=== PATIENT | female | born 1940 | race Caucasian/White ===

== ENCOUNTER 2018-12-06 12:30 | Emergency (ER) | payer MEDICARE, SELFPAY ==
[2018-12-06 12:31] VITALS: BP 158/88; PULSE 61; PULSE 63; RESP 17; TEMP 36.2; O2SAT 91; O2SAT 92; BMI 26.6
--- NOTE | 2018-12-06 12:48 | EKG12_ITS ---
Test Reason : DIZZY Blood Pressure : / mmHG Vent. 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
--- NOTE | 2018-12-06 12:48 | CT_ITS ---
STUDY: CT BRAIN WITHOUT CONTRAST REASON FOR EXAM: Female, 78 years old. Dizziness. RADIATION DOSAGE (If Supplied By Facility): CTDIvol = ( 60.81 ) mGy, DLP = ( 998.67 ) mGycm TECHNIQUE: Transaxial CT imaging of the brain was performed without administration of intravenous contrast material. Individualized dose optimization techniques were used for this CT. COMPARISON: No relevant priors. FINDINGS: Normal soft tissue structures. Normal calvarium. There is mild cerebral atrophy with widening of the extra-axial spaces and ventricular dilatation. Normal white matter tracts of the cerebral hemispheres. Normal basal ganglia and thalami. Normal brainstem. Normal cerebellum. There is no intracranial hemorrhage. There are no findings of an acute ischemic infarction. Atherosclerotic plaque formation of the cavernous portions of the internal carotid arteries bilaterally. Normal visualized paranasal sinuses. CT/Brain/Head without Contrast IMPRESSION: Chronic involutional changes of the brain. Electronically Signed: Petey Jimenez, at 14:20 EDT , Service support ,
[2018-12-06 12:59] VITALS: O2SAT 88
[2018-12-06 13:08] VITALS: O2SAT 96
[2018-12-06] MEDS: Ondansetron 4 MG/2 ML Vial IV (13:17)
[2018-12-06] MEDS: 0.9% Normal Saline 1,000 ML 1000 ML IV (13:17)
[2018-12-06 13:28] LABS: Anion Gap 3 (5-15); BUN 19 mg/dL (7-18); BUN/Creat Ratio 29.2 RATIO (10-20); Calcium,Total 9.2 mg/dL (8.5-10.1); Chloride 107 mmol/L (98-107); Creatinine, Serum 0.65 mg/dL (0.55-1.02); EST Glomerular Filtration Rate 94 mL/min (>60); Est Glom Filt Rate - Afr Amer 114 mL/min (>60); Estimated Creatinine Clearance 41.33 ml/min; Glucose 107 mg/dL (74-106); Potassium 3.7 mmol/L (3.5-5.1); Sodium Level 142 mmol/L (136-145)
[2018-12-06 13:40] LABS: Absolute Lymphocyte Count 1.16 X10^3/ul (0.83-4.51); Absolute Neutrophil Count 4.3 X10^3/uL (2.0-7.7); Basophil# 0.04 X10^3/uL; Basophil% 0.7 % (0-1); Eosinophil# 0.08 X10^3/uL; Eosinophils% 1.3 % (0-5); Hematocrit 41.7 % (37-47); Hemoglobin 13.5 g/dl (12.0-15.0); Lymphocyte # 1.16 X10^3/ul (4.0); Lymphocyte % 19.1 % (19-41); Mean Corp Hgb Conc 32.4 g/gl (32-36); Mean Corpuscular Hgb 28.8 pg (27.0-32.0); Mean Corpuscular Volume 88.9 fL (81-99); Mean Platelet Vol. 9.9 fl (6.2-12.0); Monocyte# 0.49 X10^3/uL; Monocyte% 8.1 % (0-10); Neutrophil # 4.28 X10^3/uL (2.7-7.7); Neutrophil % 70.5 % (47-70); Platelet Count 177 K/mm3 (150-450); RBC Distribution Width CV 12.6 % (11.6-14.6); RBC Distribution Width SD 40.2 fl (35.1-43.9); Red Blood Count 4.69 M/mm3 (4.2-5.4); White Blood Count 6.1 K/mm3 (4.4-11.0)
[2018-12-06 13:42] LABS: POSITIVE COUNT NO; POSITIVE DIFFERENTIAL NO; POSITIVE MORPHOLOGY NO
[2018-12-06 14:04] VITALS: BP 149/67; BP 162/83; BP 168/93; PULSE 51; PULSE 54; PULSE 58
--- NOTE | 2018-12-06 14:22 | ED.VISSUMM ---
- ER Visit Summary Date of Service: 12/06/18 Chief Complaint: [Dizziness] History of Present Illness: The patient is a 78 F [presents to the ER with complaint of dizziness that started around 11:30 AM today. Patient states that she was working on a crossword puzzle when she became acutely dizzy with room spinning. Patient subsequently developed nausea and vomited x2. Patient denied any headache. She denies any chest pain or shortness of breath. She denies any palpitations. She did not feel syncopal. Patient states that she is had prior episodes of dizziness but never this severe and usually were very short-lived. She has never been diagnosed with vertigo. She denies any weakness in extremities or difficulty with speech or vision.] Physical Examination: [HEENT-PERRLA, EOMI. Cranial nerves II through XII grossly intact. TMs clear. Mucous membranes moist. No adenopathy. Cardiovascular-regular rate and rhythm without murmur or ectopy Lungs-clear to auscultation, chest wall stable without crepitus or subcu emphysema Abdomen-normoactive bowel sounds, soft, nontender, no rebound or rigidity, no peritoneal signs. Neuro [id number] and heel eddy testing within normal limits, negative Romberg, negative pronator, fundi benign. Hallpike maneuver performed did not elicit any nystagmus. Extremities-intact ?4, normal range of motion, normal pulses, atraumatic] Test Results: [CBC with differential obtained showed a white count 6.1, hemoglobin 13, hematocrit 42, platelets 177. Chemistries unremarkable. Troponin is less than 0.015. EKG obtained showed a sinus rhythm with a ventricular rate of 51 bpm with a right bundle branch block and nonspecific ST changes. Orthostatic vital signs were negative. CT scan of the brain was unremarkable. Urinalysis was normal.] Emergency Department Course and Treatment: [Patient was medicated with normal saline and given Zofran. Patient's symptoms completely resolved. On repeat exam patient is asking to go home she feels back to her normal self.] Treatment Plan: [To follow-up with her primary care physician in 3 to 5 days.] Disposition: [Discharged home in stable condition. Patient advised to return if persistent dizziness, fever, focal weakness, or condition should worsen anyway.] Impression: [BPV] This note was generated with [employer] dictation software. It may contain incorrect words, spelling, and punctuation that were not noted in review of the chart prior to signing ED Disposition - Plan for ED Patient: Referrals: Paco Roque III, MD [Primary Care Provider] -
[2018-12-06 14:23] VITALS: BP 163/83; PULSE 76; RESP 18; O2SAT 97
[2018-12-06 14:23] LABS: Bacteria 0 SEEN /hpf (None Seen); Mucous, Urine 0 SEEN /hpf (<or=2+); Red Blood Cells-Urine 0 SEEN /hpf (0-5)
[2018-12-06 14:46] LABS: Color, Urine Yellow (Yellow); Glucose, Dipstick Normal (Normal); Ketone-Dipstick Negative (Negative); Leukocyte Esterase-Dipstick 25 /ul (Negative); Nitrite-Dipstick Negative (Negative); Occult Blood-Urine Negative /ul (Negative); Protein-Dipstick Negative (Negative); Specific Gravity, Urine 1.015 (1.002-1.030); Urine Bilirubin Dipstick Negative (Negative); Urine Clarity Sl. Cloudy (Clear); Urine Urobilinogen Normal (Normal)
[2018-12-06 14:54] LABS: Amorphous Sediment 2+; Squamous Epithelial Cells - UA 0-5 SEEN /hpf (5-10); White Blood Cells 0-5 SEEN /hpf (0-5)
--- NOTE | 2018-12-06 15:06 | ED.DEP ---
ED Disposition - Plan for ED Patient: Instructions: ED BPV Vertigo Referrals: Paco Roque III, MD [Primary Care Provider] - 3-5 Days
[2018-12-06 15:29] VITALS: BP 163/83; PULSE 76; RESP 18; O2SAT 99
--- NOTE | 2018-12-06 15:29 | NURSING ---
1400-pt up to br with sba and reports that dizziness much improved now.
== END 2018-12-06 15:31 | disposition home or self-care (01) ==
LOC: ED 13:24
PROVIDERS: Emergency Provider Emergency Medicine; Family Provider Family Medicine; PCP Family Medicine
DX: H81.10 Benign paroxysmal vertigo, unspecified ear (principal); I45.10 Unspecified right bundle-branch block; E78.00 Pure hypercholesterolemia, unspecified
CPT/HCPCS: 70450; 80048; 81001; 84484; 85025; 93005; 96361; 96374; 99285; J7030; J2405

== ENCOUNTER → 2019-07-03 06:15 | Outpatient (CLI) | payer MEDICARE, SELFPAY ==
--- NOTE | 2019-07-03 13:51 | STRESSREP_ITS ---
Stress Test Report Exercise myocardial perfusion stress test. 79-year-old lady with a history of chest pain. Medications: Lisinopril, vitamin C. Stress protocol: Resting EKG demonstrates sinus bradycardia with a rate of 56 bpm right bundle branch block is noted. The resting blood pressure is 122/84 mmHg. The patient exercised according to regular Sumit protocol for total duration of 8 minutes the maximum heart rate attained was 134 bpm which was 93% of maximum predicted heart rate the maximum workload was 10.1 metabolic equivalents. Patient mainta ined sinus rhythm throughout the recording. At rest there were no ST or T wave changes noted suggest ischemia peak exercise upsloping ST changes were noted with no evidence of ischemia noted. The resting blood pressure was 122/84 with a peak blood pressure 180/62 mmHg. Myocardial perfusion protocol. 11.0 mCi of technetium 99m sestamibi was injected at rest. Patient exercised for 8 minutes completing 2 minutes into stage III of the Sumit protocol to maximum heart rate was 134 bpm at peak exercise 33.0 mCi of technetium 99m sestamibi was injected stress images were obtained stress and rest images were reconstructed and compared in the short axis vertical long horizontal long axis. Gated images were also obtained Perfusion SPECT analysis: Review of the stress images demonstrate normal uptake of tracer noted in all areas of myocardium. The rest images similar demonstrate normal uptake of tracer noted in all areas of myocardium no areas of reversibility no suggest ischemia. Gated SPECT analysis: The gated ejection fraction is noted to be 64%. Conclusion: Normal exercise myocardial perfusion stress test at a high workload. No clinical angina noted. Preserved ejection fraction.
== END ==
PROVIDERS: Family Provider Family Medicine; PCP Family Medicine; Referring Provider Nurse Practitioner Family; Visit Provider Nurse Practitioner Family
DX: R07.89 Other chest pain (principal); R06.02 Shortness of breath
CPT/HCPCS: 78452; 93017; A9500; A4216

== ENCOUNTER 2019-08-04 17:09 | Emergency (ER) | payer MEDICARE, SELFPAY ==
[2019-08-04 17:11] VITALS: BP 138/80; PULSE 83; RESP 18; TEMP 36.3; O2SAT 97; BMI 26.9
--- NOTE | 2019-08-04 18:28 | ED.DCSUM_ITS ---
- ER Visit Summary Date of Service: 08/04/19 Chief Complaint: Back pain History of Present Illness: The patient is a 79 F who presents with back pain that is been getting worse over the past 2 weeks. Patient states the pain is sharp and stabbing. Patient states the pain is over the lower lumbar area. Pat ient states her pain is worse with prolonged sitting. Patient admits to some radiation down her left leg to her proximal calf. Patient admits to some paresthesias in her left calf. Patient denies any weakness. Patient denies any bowel or bladder changes. Patient denies any saddle anesthesia. Patient states she has been doing a lot of bending and lifting when she cares for her . Patient states she fell several weeks ago and had x-rays of her hips and low back done at that time. Patient states these did not show any fracture. Physical Examination: Vital signs are stable. Patient is afebrile. Patient is in no acute distress. Musculoskeletal exam reveals tenderness and spasm of the lumbar paraspinal muscles. There is no midline tenderness. There is no bony crepitance or step-off. Range of motion was slightly limited in all motions of the lumbar spine secondary to pain. Straight leg raises were negative bilaterally. Strength is 5/5 bilaterally in the upper and lower extremities. There are no sensory deficits noted. Deep tendon reflexes were 2+ in the right patella and 1+ in the left patella. They were 2+ in the Achilles bilaterally. Emergency Department Course and Treatment: Patient declined analgesics here in the emergency department. Patient was given a prescription for Flexeril. Patient was instructed to take this at bedtime. Patient was instructed to follow-up with her primary care physician in 5 to 7 days for further management of her pain. Patient understood and was agreeable with the plan. All questions were answered. Disposition: Discharge home Impression: Acute low back pain This note was generated with [employer] dictation software. It may contain incorrect words, spelling, and punctuation that were not noted in review of the chart prior to signing ED Disposition - Plan for ED Patient: Disposition: Home or Assisted Living Diagnosis: Low back pain Instructions: BACK PAIN w/ SCIATICA Prescriptions: cycloBENZAPRine HCl [Flexeril] 10 mg PO QHS PRN PRN #10 tab PRN Reason: Muscle Spasm Prescription Printed Referrals: Paco Roque III, MD [Primary Care Provider] - Keep Adiel appointment
== END 2019-08-04 18:42 | disposition home or self-care (01) ==
PROVIDERS: Emergency Provider Emergency Medicine; Family Provider Family Medicine; PCP Family Medicine
DX: M54.5 Low back pain (principal); R20.2 Paresthesia of skin; I10 Essential (primary) hypertension
CPT/HCPCS: 99282

== ENCOUNTER 2019-08-17 14:31 | Outpatient (RCR) | payer MEDICARE, SELFPAY ==
--- NOTE | 2019-08-17 15:28 | HP.PTEVAL ---
Patient's Visit Information BLANCA PARDO is a 79 year old F referred to Physical Therapy by RAFAEL JassoC with a diagnosis of LUMBAR RADICULOPATHY ,BILATERAL HIP REPLACEMENT. Date of Evaluation: 08/17/19 Physical Therapist: Kg Reyes, PT, Cert MDT, OCS - Visit Plan Frequency: 2x /Week Duration: 4 Weeks Plan: PT INTERVETIONS DLS ,POSTURAL EX'S,LE STRENGTHENING ,MODALTIES NEEDED - Subjective Findings: This 79 y/o female presents to physical therapy with lumbar radiculopathy left lower leg.Patient has had lumbar pain affectin left leg to foot. Patient has had parathesia in left foot. Patient symptoms increased taking care spouse. Patient had symptoms incidous onset in July in Lumbar affect left leg. Seen DR nixon MEDS predisone/gabepetin . Patient symptoms. getting some better. Patient symptoms worse with bending,lifting. Symptoms affected gait which patient couldnt work. Patient symptoms better MEDS. Symptoms can affects sleeping. Patient had x-rays -. Patient bowel/bladder-.Coughing sneezing -. Patient pain affects QOL and function. Patient pain affects ability to take care of spouse.COMORBITIES: Bilateral THR. VOCATION: retired. SOCIAL: - Pain Bilateral Back Pain Intensity (Out of 10): 2 Pain Intensity Range: 10 - Objective POSTURE: WFL. GAIT: reciprocal pattern. PALAPTION: unremarkable. NEURO: intact ,C/O left leg parathesia/tingling,reflexes L3-4,L4-L5 2/3. SYMMTRIES: align. MMT: 4/5 grossly quads/hams/hip/ankle. LUMBAR ROM: flexion WNL ,extension min loss,side glides min loss. FLEXABLITY: mild tight - Special Tests L/S Slump test left side: Negative L/S Slump test right side: Negative L/S Left Straight Leg Raise: Negative L/S Right Straight Leg Raise: Negative Lumbar Standing: Flexion - Mechanical Response: No effect Lumbar Standing: Flexion - Symptoms During Testing: No effect Lumbar Standing: Flexion - Symptoms After Testing: No effect Lumbar Standing: Extension - Mechanical Response: No effect Lumbar Standing: Extension - Symptoms During Testing: No effect Lumbar Standing: Extension - Symptoms After Testing: No effect - Goals Goal 1:: Patient to be Independant with HEP Goal Time Frame: 4-6 Weeks Goal 2:: Patient improve posture for ADL Goal Time Frame: 4-6 Weeks Goal 3:: Patient to decrease lumbar symptoms ny 50 % or greater to improve function Goal Time Frame: 4-6 Weeks Goal 4:: Patient to improve lumbar ROM for function of recovery Goal Time Frame: 2-4 Weeks Goal 5:: Patient to improve back owestry score by 5 points or > to improve QOL. Goal Time Frame: 4-6 Weeks - Rehabilitation Potential Physical Therapy Diagnosis: This patient has lumbar radiculopathy affects left left intially requiring use of FWW for gait ,decrease ROM lumbar,pain with ADLS' and function Rehabilitation Potential: Good - Anticipated Interventions Patient/Client Instruction: Educate patient on: Condition, Plan of Care For the Purpose of:: To decrease pain, To increase ROM, To improve muscle performance and motor function, To improve ability to perform ADL's, To improve ability of physical actions for home/community/work/leisure, To improve health of tissue, To decrease soft tissue restriction, To increase flexibility/ROM, To improve ability to perform tasks related to life management Therapeutic Exercise to Include: Strength training, Postural training, Flexibilty training, Dynamic Lumbar Stabilization For the Purpose of:: To decrease pain, To increase ROM, To improve muscle performance and motor function, To improve ability to perform ADL's, To increase tolerance to activity/condition/position, To improve ability of physical actions for home/community/work/leisure, To improve health of tissue, To decrease soft tissue restriction, To increase flexibility/ROM, To improve ability to perform tasks related to life management Thank you for the opportunity to evaluate your patient. For Medicare and Medicare HMO plans, please review the plan of care and approve it. It will need to be FAXED BACK to us at [phone] for Medicare purposes. For Medicare only, by signing this I certify the plan of care. Please let me know if there are questions or concerns regarding this plan of care. Physician Signature: Date:
--- NOTE | 2019-09-22 13:04 | HP.PTDCSUM ---
HP - PT D/C Summary It has been my pleasure to treat BLANCA PARDO under orders from Kiley Calero NP-C, for the diagnosis of LUMBAR RADICULOPATHY ,BILATERAL HIP REPLACEMENT for a total of 1 visit(s). Discharge Date: Please see the following information for a summary of their discharge status. - Pain Bilateral Back Pain Intensity (Out of 10): 2 - Goals Goal 1:: Patient to be Independant with HEP Goal 2:: Patient improve posture for ADL Goal 3:: Patient to decrease lumbar symptoms ny 50 % or greater to improve function Goal 4:: Patient to improve lumbar ROM for function of recovery Goal 5:: Patient to improve back owestry score by 5 points or > to improve QOL. - Plan Plan: PT INTERVETIONS DLS ,POSTURAL EX'S,LE STRENGTHENING ,MODALTIES NEEDED - D/C Information If there are questions or concerns regarding this patient's physical therapy, please feel free to call me at [phone]. Thank you for the referral of this patient. Sincerely, Kg Reyes, PT, Cert MDT, OCS
== END 2019-08-17 19:00 | disposition home or self-care (01) ==
LOC: PT 14:31
PROVIDERS: Family Provider Family Medicine; PCP Family Medicine; Referring Provider Nurse Practitioner Family; Visit Provider Nurse Practitioner Family
DX: M54.16 Radiculopathy, lumbar region (principal); Z96.643 Presence of artificial hip joint, bilateral
CPT/HCPCS: 97110; 97162

== ENCOUNTER 2019-11-19 10:23 | Emergency (ER) | payer MEDICARE, SELFPAY ==
[2019-11-19 10:25] VITALS: BP 161/87; PULSE 62; RESP 16; TEMP 36.5; O2SAT 95; BMI 26.5
--- NOTE | 2019-11-19 10:49 | RAD_ITS ---
STUDY: X-RAY CHEST REASON FOR EXAM: Female, 79 years old. chest pain TECHNIQUE: Single AP portable view of the chest. COMPARISON: 06 Dec 2015 FINDINGS: The lungs are clear and expanded. There is no demonstrated pleural abnormality. There is borderline cardiomegaly. Normal mediastinum and leonides. Normal visualized pulmonary arteries. There is atherosclerotic calcification of the aortic arch with tortuosity. Normal visualized thoracic spine. Normal visualized ribs, clavicles, and shoulders. There is no demonstrated abnormality of the visualized soft tissue structures of the upper abdomen. RAD/Chest 1 View (Portable) IMPRESSION: Overall similar appearance compared to previous with no evidence of acute process. Electronically Signed: Jim Hawk DO at 11:18 EDT , Service support ,
--- NOTE | 2019-11-19 10:49 | EKG12_ITS ---
Test Reason : COUGH Blood Pressure : / mmHG Vent. Rate : 056 BPM Atrial Rate : 056 BPM P-R Int : 142 ms QRS Dur : 132 ms QT Int : 444 ms P-R-T Axes : 037 -44 021 degrees QTc Int : 428 ms Sinus bradycardia Left axis deviation Right bundle branch block Inferior infarct , age undetermined, cannot be excluded Abnormal ECG Confirmed by PAT ROSE, BUSHRA ([id number]), editor at large APARNA DUMONT ([id number]) on 11/22/2019 9:29:10 AM Referred By: NELLA/RU Confirmed By:BUSHRA STEWART MD
--- NOTE | 2019-11-19 10:52 | ED.VIS.URI ---
History of Present Illness Chief Complaint: Cough Informant: Patient Onset: Today Context: Sudden Onset Timing: Continuous Quality: tightness Location: chest Current Severity: Mild Maximum Severity: Mild Worsened by: - - coughing Relieved by: - - rest Associated Symptoms: Chest Pain, Nonproductive cough. Negative for: Nasal Congestion, Headache, Sinus Pressure, Myalgias, Nausea, Vomiting, Diarrhea, Shortness of Breath, Hemoptysis, Productive Cough Narrative: 79-year-old female with a history of hypertension presents to the emergency department with cough. Patient has been having a cough intermittently for about 2 months. This morning she had a severe coughing spell to the point where she almost vomited which prompted her visit here to the emergency department today. No shortness of breath. She states that she has had some very mild chest pain since this incident occurred. She is not lightheaded or dizzy. No nausea vomiting or diarrhea. No leg pain or swelling or hemoptysis. No fevers. No sick contacts. No recent travel or surgery. No history of DVT or PE. She did have a stress test about 6 months ago that was unremarkable. No history of coronary disease. Prior similar symptoms: Yes Recent Illness/Hospitalization: No Past Medical History - Allergies and Home Meds Allergies/Adverse Reactions: Allergies codeine Adverse Reaction (Verified 11/19/19 10:25) Other HEAD FELT STRANGE Primary Care Physician: Paco Roque III, MD [Primary Care Provider] - Prior records reviewed: Yes Past Medical History: - - HTN Surgical History: - - Bilateral total hip replacement, left leg plate following trauma, bilateral tubal ligation. Lives: Alone Smoking Status: Never smoker Alcohol: None Drugs: None - Family History Maternal Family History: Reports: Stroke Paternal Family History: Reports: Heart Disease Review of Systems All systems negative except as indicated General: Denies: Chills, Fever, Malaise Eyes: Denies: Visual changes - bilaterally, Blurred Vision - bilaterally, Diplopia ENT: Denies: Bilateral ear pain, Rhinorrhea, Sore throat Cardiovascular: Reports: Chest pain. Denies: Palpitations, Heart racing Respiratory: Reports: Cough. Denies: Dyspnea, Sputum, Dyspnea on exertion, Orthopnea, Paroxysmal nocturnal dyspnea Gastrointestinal: Denies: Abdominal pain, Nausea, Vomiting, Diarrhea Genitourinary: Denies: Dysuria, Hematuria, Frequency Musculoskeletal: Denies: Myalgias, Arthralgias, Neck pain, Back pain, Swelling, Extremity Pain Skin: Denies: Rash, Abscess, Abrasions, Wounds Neurological: Denies: Headache, Weakness, Parasthesia, Numbness Psych: Reports: Depression. Denies: Anxiety Physical Exam Vital Signs/Narrative: Vital Signs Temp Pulse Resp BP Pulse Ox 11/19/19 10:25 97.7 F L 62 16 161/87 H 95 Inital Vital Signs reviewed: Yes General: Well nourished, Well developed Head: Normocephalic, Atraumatic Eyes: Perrl, EOMI Ears: Normal external canal, TM's clear Nose: Normal Inspection, No Rhinorrhea Mouth/Throat: Normal Inspection, No Posterior Erythema, Airway Patent Neck: Supple, Nontender, No Lymphadenopathy, No Meningismus Cardiovascular: Regular rate, Regular rhythm, No murmurs Respiratory: No distress, CTA bilaterally, Chest nontender Abdomen: Soft, Nontender, Nondistended, Normal bowel sounds, No masses Back: Nontender, Normal Inspection Extremities: Nontender, No edema Skin: Normal color, No rash, No Trauma Neurological: Alert, Oriented x3 Psychological: Depressed, Tearful. Negative for: Agitated Diagnostic/Tx/Re-eval Chest X-Ray - ED: 1 View, Read by ED Physician, Read by Radiologist, No Acute Disease - Rhythm Strip Rhythm Strip: Sinus Rhythm Rate: 56 Ectopy: None - EKG Initial EKG Interpretation: Sinus Rhythm, No Acute Injury Pattern - Medical Decision Making Patient presents to emergency department with chest pain and a cough since September. EKG was sinus bradycardia. Right bundle branch block. No acute ischemic changes. Unchanged from previous EKG. Chest x-ray unremarkable. CBC, BMP and troponin all are unremarkable. D-dimer is elevated. CTA chest shows bilateral groundglass changes. Repeat exam patient's vital signs are stable. She states that she has been seeing her family and going to the grocery store but has not had a fever no productive cough she is not short of breath but I did speak with the health department who approved a coronavirus test. Spoke with her primary care physician Dr. Hu as well. Recommended we switch her from lisinopril to Cozaar and place her on Levaquin. ED Disposition - Plan for ED Patient: Disposition: Home or Assisted Living Diagnosis: Chest pain, Viral URI with cough Instructions: ED PNEUMONITIS Adult Prescriptions: Losartan Potassium [Cozaar] 25 mg PO DAILY #30 tab Prescription Printed Levofloxacin [Levaquin] 750 mg PO DAILY #7 tab Prescription Printed Referrals: Paco Roque III, MD [Primary Care Provider] -
[2019-11-19 10:58] VITALS: O2SAT 95
[2019-11-19] MEDS: Aspirin 81 MG TAB.CHEW 324 MG PO (10:59)
[2019-11-19] MEDS: 0.9% Normal Saline 1,000 ML 150 ML IV (10:59)
[2019-11-19 11:00] VITALS: O2SAT 95
[2019-11-19 11:15] LABS: Absolute Lymphocyte Count 1.75 X10^3/uL (0.83-4.51); Absolute Neutrophil Count 3.9 X10^3/uL (2.0-7.7); Anion Gap 4 (5-15); BUN 13 mg/dL (7-18); BUN/Creat Ratio 20.8 RATIO (10-20); Basophil# 0.05 X10^3/uL; Basophil% 0.8 % (0-1); Calcium,Total 9.8 mg/dL (8.5-10.1); Chloride 107 mmol/L (98-107); Creatinine, Serum 0.63 mg/dL (0.55-1.02); EST Glomerular Filtration Rate 98 mL/min (>60); Eosinophils% 1.6 % (0-5); Est Glom Filt Rate - Afr Amer 119 mL/min (>60); Estimated Creatinine Clearance 38.97 ml/min; Glucose 84 mg/dL (74-106); Hematocrit 45.8 % (37-47); Hemoglobin 14.7 g/dL (12.0-15.0); Lymphocyte # 1.75 X10^3/ul (4.0); Lymphocyte % 27.2 % (19-41); Mean Corp Hgb Conc 32.1 g/dL (32-36); Mean Corpuscular Hgb 29.3 pg (27.0-32.0); Mean Corpuscular Volume 91.2 fL (81-99); Mean Platelet Vol. 10.8 fl (6.2-12.0); Monocyte# 0.64 X10^3/uL; NRBC Flagged by Analyzer 0 % (0-5); Neutrophil # 3.86 X10^3/uL (2.7-7.7); Neutrophil % 59.9 % (47-70); Platelet Count 157 K/mm3 (150-450); RBC Distribution Width CV 12.3 % (11.6-14.6); RBC Distribution Width SD 40.6 fl (35.1-43.9); Red Blood Count 5.02 M/mm3 (4.2-5.4); Sodium Level 142 mmol/L (136-145); White Blood Count 6.4 K/mm3 (4.4-11.0)
--- NOTE | 2019-11-19 11:31 | CT_ITS ---
STUDY: CTA CHEST REASON FOR EXAM: Female, 79 years old. Elevated D-dimer, chest pain, cough x 2 months, hoarse. Denies fever. RADIATION DOSAGE (If Supplied By Facility): CTDIvol = ( 11.45 ) mGy, DLP = ( 349.22 ) mGycm TECHNIQUE: The examination was performed with the intravenous administration of 75mL Isovue 370. Post-processing of the angiographic images was performed, with multiplanar reformation and 3D reconstruction. Individualized dose optimization techniques were used for this CT. COMPARISON: Chest x-ray FINDINGS: Normal enhancement of the main pulmonary artery and right and left pulmonary arteries. Normal enhancement of the bilateral peripheral pulmonary arteries. There is no demonstrated pulmonary embolism. Normal thoracic aorta and visualized great vessels. There is no demonstrated aortic dissection. Normal heart and pericardium. Normal mediastinum. Normal hilar regions. Normal visualized trachea and bronchi. The lungs are well expanded. There are mild increased interstitial septal and groundglass parenchymal markings in the mid and lower lungs. Normal pleura. Normal chest wall structures. There are degenerative changes of thoracic spine. Normal visualized upper abdomen. CT/CTA Chest W/WO Contrast IMPRESSION: CTA chest examination, without a demonstrated pulmonary embolism or arterial dissection. Interstitial infiltrates and/or edema. Electronically Signed: Jamie Sanchez MD at 12:47 EDT , Service support ,
[2019-11-19] MEDS: levoFLOXacin 750 MG Tablet PO (13:41)
--- NOTE | 2019-11-19 13:45 | ED.DCSUM_ITS ---
- ER Visit Summary Date of Service: 11/19/19 Chief Complaint: [Cough] History of Present Illness: The patient is a 79 F [presents the emergency department with a cough that she said for about 2 months. Today she coughed so hard that she felt she was in a vomit. Patient became very concerned. Because been mostly nonproductive. She denies any fevers. Patient had some chest pain yesterday lasting into today in the left chest radiating through to her back. That pain is since mostly resolved. Patient states she had a stress test in July 2019 which was unremarkable. She has no heart history. Patient was also started on lisinopril in July. Denies any sick contacts or exposures to anybody with COVID-19. Patient also states that her a couple weeks ago and she lives alone currently.] Physical Examination: [HEENT-PERRLA, EOMI. Cranial nerves II through XII grossly intact. TMs clear. Mucous membranes moist. No adenopathy. Cardiovascular-regular rate and rhythm without murmur or ectopy Lungs-clear to auscultation, chest wall stable without crepitus or subcu emphysema Abdomen-normoactive bowel sounds, soft, nontender, no rebound or rigidity, no peritoneal signs. Extremities-intact ?4, normal range of motion, normal pulses, atraumatic] Test Results: [Patient's labs were unremarkable. She had a CT scan of the chest that showed by lateral groundglass opacities without evidence of PE or DVT.] Emergency Department Course and Treatment: [Patient will be started on Levaquin as well as Cozaar and she will be asked to discontinue her lisinopril. I did discuss case with physician on-call for her primary care physician. We discussed case with [facility] who will approve COVID-19 testing as well.] Treatment Plan: [Patient advised to self isolate until she gets her test results back. Patient will be switched to Cozaar from lisinopril.] Patient will be started on Levaquin. Disposition: [Discharged home in stable condition] Impression: [Cough Bilateral pneumonia-viral versus bacterial] This note was generated with [employer] software. It may contain incorrect words, spelling, and punctuation that were not noted in review of the chart prior to signing ED Disposition - Plan for ED Patient: Disposition: Home or Assisted Living Diagnosis: Chest pain, Viral URI with cough Instructions: ED PNEUMONITIS Adult Prescriptions: Losartan Potassium [Cozaar] 25 mg PO DAILY #30 tab Prescription Printed Levofloxacin [Levaquin] 750 mg PO DAILY #7 tab Prescription Printed Referrals: Paco Roque III, MD [Primary Care Provider] -
[2019-11-19 13:48] VITALS: BP 148/78; PULSE 72; RESP 18; O2SAT 97
--- NOTE | 2019-11-21 19:57 | NURSING ---
Pt notified via phone of negative COVID test by this RN.
== END 2019-11-19 13:49 | disposition home or self-care (01) ==
PROVIDERS: Emergency Provider Physician Assistant Medical; PCP Family Medicine
DX: R07.9 Chest pain, unspecified (principal); J06.9 Acute upper respiratory infection, unspecified; R05 Cough; I10 Essential (primary) hypertension; I45.10 Unspecified right bundle-branch block; Z82.49 Family history of ischemic heart disease and other diseases of the circulatory system; Z88.5 Allergy status to narcotic agent
CPT/HCPCS: 71045; 71275; 80048; 84484; 85025; 85379; 87635; 93005; 96360; 96361; 99285; J7030; Q9967; A4216; U0004

== ENCOUNTER 2020-06-01 15:57 | Emergency (ER) | payer MEDICARE, SELFPAY ==
[2020-06-01 15:58] VITALS: BP 148/90; PULSE 71; RESP 16; TEMP 35.5; O2SAT 97; BMI 27.4
--- NOTE | 2020-06-01 16:23 | RAD_ITS ---
STUDY: X-RAY CHEST REASON FOR EXAM: Female, 80 years old. Cough,fever, sore throat, nausea. TECHNIQUE: AP COMPARISON: 11/19/2019 FINDINGS: EKG leads project over the chest. Lungs are underexpanded with minor fibrotic changes in the lung bases, stable. There is no demonstrated pleural abnormality. Normal size heart. Normal mediastinum and leonides. Normal visualized pulmonary arteries. There is atherosclerotic tortuosity of the aortic arch and descending thoracic aorta. There is demineralization of the osseous structures. There is degenerative osteoarthritis of the bilateral shoulders. There is no demonstrated abnormality of the visualized soft tissue structures of the upper abdomen. RAD/Chest 1 View (Portable) IMPRESSION: Stable, nonacute portable x-ray examination of the chest. Electronically Signed: Binu Alvarez MD (Brooks) at 17:11 EDT , Service support ,
--- NOTE | 2020-06-01 16:24 | ED.VISSUMM ---
- ER Visit Summary Date of Service: 06/01/20 Chief Complaint: Sore throat and cough History of Present Illness: The patient is a 80 F history of hypertension. Patient states that was in she had fever since resolved. It was subjective. Now states states that she has a mild sore throat and mild nonproductive cough. No shortness of breath. No abdominal pain. No dysuria. No rash. No headache. Physical Examination: Alert female no acute distress vital signs stable afebrile. Pulse ox 97% on room air no signs hypoxia. HEENT exam unremarkable. Posterior pharynx normal. No erythema or exudate. No trouble swallowing or breathing. No stridor. No drooling. Neck nontender no lymphadenopathy. No meningismus. Lungs clear to auscultation bilaterally. Heart regular rate and rhythm no murmur. Rate is 70. Abdomen soft nontender normal bowel sounds no peritoneal signs. Remedies moves all 4. Calves are nontender without edema or cords. Back nontender. Neurologically she is awake alert with no focal motor deficits. Test Results: Chest x-ray portable 1 view shows no acute abnormality read by myself. Covid send out test Emergency Department Course and Treatment: Clinically patient looks good. Most likely this is a viral URI. Potentially could be Covid she clinically looks well and is not hypoxic she would not be admitted. Repeat exam patient is doing well at 4:57 PM. Treatment Plan: Plenty of fluids and rest. Tylenol Motrin as needed. Follow-up as needed. Return if worse. Disposition: discharge Impression: Viral URI Rule out COVID-19 This note was generated with [employer] dictation software. It may contain incorrect words, spelling, and punctuation that were not noted in review of the chart prior to signing ED Disposition - Plan for ED Patient: Disposition: Home or Assisted Living Instructions: ED URI Viral Referrals: Paco Roque III, MD [Primary Care Provider] - 3-5 Days if not improving Additional Instructions: Continue fluids and rest. Tylenol and/or Motrin for body aches and fever. The Covid test is a send out the state will notify you of the results if positive. Follow-up with your doctor if not improving or return to emergency department if feeling a lot worse.
--- NOTE | 2020-06-01 16:27 | ED.DEP ---
ED Disposition - Plan for ED Patient: Disposition: Home or Assisted Living Instructions: ED URI Viral Referrals: Paco Roque III, MD [Primary Care Provider] - 3-5 Days if not improving Additional Instructions: Continue fluids and rest. Tylenol and/or Motrin for body aches and fever. The Covid test is a send out the state will notify you of the results if positive. Follow-up with your doctor if not improving or return to emergency department if feeling a lot worse.
[2020-06-01 16:51] VITALS: BP 148/90; PULSE 71; RESP 16; TEMP 36.7; O2SAT 97
== END 2020-06-01 17:16 | disposition home or self-care (01) ==
LOC: ED 17:15
PROVIDERS: Emergency Provider Emergency Medicine; PCP Family Medicine
DX: J06.9 Acute upper respiratory infection, unspecified (principal); I10 Essential (primary) hypertension
CPT/HCPCS: 71045; 87635; 99282; U0003

== ENCOUNTER 2022-06-04 07:29 | Emergency (ER) | payer MEDICARE, SELFPAY ==
[2022-06-04 07:30] VITALS: BP 163/88; PULSE 81; RESP 16; TEMP 35.7; O2SAT 95; BMI 27.0
--- NOTE | 2022-06-04 07:49 | EDS_ITS ---
HPI History of Present Illness Chief Complaint: Chest Other Informant: patient Narrative Narrative: Patient presents with left-sided anterior lateral chest pain. She states it was there all day yesterday and is still there. Sometimes it hurts to press or move. It does hurt when she coughs. Just taking breaths and deep breaths does not hurt. She denies any specific injury. However, she was diagnosed with COVID on 20 May. She mostly had sore throat and congestion but she did have a nonproductive cough. She is not sure if she may have hurt herself coughing. She does not have hypoxia. The COVID symptoms have improved. She is not short of breath. She has no history of heart disease. Only risk factor is high blood pressure for which she takes losartan. She has no recent travel surgery immobilization personal or family history of DVT or PE. [facility] Medical History (Updated 06/04/22 @ 11:[address] Maximus Enrique MD) Hypertension Home Medications ascorbic acid (vitamin C) 500 mg tablet (Vitamin C) 500 mg PO DAILY@0800 05/01/15 [History Last Taken 11/19/19] calcium carbonate 600 mg-vitamin D3 20 mcg (800 unit) tablet 1 ea PO BID 05/01/15 [History Last Taken 11/19/19] losartan 25 mg tablet 25 mg PO DAILY #30 tabs 11/19/19 [Rx Last Taken Unknown] magnesium 250 mg tablet 3 tab PO DAILY 06/01/20 [History Last Taken Unknown] zinc gluconate 50 mg tablet 50 mg PO DAILY 06/01/20 [History Last Taken Unknown] benzonatate 100 mg capsule 100 mg PO TID PRN cough #14 caps 06/04/22 [Rx Last Taken Unknown] Allergy/AdvReac Type Severity Reaction Status Date / Time codeine AdvReac Other Verified 06/04/22 07:30 Surgical History (Updated 06/04/22 @ 08:25 by Sariah Randall) History of bilateral hip arthroplasty Social History Smoking Status: Never smoker ROS ROS ED Constitutional Constitutional ED: Denies chills or fever(s) Eyes Eyes: Denies change in vision ENT ENT ED: Denies ear pain, rhinorrhea or sore throat Cardiovascular Cardiovascular: Reports as per HPI Respiratory/Chest Respiratory/Chest: Reports cough; Denies dyspnea or sputum Gastrointestinal Gastrointestinal: Denies abdominal pain, nausea or vomiting Musculoskeletal Musculoskeletal: Denies arthralgias, back pain, myalgias or neck pain Integumentary Denies rash Neurologic Neurologic: Denies headache(s), paresthesias or weakness Endocrine Endocrinology: Denies polydipsia or polyuria Hematologic/Lymphatic Hematologic/Lymphatic: Denies easy bleeding or easy bruising Allergic/Immunologic Allergic/Immunologic ED: Denies urticaria EXAM Physical Exam Const Vital Signs: 06/04/22 07:30 06/04/22 09:32 Temperature 96.3 F L Temperature Source Temporal Pulse Rate 81 64 Respiratory Rate 16 16 Blood Pressure 163/88 H 150/92 H Blood Pressure Mean 113 111 Pulse Ox 95 92 Oxygen Delivery Method Room Air Positive well nourished General Appearance ED: NAD HEENT Reports moist mucous membranes Neck no JVD Chest Wall inspection of chest normal Chest Narrative: She does have some mild chest wall tenderness in the anterior lateral chest really at the anterior axillary line. No skin changes. When I have her sit up in bed this area also hurts. Resp normal respiratory effort and clear to auscultation bilaterally Resp Narrative: No indication of pain with a deep breath. Auscultation: Negative for rales, rhonchi or wheezes Cardio regular rate, regular rhythm and no murmurs GI normal to inspection, nondistended, normoactive bowel sounds and soft to palpation Back/Spine no CVA tenderness Extremity normal to inspection General Extremety ED: Negative for edema or pulses abnormal General Extremity: Negative for edema or pulses abnormal Neuro oriented x3 Sensorium / Orientation: awake and alert Psych mental status grossly normal Skin no rashes or lesions noted Skin Narrative: No vesicles erythema or mass. MDM MDM MDM Narrative Medical decision making narrative: Chest x-ray and CT a of her chest did not show any acute significant findings. EKG showed no acute process. D-dimer was elevated this is why the CTA was done. But CBC was normal. Electrolytes were normal. Troponin was negative with more than a day of symptoms. Patient's thinks this is really from coughing. She notes that really it is coughing that bothers it. We will try Tessalon Perles it sounds like she may have used these before for cough. She was going to take Tylenol for pain. We discussed reasons to return. Lab Data Attestation: I reviewed the patient's lab results. Labs: Laboratory Results - last 24 hr 06/04/22 06/04/22 06/04/22 08:20 08:20 08:20 WBC 8.6 RBC 4.53 Hgb 13.7 Hct 40.4 MCV 89.2 MCH 30.2 MCHC 33.9 RDW Std Deviation 41.0 RDW Coeff of Inge 12.5 Plt Count 203 MPV 9.4 Immature Gran % (Auto) 0.400 Neut % (Auto) 77.8 H Lymph % (Auto) 13.9 L Galax % (Auto) 6.4 Eos % (Auto) 0.8 Baso % (Auto) 0.7 Absolute Neuts (auto) 6.7 Absolute Lymphs (auto) 1.19 Nucleated RBC % 0 D-Dimer Quant (PE/DVT) 0.97 H* Sodium 139 Potassium 3.8 Chloride 104 Carbon Dioxide 32.0 Anion Gap 3 L BUN 14 Creatinine 0.57 Estim Creat Clear Calc 37.12 Est GFR (MDRD) Af Amer 132 Est GFR (MDRD) Non-Af 109 BUN/Creatinine Ratio 24.6 H Glucose 100 Calcium 9.0 Troponin I High Sens 6 Radiography Diagnostic Testing: Clinical Impression(s) from Imaging Studies Chest X-Ray 06/04/22 08:00 IMPRESSION: Chronic interstitial changes, no superimposed acute pulmonary process or significant interval change Electronically Signed: Gal Lopez MD at 8:19 EDT Reading Location ID and State: [facility] / [place] , Service support , Chest CTA 06/04/22 09:26 IMPRESSION: No demonstrated PE, or thoracic aortic aneurysm or dissection Chronic interstitial changes in both lung schuler without a superimposed acute pulmonary process Calcified coronary vessels Degenerative bony changes Simple hepatic cyst, no specific follow-up needed. Electronically Signed: Gal Lopez MD at 10:21 EDT , Chest x-ray showed chronic changes but no acute process. With the elevated D- dimer and symptoms, we did do CT PE that showed no aneurysm or dissection or PE. Chronic interstitial changes. EKG Initial EKG: Comments: EKG done for chest pain read by me shows a normal sinus rhythm with overall rate of 83. No ventricular ectopy. There is a right bundle branch block. Nonspecific ST and T wave changes likely related to the block. No convincing evidence of ST elevation consistent with a STEMI. This EKG is similar to a prior from 19 November 2019. Discharge Plan Triage Chief Complaint: Chest Other ED Provider: Maximus Enrique Dx/Rx/DC Orders Clinical Impression: Left-sided chest wall pain, Cough, History of COVID-19 Instructions: ED Chest Pain, Uncertain Cause Prescriptions: New benzonatate 100 mg capsule 100 mg PO TID PRN (Reason: cough) Qty: 14 0RF No Action ascorbic acid (vitamin C) [Vitamin C] 500 MG tablet 500 mg PO DAILY@0800 calcium carbonate-vitamin D3 1 EACH tablet 1 ea PO BID losartan 25 MG tablet 25 mg PO DAILY Qty: 30 0RF zinc gluconate 50 MG tablet 50 mg PO DAILY magnesium 250 MG tablet 3 tab PO DAILY Primary Care Provider: Gucci Huang Referrals: Gucci Huang MD [Primary Care Provider] - 3-5 Days if not improving Disposition Disposition: Home, Self Care
--- NOTE | 2022-06-04 07:55 | EKG12_ITS ---
Test Reason : CP Blood Pressure : / mmHG Vent. Rate : 083 BPM Atrial Rate : 083 BPM P-R Int : 166 ms QRS Dur : 134 ms QT Int : 410 ms P-R-T Axes : 032 -63 001 degrees QTc Int : 481 ms Normal sinus rhythm Right bundle branch block Left anterior fascicular block Bifascicular block Cannot rule out Inferior infarct , (masked by fascicular block?), age undetermined Abnormal ECG Confirmed by JANET ROSE, JENNIFER ([id number]), web editor CHITRA DECKER ([id number]) on 06/08/2022 1:05:54 PM Referred By: ANA Confirmed By:JENNIFER GONZALES MD
--- NOTE | 2022-06-04 08:00 | RAD_ITS ---
STUDY: X-RAY CHEST REASON FOR EXAM: Female, 82 years old. Fever and cough TECHNIQUE: Single AP portable view of the chest. COMPARISON: 06/01/2020 FINDINGS: EKG leads overlie the chest Chronic interstitial changes without a superimposed acute pulmonary process. There is no demonstrated pleural abnormality. Normal size heart. Normal mediastinum and leonides. Normal visualized pulmonary arteries. There is atherosclerotic calcification of the aortic arch with tortuosity. There are diffuse degenerative changes of the visualized thoracic spine. There is degenerative osteoarthritis of the bilateral shoulders. There is no demonstrated abnormality of the visualized soft tissue structures of the upper abdomen. RAD/Chest 1 View (Portable) IMPRESSION: Chronic interstitial changes, no superimposed acute pulmonary process or significant interval change Electronically Signed: Gal Lopez MD at 8:19 EDT ,
[2022-06-04 08:29] LABS: Absolute Lymphocyte Count 1.19 X10^3/uL (0.83-4.51); Absolute Neutrophil Count 6.7 X10^3/uL (2.0-7.7); Basophil# 0.06 X10^3/uL; Basophil% 0.7 % (0-1); Eosinophil# 0.07 X10^3/uL; Eosinophils% 0.8 % (0-5); Hematocrit 40.4 % (37-47); Hemoglobin 13.7 g/dL (12.0-15.0); Lymphocyte # 1.19 X10^3/ul (0.83-4.51); Lymphocyte % 13.9 % (19-41); Mean Corp Hgb Conc 33.9 g/dL (32-36); Mean Corpuscular Hgb 30.2 pg (27.0-32.0); Mean Corpuscular Volume 89.2 fL (81-99); Mean Platelet Vol. 9.4 fl (6.2-12.0); Monocyte# 0.55 X10^3/uL; Monocyte% 6.4 % (0-10); NRBC Flagged by Analyzer 0 % (0-5); Neutrophil # 6.65 X10^3/uL (2.7-7.7); Neutrophil % 77.8 % (47-70); Platelet Count 203 K/mm3 (150-450); RBC Distribution Width CV 12.5 % (11.6-14.6); Red Blood Count 4.53 M/mm3 (4.2-5.4); White Blood Count 8.6 K/mm3 (4.4-11.0)
[2022-06-04 08:51] LABS: Anion Gap 3 (5-15); BUN 14 mg/dL (7-18); BUN/Creat Ratio 24.6 RATIO (10-20); Chloride 104 mmol/L (98-107); Creatinine, Serum 0.57 mg/dL (0.55-1.02); EST Glomerular Filtration Rate 109 mL/min (>60); Est Glom Filt Rate - Afr Amer 132 mL/min (>60); Estimated Creatinine Clearance 37.12 ml/min; Glucose 100 mg/dL (74-106); Potassium 3.8 mmol/L (3.5-5.1); Sodium Level 139 mmol/L (136-145); Troponin-I HS 6 pg/mL (3.0-54.0)
[2022-06-04 08:59] LABS: D-Dimer Quantitative (DVT/PE) 0.97 FEU/ug/m (0.27-0.49)
--- NOTE | 2022-06-04 09:26 | CT_ITS ---
STUDY: CTA CHEST REASON FOR EXAM: Female, 82 years old. Atypical chest pain, diaphoresis RADIATION DOSAGE (If Supplied By Facility): CTDIvol = ( 11.06 ) mGy, DLP = ( 345.69 ) mGycm TECHNIQUE: The examination was performed with the intravenous administration of IV 100mL Isovue-370. Post-processing of the angiographic images was performed, with multiplanar reformation and 3D reconstruction. Individualized dose optimization techniques were used for this CT. COMPARISON: 11/19/2019 FINDINGS: Normal enhancement of the main pulmonary artery and right and left pulmonary arteries. Normal enhancement of the bilateral peripheral pulmonary arteries. There is no demonstrated pulmonary embolism. There is atherosclerotic calcification of the aortic arch with tortuosity. There is no demonstrated aortic dissection. Normal heart and pericardium. There are calcifications of the coronary arteries. Normal mediastinum. Normal hilar regions. There is peribronchial thickening. The lungs are well expanded. Chronic interstitial changes in both lung schuler without superimposed acute pulmonary process. Normal pleura. Normal chest wall structures. There are degenerative changes of thoracic spine. Limited cuts through the upper abdomen show simple hepatic cyst CT/CTA Chest W/WO Contrast IMPRESSION: No demonstrated PE, or thoracic aortic aneurysm or dissection Chronic interstitial changes in both lung schuler without a superimposed acute pulmonary process Calcified coronary vessels Degenerative bony changes Simple hepatic cyst, no specific follow-up needed. Electronically Signed: Gal Lopez MD at 10:21 EDT ,
[2022-06-04 09:32] VITALS: BP 150/92; PULSE 64; RESP 16; O2SAT 92
[2022-06-04 11:00] VITALS: BP 152/80; PULSE 71; RESP 14; O2SAT 94
== END 2022-06-04 11:39 | disposition home or self-care (01) ==
PROVIDERS: Emergency Provider Emergency Medicine; PCP Family Medicine; Visit Provider Emergency Medicine
DX: R07.89 Other chest pain (principal); I10 Essential (primary) hypertension; Z86.16 Personal history of COVID-19; R05.9 Cough, unspecified
CPT/HCPCS: 71045; 71275; 80048; 84484; 85025; 85379; 93005; 99284; Q9967; A4216

== ENCOUNTER 2023-01-23 23:06 | Emergency (ER) | payer MEDICARE, SELFPAY ==
[2023-01-23 23:07] VITALS: BP 162/97; PULSE 72; RESP 16; TEMP 36.5; O2SAT 94; BMI 27.4
--- NOTE | 2023-01-23 23:19 | EDS_ITS ---
HPI History of Present Illness Chief Complaint: Eye Problem Informant: patient Narrative Narrative: Patient went in to wash her face and hands after sitting outside. She noticed that her right eye was red. She does state it feels a little bit different just because of mild swelling but she has no visual loss pain nausea vomiting or headache. No neurologic symptoms. She is not on any blood thinners including she does not take baby aspirin. She denies any known trauma sneezing coughing or other issues. She feels perfectly fine she just noticed that her eye was red. [facility] Medical History Hypertension Home Medications ascorbic acid (vitamin C) 500 mg tablet (Vitamin C) 500 mg PO DAILY@0800 05/01/15 [History Last Taken 11/19/19] calcium carbonate 600 mg-vitamin D3 20 mcg (800 unit) tablet 1 ea PO BID 05/01/15 [History Last Taken 11/19/19] losartan 25 mg tablet 25 mg PO DAILY #30 tabs 11/19/19 [Rx Last Taken Unknown] magnesium 250 mg tablet 3 tab PO DAILY 06/01/20 [History Last Taken Unknown] zinc gluconate 50 mg tablet 50 mg PO DAILY 06/01/20 [History Last Taken Unknown] benzonatate 100 mg capsule 100 mg PO TID PRN cough #14 caps 06/04/22 [Rx Last Taken Unknown] Allergy/AdvReac Type Severity Reaction Status Date / Time codeine AdvReac Other Verified 01/23/23 23:09 Surgical History History of bilateral hip arthroplasty Social History Smoking Status: Never smoker ROS ROS ED Constitutional Constitutional ED: Denies fever(s) or subjective Eyes Eyes: Reports other Details: See history of present illness. ; Denies blurry vision, change in vision or diplopia ENT ENT ED: Denies rhinorrhea or sore throat Cardiovascular Cardiovascular: Denies palpitations Respiratory/Chest Respiratory/Chest: Denies cough or dyspnea Gastrointestinal Gastrointestinal: Denies nausea or vomiting Musculoskeletal Musculoskeletal: Denies myalgias Integumentary Denies rash Neurologic Neurologic: Denies headache(s), paresthesias or weakness Hematologic/Lymphatic Hematologic/Lymphatic: Denies easy bleeding or easy bruising Allergic/Immunologic Allergic/Immunologic ED: Denies urticaria EXAM Physical Exam Narrative Exam Narrative: Patient awake alert no acute distress. She walked back from triage without any difficulties. She carries on normal conversation and looks nontoxic. HEENT: There is no sign of external rash or vesicles. No trauma or abrasion. No sinus tenderness. Nasal passages are clear. Oropharynx shows no petechiae. Eyes: There is subconjunctival hemorrhage on the right. It is greater on the inferior and medial/nasal aspect. But it does not cross in of the cornea at all. Funduscopic exam is somewhat difficult because her pupils are only about 2 mm. But I see no abnormalities. Pupillary response is normal. Range of motion of the eye is normal. There is no proptosis. Neck shows no JVD Cardiorespiratory RN clear. Heart is regular. Abdomen soft nontender Extremities show no deformities or rash. Skin shows no petechiae or purpura. Const Vital Signs: 01/23/23 23:07 Temperature 97.7 F L Temperature Source Temporal Pulse Rate 72 Respiratory Rate 16 Blood Pressure 162/97 H Blood Pressure Mean 118 Pulse Ox 94 MDM MDM MDM Narrative Medical decision making narrative: Patient has findings consistent with subconjunctival hemorrhage but no symptoms. Was explained that this should resolve on its own. She already has an appointment with her physician for routine checkup coming up in a couple days. I will give her number to ophthalmology and she should return with any headaches, visual loss pain nausea vomiting or other concerns. Discharge Plan Triage Chief Complaint: Eye Problem ED Provider: Maximus Enrique Dx/Rx/DC Orders Clinical Impression: Subconjunctival hemorrhage Instructions: ED Subconjunctival Hemorrhage Prescriptions: No Action ascorbic acid (vitamin C) [Vitamin C] 500 MG tablet 500 mg PO DAILY@0800 calcium carbonate-vitamin D3 1 EACH tablet 1 ea PO BID losartan 25 MG tablet 25 mg PO DAILY Qty: 30 0RF zinc gluconate 50 MG tablet 50 mg PO DAILY magnesium 250 MG tablet 3 tab PO DAILY benzonatate 100 mg capsule 100 mg PO TID PRN (Reason: cough) Qty: 14 0RF Primary Care Provider: Gucci Huang Referrals: Tony Espino MD [Med Staff - Active Staff] - As Needed Gucci Huang MD [Primary Care Provider] - Keep Adiel appointment Disposition Disposition: Home, Self Care
== END 2023-01-23 23:34 | disposition home or self-care (01) ==
LOC: ED 23:22
PROVIDERS: Emergency Provider Emergency Medicine; PCP Family Medicine; Visit Provider Emergency Medicine
DX: H11.30 Conjunctival hemorrhage, unspecified eye (principal); I10 Essential (primary) hypertension; Z79.899 Other long term (current) drug therapy
CPT/HCPCS: 99282

== ENCOUNTER → 2023-03-05 | Outpatient (CLI) | payer MEDICARE, SELFPAY ==
[2023-03-05 10:00] LABS: Absolute Lymphocyte Count 1.45 X10^3/uL (0.83-4.51); Absolute Neutrophil Count 3.1 X10^3/uL (2.0-7.7); Basophil# 0.06 X10^3/uL; Basophil% 1.1 % (0-1); Eosinophil# 0.16 X10^3/uL; Eosinophils% 3.1 % (0-5); Hematocrit 42.4 % (37-47); Hemoglobin 13.4 g/dL (12.0-15.0); Lymphocyte # 1.45 X10^3/ul (0.83-4.51); Lymphocyte % 27.7 % (19-41); Mean Corp Hgb Conc 31.6 g/dL (32-36); Mean Corpuscular Hgb 29.3 pg (27.0-32.0); Mean Corpuscular Volume 92.6 fL (81-99); Mean Platelet Vol. 9.6 fl (6.2-12.0); Monocyte# 0.49 X10^3/uL; Monocyte% 9.4 % (0-10); NRBC Flagged by Analyzer 0 % (0-5); Neutrophil # 3.07 X10^3/uL (2.7-7.7); Neutrophil % 58.5 % (47-70); Platelet Count 172 K/mm3 (150-450); RBC Distribution Width CV 12.8 % (11.6-14.6); RBC Distribution Width SD 43.2 fl (35.1-43.9); Red Blood Count 4.58 M/mm3 (4.2-5.4); White Blood Count 5.2 K/mm3 (4.4-11.0)
[2023-03-05 10:04] LABS: Erythrocyte Sedimentation Rate 4 mm/hr (0-30)
[2023-03-05 10:29] LABS: CRP < 2.90 mg/L (0.0-3.0)
== END | disposition home or self-care (01) ==
LOC: MTLAB 09:05
PROVIDERS: PCP Family Medicine; Referring Provider Ophthalmology; Visit Provider Ophthalmology
DX: R51.9 Headache, unspecified (principal)
CPT/HCPCS: 36415; 85025; 85652; 86140

== ENCOUNTER 2024-02-25 20:44 | Emergency (ER) | payer MEDICARE, SELFPAY ==
[2024-02-25 20:44] VITALS: BP 176/90; BP 181/91; PULSE 61; PULSE 62; RESP 16; TEMP 36.6; O2SAT 94; O2SAT 98; BMI 27.3
[2024-02-25] MEDS: Lidocaine 1% (20 ml mdv) 20 ML Vial INFILT (21:40)
[2024-02-25] MEDS: Diphth,Pertuss(Acell),Tet Vac 0.5 ML Vial IM (21:40)
--- NOTE | 2024-02-25 22:10 | EDS_ITS ---
HPI History of Present Illness Chief Complaint: Laceration Informant: patient and family Narrative Narrative: 83-year-old patient states she was working in her garden and she fell to the side losing her balance while she was balancing her self and landed on her ga [employer] tay which punctured her into the right palm sustaining a puncture wound/laceration. No loss of function no paresthesias in her fingers. PFSH PFSH Medical History Hypertension Home Medications ?Medication ?Instructions ?Recorded ?Last Taken ?Type ascorbic acid (vitamin C) 500 mg 500 mg PO DAILY@0800 05/01/15 11/19/19 History tablet (Vitamin C) calcium carbonate 600 mg-vitamin 1 ea PO BID 05/01/15 11/19/19 History D3 20 mcg (800 unit) tablet losartan 25 mg tablet 25 mg PO DAILY #30 tabs 11/19/19 Unknown Rx magnesium 250 mg tablet 3 tab PO DAILY 06/01/20 Unknown History zinc gluconate 50 mg tablet 50 mg PO DAILY 06/01/20 Unknown History benzonatate 100 mg capsule 100 mg PO TID PRN cough #14 caps 06/04/22 Unknown Rx cephalexin 500 mg capsule 500 mg PO Q8H 5 days #15 CAPSULES 02/25/24 Unknown Rx Allergy/AdvReac Type Severity Reaction Status Date / Time codeine AdvReac Other Verified 02/25/24 20:44 Surgical History History of bilateral hip arthroplasty Social History Smoking Status: Never smoker ROS ROS ED Constitutional Constitutional ED: Denies chills or fever(s) Musculoskeletal Musculoskeletal: Reports extremity pain; Denies neck pain Integumentary Reports wounds; Denies Abrasions or rash Neurologic Neurologic: Denies paresthesias or weakness EXAM Physical Exam Const Vital Signs: 02/25/24 20:44 02/25/24 20:44 Temperature 98 F Temperature Source Temporal Pulse Rate 61 62 Respiratory Rate 16 16 Blood Pressure 176/90 H 181/91 H Blood Pressure Mean 118 121 Pulse Ox 98 94 Oxygen Delivery Method Room Air Room Air Positive well nourished and well developed General Appearance ED: well developed and NAD Neck full ROM and supple Back/Spine normal ROM and normal to inspection Extremity full ROM Extremity Narrative: Laceration to the right palm, 3 cm. There is a no pulsatile bright red bleeding, there is no tendon visible within the wound, just a small vein, this was checked while ranging the flexor tendons of the ring finger, over which the laceration exists. FDS, FDP intact without pain. On the backside of the hand there is no bony metacarpal tenderness. Neuro oriented x3, no focal motor deficits and no sensory deficits noted Sensorium / Orientation: alert Psych mental status grossly normal and thought process normal Skin Skin Narrative: Single mostly linear laceration to the right palm 3 cm see above. Rashes: no rashes MDM MDM MDM Narrative Medical decision making narrative: Laceration was thoroughly cleansed and irrigated under pressure, repaired see the procedure note, and her tetanus was updated. Given appropriate discharge instructions, she has an appointment with her doctor in 2 weeks, I think that would be fine to get the sutures out. Were given her cephalexin here as well as a prescription for 5-day course for prophylaxis given the depth of the wound according to the patient. No arterial involvement clinically. She has good radial and ulnar pulses intact. Considered x-rays, I do not think she needs them because I am at a low suspicion for bony involvement or foreign body as I discussed with the patient she is in agreement so we skipped them. Procedures Lacerations Right hand palm: Length: 3 cm Depth: Sub Q Shape: Linear Prep: Sterile Conditions and Chlorhexadine Laceration repair: Irrigated, Lidocaine (1%, 2 cc), Local and Skin sutures Irrigated (ml): 100 Number of Sutures/Natalie: 4 Suture Information: Ethilon, Simple and 5-0 Discharge Plan Triage Chief Complaint: Laceration ED Provider: Jamie Garcia Dx/Rx/DC Orders Clinical Impression: Laceration of hand, right, Puncture wound of right hand, Immunization, tetanus-diphtheria Instructions: ED Laceration, Hand: All Closures Prescriptions: New cephalexin 500 mg capsule 500 mg PO Q8H 5 Days Qty: 15 0RF No Action ascorbic acid (vitamin C) [Vitamin C] 500 MG tablet 500 mg PO DAILY@0800 calcium carbonate-vitamin D3 1 EACH tablet 1 ea PO BID losartan 25 MG tablet 25 mg PO DAILY Qty: 30 0RF zinc gluconate 50 MG tablet 50 mg PO DAILY magnesium 250 MG tablet 3 tab PO DAILY benzonatate 100 mg capsule 100 mg PO TID PRN (Reason: cough) Qty: 14 0RF Primary Care Provider: Gucci Huang Referrals: Gucci Huang MD [Primary Care Provider] - 10-14 Days suture removal Print Language: Faroese Disposition Disposition: Home, Self Care
[2024-02-25] MEDS: Cephalexin 250 MG Capsule 500 MG PO (22:17)
[2024-02-25 22:18] VITALS: BP 183/86; PULSE 58; RESP 18; TEMP 35.8; O2SAT 98
== END 2024-02-25 22:27 | disposition home or self-care (01) ==
PROVIDERS: Emergency Provider Emergency Medicine; PCP Family Medicine; Visit Provider Emergency Medicine
DX: S61.411A Laceration without foreign body of right hand, initial encounter (principal); S61.431A Puncture wound without foreign body of right hand, initial encounter; I10 Essential (primary) hypertension; W01.118A Fall on same level from slipping, tripping and stumbling with subsequent striking against other sharp object, initial encounter; Y93.H2 Activity, gardening and landscaping; Y92.096 Garden or yard of other non-institutional residence as the place of occurrence of the external cause
CPT/HCPCS: 12002; 90715; 99283

== ENCOUNTER 2024-03-30 12:22 | Emergency (ER) | payer MEDICARE, SELFPAY ==
[2024-03-30 12:23] VITALS: BP 165/89; PULSE 66; RESP 16; TEMP 36.8; O2SAT 95; BMI 27.8
[2024-03-30 12:33] VITALS: O2SAT 98
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
[2024-03-30 14:07] VITALS: BP 153/87; PULSE 58; RESP 16; TEMP 36.6; O2SAT 95
== END 2024-03-30 14:08 | disposition home or self-care (01) ==
PROVIDERS: Emergency Provider Emergency Medicine; PCP Family Medicine; Visit Provider Emergency Medicine
DX: S09.90XA Unspecified injury of head, initial encounter (principal); I10 Essential (primary) hypertension; S16.1XXA Strain of muscle, fascia and tendon at neck level, initial encounter; V59.40XA Driver of pick-up truck or van injured in collision with unspecified motor vehicles in traffic accident, initial encounter; W22.12XA Striking against or struck by front passenger side automobile airbag, initial encounter; Z79.899 Other long term (current) drug therapy; Z96.643 Presence of artificial hip joint, bilateral
CPT/HCPCS: 70450; 72125; 99282

== ENCOUNTER → 2025-06-25 | Outpatient (CLI) | payer MEDICARE, SELFPAY ==
--- OUTSIDE RECORDS SUMMARY | 2025-06-25 06:16 | XMS RPT_ITS | CCD ---
Author Organization [facility] CliniSyla Care Team Providers Care Hearings Reporter Name Role Phone Gucci Callahan MD Primary Care Provider AMA WARNER Attending Unavailable LONDON, GUCCI Ham Primary Care Unavailable Gucci Callahan MD Primary Care Provider Gucci Callahan MD Primary Care Provider GUCCI CALLAHAN Primary Care Unavailable PROVIDER, UNKNOWN Referring Unavailable [place]OND[place], GUCCI Ham Primary Care Unavailable PROVIDER, UNKNOWN Referring Unavailable Jamie Garcia Attending Unavailable [place], Gucci Primary Care Unavailable Arya Pineda Attending Unavailable [place], Gucci Primary Care Unavailable Jude LEACH MD, Paco Luna Primary Care Provider Jacquie vailable Haagen HANDBAG STITCHER.TRISHA, Emma Unavailable Suppan HANDBAG STITCHER.TRISHA, Flori A Unavailable [phone] Suppan HANDBAG STITCHER.TRISHA, Flori A Unavailable JAMIE HERRMANN Attending Unavailable [place], GUCCI Ham Primary Care Unavailable EMMA FANG Referring Unavailable EMMA FANG Attending Unavailable [place], GUCCI Ham Primary Care Unavailable LOND[place], GUCCI Ham Referring Unavailable LOND[place], GUCCI J Primary Care Unavailable FLORI CASTRO A Attending Unavailable [place], GUCCI J Primary Care Unavailable LONDONGUCCI Attending Unavailable [place], GUCCI J Primary Care Unavailable FLORI CASTRO A Referring Unavailable LONDON, GUCCI J Primary Care Unavailable [place], GUCCI J Primary Care Unavailable YVES DUARTE Attending Unavailable [place], GUCCI J Attending Unavailable LOND[place], GUCCI J Primary Care Unavailable LOND[place], GUCCI J Referring Unavailable LONDON, GUCCI J Primary Care Unavailable LOND[place], GUCCI J Primary Care Unavailable ROSELINE MORROW Attending Unavailable HAEMMA ARTEAGA Attending Unavailable [place], GUCCI J Primary Care Unavailable HAAGENEMMA Referring Unavailable [place], GUCCI J Primary Care Unavailable HAAGENEMMA Referring Unavailable [place], GUCCI J Primary Care Unavailable EMMA FANG Referring Unavailable GUCCI CALLAHAN Primary Care Unavailable Allergies Allergy Classification Reported Allergen(s) Allergy Type Date of Onset Reaction(s) Facility Opioid Agonists (2 sources) Codeine Drug Allergy 02-08-20 08 [facility] (20 sources) Codeine; Translations: [CODEINE] Drug Allergy 02-08-20 08 Other [facility] (12 sources) Angiotensin-converti ng enzyme inhibitor agent; Translations: [JUANITA INHIBITORS] Drug Intolerance 11-19-19 Cough [facility] Work Phone: (20 sources) Food Extracts; Translations: [FOOD EXTRACTS] Propensity to adverse reactions 04-01-20 05 Itching [facility] (20 sources) Angiotensin-converti ng enzyme inhibitor agent Drug Intolerance 11-19-19 Cough [facility] Work Phone: (1 source) Sulfamethoxazole / Trimethoprim; Translations: [SULFAMETHOXAZOLE-TR IMETHOPRIM] Drug Allergy 05-20-20 22 [facility] Repository (1 source) Codeine Drug Allergy 03-30-20 24 [facility] Repository (14 sources) [place] silk preparation; Translations: [CORN] Drug Allergy 09-15-19 25 Itching [facility] (14 sources) Wheat preparation; Translations: [WHEAT] Drug Allergy 09-15-19 25 Itching [facility] Medications Current Medications Medication Drug Class(es) Dates Sig (Normalized) Sig (Original) ascorbic acid 500 mg oral tablet (20 sources) Vitamin C Start: 05-01-2015 End: 01-27-2024 take 1 tablet by mouth once daily Ascorbic Acid (Vitamin C) (Vitamin C) 500 MG tablet Active 500 MG PO DAILY@0800 May 01, 2015 12:00am Comment on above: Take 500 mg by mouth once daily. benzonatate 100 mg oral capsule (3 sources) Non-narcotic Antitussive Start: 06-04-2022 take 100 mg by mouth three times daily Benzonatate Active 100 MG PO THREE TIMES A DAY June 04, 2022 11:07am calcium carbonate 1500 mg / cholecalciferol 800 unt oral tablet (4 sources) Vitamin D Start: 05-01-2015 Calcium Carbonate-Vitami n D3 Active 1 EACH PO TWICE A DAY May 01, 2015 12:00am cephalexin 500 mg oral capsule (4 sources) Cephalosporin Antibacterial Start: 03-26-2025 End: 04-02-2025 take 1 capsule by mouth twice daily cephALEXin (KEFLEX) 500 mg capsule Indications: Acute cystitis without hematuria Take 1 capsule by mouth two times a day for 7 days. 14 capsule 03/26/2025 04/02/2025 Active Start: 03-14-2025 End: 03-19-2025 take 1 capsule by mouth four times daily cephALEXin (KEFLEX) 500 mg capsule Take 1 capsule by mouth four times daily for 5 days. 20 capsule 03/14/2025 03/19/2025 Discontinued losartan potassium 100 mg oral tablet (20 sources) Angiotensin 2 Receptor Uzma Start: 03-22-2023 End: 11-13-2025 take 1 tablet by mouth once daily losartan (COZAAR) 100 mg tablet Indications: Hypertension, essential Take 1 tablet by mouth once daily. 90 tablet 3 11/13/2024 11/13/2025 Active Start: 07-20-2022 End: 08-20-2023 take 1 tablet by mouth once daily losartan (COZAAR) 50 mg tablet Indications: Hypertension, essential Take 1 tablet by mouth once daily. 90 tablet 3 08/20/2022 08/20/2023 Active Start: 11-19-2019 End: 07-20-2022 take 1 tablet by mouth once daily losartan (COZAAR) 25 mg tablet Take 1 tablet by mouth once daily. 90 tablet 3 04/09/2020 03/03/2021 Discontinued Comment on above: Take 1 tablet by vineet once daily. Magnesium (20 sources) Start: 06-01-2020 take 3 tablets by mouth once daily Magnesium Active 3 TABLET PO DAILY June 01, 2020 4:35pm Start: 06-01-2020 take 3 tablets by mo [facility] once daily Magnesium Active 3 TABLET PO DAILY June 01, 2020 12:00am take 250 mg by mouth once daily MAGNESIUM ORAL Take 250 mg by mouth once daily. Active take 250 mg by mouth once daily MAGNESIUM ORAL Take 250 mg by mouth once daily. 0 Active take 500 mg by mouth once daily MAGNESIUM ORAL Take 500 mg by mouth once daily. 0 Active Comment on above: Take 500 mg by mouth once daily. methylPREDNISolone (2 sources) Corticosteroid Start: 2024 End: 2024 methylPREDNISolone (MEDROL, TIFFANIE,) 4 mg Dose-Pack Indications: Flank pain Take as instructed per package. 21 tablet 03/26/2025 04/01/2025 Active mometasone furoate 1 mg/ml topical cream (20 sources) Corticosteroid Start: 2020 mometasone (ELOCON) 0.1 % cream Indications: Eczema, unspecified type Apply 1 application to affected area once daily. 45 g 07/16/2021 Active Comment on above: Apply 1 application to affected area once daily. predniSONE 10 mg oral tablet (2 sources) Start: 2021 End: 2021 take 5 tablets by mouth once daily, then take 4 tablets by mouth once daily, then take 3 tablets by mouth once daily, then take 2 tablets by mouth once daily, then take 1 tablet by mouth once daily predniSONE (DELTASONE) 10 mg tablet Indications: Mid back pain on left side Take 5 tablets by mouth once daily for 1 day, THEN 4 tablets once daily for 1 day, THEN 3 tablets once daily for 1 day, THEN 2 tablets once daily for 1 day, THEN 1 tablet once daily for 1 day. 15 tablet 0 01/05/2022 01/10/2022 Active Comment on above: Take 5 tablets by [facility] once daily for 1 day, THEN 4 tablets once daily for 1 day, THEN 3 tablets once daily for 1 day, THEN 2 tablets once daily for 1 day, THEN 1 tablet once daily for 1 day. Vitamin B Complex (20 sources) take 1 tablet by mouth once daily vitamin B complex (B COMPLEX 1 ORAL) Take 1 tablet by mouth once daily. Active take 1 tablet by mouth once eusebio y vitamin B complex (B COMPLEX 1 ORAL) Take 1 tablet by mouth once daily. 0 Active zinc gluconate 50 mg oral tablet (4 sources) Start: 06-01-2020 take 50 mg by mouth once daily Zinc Gluconate Active 50 MG PO DAILY June 01, 2020 12:00am Completed/Discontinued Medications Medication Drug Class(es) Dates Sig (Normalized) Sig (Original) A/b-carotene/C/biof l/B6/mn/Ech (ECHINACEA C COMPLETE ORAL) (20 sources) End: 01-27-2024 A/b-carotene/C/biofl /B6/mn/Ech (ECHINACEA C COMPLETE ORAL) Take by mouth three times daily. 01/27/2024 Discontinued (Discontinued by Patient) End: 01-27-2024 A/b-carotene/C/biofl/B6/mn/E ch (ECHINACEA C COMPLETE ORAL) Take by mouth three times daily. 0 01/27/2024 Discontinued (Discontinued by Patient) A/b-carotene/C/b iofl/B6/mn/Ech (ECHINACEA C COMPLETE ORAL) Take by mouth three times daily. 0 Active Comment on above: Take by mouth three times daily. acetaminophen 500 mg oral capsule (20 sources) End: take 2 capsules by mouth every six hours as needed Acetaminophen 500 mg cap Take 1,000 mg by mouth four times daily as needed. 09/15/2024 Discontinued (Discontinued by Patient) Comment on above: Take 1,000 mg by vineet th four times daily as needed. Calcium Carbonate / vitamin D3 (20 sources) End: CALCIUM CARBONATE/VITAMIN D3 (CALCIUM 500 + D ORAL) Take by mouth once daily. 03/20/2025 Discontinued CALCIUM CARBONAT E/VITAMIN D3 (CALCIUM 500 + D ORAL) Take by mouth once daily. Active CALCIUM CARBONAT E/VITAMIN D3 (CALCIUM 500 + D ORAL) Take by mouth once daily. 0 Active Comment on above: Take by mouth once d aily. cholecalciferol 0.05 mg oral tablet (16 sources) Vitamin D End: 01-27-20 take 1 tablet by mouth once daily cholecalciferol (VITAMIN D3) 50 mcg (2,000 unit) tablet Take 5,000 Units by mouth once daily. Unsure of her dosage she is taking will check it 0 01/27/2024 Discontinued (Discontinued by Patient) take 1 tablet by mouth once eusebio y cholecalciferol (VITAMIN D3) 50 mcg (2,000 unit) tablet Take 2,000 Units by mouth once daily. Unsure of her dosage she is taking will check it 0 Active Comment on above: Take 2,000 Units by mouth once daily. Unsure of her dosage she is taking will check it cholecalciferol, vitamin D3, (VITAMIN D3 ORAL) (16 sources) End: 03-20-2025 cholecalciferol, vitamin D3, (VITAMIN D3 ORAL) Take by mouth. 03/20/2025 Discontinued cholecalciferol, vitamin D3, (VITAMIN D3 ORAL) Take by mouth. Active cholecalciferol, vitamin D3, (VITAMIN D3 ORAL) Take by mouth. 0 Active Garlic preparation (5 sources) Non-Standardized Food Allergenic Extract End: 03-19-2025 GARLIC ORAL Take by mouth. 03/19/2025 Discontinued GARLIC ORAL Take by mouth. Active ibuprofen 800 mg oral tablet (20 sources) Nonsteroidal Anti-inflammatory Drug Start: 12-23-2020 End: 09-15-2024 take 1 tablet by mouth every eight hours as needed for pain ibuprofen (MOTRIN) 800 mg tablet Indications: Acute pain of right knee , Primary osteoarthritis of right knee Take 1 tablet by mouth every 8 hours as needed. FOR PAIN. 60 tablet 2 12/23/2020 09/15/2024 Discontinued (Course of therapy completed) Comment on above: Take 1 tablet by mouth every 8 hours as needed. FOR PAIN. omeprazole 20 mg delayed release oral capsule (15 sources) Proton Pump Inhibitor Start: 10-22-2021 End: 01-14-2023 take 1 capsule by mouth once daily before breakfast omeprazole (PRILOSEC) 20 mg capsule Indications: GERD without esophagitis Take 1 capsule by mouth daily before breakfast. 1/2 hr before meal. 30 capsule 2 10/22/2021 01/14/2022 Discontinued Comment on above: Take 1 capsule by mouth daily before kelley akfast. 1/2 hr before meal. OTC PRODUCT (13 sources) End: 09-15-2024 OTC PRODUCT NILDA energy vitamin 09/15/2024 Discontinued (Discontinued by Patient) OTC PRODUCT BRAG GS energy vitamin Active OTC PRODUCT BRAG GS energy vitamin 0 Active perflutren lipid microspheres 1.3 mL in NaCl (PF) 0.9% 10 mL injection (DEFINITY) (18 sources) Start: 10-22-2021 End: 01-21-2023 perflutren lipid microspheres 1.3 mL in NaCl (PF) 0.9% 10 mL injection (DEFINITY) 125 ml sodium chloride 9 mg/ml prefilled syringe (18 sources) Start: 10-22-2021 End: 01-21-2023 sodium chloride 0.9 % (flush) 10 mL (BD POSIFLUSH) Zinc (20 sources) End: 01-27-2024 take 4 tablets by mouth once daily Zinc 50 mg tab Take 200 mg by mouth once daily. 01/27/2024 Discontinued (Discontinued by Patient) End: 01-27-2024 take 4 tablets by mouth once daily Zinc 50 mg tab Take 200 mg by mouth once daily. 0 01/27/2024 Discontinued (Discontinued by Patient) take 4 tablets by mo uth once daily Zinc 50 mg tab Take 200 mg by mouth once daily. 0 Active Comment on above: Take 200 mg by mouth once daily. Problems Active Problems Problem Classification Problem Date Documented Date Episodic/Chronic Abdominal pain (6 sources) Flank pain; Translations: [Unspecified abdominal pain] Onset: 03-26-2025 03-26-2025 Episodic Disorders of lipid metabolism (20 sources) Hyperlipidemia; Translations: [Hyperlipidemia, unspecified] Onset: 08-20-2013 Chronic Esophageal disorders (2 sources) Gastroesophageal reflux disease without esophagitis; Translations: [Gastro-esophageal reflux disease without esophagitis] Chronic Essential hypertension (20 sources) Essential hypertension; Translations: [Essential (primary) hypertension] Onset: 07-11-2020 Chronic Heart valve disorders (20 sources) Mitral valve disorder; Translations: [Rheumatic mitral valve disease, unspecified] Onset: 08-11-2013 Resolved: 08-09-2023 Chronic Malaise and fatigue (2 sources) Fatigue; Translations: [Chronic fatigue, unspecified] 01-27-2024 Chronic Nonmalignant breast conditions (20 sources) Fibrocystic disease of breast; Translations: [Diffuse cystic mastopathy of unspecified breast] Onset: 06-13-2007 06-13-2007 Chronic Open wounds of extremities (2 sources) Laceration of hand; Translations: [Laceration without foreign body of right hand, subsequent encounter] Onset: 03-20-2024 03-07-2024 Episodic Osteoarthritis (20 sources) Osteoarthritis; Translations: [Unspecified osteoarthritis, unspecified site] Onset: 10-03-2013 Resolved: 07-20-2022 11-23-2013 Chronic Other aftercare (1 source) Encounter for therapeutic drug level monitoring; Translations: [Medication monitoring encounter] Onset: 03-19-2025 Episodic Other circulatory disease (2 sources) Elevated blood-pressure reading, without diagnosis of hypertension; Translations: [Elevated blood-pressure reading, without diagnosis of hypertension] Onset: 05-21-2022 Episodic Other connective tissue disease (1 source) Cramp; Translations: [Cramp and spasm] Episodic Other connective tissue disease (1 source) Pain in bilateral legs; Translations: [Pain in right leg] Episodic Other connective tissue disease (1 source) Cramp in lower limb; Translations: [Cramp and spasm] 03-19-2025 Episodic Other connective tissue disease (1 source) Cramp and spasm; Translations: [Leg cramps] Onset: 03-19-2025 Episodic Other endocrine disorders (1 source) Hypoglycemia; Translations: [Hypoglycemia, unspecified] Chronic Other eye disorders (1 source) Bilateral subconjunctival hemorrhage; Translations: [Conjunctival hemorrhage, bilateral] 03-08-2023 Episodic Other injuries and conditions due to external causes (1 source) Unspecified injury of head, initial encounter; Translations: [Unspecified injury of head, initial encounter] Onset: 04-20-2024 Episodic Other lower respiratory disease (4 sources) Interstitial lung disease; Translations: [Interstitial pulmonary disease, unspecified] Chronic Other lower respiratory disease (1 source) Pleuritic pain; Translations: [Pleurodynia] Episodic Other nervous system disorders (1 source) Impaired cognition; Translations: [Other symptoms and signs involving cognitive functions and awareness] 03-19-2025 Episodic Other nervous system disorders (1 source) Other symptoms and signs involving cognitive functions and awareness; Translations: [Cognitive impairment] Onset: 03-19-2025 Episodic Other non-traumatic joint disorders (3 sources) Pain in right knee; Translations: [Pain in joint, lower leg] 12-09-2020 Episodic Other non-traumatic joint disorders (1 source) Pain in left knee; Translations: [Acute pain of left knee] Onset: 05-14-2025 Episodic Other screening for suspected conditions (not mental disorders or infectious disease) (2 sources) Raised TSH level; Translations: [Other specified abnormal findings of blood chemistry] Onset: 02-11-2024 Episodic Poisoning by other medications and drugs (2 sources) Poisoning by vitamin D; Translations: [Poisoning by vitamins, accidental (unintentional), subsequent encounter] Onset: 04-09-2025 03-20-2025 Episodic Prolapse of female genital organs (20 sources) Pelvic floor dysfunction; Translations: [Other female genital prolapse] Onset: 05-05-2012 05-05-2012 Chronic Residual codes; unclassified (1 source) Insomnia; Translations: [Insomnia, unspecified] 11-26-2023 Episodic Screening and history of mental health and substance abuse codes (2 sources) Encounter for screening examination for other mental health and behavioral disorders; Translations: [Encounter for screening for depression] Onset: 03-19-2025 Episodic Spondylosis; intervertebral disc disorders; other back problems (20 sources) Displacement of lumbar intervertebral disc without myelopathy; Translations: [Other intervertebral disc displacement, lumbar region] Onset: 01-12-2011 01-12-2011 Chronic Thyroid disorders (2 sources) Subclinical hypothyroidism; Translations: [Other specified hypothyroidism] Onset: 03-19-2025 03-19-2025 Chronic Urinary tract infections (2 sources) Acute cystitis; Translations: [Acute cystitis without hematuria] Onset: 03-26-2025 03-26-2025 Episodic Viral infection (1 source) Disease caused by 2019-nCoV; Translations: [COVID-19] Episodic Viral infection (2 sources) COVID-19; Translations: [COVID-19] Onset: 05-21-2022 Past or Other Problems Problem Classification Problem Date Documented Date Episodic/Chronic Adjustment disorders (20 sources) Reactive depression (situational); Translations: [Adjustment disorder with depressed mood] Onset: 07-29-2018 Resolved: 07-20-2022 07-29-2018 Chronic Administrative/social admission (20 sources) Patient encounter status; Translations: [Other specified counseling] Onset: 10-22-2021 Episodic Allergic reactions (20 sources) Ingestion dermatitis due to food; Translations: [Dermatitis due to ingested food] Onset: 06-02-2022 Resolved: 02-07-2024 06-02-2022 Episodic Diabetes mellitus without complication (20 sources) Prediabetes; Translations: [Prediabetes] Onset: 01-19-2022 Episodic Malaise and fatigue (20 sources) Fatigue; Translations: [Other fatigue] Onset: 07-29-2018 Resolved: 07-20-2022 Episodic Nonspecific chest pain (20 sources) Chest pain; Translations: [Chest pain, unspecified] Onset: 06-02-2022 Resolved: 07-20-2022 Episodic Open wounds of extremities (2 sources) Laceration of left foot; Translations: [Laceration without foreign body, left foot, initial encounter] Onset: 03-14-2025 03-14-2025 Episodic Osteoporosis (20 sources) Osteoporosis; Translations: [Age-related osteoporosis without current pathological fracture] Onset: 12-10-2014 Resolved: 04-30-2021 04-30-2021 Chronic Other and unspecified benign neoplasm (20 sources) Benign tumor of head and neck; Translations: [Other benign neoplasm of skin of scalp and neck] Onset: 02-18-2007 02-18-2007 Episodic Other bone disease and musculoskeletal deformities (20 sources) Osteopenia; Translations: [Other specified disorders of bone density and structure, multiple sites] Onset: 04-30-2021 Episodic Other bone disease and musculoskeletal deformities (20 sources) Disorder of skeletal system; Translations: [Disorder of bone, unspecified] Onset: 04-01-2005 Resolved: 07-20-2022 04-01-2005 Episodic Other bone disease and musculoskeletal deformities (1 source) Other specified disorders of bone density and structure, multiple sites; Translations: [Osteopenia of multiple sites] Onset: 04-30-2021 Episodic Other connective tissue disease (20 sources) Synovial cyst of right popliteal space; Translations: [Synovial cyst of popliteal space [[place]], right knee] Onset: 04-18-2021 Resolved: 07-20-2022 04-18-2021 Episodic Other connective tissue disease (19 sources) Synovial cyst of popliteal space [[place]], right knee; Translations: [Synovial cyst of popliteal space] Onset: 04-18-2021 Resolved: 07-20-2022 07-20-2022 Episodic Other eye disorders (20 sources) Subconjunctival hemorrhage; Translations: [Conjunctival hemorrhage, unspecified eye] Onset: 01-25-2023 Resolved: 02-07-2024 01-23-2023 Episodic Other infections; including parasitic (20 sources) Personal history of other infectious and parasitic diseases; Translations: [History of COVID-19] Onset: 07-20-2022 Resolved: 07-20-2022 06-04-2022 Episodic Other lower respiratory disease (20 sources) Cough; Translations: [Cough] Onset: 07-20-2022 Resolved: 07-20-2022 Episodic Other upper respiratory infections (20 sources) Viral upper respiratory tract infection; Translations: [Acute upper respiratory infection, unspecified] Onset: 06-02-2022 Resolved: 07-20-2022 06-02-2022 Episodic Residual codes; unclassified (20 sources) Family history of malignant neoplasm of breast in first degree relative; Translations: [Family history of malignant neoplasm of breast] Onset: 10-12-2017 10-12-2017 Episodic Spondylosis; intervertebral disc disorders; other back problems (20 sources) Low back pain; Translations: [Low back pain] Onset: 01-06-2011 Resolved: 07-20-2022 01-06-2011 Episodic Thyroid disorders (20 sources) Disorder of thyroid gland; Translations: [Disorder of thyroid, unspecified] Onset: 01-14-2022 01-14-2022 Episodic Unclassified (1 source) Acute pain of left knee 04-09-2025 Results Test Name Value Interpretation Reference Range Facility CNOVon 06-12-2025 CNOV Office Visit (FAMPWS ) KRYSTLE ARAMBULA ([id number]) 1940 F Date Time Provider Department 06/12/25 12:40 PM EMMA FANG During your visit today, we recorded the following information about you: Pulse Respiration Blood pressure 76/minute 16/minute 120/78 Emma Fang APRN.EQUIPMENT OPERATOR 06/12/2025 9:09 PM Signed This is a 85 year old female who presents today with: The patient is an 85-year-old female presenting for blood pressure check and evaluation of chest heaviness and fatigue. HISTORY OF PRESENT ILLNESS: Krystle Arambula is an 85-year-old female with a history of HTN, presenting for a blood pressure check and evaluation of chest heaviness. Hypertension: BP was elevated at last visit. Was called to return for BP check. - Denies monitoring blood pressure at home. Chest Heaviness: - Intermittent episodes of chest heaviness. Has been going on for quite a while, but has been worsening over the last couple of weeks. - Describes sensation as a "weight" on the chest. - No specific triggers identified; sometimes worsens postprandially. - Denies associated dyspnea, dizziness, syncope, or palpitations. - No pain with deep inspiration. - Reports decreased energy levels and increased somnolence. - Stress test and echocardiogram performed last year. - Scheduled to see Dr. Forrester in a month. PAST MEDICAL HISTORY: PAST MEDICAL HISTORY Diagnosis Date Diffuse cystic mastopathy Disorder of thyroid HTN (hypertension) Hyperlipidemia LDL goal < 100 08/20/2013 Lumbar disc disease with radiculopathy 01/06/2011 Mitral valve disorder 08/11/2013 Osteoarthritis of both hips 10/03/2013 Osteopenia Osteoporosis 12/10/2014 Pelvic floor weakness 05/05/2012 Situational depression 07/29/2018 Subconjunctival hemorrhage 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 PAST SURGICAL HISTORY Procedure Laterality Date ARTHRP ACETBLR/PROX FEM PROSTC AGRFT/ALGRFT 01/30/2014 right LIG/TRNSXJ FLP TUBE ABDL/VAG APPR UNI/BI PAST SURGICAL HISTORY OF Left ORIF femur TOTAL HIP REPLACEMENT 10/03/2013 left ALLERGIES [place], Tylenol #3 [Codeine], Wheat, Juanita Inhibitors, and Food Extracts MEDICATIONS Current Outpatient Medications Medication Sig losartan (COZAAR) 100 mg tablet Take 1 tablet by mouth once daily. vitamin B complex (B COMPLEX 1 ORAL) Take 1 tablet by mouth once daily. mometasone (ELOCON) 0.1 % cream Apply 1 application to affected area once daily. MAGNESIUM ORAL Take 250 mg by mouth once daily. No current facility-administered medications for this visit. FAMILY HISTORY Problem Relation Age of Onset Heart Mother Arthritis Father Breast Cancer Sister Stroke Father Coronary Artery Disease Brother Coronary Artery Disease Brother SOCIAL HISTORY[1] REVIEW OF SYSTEMS Constitutional: (+) fatigue, (+) hypersomnia Cardiovascular: (+) chest heaviness, (-) palpitations Respiratory: (-) shortness of breath, (-) pleuritic chest pain Neurological: (-) dizziness, (-) syncope EXAM: BP 120/78 Pulse 76 Resp 16 PHYSICAL EXAM: General Appearance: Well appearing, alert, in no acute distress, well-hydrated, well nourished.. Skin: Skin color, texture, turgor normal, no suspicious rashes or lesions. Head: Normocephalic, no masses, lesions, tenderness or abnormalities. Eyes: Anicteric sclera. Extraocular movements are intact. . Neck: Supple, no adenopathy; thyroid symmetric, normal size, no bruits. Lungs: Lungs clear to auscultation. No wheezing, rhonchi, rales.. Heart: RRR without murmur, gallop, or rubs. No ectopy. Extremities: No deformities, edema, skin discoloration, clubbing or cyanosis. Good capillary refill. . Neurologic: Gait normal. ASSESSMENT/PLAN 1. Hypertension, essential (I10) - Blood pressure within normal limits today. 2. Chest pain, unspecified type (R07.9) - Chronic, intermittent chest heaviness now persistent over the past few weeks, worsened postprandially; no associated dyspnea, palpitations, dizziness, or syncope. - Reviewed prior stress test and echocardiogram from last year, both of which were unremarkable. - Order EKG to assess for any acute changes. No change. - Patient has an upcoming appointment with cardiology. Since symptoms have become more persistent and last stress testing was 1 1/2 years ago, will go ahead and proceed with stress testing. Discussed treatment plan and patient voices understanding. Patient's questions answered appropriately. Medications and potential side effects were discussed and patient voices understanding. Return to the office as scheduled or as needed for worsening/no improvement. Emma Fang APRN.EQUIPMENT OPERATOR Recording using [employer] software for draft documentation of the visit was discussed with the patient/authorized tax compliance representative; all questions welcomed and answered. Patient/authorized represe (more content not included)... Normal [facility] ECG COMPLETEon 06-12-2025 ECG COMPLETE Ventricular Rate : 6 6 BPM Atrial Rate : 66 BPM P-R Interval : 168 ms QRS Duration : 128 ms Q-T Interval : 426 ms QTC Calculation(Bazett) : 446 ms Calculated P [place] : 35 degrees Calculated R [place] : -44 degrees Calculated T [place] : 3 degrees NORMAL SINUS RHYTHM COMPLETE RIGHT BUNDLE BRANCH BLOCK INFERIOR MYOCARDIAL INFARCTION , AGE UNDETERMINED ABNORMAL ECG Confirmed by MD MABEL, QACHRISTOFER ([id number]) on 06/13/2025 4:41:20 PM NAME : KRYSTLE ARAMBULA PID : [id number] : 1940 Gender : Female Race : ORD : [id number] Procedure Date : Jun 12 2025 13:04:32 Edit Date : Jun 13 2025 16:41:32 Diagnosis: NORMAL SINUS RHYTHM COMPLETE RIGHT BUNDLE BRANCH BLOCK INFERIOR MYOCARDIAL INFARCTION , AGE UNDETERMINED ABNORMAL ECG Confirmed by MD MONROE QARAB ([id number]) on 06/13/2025 4:41:20 PM Test Reason : Location : 185 : [facility] Overread By : MD MONROE QARAB Edited By : MD MONROE QARAB Referred By : EMMA FANG Acquired by : Fatoumata KERN Normal [facility] CNOVon 05-14-2025 CNOV Office Visit (ORTHWS ) KRYSTLE ARAMBULA ([id number]) 1940 F Date Time Provider Department 05/14/25 10:30 AM JAMIE HERRMANN During your visit today, we recorded the following information about you: Jamie Herrmann MD 05/14/2025 2:34 PM Signed Jamie Herrmann MD Department of Orthopaedics Orthopaedics [address] [facility] [address] Dept: [phone] Dept May 14, 2025 CHIEF COMPLAINT: New and Knee Pain of the Left Knee (Referred by Emma Fang/Last seen by Irlanda 12/23/20 OA Right knee) Patient here for evaluation left knee pain. Patient states she is having medial aspect. No specific injury. States she has a rental house she is getting ready to sell and has been doing a lot painting going up and down a ladder. Taking Tylenol and Ibuprofen for the pain when needed. X-rays done on 04/09/25. HPI: HPI Krystle is an 85-year-old female with knee OA presenting for follow-up. Krystle reports significant improvement in her knee pain, which she attributes to overuse from spending two months climbing ladders while preparing a property for sale. She describes the pain as almost completely resolved since reducing her activity level. She reports that her left knee was more symptomatic during this period, despite her right knee having more advanced OA on prior imaging. ASSESSMENT: M25.562 Acute pain of left knee M17.12 Primary osteoarthritis of left knee 1. Acute pain of left knee (M25.562) 2. Primary osteoarthritis of left knee (M17.12) Chronic, moderately severe bilateral knee osteoarthritis with recent acute exacerbation of left knee pain following 2 months of increased activity (repeated ladder climbing). Symptoms have significantly improved with activity modification. X-rays from 2020 compared to current imaging show stable findings with minimal progression. - Advised use of topical anti-inflammatory agents and ibuprofen for future flare-ups; discussed that ibuprofen may be more effective for inflammatory symptoms than acetaminophen. - Discussed treatment options for future exacerbations, including corticosteroid injection if symptoms become severe. - Patient expressed understanding of management plan and will follow up as needed for future flare-ups. OBJECTIVE: Mrs. Krystle Arambula is a pleasant 85 year old in no apparent distress. Gen:There were no vitals taken for this visit. nl development, non obese, no deformities ENT: Normocephalic, normal hearing, moist mucosa CV: Pulses: capillary refill < 2 secs, no peripheral edema/varicosities Skin: no rash, bruising or lesions. Good turgor. Psych: cooperative and appropriate, alert and oriented x 3, good mood and affect. Musculoskeletal: Scant effusion. No bruising. Mild medial joint line tenderness. Stable ligamentous exam. Imaging: IMPRESSION: Progressive osteoarthrosis Technical Mgr: KARLEE Transcribe Date/Time: Apr 11 2025 6:55A Dictated by : GERALD CONCEPCION MD This examination was interpreted and the report reviewed and electronically signed by: GERALD CONCEPCION MD on Apr 11 2025 6:56AM EST Results-Findings * * *Final Report* * * DATE OF EXAM: Apr 09 2025 12:14PM WOX 5202 - XR KNEE 4V AP/PA BOTH+LAT/POOJA LT / PROCEDURE REASON: Acute pain of left knee * * * * Physician Interpretation * * * * PROCEDURE: Left knee INDICATION: Acute pain of left knee .Left knee pain l 1 week, swelling, increased warmth. Recently on prednisone for back pain. TECHNIQUE: XR KNEE 4V AP/PA BOTH+LAT/POOJA LT COMPARISON: 12/09/2020 FINDINGS: Significant medial joint compartment narrowing with minimal tricompartment spur formation, greater than previous. No fracture or dislocation. Small joint effusion. Advanced medial joint compartment osteoarthrosis in the right knee. Imaging: - Knee X-rays: Overall stable compared with prior study from approximately 4 years earlier; right knee worse than left; possible slight decrease in joint space; small osteophyte essentially unchanged. Supporting Subjective Information Below: Past Medical History: PAST MEDICAL HISTORY Diagnosis Date Diffuse cystic mastopathy Disorder of thyroid HTN (hypertension) Hyperlipidemia LDL goal < 100 08/20/2013 Lumbar disc disease with radiculopathy 01/06/2011 Mitral valve disorder 08/11/2013 Osteoarthritis of both hips 10/03/2013 Osteopenia Osteoporosis 12/10/2014 Pelvic floor weakness 05/05/2012 Situational depression 07/29/2018 Subconjunctival hemorrhage 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 Past Surgical History: PAST SURGICAL HISTORY Procedure Laterality Date ARTHRP ACETBLR/PROX FEM PROSTC AGRFT/ALGRFT 01/30/2014 right LIG/TRNSXJ FLP TUBE ABDL/VAG APPR UNI/BI PAST SURGICAL HISTORY OF Left ORIF femur TOTAL HIP REPLACEMENT 10/03/2013 left Medications: Curr (more content not included)... Normal [facility] US KIDNEY/BLADDERon 04-13-20 25 US KIDNEY/BLADDER * * *Final Report* * * DATE OF EXAM: Apr 13 2025 1:29PM U 1055 - US KIDNEY/BLADDER / PROCEDURE REASON: Flank pain * * * * Physician Interpretation * * * * EXAMINATION: ULTRASOUND KIDNEYS/BLADDER CLINICAL HISTORY: Flank pain. TECHNIQUE: Sonography of the kidneys and urinary bladder was performed. Images were obtained and stored in a permanent archive. MQ: UR_1 COMPARISON: CT flank on 09/03/2014 RESULT: Right Kidney: -Renal length: 10.3 cm -Parenchyma: Normal parenchymal echogenicity. Normal parenchymal thickness. -Collecting system: No hydronephrosis. -Calculus: No echogenic, shadowing calculus. -Lesion: There is a 1.6 x 1.4 x 1.5 cm simple appearing cyst in the interpolar kidney. Left Kidney: -Renal length: 11.0 cm -Parenchyma: Normal parenchymal echogenicity. Normal parenchymal thickness. -Collecting system: No hydronephrosis. -Calculus: A 4 mm echogenic focus is noted in the interpolar kidney. -Lesion: None. Bladder: Decompressed/partially decompressed. Prevoid volume 34 cc. IMPRESSION: Right kidney cyst. Left kidney stone versus vascular calcification. Technical Mgr: [facility] Transcribe Date/Time: Apr 13 2025 4:48P Dictated by : ZONIA HUNTER MD This examination was interpreted and the report reviewed and electronically signed by: ZONIA HUNTER MD on Apr 13 2025 4:51PM EST [id number] Normal [facility] US Kidney - bilateral and Ur inary bladderon 04-13-2025 IMPRESSION: Right kidney cyst. Left kidney stone versus vascular calcification. Technical Mgr: [facility] Transcribe Date/Time: Apr 13 2025 4:48P Dictated by : ZONIA HUNTER MD This examination was interpreted and the report reviewed and electronically signed by: ZONIA HUNTER MD on Apr 13 2025 4:51PM EST DIVISION OF RADIOLOGY * * *Final Report* * * DATE OF EXAM: Apr 13 2025 1:29PM WR 1055 - US KIDNEY/BLADDER / PROCEDURE REASON: Flank pain * * * * Physician Interpretation * * * * EXAMINATION: ULTRASOUND KIDNEYS/BLADDER CLINICAL HISTORY: Flank pain. TECHNIQUE: Sonography of the kidneys and urinary bladder was performed. Images were obtained and stored in a permanent archive. MQ: UR_1 COMPARISON: CT flank on 09/03/2014 RESULT: Right Kidney: -Renal length: 10.3 cm -Parenchyma: Normal parenchymal echogenicity. Normal parenchymal thickness. -Collecting system: No hydronephrosis. -Calculus: No echogenic, shadowing calculus. -Lesion: There is a 1.6 x 1.4 x 1.5 cm simple appearing cyst in the interpolar kidney. Left Kidney: -Renal length: 11.0 cm -Parenchyma: Normal parenchymal echogenicity. Normal parenchymal thickness. -Collecting system: No hydronephrosis. -Calculus: A 4 mm echogenic focus is noted in the interpolar kidney. -Lesion: None. Bladder: Decompressed/partially decompressed. Prevoid volume 34 cc. DIVISION OF RADIOLOGY Provider, [facility] - 04/13/2025 * * *Final Report* * * DATE OF EXAM: Apr 13 2025 1:29PM WRU 1055 - US KIDNEY/BLADDER / PROCEDURE REASON: Flank pain * * * * Physician Interpretation * * * * EXAMINATION: ULTRASOUND KIDNEYS/BLADDER CLINICAL HISTORY: Flank pain. TECHNIQUE: Sonography of the kidneys and urinary bladder was performed. Images were obtained and stored in a permanent archive. MQ: UR_1 COMPARISON: CT flank on 09/03/2014 RESULT: Right Kidney: -Renal length: 10.3 cm -Parenchyma: Normal parenchymal echogenicity. Normal parenchymal thickness. -Collecting system: No hydronephrosis. -Calculus: No echogenic, shadowing calculus. -Lesion: There is a 1.6 x 1.4 x 1.5 cm simple appearing cyst in the interpolar kidney. Left Kidney: -Renal length: 11.0 cm -Parenchyma: Normal parenchymal echogenicity. Normal parenchymal thickness. -Collecting system: No hydronephrosis. -Calculus: A 4 mm echogenic focus is noted in the interpolar kidney. -Lesion: None. Bladder: Decompressed/partially decompressed. Prevoid volume 34 cc. IMPRESSION IMPRESSION: Right kidney cyst. Left kidney stone versus vascular calcification. Technical Mgr: [facility] Transcribe Date/Time: Apr 13 2025 4:48P Dictated by : ZONIA HUNTER MD This examination was interpreted and the report reviewed and electronically signed by: ZONIA HUNTER MD on Apr 13 2025 4:51PM EST [facility] Radiology Study observation (narrative) [facility] US Kidney - bilateral and Ur inary bladderOrdered By: [facility] Provider on 04-13-2025 [facility] 25(OH)D3 SerPl-mCncon 2024 25-hydroxyvitamin D3 [Mass/Vol] 82.6 ng/mL High 31.0-80.0 [facility] Comment on above: Order Comment: Speci men Type: BLOOD SPECIMEN Ordering Facility: [facility] Address: [address] [place] [address] Result Comment: Clas sification of 25 OH Vitamin D status: Deficiency/Insufficiency: < or = 30 ng/ml. Sufficiency/Optimal Levels: 31-80 ng/mL Toxicity: > 100 ng/mL. Test performed by chemiluminescent immunoassay. Performed By: #### 1 9123-9, 2132-9, 2284-8 #### [facility] CLIA [id number] [address] [address] [place] Basic metabolic 2000 panelon 04-09-2025 Anion gap [Moles/Vol] 10 mmol/L Normal 8-15 [facility] Comment on above: Order Comment: Speci men Type: BLOOD SPECIMEN Ordering Facility: [facility] Address: [address] [place] [address] Performed By: #### 1 9123-9, 9, 2284-03 #### [facility] CLIA [id number] [address] [place], [place] [id number] [place] Calcium [Mass/Vol] 9.7 mg/dL Normal 8.5-10.2 [facility] Comment on above: Order Comment: Speci men Type: BLOOD SPECIMEN Ordering Facility: [facility] Address: [address] [place] [address] Performed By: #### 1 9123-9, 2132-04, 2284-03 #### [facility] CLIA [id number] [address] [place], [place] [id number] [place] Chloride [Moles/Vol] 105 mmol/L Normal 98-107 [facility] Comment on above: Order Comment: Speci men Type: BLOOD SPECIMEN Ordering Facility: [facility] Address: [address] [place] [address] Performed By: #### 1 9123-9, 2132-04, 2284-03 #### [facility] CLIA [id number] [address] [place], [place] [id number] [place] CO2 [Moles/Vol] 27 mmol/L Normal 22-30 [facility] Comment on above: Order Comment: Speci men Type: BLOOD SPECIMEN Ordering Facility: [facility] Address: [address] [place] [address] Performed By: #### 1 9123-9, 2132-04, 8 #### [facility] CLIA [id number] [address] [address] [place] Creatinine [Mass/Vol] 0.64 mg/dL Normal 0.58-0.96 [facility] Comment on above: Order Comment: Anya bhat Type: BLOOD SPECIMEN Ordering Facility: [facility] Address: [address] [place] [address] Performed By: #### 1 9123-9, 9, 2284-03 #### [facility] CLIA [id number] [address] [place] [address] [place] eGFRcr SerPlBld CKD-EPI 2020 88 mL/min/1.73m??? Normal >=60 [facility] Comment on above: Order Comment: Anya bhat Type: BLOOD SPECIMEN Ordering Facility: [facility] Address: [address] [place] [address] Result Comment: Latonya mated Glomerular Filtration Rate (eGFR) is calculated using the 2020 CKD-EPI creatinine equation. This equation utilizes serum creatinine, sex, and age as parameters. The creatinine assay has traceable calibration to isotope dilution-mass spectrometry. Refer to KDIGO guidelines for clinical interpretation. In patients with unstable renal function, e.g. those with acute kidney injury, the eGFR may not accurately reflect actual GFR. Performed By: #### 1 9123-9, 2132-04, 2284-03 #### [facility] CLIA [id number] [address] [place] [address] [place] Glucose [Mass/Vol] 98 mg/dL Normal 74-99 [facility] Comment on above: Order Comment: Anya bhat Type: BLOOD SPECIMEN Ordering Facility: [facility] Address: [address] [place] [address] Result Comment: The [place] [employer] (ADA) provides guidance for cutoff values for fasting glucose and random glucose. The ADA defines fasting as no caloric intake for at least 8 hours. Fasting plasma glucose results between 100 to 125 mg/dL indicate increased risk for diabetes (prediabetes). Fasting plasma glucose results greater than or equal to 126 mg/dL meet the criteria for diagnosis of diabetes. In the absence of unequivocal hyperglycemia, results should be confirmed by repeat testing. In a patient with classic symptoms of hyperglycemia or hyperglycemic crisis, random plasma glucose results greater than or equal to 200 mg/dL meet the criteria for diagnosis of diabetes. Reference: Standards of Medical Care in Diabetes 2016, [place] [employer] Association. Diabetes Care. 2016.39(Suppl 1). Performed By: #### 1 9122-9, 2132-04, 2284-03 #### [facility] CLIA [id number] [address] [place] [address] [place] Potassium [Moles/Vol] 4.8 mmol/L Normal 3.7-5.1 [facility] Comment on above: Order Comment: Speci men Type: BLOOD SPECIMEN Ordering Facility: [facility] Address: [address] [place] [address] Performed By: #### 1 9, 2132-04, 2284-03 #### [facility] CLIA [id number] [address] [place] [address] [place] Sodium [Moles/Vol] 142 mmol/L Normal 136-144 [facility] Comment on above: Order Comment: Speci men Type: BLOOD SPECIMEN Ordering Facility: [facility] Address: [address] [place] [address] Performed By: #### 1 9, 2132-04, 2284-03 #### [facility] CLIA [id number] [address] [place] [address] [place] Urea nitrogen [Mass/Vol] 23 mg/dL High 7-21 [facility] Comment on above: Order Comment: Speci men Type: BLOOD SPECIMEN Ordering Facility: [facility] Address: [address] [place] [address] Performed By: #### 1 9, 2132-04, 2284-03 #### [facility] CLIA [id number] [address] [address] [place] CBC W Auto Differential pane l (Bld)on 04-09-2025 Basophils (Bld) [#/Vol] 0.04 10*3/uL [facility] Basophils/100 WBC (Bld) 0.6 % [facility] Differential cell count method Nom (Bld) Auto [facility] Eosinophils (Bld) [#/Vol] 0.05 10*3/uL [facility] Eosinophils/100 WBC (Bld) 0.8 % [facility] Erythrocyte distribution width (RBC) [Ratio] 13.1 % 11.5 - 15.0 % [facility] Hematocrit (Bld) [Volume fraction] 40.1 % 36.0 - 46.0 % [facility] Hemoglobin (Bld) [Mass/Vol] 13.1 g/dL 11.5 - 15.5 g/dL [facility] Immature granulocytes (Bld) [#/Vol] [facility] Immature granulocytes/100 WBC (Bld) 0.3 % [facility] Lymphocytes (Bld) [#/Vol] 1.24 10*3/uL [facility] Lymphocytes/100 WBC (Bld) 19.6 % [facility] MCH (RBC) [Entitic mass] 29.8 pg 26.0 - 34.0 pg [facility] MCHC (RBC) [Mass/Vol] 32.7 g/dL 30.5 - 36.0 g/dL [facility] MCV (RBC) [Entitic vol] 91.1 fL 80.0 - 100.0 fL [facility] Monocytes (Bld) [#/Vol] 0.56 10*3/uL [facility] Monocytes/100 WBC (Bld) 8.8 % [facility] Neutrophils (Bld) [#/Vol] 4.42 10*3/uL [facility] Neutrophils/100 WBC (Bld) 69.9 % [facility] Nucleated RBC (Bld) [#/Vol] [facility] Nucleated RBC/100 WBC (Bld) [Ratio] 0.0 % /100 WBC [facility] Platelet mean volume (Bld) [Entitic vol] 11.5 fL 9.0 - 12.7 fL [facility] Platelets (Bld) [#/Vol] 166 10*3/uL [facility] RBC (Bld) [#/Vol] 4.40 10*6/uL 3.90 - 5.2 0 m/uL [facility] WBC (Bld) [#/Vol] 6.33 10*3/uL [facility] Basophils (Bld) [#/Vol] 0.04 10*3/uL Normal <0.11 [facility] Comment on above: Order Comment: Speci men Type: BLOOD SPECIMEN Ordering Facility: [facility] Address: [address] [place] [address] Performed By: #### 1 9123-9, 2132-04, 2284-03 #### [facility] CLIA [id number] [address] [place] [address] [place] Basophils/100 WBC (Bld) 0.6 % Normal [facility] Comment on above: Order Comment: Speci men Type: BLOOD SPECIMEN Ordering Facility: [facility] Address: [address] [place] [address] Performed By: #### 1 91239, 2132-04, 2284-03 #### [facility] CLIA [id number] [address] [place] [address] [place] Differential cell count method Nom (Bld) Auto Normal [facility] Comment on above: Order Comment: Speci men Type: BLOOD SPECIMEN Ordering Facility: [facility] Address: [address] [place] [address] Performed By: #### 1 9123-9, 2132-04, 2284-03 #### [facility] CLIA [id number] [address] [place] [address] [place] Eosinophils (Bld) [#/Vol] 0.05 10*3/uL Normal <0.46 [facility] Comment on above: Order Comment: Speci men Type: BLOOD SPECIMEN Ordering Facility: [facility] Address: [address] [place] [address] Performed By: #### 1 9123-9, 2132-04, 2284-03 #### [facility] CLIA [id number] [address] [place] [address] [place] Eosinophils/100 WBC (Bld) 0.8 % Normal [facility] Comment on above: Order Comment: Speci men Type: BLOOD SPECIMEN Ordering Facility: [facility] Address: [address] [place] [address] Performed By: #### 1 9123-9, 2132-04, 2284-03 #### [facility] CLIA [id number] [address] [place] [address] [place] Erythrocyte distribution width (RBC) [Ratio] 13.1 % Normal 11.5-15.0 [facility] Comment on above: Order Comment: Speci men Type: BLOOD SPECIMEN Ordering Facility: [facility] Address: [address] [place] [address] Performed By: #### 1 9123-9, 2132-04, 2284-03 #### [facility] CLIA [id number] [address] [place] [address] [place] Hematocrit (Bld) [Volume fraction] 40.1 % Normal 36.0-46.0 [facility] Comment on above: Order Comment: Speci men Type: BLOOD SPECIMEN Ordering Facility: [facility] Address: [address] [place] [address] Performed By: #### 1 9123-9, 2132-04, 2284-03 #### [facility] CLIA [id number] [address] [place] [address] [place] Hemoglobin (Bld) [Mass/Vol] 13.1 g/dL Normal 11.5-15.5 [facility] Comment on above: Order Comment: Speci men Type: BLOOD SPECIMEN Ordering Facility: [facility] Address: [address] [place] [address] Performed By: #### 1 9123-9, 2132-04, 2284-03 #### [facility] CLIA [id number] [address] [place] [address] [place] Immature granulocytes (Bld) [#/Vol] 10*3/uL Normal <0.10 [facility] Comment on above: Order Comment: Speci men Type: BLOOD SPECIMEN Ordering Facility: [facility] Address: [address] [place] [address] Performed By: #### 1 9, 2132-04, 2284-03 #### [facility] CLIA [id number] [address] [place] [address] [place] Immature granulocytes/100 WBC (Bld) 0.3 % Normal [facility] Comment on above: Order Comment: Speci men Type: BLOOD SPECIMEN Ordering Facility: [facility] Address: [address] [place] [address] Performed By: #### 1 9, 2132-04, 2284-03 #### [facility] CLIA [id number] [address] [place] [address] [place] Lymphocytes (Bld) [#/Vol] 1.24 10*3/uL Normal 1.00-4.00 [facility] Comment on above: Order Comment: Speci men Type: BLOOD SPECIMEN Ordering Facility: [facility] Address: [address] [place] [address] Performed By: #### 1 9, 2132-04, 2284-03 #### [facility] CLIA [id number] [address] [place] [address] [place] Lymphocytes/100 WBC (Bld) 19.6 % Normal [facility] Comment on above: Order Comment: Speci men Type: BLOOD SPECIMEN Ordering Facility: [facility] Address: [address] [place] [address] Performed By: #### 1 23-9, 2132-04, 2284-03 #### [facility] CLIA [id number] [address] [place], [place] [address] [place] MCH (RBC) [Entitic mass] 29.8 pg Normal 26.0-34.0 [facility] Comment on above: Order Comment: Speci men Type: BLOOD SPECIMEN Ordering Facility: [facility] Address: [address] [place] [address] Performed By: #### 1 9123-9, 2132-04, 2284-03 #### [facility] CLIA [id number] [address] [place] [address] [place] MCHC (RBC) [Mass/Vol] 32.7 g/dL Normal 30.5-36.0 [facility] Comment on above: Order Comment: Speci men Type: BLOOD SPECIMEN Ordering Facility: [facility] Address: [address] [place] [address] Performed By: #### 1 9123-9, 2132-04, 2284-03 #### [facility] CLIA [id number] [address] [place] [address] [place] MCV (RBC) [Entitic vol] 91.1 fL Normal 80.0-100.0 [facility] Comment on above: Order Comment: Speci men Type: BLOOD SPECIMEN Ordering Facility: [facility] Address: [address] [place] [address] Performed By: #### 1 9123-9, 2132-04, 2284-03 #### [facility] CLIA [id number] [address] [place] [address] [place] Monocytes (Bld) [#/Vol] 0.56 10*3/uL Normal <0.87 [facility] Comment on above: Order Comment: Speci men Type: BLOOD SPECIMEN Ordering Facility: [facility] Address: [address] [place] [address] Performed By: #### 1 9123-9, 2132-04, 2284-03 #### [facility] CLIA [id number] [address] [place] [address] [place] Monocytes/100 WBC (Bld) 8.8 % Normal [facility] Comment on above: Order Comment: Speci men Type: BLOOD SPECIMEN Ordering Facility: [facility] Address: [address] [place] [address] Performed By: #### 1 9123-9, 2132-04, 2284-03 #### [facility] CLIA [id number] [address] [place] [address] [place] Neutrophils (Bld) [#/Vol] 4.42 10*3/uL Normal 1.45-7.50 [facility] Comment on above: Order Comment: Speci men Type: BLOOD SPECIMEN Ordering Facility: [facility] Address: [address] [place] [address] Performed By: #### 1 9123-9, 2132-04, 2284-03 #### [facility] CLIA [id number] [address] [place] [address] [place] Neutrophils/100 WBC (Bld) 69.9 % Normal [facility] Comment on above: Order Comment: Speci men Type: BLOOD SPECIMEN Ordering Facility: [facility] Address: [address] [place] [address] Performed By: #### 1 9123-9, 2132-04, 2284-03 #### [facility] CLIA [id number] [address] [place] [address] [place] Nucleated RBC (Bld) [#/Vol] 10*3/uL Normal <0.01 [facility] Comment on above: Order Comment: Speci men Type: BLOOD SPECIMEN Ordering Facility: [facility] Address: [address] [place] [address] Performed By: #### 1 9123-9, 2132-04, 2284-03 #### [facility] CLIA [id number] [address] [place] [address] [place] Nucleated RBC/100 WBC (Bld) [Ratio] 0.0 /100 WBC Normal [facility] Comment on above: Order Comment: Speci men Type: BLOOD SPECIMEN Ordering Facility: [facility] Address: [address] [place] [address] Performed By: #### 1 9123-9, 2131-9, 4-8 #### [facility] CLIA [id number] [address] [place] [address] [place] Platelet mean volume (Bld) [Entitic vol] 11.5 fL Normal 9.0-12.7 [facility] Comment on above: Order Comment: Speci men Type: BLOOD SPECIMEN Ordering Facility: [facility] Address: [address] [place] [address] Performed By: #### 1 9123-9, 2131-9, 2283-8 #### [facility] CLIA [id number] [address] [place] [address] [place] Platelets (Bld) [#/Vol] 166 10*3/uL Normal 150-400 [facility] Comment on above: Order Comment: Speci men Type: BLOOD SPECIMEN Ordering Facility: [facility] Address: [address] [place] [address] Performed By: #### 1 9123-9, 2131-9, 2283-8 #### [facility] CLIA [id number] [address] [place] [address] [place] RBC (Bld) [#/Vol] 4.40 10*6/uL Normal 3.90-5.20 [facility] Comment on above: Order Comment: Speci men Type: BLOOD SPECIMEN Ordering Facility: [facility] Address: [address] [place] [address] Performed By: #### 1 9123-9, 2131-9, 2283-8 #### [facility] CLIA [id number] [address] [place] [address] [place] WBC (Bld) [#/Vol] 6.33 10*3/uL Normal 3.70-11.00 [facility] Comment on above: Order Comment: Speci men Type: BLOOD SPECIMEN Ordering Facility: [facility] Address: [address] [place] [address] Performed By: #### 1 9123-9, 2132-9, 2284-8 #### [facility] CLIA [id number] [address] [place] [address] [place] CNOVon 04-09-2025 CNOV Office Visit (FAMPWS ) KRYSTLE ARAMBULA ([id number]) 1940 F Date Time Provider Department 04/09/25 10:40 AM EMMA FANG During your visit today, we recorded the following information about you: Pulse Respiration Blood pressure 64/minute 16/minute 146/90 Emma Fang APRN.EQUIPMENT OPERATOR 04/09/2025 12:32 PM Signed This is a 84 year old female who presents today with: Patient presents with: Acute Visit: L knee pain/swelling in lower leg HISTORY OF PRESENT ILLNESS: Krystle Arambula is a 84 year old female. Patient presents with: Acute Visit: L knee pain/swelling in lower leg Pt presents today with complaint of left knee pain. Started about a week ago. Also has swelling of the knee and foot. Refers that she was recently on a medrol dose pack for some flank pain. Refers that she was taking 600-800 mg several times daily. No popping/cracking. Knee not giving out. Difficult to bear weight -- using a walker. Walking exacerbates. Rest helps pain. She tried a knee brace, but LE swelled and thinks the brace was too tight. Refers that she has been extremely fatigued. Refers that she has also been having increased stooling. Moves her bowels a couple of times daily. Sometimes foods affect stooling. PAST MEDICAL HISTORY: PAST MEDICAL HISTORY Diagnosis Date Diffuse cystic mastopathy Disorder of thyroid HTN (hypertension) Hyperlipidemia LDL goal < 100 08/20/2013 Lumbar disc disease with radiculopathy 01/06/2011 Mitral valve disorder 08/11/2013 Osteoarthritis of both hips 10/03/2013 Osteopenia Osteoporosis 12/10/2014 Pelvic floor weakness 05/05/2012 Situational depression 07/29/2018 Subconjunctival hemorrhage 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 PAST SURGICAL HISTORY Procedure Laterality Date ARTHRP ACETBLR/PROX FEM PROSTC AGRFT/ALGRFT 01/30/2014 right LIG/TRNSXJ FLP TUBE ABDL/VAG APPR UNI/BI PAST SURGICAL HISTORY OF Left ORIF femur TOTAL HIP REPLACEMENT 10/03/2013 left ALLERGIES [place], Tylenol #3 [Codeine], Wheat, Juanita Inhibitors, and Food Extracts MEDICATIONS Current Outpatient Medications Medication Sig losartan (COZAAR) 100 mg tablet Take 1 tablet by mouth once daily. vitamin B complex (B COMPLEX 1 ORAL) Take 1 tablet by mouth once daily. mometasone (ELOCON) 0.1 % cream Apply 1 application to affected area once daily. MAGNESIUM ORAL Take 250 mg by mouth once daily. No current facility-administered medications for this visit. FAMILY HISTORY Problem Relation Age of Onset Heart Mother Arthritis Father Breast Cancer Sister Stroke Father Coronary Artery Disease Brother Coronary Artery Disease Brother SOCIAL HISTORY[1] EXAM: BP 146/90 Pulse 64 Resp 16 SpO2 97% PHYSICAL EXAM: General Appearance: Well appearing, alert, in no acute distress, well-hydrated, well nourished.. Skin: Skin color, texture, turgor normal, no suspicious rashes or lesions. Head: Normocephalic, no masses, lesions, tenderness or abnormalities. Eyes: Anicteric sclera. Extraocular movements are intact. . Lungs: Lungs clear to auscultation. No wheezing, rhonchi, rales.. Heart: RRR without murmur, gallop, or rubs. No ectopy. Abdomen: Abdomen soft, non-tender. Bowel sounds normal. No masses, organomegaly. NO CVA tenderness. Neurologic: Gait normal. KNEE:Location: left knee -- medial aspect. + swelling. + increased warmth. No redness. Redness: No. Warmth: Yes. Crepitus: No. Effusion: No. Joint line tenderness: Yes. Lateral tenderness: No. Medial tenderness: Yes. Positive Drawer sign: No. Medial or lateral laxity: No. Daxa's sign: No. ASSESSMENT/PLAN: 1. Acute pain of left knee - ICD9: 719.46, ICD10: M25.562 (primary diagnosis) Will go ahead and get xray. Get labs Resume ibuprofen. Compression Propping Rest. - XR KNEE GENERAL 4V AP BOTH/PA BOTH/LAT/MERC LEFT - COMPLETE BLOOD COUNT AND DIFFERENTIAL - BASIC METABOLIC PANEL - URIC ACID - SEDIMENTATION RATE, WESTERGREN - C-REACTIVE PROTEIN 2. Flank pain - ICD9: 789.09, ICD10: R10.9 Get ultrasound. - US KIDNEY/BLADDER Discussed treatment plan and patient voices understanding. Patient's questions answered appropriately. Medications and potential side effects were discussed and patient voices understanding. Return to the office as scheduled or as needed for worsening/no improvement. Emma Fang APRN.EQUIPMENT OPERATOR [1] Social History Tobacco Use Smoking status: Never Smokeless tobacco: Never Vaping Use Vaping status: Never Used Substance Use Topics Alcohol use: No Drug use: No Emma Fang APRN.EQUIPMENT OPERATOR 04/09/2025 11:19 AM Addendum Stop the ca and vit d. Get the bloodwork. Get the xray. Schedule the ultrasound of the kidneys. You can take ibuprofen 600-800 mg every 8 hours as needed. You can take tylenol 1000 mg every 8 hours as needed. Ice the knee. (more content not included)... Normal [facility] CRP SerPl-mCncon 04-09-2025 CRP [Mass/Vol] 0.7 mg/dL Normal <0.9 [facility] Comment on above: Order Comment: Speci men Type: BLOOD SPECIMEN Ordering Facility: [facility] Address: [address] [place] [address] Performed By: #### 1 9123-9, 2132-9, 2284-8 #### [facility] CLIA [id number] [address] [place], [place] [address] [place] [address] [place] ESR Westergren method (Bld) [Velocity]on 04-09-2025 ESR (Bld) [Velocity] 12 mm/h [facility] Interpretation and review of laboratory results Normal [facility] ESR (Bld) [Velocity] 12 mm/h Normal 0-20 [facility] Comment on above: Order Comment: Speci men Type: BLOOD SPECIMEN Ordering Facility: [facility] Address: [address] [place], [place] [address] Performed By: #### 1 9123-9, 2132-04, 2284-03 #### [facility] CLIA [id number] [address] [place], [place] [address] [place] Urate SerPl-mCncon Urate [Mass/Vol] 4.9 mg/dL Normal 2.5-6.6 [facility] Comment on above: Order Comment: Speci men Type: BLOOD SPECIMEN Ordering Facility: [facility] Address: [address] [place], [place] [address] [id number] Performed By: #### 1 9123-9, 9, 2284-03 #### [facility] CLIA [id number] [address] [place] [address] [place] XR KNEE 4V AP/PA BOTH+LAT/ME R LTon 04-09-2025 XR KNEE 4V AP/PA BOTH+LAT/POOJA LT * * *Final Report* * * DATE OF EXAM: Apr 09 2025 12:14PM WOX 5202 - XR KNEE 4V AP/PA BOTH+LAT/POOJA LT / PROCEDURE REASON: Acute pain of left knee * * * * Physician Interpretation * * * * PROCEDURE: Left knee INDICATION: Acute pain of left knee .Left knee pain l 1 week, swelling, increased warmth. Recently on prednisone for back pain. TECHNIQUE: XR KNEE 4V AP/PA BOTH+LAT/POOJA LT COMPARISON: 12/09/2020 FINDINGS: Significant medial joint compartment narrowing with minimal tricompartment spur formation, greater than previous. No fracture or dislocation. Small joint effusion. Advanced medial joint compartment osteoarthrosis in the right knee. IMPRESSION: Progressive osteoarthrosis Technical Mgr: KARLEE Transcribe Date/Time: Apr 11 2025 6:55A Dictated by : GERALD CONCEPCION MD This examination was interpreted and the report reviewed and electronically signed by: GERALD CONCEPCION MD on Apr 11 2025 6:56AM EST [id number] Normal [facility] Bacteria Ur Culton Bacteria identified Cx Nom (U) ORGANISM ID: 1 10,000 -<50,000 CFU/ml Mixed microbiota Insignificant colony count. No further workup. Normal [facility] Comment on above: Performed By: #### 6 30-4 ####[facility] [id number] [address] [facility] CNOVon 03-26-2025 CNOV Office Visit (WOUCA) KRYSTLE MEJIAS ([id number]) 1940 F Date Time Provider Department 03/26/25 8:15 AM ROSELINE MORROW During your visit today, we recorded the following information about you: Temperature Pulse Respiration Blood pressure 96.9 degrees 68/minute 16/minute 142/96 Weight 69 kg Roseline Morrow MD 03/26/2025 8:51 AM Signed [facility] Subjective Krystle Arambula is a 84 year old female. Patient presents with: Back Pain: mid-right side back pain x 4am, recurring Pt here with 1 day hx of right flank pain pt states has had in past and usually given streoids helps no dysuria no freq no abd pain no fever no chills no N/V Back Pain Pertinent negatives include no fever, no abdominal pain, no dysuria and no pelvic pain. Review of Systems Constitutional: Negative for chills, fatigue and fever. Gastrointestinal: Negative for abdominal pain, nausea and vomiting. Genitourinary: Positive for flank pain. Negative for dysuria, frequency, hematuria, pelvic pain and urgency. Musculoskeletal: Positive for back pain. Objective BP 142/96 Pulse 68 Temp 36.1 ?C (96.9 ?F) Resp 16 Wt 69 kg (152 lb 1.9 oz) SpO2 93% BMI 26.95 kg/m? Physical Exam Vitals and nursing note reviewed. Constitutional: Appearance: Normal appearance. She is not ill-appearing. Abdominal: Palpations: Abdomen is soft. Tenderness: There is no abdominal tenderness. There is right CVA tenderness. There is no left CVA tenderness, guarding or rebound. Skin: Findings: No rash. Neurological: Mental Status: She is alert and oriented to person, place, and time. Psychiatric: Mood and Affect: Mood normal. Behavior: Behavior normal. Results for orders placed or performed in visit on 03/26/25 UA DIP, URINE (POC) Result Value Ref Range GLUCOSE UA (POCT) Negative Negative mg/dL BILIRUBIN UA (POCT) Negative Negative KETONE UA (POCT) Negative Negative mg/dL SPECIFIC GRAVITY UA (POCT) 1.020 1.005 - 1.030 HEMOGLOBIN/BLOOD UA (POCT) Trace-intact (A) Negative PH UA (POCT) 7.5 4.5 - 8.0 PROTEIN UA (POCT) Negative Negative mg/dL UROBILINOGEN UA (POCT) 0.2 Normal E.U./dL NITRITE UA (POCT) Negative Negative LEUKOCYTES UA (POCT) Moderate (A) Negative COLOR UA (POCT) Yellow CLARITY UA (POCT) Cloudy {ASSESSMENT/PLAN: 1. Flank pain - ICD9: 789.09, ICD10: R10.9 (primary diagnosis) - UA DIP, URINE (POC) - METHYLPREDNISOLONE 4 MG TABLETS IN A DOSE PACK 2. Acute cystitis without hematuria - ICD9: 595.0, ICD10: N30.00 To the ED if no better on meds - CEPHALEXIN 500 MG CAPSULE Roseline Morrow MD History and Record Review External record(s) reviewed: prior outpatient record. Differential Diagnoses - uti/flank pain is more likely for the following reason(s): suggested by HANDP and consistent with laboratory studies - kidney stones is less likely for the following reason(s): HANDP not suggestive Additional Tests or Interventions The following testing was considered but ultimately not selected after discussion with patient/family: CT scan Disposition The patient was discharged. Procedures Roseline Morrow MD 03/26/2025 8:37 AM Addendum IF ANY WORSE OR NOT GETTING BETTER GO TO THE ED FOR EVALUATION Roseline Morrow MD 03/26/2025 9:12 AM Signed Addended by: ROSELINE MORROW on: 03/26/2025 09:12 AM Modules accepted: Orders Allergies As of Date: 03/26/2025 Noted Allergy Reaction CORN 09/15/2024 9 - Itching TYLENOL #3 (CODEINE) 02/08/2008 Comments: vomitting WHEAT 09/15/2024 9 - Itching JUANITA INHIBITORS 11/19/2019 3 - Cough FOOD EXTRACTS 04/01/2005 9 - Itching Date Reviewed: 03/26/2025 Reviewed by: Berenice Villanueva MA - Fully Assessed Reason for Visit: Back Pain [12] Cmt: mid-right side back pain x 4am, recurring Primary Visit Diagnosis:Flank pain [R10.9] Other Visit Diagnosis:Acute cystitis without hematuria [N30.00] Order(s):UA DIP, URINE (POC) [[id number]] Order #: [id number]. #:[id number] cephALEXin (KEFLEX) 500 mg capsuleTake 1 capsule by mouth two times a day for 7 days.Disp: 14 capsuleRfl: 0 methylPREDNISolone (MEDROL, TIFFANIE,) 4 mg Dose-PackTake as instructed per package.Disp: 21 tabletRfl: 0 BACTERIAL CULTURE, URINE [SQURCUL] Order #: [id number]. #:[id number] Prescriptions as of 03/26/2025 - cephALEXin (KEFLEX) 500 mg capsule Take 1 capsule by mouth two times a day for 7 days. - methylPREDNISolone (MEDROL, TIFFANIE,) 4 mg Dose-Pack Take as instructed per package. - losartan (COZAAR) 100 mg tablet Take 1 tablet by mouth once daily. - vitamin B complex (B COMPLEX 1 ORAL) Take 1 tablet by mouth once daily. - mometasone (ELOCON) 0.1 % cream Apply 1 application to affected area once daily. - MAGNESIUM ORAL Take 250 mg by mouth once daily. Problem List As Of Date 03/26/2025 Noted Resolved Disorder of bone and cartilage, unspecified [M8* (more content not included)... Normal [facility] UA DIP, URINE (POC)on 2024 BILIRUBIN UA (POCT) Negative Negative [facility] CLARITY UA (POCT) Cloudy [facility] COLOR UA (POCT) Yellow [facility] GLUCOSE UA (POCT) Negative Negative mg/dL [facility] Hemoglobin Ql (U) Trace-intact Abnormal Negative [facility] Interpretation and review of laboratory results Abnormal [facility] KETONE UA (POCT) Negative Negative mg/dL [facility] LEUKOCYTES UA (POCT) Moderate Abnormal Negative [facility] NITRITE UA (POCT) Negative Negative [facility] PH UA (POCT) 7.5 4.5 - 8.0 [facility] Protein Ql (U) Negative Negative mg/dL [facility] SPECIFIC GRAVITY UA (POCT) 1.020 1.005 - 1.030 [facility] UROBILINOGEN UA (POCT) 0.2 Normal E.U./dL [facility] Location:[address], [place], [place], [address] [place] [address] POINT OF CARE [facility] CNPNon 03-20-2025 CNPN Telephone (FAMGrovoWS) KRYSTLE ARAMBULA ([id number]) 1940 F Date Time Provider Department 03/20/25 GUCCI CALLAHAN [facility] During your visit today, we recorded the following information about you: Gucci Callahan MD 03/20/2025 3:20 PM Signed Labs ok except vit d is too high. Stop all vit d and recheck level in six weeks. Sarai Breen MA 03/20/2025 4:34 PM Signed Left message for patient to return call. Osiris Michel Stephanie, RN 03/21/2025 11:33 AM Signed Patient notified of results and provider's instructions. Patient verbalizes understanding. Merline Nieves RN Allergies As of Date: 03/20/2025 Noted Allergy Reaction CORN 09/15/2024 9 - Itching TYLENOL #3 (CODEINE) 02/08/2008 Comments: vomitting WHEAT 09/15/2024 9 - Itching JUANITA INHIBITORS 11/19/2019 3 - Cough FOOD EXTRACTS 04/01/2005 9 - Itching Date Reviewed: 03/19/2025 Reviewed by: Gucci Callahan MD - Fully Assessed Reason for Visit: Results [95] Primary Visit Diagnosis:Poisoning by vitamin D, accidental or unintentional, subsequent encounter [T45.2X1D] Order(s):VITAMIN D 25 HYDROXY [SQVITD] Order #: [id number] FUTURE Prescriptions as of 03/21/2025 - losartan (COZAAR) 100 mg tablet Take 1 tablet by mouth once daily. - vitamin B complex (B COMPLEX 1 ORAL) Take 1 tablet by mouth once daily. - mometasone (ELOCON) 0.1 % cream Apply 1 application to affected area once daily. - MAGNESIUM ORAL Take 250 mg by mouth once daily. Problem List As Of Date 03/20/2025 Noted Resolved Disorder of bone and cartilage, unspecified [M8*04/01/2005 07/20/2022 BENIGN JEAN CARLOS SCALP/SKIN NECK [D23.4] 02/18/2007 DIFFUS CYSTIC MASTOPATHY [N60.19] 06/13/2007 Lumbar disc disease with radiculopathy [M51.16] 01/06/2011 07/20/2022 Displacement of lumbar intervertebral disc with*01/12/2011 Pelvic floor weakness [N81.89] 05/05/2012 Mitral valve disorder [I05.9] 08/11/2013 08/09/2023 Hyperlipidemia with target LDL less than 100 [E*08/20/2013 Osteoarthritis of both hips [M16.0] 10/03/2013 Osteoporosis [M81.0] 12/10/2014 04/30/2021 Family history of breast cancer in sister [Z80.*10/12/2017 Fatigue [R53.83] 07/29/2018 07/20/2022 Situational depression [F43.21] 07/29/2018 07/20/2022 Hypertension, essential [I10] 07/11/2020 Popliteal cyst, right [M71.21] 04/18/2021 07/20/2022 Osteopenia of multiple sites [M85.89] 04/30/2021 Advance care planning [Z71.89] 10/22/2021 Thyroid condition [E07.9] 01/14/2022 Prediabetes [R73.03] 01/19/2022 Allergic dermatitis due to food taken internall*06/02/2022 02/07/2024 Chest pain [R07.9] 06/02/2022 07/20/2022 Low back pain [M54.50] 06/02/2022 07/20/2022 Osteoarthritis [M19.90] 06/02/2022 07/20/2022 Viral upper respiratory tract infection [J06.9] 06/02/2022 07/20/2022 Cough [R05.9] 07/20/2022 07/20/2022 History of severe acute respiratory syndrome co*07/20/2022 07/20/2022 Subconjunctival hemorrhage [H11.30] 01/25/2023 02/07/2024 Aortic insufficiency [I35.1] 03/07/2024 Medications Discontinued During This Encounter Prescriptions - cholecalciferol, vitamin D3, (VITAMIN D3 ORAL) (Discontinued) Take by mouth. - CALCIUM CARBONATE/VITAMIN D3 (CALCIUM 500 + D ORAL) (Discontinued) Take by mouth once daily. Encounter Status:Closed by MERLINE NIEVES on 03/21/25 Normal [facility] 25(OH)D3 SerPl-ncon 2024 25-hydroxyvitamin D3 [Mass/Vol] 94.5 ng/mL High 31.0-80.0 [facility] Comment on above: Order Comment: Speci men Type: BLOOD SPECIMEN Ordering Facility: [facility] Address: [address] [place] [address] Result Comment: Clas sification of 25 [place] Vitamin D status: Deficiency/Insufficiency: < or = 30 ng/ml. Sufficiency/Optimal Levels: 31-80 ng/mL Toxicity: > 100 ng/mL. Test performed by chemiluminescent immunoassay. Performed By: #### 1 9123-9, 2132-9, 2284-8 #### [facility] CLIA [id number] [address] [place] [address] [place] [address] [place] CNOVon 03-19-2025 CNOV Office Visit (FAMPWS ) KRYSTLE ARAMBULA ([id number]) 1940 F Date Time Provider Department 03/19/25 1:40 PM [facility] During your visit today, we recorded the following information about you: Pulse Blood pressure Weight Height 64/minute 132/84 70.6 kg 1.6 m Gucci Callahan MD 03/19/2025 2:10 PM Signed Krystle Arambula is a 84 year old female here for a Medicare wellness visit. Medicare Health Risk Assessment General Health Very good Exercise: Minutes/Day Nothing formal Exercise: Days/Week None but is active Alcohol: Daily Use No Alcohol: Drinks/Day No Alcohol: 6 or more drinks no Feel off balance no Concerns: Teeth/Dentures no Concerns: Sexual function no Troubled by feelings no Frequency: Eating healthy diet Most day ADLs requiring help none Safety precautions in home/vehicle Yes. Smoke, vape, chews tobacco no Difficulty hearing yes Difficulty seeing Doing well., Current Providers Specialists: I have reviewed specialist-related care of the patient in the medical record. Current care team: Patient Care Team: Gucci Callahan MD as PCP - General (Family Medicine) Emma Fang APRN.TRISHA as Co Founder And President (Family Medicine) Flori Castro APRN.CNP as Co Founder And President (Family Medicine) alex Tuttle Medical/Family history review Reviewed and updated problem list, medical/surgical/family /social history, medications, and allergies. Opioid use review Opioid Medications (last 90 days) No data to display Anxiety/Depression screening (Lower risk for depression) (Lower risk for anxiety) Recommendation: no further intervention at this time Cognitive screening Mini Cog Score: 2 Cognitive screening reviewed and No further action needed (score 3-5). Functional Observation Was the patient's Timed Up AND Go test unsteady or >= 12 seconds? No Advance Care Planning Surrogate decision maker and/or advance care plan documented Measurements BP 132/84 Pulse 64 Ht 160 cm (5' 2.99") Wt 70.6 kg (155 lb 9.6 oz) SpO2 94% BMI 27.57 kg/m? Vision Screening: Follows with optometry/ophthalmology ADDITIONAL INFO: Annual Wellness Exam: - General health described as "really good." - No formal exercise, but remains active. - Denies alcohol consumption, tobacco use, or vaping. - Denies balance issues, dental concerns, or sexual dysfunction. - Denies feelings of anxiety or depression. - Denies headaches, numbness, tingling, weakness, tremors, neck pain, chest pain, palpitations, or LE edema. - Denies nausea, emesis, diarrhea, or urinary issues. - Denies skin rashes or unusual moles. - Denies need for assistance with ADLs. - Follows safety precautions, including seatbelt use. - Adequate lighting and handrails in the home. - Denies eye pain, ear pain, or oral sores. - Denies neck lumps or bumps. - Denies cough or wheezing. - Denies bowel issues unless taking excessive magnesium. - Denies any concerns or issues not covered during the visit. - Family history of memory issues; sister has memory problems at age 93. - Enjoying summer, working on a [employer] property since January. - Denies any other specialist care besides ophthalmology. Diet: - Eats a healthy diet most days. - Allergies to corn and wheat; avoids Tylenol #3 and JUANITA inhibitors due to cough. Hearing Loss: - Reports hearing issues but is not currently addressing them. Vision: - No vision issues; sees Dr. Landeros for ophthalmology care. Memory Issues: - Noticed recent memory issues, particularly with remembering things. - No family members have commented on memory issues. Knee Pain: - Reports knee pain when using a ladder for painting. - Wears a knee brace, which causes ankle swelling. Leg Cramps: - Experiences leg cramps; taking magnesium supplements. Head Injury: - Recently hit head while cleaning a basement, resulting in a "knot" on the head. non sequelae. No syncope. no injury. ROS: Head: (+) scalp lump with pain, (-) headache Eyes: (+) eye irritation, (-) eye pain, (-) visual disturbance Ears/Nose/Mouth/Throat: (+) hearing loss, (-) ear pain, (-) oral sores, (-) dental problems Neck: (-) neck pain, (-) neck lumps Cardiovascular: (-) chest pain, (-) palpitations Respiratory: (-) cough, (-) wheezing Gastrointestinal: (-) nausea, (-) vomiting, (-) diarrhea, (-) bowel changes Genitourinary: (-) dysuria, (-) urinary frequency, (-) hematuria Musculoskeletal: (+) knee pain, (+) ankle swelling Skin: (-) skin rash, (-) abnormal moles Neurological: (+) memory impairment, (-) balance problems, (-) numbness, (-) tingling, (-) weakness, (-) tremors Psychiatric: (-) anxiety, (-) depressed mood, (-) anhedonia PE: GENERAL: NAD, alert and oriented. SKIN: Unremarkable, no rash or skin lesions. HEAD: Normocephalic, no tenderness or lesions noted. EYES: PERRLA, EOMI, conjunctiva c (more content not included)... Normal [facility] Cobalamin (Vitamin B12) [Mas s/Vol]on 03-19-2025 Interpretation and review of laboratory results Abnormal [facility] FOLATE, SERUMon 03-19-2025 Folate [Mass/Vol] 13.5 ng/mL 4.7 - PINF ng/mL [facility] Folate [facility] 03-19-20 Folate [Mass/Vol] 13.5 ng/mL Normal >4.7 [facility] Comment on above: Order Comment: Speci men Type: BLOOD SPECIMEN Ordering Facility: [facility] Address: [address] [place] [address] Performed By: #### 1 9123-9, 2132-9, 2284-8 #### [facility] CLIA [id number] [address] [place] [address] [place] Folate [Mass/Vol]on 03-19-20 Interpretation and review of laboratory results Normal [facility] MAGNESIUMon 03-19-2025 Magnesium [Mass/Vol] 2.2 mg/dL 1.7 - 2 .3 mg/dL [facility] Magnesium SerPl-ncon 03-19 Magnesium [Mass/Vol] 2.2 mg/dL Normal 1.7-2.3 [facility] Comment on above: Order Comment: Speci men Type: BLOOD SPECIMEN Ordering Facility: [facility] Address: [facility][note 3] [facility] [place] [address] Performed By: #### 1 9123-9, 2132-04, 2284-03 #### [facility] CLIA [id number] [address] [place] [address] [place] Magnesium [Mass/Vol]on 03-19 Interpretation and review of laboratory results Normal [facility] No Panel Informationon 03-19 [facility] Reagin and Treponema pallidu m IgG and IgM [Interp]on 03-19-2025 T. pallidum IgG+IgM IA Ql (S) Non-Reactive Normal Nonreactive [facility] Comment on above: Order Comment: Speci men Type: BLOOD SPECIMEN Ordering Facility: [facility] Address: [address] [place] [address] Performed By: #### 1 239, 2132-04, 2284-03 #### [facility] CLIA [id number] [address] [place] [address] [place] Reagin+T pallidum IgG+IgM Se rPl-Impon 03-19-2025 Reagin and Treponema pallidum IgG and IgM [Interp] Cannot exclude recent Treponemal infection if specimen collected within 7-10 days after appearance of suspect lesions or 2-3 weeks after an exposure. Clinical correlation is required. Normal [facility] Comment on above: Order Comment: Speci men Type: BLOOD SPECIMEN Ordering Facility: [facility] Address: [address] [place] [address] Performed By: #### 1 9123-9, 2132-04, 2284-03 #### [facility] CLIA [id number] [address] [place] [address] [place] VITAMIN B12on 03-19-2025 Cobalamin (Vitamin B12) [Mass/Vol] pg/mL High 232 - 1245 pg/mL [facility] Vit B12 SerPl-mCncon 18-2 025 Cobalamin (Vitamin B12) [Mass/Vol] pg/mL High 232-1245 [facility] Comment on above: Order Comment: Speci men Type: BLOOD SPECIMEN Ordering Facility: [facility] Address: [address] [place] [address] Performed By: #### 1 9123-9, 2132-9, 2284-8 #### [facility] CLIA [id number] [address] [place] [address] [place] CNOVon 03-14-2025 CNOV Office Visit ([facility]) KRYSTLE ARAMBULA ([id number]) 1940 F Date Time Provider Department 03/14/25 3:45 PM YVES DUARTE During your visit today, we recorded the following information about you: Temperature Pulse Respiration Blood pressure 97.4 degrees 75/minute 20/minute 140/84 Weight 71.1 kg Yves Duarte APRN.EQUIPMENT OPERATOR 03/14/2025 4:32 PM Signed [facility] Subjective Krystle Luna Ralf is a 84 year old female. Patient presents with: Laceration: Laceration on bottom/side of left foot x 1 day HPI Left Foot Laceration: - Sustained a laceration on the left foot yesterday around 18:00-19:00. - Occurred while walking barefoot in the yard; unsure of the object that caused the injury. - Did not immediately clean the wound; applied peroxide later but unsure of its effectiveness. - Lives alone and has difficulty visualizing and reaching the wound. - Has not changed the initial bandage since application. - Uncertain about the last tetanus vaccination. - Denies known allergies to antibiotics. Review of Systems Constitutional: (+) fatigue Skin: (+) left foot laceration Objective BP 140/84 Pulse 75 Temp 36.3 ?C (97.4 ?F) Resp 20 Wt 71.1 kg (156 lb 12 oz) SpO2 95% BMI 27.77 kg/m? Physical Exam General: No acute distress. Skin: Laceration on left foot, approximately half an inch long, clean edges, well approximated, no foreign bodies visible, not actively bleeding. { 1. Laceration of left foot, initial encounter (S91.312A) - Acute laceration of the left foot, approximately 0.5 inches in length, well-approximated and not deep; no foreign bodies visualized. - Start Keflex; no known antibiotic allergies. - Tetanus immunization updated. - Wound cleaned and re-bandaged in clinic. - Educated patient to keep wound clean and dry, leave open to air when possible, and monitor for signs and symptoms of infection. - Patient expressed understanding and agreement with care plan. and Recording using [employer] software for draft documentation of the visit was discussed with the patient/authorized tax compliance representative; all questions welcomed and answered. Patient/authorized tax compliance representative agreed to proceed MDM Procedures Allergies As of Date: 03/14/2025 Noted Allergy Reaction CORN 09/15/2024 9 - Itching TYLENOL #3 (CODEINE) 02/08/2008 Comments: vomitting WHEAT 09/15/2024 9 - Itching JUANITA INHIBITORS 11/19/2019 3 - Cough FOOD EXTRACTS 04/01/2005 9 - Itching Date Reviewed: 03/14/2025 Reviewed by: Alison Vogt MA - Fully Assessed Reason for Visit: Laceration [1747] Cmt: Laceration on bottom/side of left foot x 1 day Primary Visit Diagnosis:Laceration of left foot, initial encounter [S91.312A] Order(s):cephALEXin (KEFLEX) 500 mg capsuleTake 1 capsule by mouth four times daily for 5 days.Disp: 20 capsuleRfl: 0 TD VACCINE, AGE 7+ YR, 5 LF TETANUS (TENIVAC) [53045KBL] Order #: [id number] Prescriptions as of 03/14/2025 - cephALEXin (KEFLEX) 500 mg capsule Take 1 capsule by mouth four times daily for 5 days. - losartan (COZAAR) 100 mg tablet Take 1 tablet by mouth once daily. - GARLIC ORAL Take by mouth. - cholecalciferol, vitamin D3, (VITAMIN D3 ORAL) Take by mouth. - vitamin B complex (B COMPLEX 1 ORAL) Take 1 tablet by mouth once daily. - mometasone (ELOCON) 0.1 % cream Apply 1 application to affected area once daily. - MAGNESIUM ORAL Take 250 mg by mouth once daily. - CALCIUM CARBONATE/VITAMIN D3 (CALCIUM 500 + D ORAL) Take by mouth once daily. Problem List As Of Date 03/14/2025 Noted Resolved Disorder of bone and cartilage, unspecified [M8*04/01/2005 07/20/2022 BENIGN JEAN CARLOS SCALP/SKIN NECK [D23.4] 02/18/2007 DIFFUS CYSTIC MASTOPATHY [N60.19] 06/13/2007 Lumbar disc disease with radiculopathy [M51.16] 01/06/2011 07/20/2022 Displacement of lumbar intervertebral disc with*01/12/2011 Pelvic floor weakness [N81.89] 05/05/2012 Mitral valve disorder [I05.9] 08/11/2013 08/09/2023 Hyperlipidemia with target LDL less than 100 [E*08/20/2013 Osteoarthritis of both hips [M16.0] 10/03/2013 Osteoporosis [M81.0] 12/10/2014 04/30/2021 Family history of breast cancer in sister [Z80.*10/12/2017 Fatigue [R53.83] 07/29/2018 07/20/2022 Situational depression [F43.21] 07/29/2018 07/20/2022 Hypertension, essential [I10] 07/11/2020 Popliteal cyst, right [M71.21] 04/18/2021 07/20/2022 Osteopenia of multiple sites [M85.89] 04/30/2021 Advance care planning [Z71.89] 10/22/2021 Thyroid condition [E07.9] 01/14/2022 Prediabetes [R73.03] 01/19/2022 Allergic dermatitis due to food taken internall*06/02/2022 02/07/2024 Chest pain [R07.9] 06/02/2022 07/20/2022 Low back pain [M54.50] 06/02/2022 07/20/2022 Osteoarthritis [M19.90] 06/02/2022 07/20/2022 Viral upper respiratory tract infection [J06.9] 06/02/2022 07/20/2022 Cough [R05.9] 07/20/2022 07/20/2022 History of sever (more content not included)... Normal [facility] CBC W Auto Differential pane l (Bld)on 03-12-2025 Basophils (Bld) [#/Vol] 0.04 10*3/uL Normal <0.11 [facility] Comment on above: Order Comment: Speci men Type: BLOOD SPECIMEN Ordering Facility: [facility] Address: [address] [place] [address] Performed By: #### 1 9123-9, 2132-04, 2284-03 #### [facility] CLIA [id number] [address] [place] [address] [place] Basophils/100 WBC (Bld) 0.7 % Normal [facility] Comment on above: Order Comment: Speci men Type: BLOOD SPECIMEN Ordering Facility: [facility] Address: [address] [place] [address] Performed By: #### 1 9123-9, 2132-04, 2284-03 #### [facility] CLIA [id number] [address] [place] [address] [place] Differential cell count method Nom (Bld) Auto Normal [facility] Comment on above: Order Comment: Speci men Type: BLOOD SPECIMEN Ordering Facility: [facility] Address: [address] [place] [address] Performed By: #### 1 9123-9, 2132-04, 2284-03 #### [facility] CLIA [id number] [address] [place] [address] [place] Eosinophils (Bld) [#/Vol] 0.11 10*3/uL Normal <0.46 [facility] Comment on above: Order Comment: Speci men Type: BLOOD SPECIMEN Ordering Facility: [facility] Address: [address] [place] [address] Performed By: #### 1 23-9, 2132-04, 2284-03 #### [facility] CLIA [id number] [address] [place] [address] [place] Eosinophils/100 WBC (Bld) 1.9 % Normal [facility] Comment on above: Order Comment: Speci men Type: BLOOD SPECIMEN Ordering Facility: [facility] Address: [address] [place] [address] Performed By: #### 1 9123-9, 2132-04, 2284-03 #### [facility] CLIA [id number] [address] [place], [place] [address] [place] Erythrocyte distribution width (RBC) [Ratio] 12.6 % Normal 11.5-15.0 [facility] Comment on above: Order Comment: Speci men Type: BLOOD SPECIMEN Ordering Facility: [facility] Address: [address] [place] [address] Performed By: #### 1 91239, 2132-04, 2284-03 #### [facility] CLIA [id number] [address] [place], [place] [address] [place] Hematocrit (Bld) [Volume fraction] 41.5 % Normal 36.0-46.0 [facility] Comment on above: Order Comment: Speci men Type: BLOOD SPECIMEN Ordering Facility: [facility] Address: [address] [place] [address] Performed By: #### 1 91239, 2132-04, 2284-03 #### [facility] CLIA [id number] [address] [place] [address] [place] Hemoglobin (Bld) [Mass/Vol] 13.3 g/dL Normal 11.5-15.5 [facility] Comment on above: Order Comment: Speci men Type: BLOOD SPECIMEN Ordering Facility: [facility] Address: [address] [place] [address] Performed By: #### 1 9123-9, 2132-04, 2284-03 #### [facility] CLIA [id number] [address] [place] [address] [place] Immature granulocytes (Bld) [#/Vol] 10*3/uL Normal <0.10 [facility] Comment on above: Order Comment: Speci men Type: BLOOD SPECIMEN Ordering Facility: [facility] Address: [address] [place] [address] Performed By: #### 1 9123-9, 2132-04, 2284-03 #### [facility] CLIA [id number] [address] [place] [address] [place] Immature granulocytes/100 WBC (Bld) 0.2 % Normal [facility] Comment on above: Order Comment: Speci men Type: BLOOD SPECIMEN Ordering Facility: [facility] Address: [address] [place] [address] Performed By: #### 1 9123-9, 2132-04, 2284-03 #### [facility] CLIA [id number] [address] [place] [address] [place] Lymphocytes (Bld) [#/Vol] 1.42 10*3/uL Normal 1.00-4.00 [facility] Comment on above: Order Comment: Speci men Type: BLOOD SPECIMEN Ordering Facility: [facility] Address: [address] [place] [address] Performed By: #### 1 239, 2132-04, 2284-03 #### [facility] CLIA [id number] [address] [place] [address] [place] Lymphocytes/100 WBC (Bld) 25.0 % Normal [facility] Comment on above: Order Comment: Speci men Type: BLOOD SPECIMEN Ordering Facility: [facility] Address: [address] [place] [address] Performed By: #### 1 9123-9, 2132-04, 2284-03 #### [facility] CLIA [id number] [address] [place] [address] [place] MCH (RBC) [Entitic mass] 28.9 pg Normal 26.0-34.0 [facility] Comment on above: Order Comment: Speci men Type: BLOOD SPECIMEN Ordering Facility: [facility] Address: [address] [place] [address] Performed By: #### 1 9123-9, 2132-04, 2284-03 #### [facility] CLIA [id number] [address] [place] [address] [place] MCHC (RBC) [Mass/Vol] 32.0 g/dL Normal 30.5-36.0 [facility] Comment on above: Order Comment: Speci men Type: BLOOD SPECIMEN Ordering Facility: [facility] Address: [address] [place] [address] Performed By: #### 1 9123-9, 2132-04, 2284-03 #### [facility] CLIA [id number] [address] [place] [address] [place] MCV (RBC) [Entitic vol] 90.2 fL Normal 80.0-100.0 [facility] Comment on above: Order Comment: Speci men Type: BLOOD SPECIMEN Ordering Facility: [facility] Address: [address] [place] [address] Performed By: #### 1 9123-9, 2132-04, 2284-03 #### [facility] CLIA [id number] [address] [place] [address] [place] Monocytes (Bld) [#/Vol] 0.47 10*3/uL Normal <0.87 [facility] Comment on above: Order Comment: Speci men Type: BLOOD SPECIMEN Ordering Facility: [facility] Address: [address] [place] [address] Performed By: #### 1 9123-9, 2132-04, 2284-03 #### [facility] CLIA [id number] [address] [place] [address] [place] Monocytes/100 WBC (Bld) 8.3 % Normal [facility] Comment on above: Order Comment: Speci men Type: BLOOD SPECIMEN Ordering Facility: [facility] Address: [address] [place] [address] Performed By: #### 1 9123-9, 9, 2284-03 #### [facility] CLIA [id number] [address] [place] [address] [place] Neutrophils (Bld) [#/Vol] 3.62 10*3/uL Normal 1.45-7.50 [facility] Comment on above: Order Comment: Speci men Type: BLOOD SPECIMEN Ordering Facility: [facility] Address: [address] [place] [address] Performed By: #### 1 919, 2132-04, 2284-03 #### [facility] CLIA [id number] [address] [place] [address] [place] Neutrophils/100 WBC (Bld) 63.9 % Normal [facility] Comment on above: Order Comment: Speci men Type: BLOOD SPECIMEN Ordering Facility: [facility] Address: [address] [place] [address] Performed By: #### 1 91239, 2132-04, 2284-03 #### [facility] CLIA [id number] [address] [place] [address] [place] Nucleated RBC (Bld) [#/Vol] 10*3/uL Normal <0.01 [facility] Comment on above: Order Comment: Speci men Type: BLOOD SPECIMEN Ordering Facility: [facility] Address: [address] [place] [address] Performed By: #### 1 9123-9, 2132-04, 2284-03 #### [facility] CLIA [id number] [address] [place] [address] [place] Nucleated RBC/100 WBC (Bld) [Ratio] 0.0 /100 WBC Normal [facility] Comment on above: Order Comment: Speci men Type: BLOOD SPECIMEN Ordering Facility: [facility] Address: [address] [place] [address] Performed By: #### 1 9123-9, 9, 8 #### [facility] CLIA [id number] [address] [place] [address] [place] Platelet mean volume (Bld) [Entitic vol] 10.5 fL Normal 9.0-12.7 [facility] Comment on above: Order Comment: Speci men Type: BLOOD SPECIMEN Ordering Facility: [facility] Address: [address] [place] [address] Performed By: #### 1 9123-9, 2132-04, 2284-03 #### [facility] CLIA [id number] [address] [place] [address] [place] Platelets (Bld) [#/Vol] 171 10*3/uL Normal 150-400 [facility] Comment on above: Order Comment: Speci men Type: BLOOD SPECIMEN Ordering Facility: [facility] Address: [address] [place] [address] Performed By: #### 1 9123-9, 2132-04, 2284-03 #### [facility] CLIA [id number] [address] [place] [address] [place] RBC (Bld) [#/Vol] 4.60 10*6/uL Normal 3.90-5.20 [facility] Comment on above: Order Comment: Speci men Type: BLOOD SPECIMEN Ordering Facility: [facility] Address: [address] [place] [address] Performed By: #### 1 9123-9, 2132-04, 2284-03 #### [facility] CLIA [id number] [address] [place] [address] [place] WBC (Bld) [#/Vol] 5.67 10*3/uL Normal 3.70-11.00 [facility] Comment on above: Order Comment: Speci men Type: BLOOD SPECIMEN Ordering Facility: [facility] Address: [address] [place] [address] Performed By: #### 1 9123-9, 9, 2284-03 #### [facility] CLIA [id number] [address] [place] [address] [place] Comprehensive metabolic 2000 panelon 03-12-2025 Albumin [Mass/Vol] 4.0 g/dL Normal 3.9-4.9 [facility] Comment on above: Order Comment: Speci men Type: BLOOD SPECIMEN Ordering Facility: [facility] Address: [address] [place] [address] Performed By: #### 1 9123-9, 2132-04, 2284-03 #### [facility] CLIA [id number] [address] [place] [address] [place] ALP [Catalytic activity/Vol] 63 U/L Normal 34-123 [facility] Comment on above: Order Comment: Speci men Type: BLOOD SPECIMEN Ordering Facility: [facility] Address: [address] [place] [address] Performed By: #### 1 9123-9, 2132-04, 2284-03 #### [facility] CLIA [id number] [address] [place] [address] [place] ALT [Catalytic activity/Vol] 17 U/L Normal 7-38 [facility] Comment on above: Order Comment: Speci men Type: BLOOD SPECIMEN Ordering Facility: [facility] Address: [address] [place] [address] Performed By: #### 1 9123-9, 2132-04, 2284-03 #### [facility] CLIA [id number] [address] [place], [place] [address] [place] Anion gap [Moles/Vol] 10 mmol/L Normal 8-15 [facility] Comment on above: Order Comment: Speci men Type: BLOOD SPECIMEN Ordering Facility: [facility] Address: [address] [place] [address] Performed By: #### 1 9123-9, 2132-04, 2284-03 #### [facility] CLIA [id number] [address] [place] [address] [place] AST [Catalytic activity/Vol] 20 U/L Normal 13-35 [facility] Comment on above: Order Comment: Speci men Type: BLOOD SPECIMEN Ordering Facility: [facility] Address: [address] [place] [address] Performed By: #### 1 9123-9, 2132-04, 2284-03 #### [facility] CLIA [id number] [address] [place] [address] [place] Bilirubin [Mass/Vol] 0.5 mg/dL Normal 0.2-1.3 [facility] Comment on above: Order Comment: Speci men Type: BLOOD SPECIMEN Ordering Facility: [facility] Address: [address] [place] [address] Performed By: #### 1 9123-9, 2132-04, 2284-03 #### [facility] CLIA [id number] [address] [place] [address] [place] Calcium [Mass/Vol] 9.1 mg/dL Normal 8.5-10.2 [facility] Comment on above: Order Comment: Speci men Type: BLOOD SPECIMEN Ordering Facility: [facility] Address: [address] [place], [place] [address] Performed By: #### 1 9123-9, 2132-04, 2284-03 #### [facility] CLIA [id number] [address] [place], [place] [address] [place] Chloride [Moles/Vol] 106 mmol/L Normal 98-107 [facility] Comment on above: Order Comment: Speci men Type: BLOOD SPECIMEN Ordering Facility: [facility] Address: [address] [place] [address] Performed By: #### 1 9123-9, 2132-04, 2284-03 #### [facility] CLIA [id number] [address] [place] [address] [place] CO2 [Moles/Vol] 26 mmol/L Normal 22-30 [facility] Comment on above: Order Comment: Speci men Type: BLOOD SPECIMEN Ordering Facility: [facility] Address: [address] [place] [address] Performed By: #### 1 9123-9, 2132-04, 2284-03 #### [facility] CLIA [id number] [address] [place] [address] [place] Creatinine [Mass/Vol] 0.71 mg/dL Normal 0.58-0.96 [facility] Comment on above: Order Comment: Speci men Type: BLOOD SPECIMEN Ordering Facility: [facility] Address: [address] [place] [address] Performed By: #### 1 9123-9, 2132-04, 2284-03 #### [facility] CLIA [id number] [address] [place] [address] [place] eGFRcr SerPlBld CKD-EPI 2020 85 mL/min/1.73m??? Normal >=60 [facility] Comment on above: Order Comment: Speci men Type: BLOOD SPECIMEN Ordering Facility: [facility] Address: [address] [place] [address] Result Comment: Latonya mated Glomerular Filtration Rate (eGFR) is calculated using the 2020 CKD-EPI creatinine equation. This equation utilizes serum creatinine, sex, and age as parameters. The creatinine assay has traceable calibration to isotope dilution-mass spectrometry. Refer to KDIGO guidelines for clinical interpretation. In patients with unstable renal function, e.g. those with acute kidney injury, the eGFR may not accurately reflect actual GFR. Performed By: #### 1 9123-9, 2132-04, 2284-03 #### [facility] CLIA [id number] [address] [address] [place] Glucose [Mass/Vol] 88 mg/dL Normal 74-99 [facility] Comment on above: Order Comment: Anya bhat Type: BLOOD SPECIMEN Ordering Facility: [facility] Address: [address] [place] [address] Result Comment: The [place] Diabetes Association (ADA) provides guidance for cutoff values for fasting glucose and random glucose. The ADA defines fasting as no caloric intake for at least 8 hours. Fasting plasma glucose results between 100 to 125 mg/dL indicate increased risk for diabetes (prediabetes). Fasting plasma glucose results greater than or equal to 126 mg/dL meet the criteria for diagnosis of diabetes. In the absence of unequivocal hyperglycemia, results should be confirmed by repeat testing. In a patient with classic symptoms of hyperglycemia or hyperglycemic crisis, random plasma glucose results greater than or equal to 200 mg/dL meet the criteria for diagnosis of diabetes. Reference: Standards of Medical Care in Diabetes 2016, [place] Diabetes Association. Diabetes Care. 2016.39(Suppl 1). Performed By: #### 1 9123-9, 2132-04, 2284-03 #### [facility] CLIA [id number] [address] [place] [address] [place] Potassium [Moles/Vol] 4.3 mmol/L Normal 3.7-5.1 [facility] Comment on above: Order Comment: Anya men Type: BLOOD SPECIMEN Ordering Facility: [facility] Address: [address] [place] [address] Performed By: #### 1 9123-9, 2132-04, 2284-03 #### [facility] CLIA [id number] [address] [place] [address] [place] Protein [Mass/Vol] 6.5 g/dL Normal 6.3-8.0 [facility] Comment on above: Order Comment: Anya bhat Type: BLOOD SPECIMEN Ordering Facility: [facility] Address: [address] [place] [address] Performed By: #### 1 9123-9, 9, 8 #### [facility] CLIA [id number] [address] [place], [place] [address] [place] Sodium [Moles/Vol] 142 mmol/L Normal 136-144 [facility] Comment on above: Order Comment: Speci men Type: BLOOD SPECIMEN Ordering Facility: [facility] Address: [address] [place] [address] Performed By: #### 1 9123-9, 9, 8 #### [facility] CLIA [id number] [address] [place] [address] [place] Urea nitrogen [Mass/Vol] 19 mg/dL Normal 7-21 [facility] Comment on above: Order Comment: Speci men Type: BLOOD SPECIMEN Ordering Facility: [facility] Address: [address] [place] [address] Performed By: #### 1 9123-9, 2132-04, 8 #### [facility] CLIA [id number] [address] [place] [address] [place] HbA1c (Bld)on 03-12-2025 Average glucose Estimated from glycated hemoglobin (Bld) [Mass/Vol] 120 mg/dL Normal [facility] Comment on above: Order Comment: Speci men Type: BLOOD SPECIMEN Ordering Facility: [facility] Address: [address] [place] [address] Result Comment: eAG: (Estimated average glucose) is a calculated value from HgbA1c and is tax compliance representative of the average blood glucose level in the last 2-3 month period. Performed By: #### 5 5454-3 #### [facility] CLIA [id number] [address] [place] [address] [place] HbA1c (Bld) [Mass fraction] 5.8 % High 4.3-5.6 [facility] Comment on above: Order Comment: Speci men Type: BLOOD SPECIMEN Ordering Facility: [facility] Address: [address] [place] [address] Result Comment: Amer ican Diabetes Association guidelines indicate that patients with HgbA1c in the range 5.7-6.4% are at increased risk for development of diabetes, and intervention by lifestyle modification may be beneficial. HgbA1c greater or equal to 6.5% is considered diagnostic of diabetes. Performed By: #### 5 5454-3 #### [facility] CLIA [id number] [address] [place] [address] [place] Lipid 1996 panelon 5 Cholesterol [Mass/Vol] 202 mg/dL High <200 [facility] Comment on above: Order Comment: Anya bhat Type: BLOOD SPECIMEN Ordering Facility: [facility] Address: [address] [place] [address] Result Comment: <200 mg/dL, Desirable 200-239 mg/dL, Borderline high >239 mg/dL, High Performed By: #### 1 9123-9, 2132-04, 8 #### [facility] CLIA [id number] [address] [place] [address] [place] Cholesterol in HDL [Mass/Vol] 45 mg/dL Normal >39 [facility] Comment on above: Order Comment: Anya bhat Type: BLOOD SPECIMEN Ordering Facility: [facility] Address: [address] [place] [address] Result Comment: 40-5 9 mg/dL, Acceptable >59 mg/dL, High: Negative risk factor for coronary heart disease <40 mg/dL, Low: Positive risk factor for coronary heart disease Performed By: #### 1 9123-9, 9, 8 #### [facility] CLIA [id number] [address] [place] [address] [place] Cholesterol in LDL [Mass/Vol] 142 mg/dL High <100 [facility] Comment on above: Order Comment: Anya bhat Type: BLOOD SPECIMEN Ordering Facility: [facility] Address: [address] [place] [address] Result Comment: <100 mg/dL, Optimal 100-129 mg/dL, Near optimal/above optimal 130-159 mg/dL, Borderline high 160-189 mg/dL, High >189 mg/dL, Very high Secondary prevention optimal LDL Cholesterol levels are recommended to be <70 mg/dL LDL cholesterol is calculated using the Alva-NIH equation. Performed By: #### 1 23-9, 2132-04, 2284-03 #### [facility] CLIA [id number] [facility] [place] [address] [place] Cholesterol in LDL/Cholesterol in HDL [Mass ratio] 3.16 {ratio} High <2.54 [facility] Comment on above: Order Comment: Specneli men Type: BLOOD SPECIMEN Ordering Facility: [facility] Address: [address] [place] [address] Result Comment: Refe rence: 1. National Cholesterol Education Program ATP III Guideline At-A-Glance Quick Desk Reference: National Heart, Lung, and Blood [place]. National Institutes of Health. 2001: NIH Publication No. 01-3305. 2. An International Atherosclerosis Society position paper: global recommendations for the management of dyslipidemia: executive summary, Atherosclerosis. 2014: 232(2):410-413. Performed By: #### 1 239, 2132-04, 2284-03 #### [facility] CLIA [id number] [address] [place], [place] [address] [place] Cholesterol in VLDL [Mass/Vol] 15 mg/dL Normal <30 [facility] Comment on above: Order Comment: Anya men Type: BLOOD SPECIMEN Ordering Facility: [facility] Address: [address] [place] [address] Performed By: #### 1 239, 2132-04, 2284-03 #### [facility] CLIA [id number] [address] [place] Cholesterol non HDL [Mass/Vol] 157 mg/dL High <130 [facility] Comment on above: Order Comment: Dagoi men Type: BLOOD SPECIMEN Ordering Facility: [facility] Address: [address] [place] [address] Result Comment: <130 mg/dL, Optimal 130-159 mg/dL, Near optimal/above optimal 160-189 mg/dL, Borderline high 190-219 mg/dL, High >219 mg/dL, Very high Secondary prevention optimal non HDL Cholesterol levels are recommended to be <100 mg/dL Performed By: #### 1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 02-25-2024 Emergency Department Summary [facility] Medical Records Department [address] [place] [address] Emergency Department Summary 02/25/24 MR#: [id number] Acct: [id number] Name: KRYSTLE ARAMBULA Rep #: [id number] : 1940 83 From: Jamie Garcia MD PCP: Dr. Gucci Callahan MD Status:REG ER Location: ED HPI History of Present Illness Chief Complaint: Laceration Informant: patient and family Narrative Narrative: 83-year-old patient states she was working in her garden and she fell to the side losing her balance while she was balancing her self and landed on her garden tay which punctured her into the right palm sustaining a puncture wound/laceration. No loss of function no paresthesias in her fingers. PFSH PFSH Medical History Hypertension Home Medications ???Medication ???Instructions ???Recorded ???Last Taken ???Type ascorbic acid (vitamin C) 500 mg 500 mg PO DAILY@0800 05/01/15 11/19/19 History tablet (Vitamin C) calcium carbonate 600 mg-vitamin 1 ea PO BID 05/01/15 11/19/19 History D3 20 mcg (800 unit) tablet losartan 25 mg tablet 25 mg PO DAILY #30 tabs 11/19/19 Unknown Rx magnesium 250 mg tablet 3 tab PO DAILY 06/01/20 Unknown History zinc gluconate 50 mg tablet 50 mg PO DAILY 06/01/20 Unknown History benzonatate 100 mg capsule 100 mg PO TID PRN cough #14 caps 06/04/22 Unknown Rx cephalexin 500 mg capsule 500 mg PO Q8H 5 days #15 CAPSULES 02/25/24 Unknown Rx Allergy/AdvReac Type Severity Reaction Status Date / Time codeine AdvReac Other Verified 02/25/24 20:44 Surgical History History of bilateral hip arthroplasty Social History Smoking Status: Never smoker ROS ROS ED Constitutional Constitutional ED: Denies chills or fever(s) Musculoskeletal Musculoskeletal: Reports extremity pain; Denies neck pain Integumentary Reports wounds; Denies Abrasions or rash Neurologic Neurologic: Denies paresthesias or weakness EXAM Physical Exam Const Vital Signs: 02/25/24 20:44 02/25/24 20:44 Temperature 98 F Temperature Source Temporal Pulse Rate 61 62 Respiratory Rate 16 16 Blood Pressure 176/90 H 181/91 H Blood Pressure Mean 118 121 Pulse Ox 98 94 Oxygen Delivery Method Room Air Room Air Positive well nourished and well developed General Appearance ED: well developed and NAD Neck full ROM and supple Back/Spine normal ROM and normal to inspection Extremity full ROM Extremity Narrative: Laceration to the right palm, 3 cm. There is a no pulsatile bright red bleeding, there is no tendon visible within the wound, just a small vein, this was checked while ranging the flexor tendons of the ring finger, over which the laceration exists. FDS, FDP intact without pain. On the backside of the hand there is no bony metacarpal tenderness. Neuro oriented x3, no focal motor deficits and no sensory deficits noted Sensorium / Orientation: alert Psych mental status grossly normal and thought process normal Skin Skin Narrative: Single mostly linear laceration to the right palm 3 cm see above. Rashes: no rashes MDM MDM MDM Narrative Medical decision making narrative: Laceration was thoroughly cleansed and irrigated under pressure, repaired see the procedure note, and her tetanus was updated. Given appropriate discharge instructions, she has an appointment with her doctor in 2 weeks, I think that would be fine to get the sutures out. Were given her cephalexin here as well as a prescription for 5-day course for prophylaxis given the depth of the wound according to the patient. No arterial involvement clinically. She has good radial and ulnar pulses intact. Considered x-rays, I do not think she needs them because I am at a low suspicion for bony involvement or foreign body as I discussed with the patient she is in agreement so we skipped them. Procedures Lacerations Right hand palm: Length: 3 cm Depth: Sub Q Shape: Linear Prep: Sterile Conditions and Chlorhexadine Laceration repair: Irrigated, Lidocaine (1%, 2 cc), Local and Skin sutures Irrigated (ml): 100 Number of Sutures/[place]: 4 Suture Information: Ethilon, Simple and 5-0 Discharge Plan Triage Chief Complaint: Laceration ED Provider: Jamie Garcia Dx/Rx/DC Orders Clinical Impression: Laceration of hand, right, Puncture wound of right hand, Immunization, tetanus-diphtheria Instructions: ED Laceration, Hand: All Closures Prescriptions: New cephalexin 500 mg capsule 500 mg PO Q8H 5 Days Qty: 15 0RF No Action ascorbic acid (vitamin C) [Vitamin C] 500 MG tablet 500 mg PO DAILY@0800 calcium carbonate-vitamin D3 1 EACH tablet 1 ea PO BID losartan 25 MG (more content not included)... Normal [facility] NM CARDIAC PERF STRESS/EXERC ISEon 02-11-2024 NM CARDIAC PERF STRESS/EXERCISE * * *Final Report* * * DATE OF EXAM: Feb 11 2024 1:47PM SAMMY 0004 - NM CARDIAC PERF STRESS/EXERCISE / PROCEDURE REASON: Z13.6-Encounter for screening for cardiovascular disorders * * * * Physician Interpretation * * * * Stress Fluid Power Mechanic Report: [facility] Date of service: 02/11/2024 12:22:10 PM Supervising physician: Nancy Briceno MD PATIENT: Name: MRS. KRYSTLE ARAMBULA Age: 83 years Gender: F The supervising physician was in the department and immediately available. * * * Final * * * ---- PATIENT: Name: MRS. KRYSTLE ARAMBULA Age: 83 years Gender: F CONCLUSIONS: 1. SPECT Perfusion Study: Normal. 2. There is no scintigraphic evidence for inducible ischemia. 3. No evidence of scarred myocardium. 4. Left ventricle is normal in size. The left ventricle systolic function is normal. 5. This is a low risk scan. LVEF % 70 Prior Study Comparison No prior nuclear cardiology exam available for comparison. Nuclear Med Report:1-Day Gated SPECT Myocardial Perfusion with Exercise Stress: Myocardial perfusion imaging was performed at rest 30 to 60 minutes following the IV injection of the radiotracer. One minute prior to peak exercise, the patient was injected IV with the radiotracer. Gated post stress tomographic imaging was performed 10 to 20 minutes later. See administered radiotracer and doses below. [facility] Date of service: 02/11/2024 12:22:10 PM Ordering Physician: FLORI CASTRO. Requesting Physician: Indication: Assessment for suspected CAD Interpreting physician: Fady Monroe MD Height: 160.02 cm BSA: 1.77 m? Weight: 70.31 kg BMI: 27.5 kg/m? Exam Type: Rest Stress Radiopharm: Tc-99m Tetrofosmin Tc-99m Tetrofosmin Dosage(mCi): 14.4 36 Atten Correction: not performed not performed Stress Agent: Treadmill Resting Blood Press: 149/86 mmHg Image Quality The overall study imaging quality was deemed to be good. FINDINGS: LVEF: 70 % LEFT VENTRICLE The left ventricle is normal in size. Left ventricular systolic function is normal. Stress Test Findings: There is no scintigraphic evidence for inducible ischemia. There is no evidence of scarring. * * * Final * * * ---- Stress ECG Report: [facility] Date of service: 02/11/2024 12:22:10 PM Ordering physician: FLORI CASTRO demolition specialist: Charley Galeas Manager Installation: Isabel Alberts Interpreting physician: Nancy Briceno MD Patient name: MRS. KRYSTLE ARAMBULA Age: 83 years Gender: F Height: 160.02 cm BSA: 1.77 m? Weight: 70.31 kg BMI: 27.5 kg/m? Indication: Encounter for screening for cardiovascular disorders Stress ECG Conclusion: Conclusion: Normal Stress ECG Summary: The patient's resting heart rate was 55 bpm and blood pressure was 149/86 mmHg. The patient exercised according to the Sumit protocol. The estimated end-exercise MET level achieved using the FRIEND equation * * * was 6.1, which is within the 75th to 90th percentile for age and sex. The estimated end-exercise MET level achieved using the previous ACSM equation was 7.0. The test was terminated due to end of protocol and the total exercise time was 6 minutes and 0 seconds. No symptoms provoked during stress. The maximum heart rate was 136 bpm, which is 98% of the predicted heart rate for age. This is an adequate heart rate response. Peak blood pressure was 188/80 mmHg. The double product achieved was [address]. Medications: Last Used COZAAR MOTRIN MAGNESIUM CALCIUM CARBONATE Resting ECG: Sinus Bradycardia and RBBB Symptoms at rest: No symptoms Exercise Protocol: Sumit Stress Exercise Table: +-----+ +---- ----+ +---+--- +---+----+----+ Stage Speed (MPH) Grade(%) Time (min) HR SYS BLANCA RPE METS +-----+ +---- ----+ +---+--- +---+----+----+ 1 1.7 10.0 3.0 117 180 80 13.0 4.2 +-----+ +---- ----+ +---+--- +---+----+----+ +-----+ +---- -----+ +---+-- -+---+----+----+ Speed (MPH) Grade (%) Time (min) HR SYS BLANCA RPE METS +-----+ +---- -----+ +---+-- -+---+----+----+ Final 2.5 12.0 6.00 136 188 80 14.0 6.1 +-----+ +---- -----+ +---+-- -+---+----+----+ Recovery Table: +------+ +---+ ---+---+ Stage Time (min) HR SYS BLANCA +------+ +---+ ---+---+ 1 1.0 121 170 80 +------+ +---+ ---+---+ 2 2.0 98 193 78 +------+ +---+ ---+---+ 3 3.0 87 168 82 +------+ +---+ ---+---+ 4 5.0 83 151 94 +------+ +---+ ---+---+ S (more content not included)... Normal [facility] Heart Perfusion W multipl e states of exerciseon 02-11-2024 * * *Final Report* * * DATE OF EXAM: Feb 11 2024 1:47PM SAMMY 0004 - DE CARDIAC PERF STRESS/EXERCISE / PROCEDURE REASON: Z13.6-Encounter for screening for cardiovascular disorders * * * * Physician Interpretation * * * * Stress Fluid Power Mechanic Report: [facility] Date of service: 02/11/2024 12:22:10 PM Supervising physician: Nancy Briceno MD PATIENT: Name: MRS. KRYSTLE ARAMBULA Age: 83 years Gender: F The supervising physician was in the department and immediately available. * * * Final * * * ---- PATIENT: Name: MRS. KRYSTLE ARAMBULA Age: 83 years Gender: F CONCLUSIONS: 1. SPECT Perfusion Study: Normal. 2. There is no scintigraphic evidence for inducible ischemia. 3. No evidence of scarred myocardium. 4. Left ventricle is normal in size. The left ventricle systolic function is normal. 5. This is a low risk scan. LVEF % 70 Prior Study Comparison No prior nuclear cardiology exam available for comparison. Nuclear Med Report:1-Day Gated SPECT Myocardial Perfusion with Exercise Stress: Myocardial perfusion imaging was performed at rest 30 to 60 minutes following the IV injection of the radiotracer. One minute prior to peak exercise, the patient was injected IV with the radiotracer. Gated post stress tomographic imaging was performed 10 to 20 minutes later. See administered radiotracer and doses below. [facility] Date of service: 02/11/2024 12:22:10 PM Ordering Physician: FLORI CASTRO. Requesting Physician: Indication: Assessment for suspected CAD Interpreting physician: Fady Monroe MD Height: 160.02 cm BSA: 1.77 m Weight: 70.31 kg BMI: 27.5 kg/m Exam Type: Rest Stress Radiopharm: Tc-99m Tetrofosmin Tc-99m Tetrofosmin Dosage(mCi): 14.4 36 Atten Correction: not performed not performed Stress Agent: Treadmill Resting Blood Press: 149/86 mmHg Image Quality The overall study imaging quality was deemed to be good. FINDINGS: LVEF: 70 % LEFT VENTRICLE The left ventricle is normal in size. Left ventricular systolic function is normal. Stress Test Findings: There is no scintigraphic evidence for inducible ischemia. There is no evidence of scarring. * * * Final * * * ---- Stress ECG Report: [facility] Date of service: 02/11/2024 12:22:10 PM Ordering physician: FLORI CASTRO demolition specialist: Charley Galeas Manager Installation: Isabel Alberts Interpreting physician: Nancy Briceno MD Patient name: MRS. KRYSTLE ARAMBULA Age: 83 years Gender: F Height: 160.02 cm BSA: 1.77 m Weight: 70.31 kg BMI: 27.5 kg/m Indication: Encounter for screening for cardiovascular disorders Stress ECG Conclusion: Conclusion: Normal Stress ECG Summary: The patient's resting heart rate was 55 bpm and blood pressure was 149/86 mmHg. The patient exercised according to the Sumit protocol. The estimated end-exercise MET level achieved using the FRIEND equation * * * was 6.1, which is within the 75th to 90th percentile for age and sex. The estimated end-exercise MET level achieved using the previous ACSM equation was 7.0. The test was terminated due to end of protocol and the total exercise time was 6 minutes and 0 seconds. No symptoms provoked during stress. The maximum heart rate was 136 bpm, which is 98% of the predicted heart rate for age. This is an adequate heart rate response. Peak blood pressure was 188/80 mmHg. The double product achieved was [id number]. Medications: Last Used COZAAR MOTRIN MAGNESIUM CALCIUM CARBONATE Resting ECG: Sinus Bradycardia and RBBB Symptoms at rest: No symptoms Exercise Protocol: Sumit Stress Exercise Table: +-----+ +---- ----+ +---+--- +---+----+----+ Stage Speed (MPH) Grade(%) Time (min) HR SYS BLANCA RPE METS +-----+ +---- ----+ +---+--- +---+----+----+ 1 1.7 10.0 3.0 117 180 80 13.0 4.2 +-----+ +---- ----+ +---+--- +---+----+----+ +-----+ +---- -----+ +---+-- -+---+----+----+ Speed (MPH) Grade (%) Time (min) HR SYS BLANCA RPE METS +-----+ +---- -----+ +---+-- -+---+----+----+ Final 2.5 12.0 6.00 136 188 80 14.0 6.1 +-----+ +---- -----+ +---+-- -+---+----+----+ Recovery Table: +------+ +---+ ---+---+ Stage Time (min) H (more content not included)... [facility] Provider, [facility] - 02/11/2024 * * *Final Report* * * DATE OF EXAM: Feb 11 2024 1:47PM SAMMY 0004 - NM CARDIAC PERF STRESS/EXERCISE / PROCEDURE REASON: Z13.6-Encounter for screening for cardiovascular disorders * * * * Physician Interpretation * * * * Stress Fluid Power Mechanic Report: [facility] Date of service: 02/11/2024 12:22:10 PM Supervising physician: Nancy Briceno MD PATIENT: Name: MRS. KRYSTLE ARAMBULA Age: 83 years Gender: F The supervising physician was in the department and immediately available. * * * Final * * * ---- PATIENT: Name: MRS. KRYSTLE ARAMBULA Age: 83 years Gender: F CONCLUSIONS: 1. SPECT Perfusion Study: Normal. 2. There is no scintigraphic evidence for inducible ischemia. 3. No evidence of scarred myocardium. 4. Left ventricle is normal in size. The left ventricle systolic function is normal. 5. This is a low risk scan. LVEF % 70 Prior Study Comparison No prior nuclear cardiology exam available for comparison. Nuclear Med Report:1-Day Gated SPECT Myocardial Perfusion with Exercise Stress: Myocardial perfusion imaging was performed at rest 30 to 60 minutes following the IV injection of the radiotracer. One minute prior to peak exercise, the patient was injected IV with the radiotracer. Gated post stress tomographic imaging was performed 10 to 20 minutes later. See administered radiotracer and doses below. [facility] Date of service: 02/11/2024 12:22:10 PM Ordering Physician: FLORI CASTRO. Requesting Physician: Indication: Assessment for suspected CAD Interpreting physician: Fady Monroe MD Height: 160.02 cm BSA: 1.77 m Weight: 70.31 kg BMI: 27.5 kg/m Exam Type: Rest Stress Radiopharm: Tc-99m Tetrofosmin Tc-99m Tetrofosmin Dosage(mCi): 14.4 36 Atten Correction: not performed not performed Stress Agent: Treadmill Resting Blood Press: 149/86 mmHg Image Quality The overall study imaging quality was deemed to be good. FINDINGS: LVEF: 70 % LEFT VENTRICLE The left ventricle is normal in size. Left ventricular systolic function is normal. Stress Test Findings: There is no scintigraphic evidence for inducible ischemia. There is no evidence of scarring. * * * Final * * * ---- Stress ECG Report: [facility] Date of service: 02/11/2024 12:22:10 PM Ordering physician: FLORI CASTRO demolition specialist: Charley Galeas Manager Installation: Isabel Alberts Interpreting physician: Nancy Briceno MD Patient name: MRS. KRYSTLE ARAMBULA Age: 83 years Gender: F Height: 160.02 cm BSA: 1.77 m Weight: 70.31 kg BMI: 27.5 kg/m Indication: Encounter for screening for cardiovascular disorders Stress ECG Conclusion: Conclusion: Normal Stress ECG Summary: The patient's resting heart rate was 55 bpm and blood pressure was 149/86 mmHg. The patient exercised according to the Sumit protocol. The estimated end-exercise MET level achieved using the FRIEND equation * * * was 6.1, which is within the 75th to 90th percentile for age and sex. The estimated end-exercise MET level achieved using the previous ACSM equation was 7.0. The test was terminated due to end of protocol and the total exercise time was 6 minutes and 0 seconds. No symptoms provoked during stress. The maximum heart rate was 136 bpm, which is 98% of the predicted heart rate for age. This is an adequate heart rate response. Peak blood pressure was 188/80 mmHg. The double product achieved was [id number]. Medications: Last Used COZAAR MOTRIN MAGNESIUM CALCIUM CARBONATE Resting ECG: Sinus Bradycardia and RBBB Symptoms at rest: No symptoms Exercise Protocol: Sumit Stress Exercise Table: +-----+ +---- ----+ +---+--- +---+----+----+ Stage Speed (MPH) Grade(%) Time (min) HR SYS BLANCA RPE METS +-----+ +---- ----+ +---+--- +---+----+----+ 1 1.7 10.0 3.0 117 180 80 13.0 4.2 +-----+ +---- ----+ +---+--- +---+----+----+ +-----+ +---- -----+ +---+-- -+---+----+----+ Speed (MPH) Grade (%) Time (min) HR SYS BLANCA RPE METS +-----+ +---- -----+ +---+-- -+---+----+----+ Final 2.5 12.0 6.00 136 188 80 14.0 6.1 +-----+ +---- -----+ +---+-- -+---+----+----+ Recovery Table: +------+ +---+ ---+---+ Stage Time (min) HR SYS BLANCA +------+ +---+ ---+---+ 1 1.0 121 170 80 +------+ +---+ ---+---+ 2 2.0 98 1 (more content not included)... [facility] Radiology Study observation (narrative) [facility] NM Heart Perfusion W multipl e states of exerciseOrdered By: [facility] Provider on 02-11-2024 [facility] Flynn 02-10-2024 TRISHAN Telephone (CDLBME) KRYSTLE ARAMBULA ([id number]) 1940 F Date Time Provider Department 02/10/24 ISABEL ALBERTS During your visit today, we recorded the following information about you: Flori Castro APRN.EQUIPMENT OPERATOR 02/11/2024 2:35 PM Signed Please let patient know that stress test was normal. No areas noted that were lacking blood flow. Heart function was good and strong. Sarai Breen MA 02/11/2024 4:00 PM Signed Left message for patient to return call. Osiris Michel Beth, LPN 02/11/2024 4:48 PM Signed Patient returned call and went over results, notes from Flori Castro HYDROPRESS OPERATOR with understanding. Allergies As of Date: 02/10/2024 Noted Allergy Reaction TYLENOL #3 (CODEINE) 02/08/2008 Comments: vomitting JUANITA INHIBITORS 11/19/2019 3 - Cough FOOD EXTRACTS 04/01/2005 9 - Itching Date Reviewed: 02/07/2024 Reviewed by: Jose Menchaca LPN - Fully Assessed Reason for Visit: Appointment [186] Cmt: Left message. NPO after MN and no caffeine products after 7 PM. Prescriptions as of 02/11/2024 - cholecalciferol, vitamin D3, (VITAMIN D3 ORAL) Take by mouth. - OTC PRODUCT NILDA energy vitamin - losartan (COZAAR) 100 mg tablet Take 1 tablet by mouth once daily. - vitamin B complex (B COMPLEX 1 ORAL) Take 1 tablet by mouth once daily. - mometasone (ELOCON) 0.1 % cream Apply 1 application to affected area once daily. - Acetaminophen 500 mg cap Take 1,000 mg by mouth four times daily as needed. - ibuprofen (MOTRIN) 800 mg tablet Take 1 tablet by mouth every 8 hours as needed. FOR PAIN. - MAGNESIUM ORAL Take 250 mg by mouth once daily. - CALCIUM CARBONATE/VITAMIN D3 (CALCIUM 500 + D ORAL) Take by mouth once daily. Problem List As Of Date 02/10/2024 Noted Resolved Disorder of bone and cartilage, unspecified [M8*04/01/2005 07/20/2022 BENIGN JEAN CARLOS SCALP/SKIN NECK [D23.4] 02/18/2007 DIFFUS CYSTIC MASTOPATHY [N60.19] 06/13/2007 Lumbar disc disease with radiculopathy [M51.16] 01/06/2011 07/20/2022 Displacement of lumbar intervertebral disc with*01/12/2011 Pelvic floor weakness [N81.89] 05/05/2012 Mitral valve disorder [I05.9] 08/11/2013 08/09/2023 Hyperlipidemia with target LDL less than 100 [E*08/20/2013 Osteoarthritis of both hips [M16.0] 10/03/2013 Osteoporosis [M81.0] 12/10/2014 04/30/2021 Family history of breast cancer in sister [Z80.*10/12/2017 Fatigue [R53.83] 07/29/2018 07/20/2022 Situational depression [F43.21] 07/29/2018 07/20/2022 Hypertension, essential [I10] 07/11/2020 Popliteal cyst, right [M71.21] 04/18/2021 07/20/2022 Osteopenia of multiple sites [M85.89] 04/30/2021 Advance care planning [Z71.89] 10/22/2021 Thyroid condition [E07.9] 01/14/2022 Prediabetes [R73.03] 01/19/2022 Allergic dermatitis due to food taken internall*06/02/2022 02/07/2024 Chest pain [R07.9] 06/02/2022 07/20/2022 Low back pain [M54.50] 06/02/2022 07/20/2022 Osteoarthritis [M19.90] 06/02/2022 07/20/2022 Viral upper respiratory tract infection [J06.9] 06/02/2022 07/20/2022 Cough [R05.9] 07/20/2022 07/20/2022 History of severe acute respiratory syndrome co*07/20/2022 07/20/2022 Subconjunctival hemorrhage [H11.30] 01/25/2023 02/07/2024 Encounter Status:Closed by MIRTHA ANN on 02/11/24 [facility] Absolute lymphocyte countOrd ered By: Adonay Landeros on 03-05-2023 Lymphocytes Auto (Unsp spec) [#/Vol] 1.45 10*3/uL 0.83-4.51 [facility] Basophil percentageOrdered B y: Adonay Landeros on 03-05-2023 Basophils/100 WBC (Bld) 1.1 % 0-1 [facility] Eosinophils/100 WBC (Bld) 3.1 % 0-5 [facility] Neutrophils (Bld) [#/Vol] 3.1 10*3/uL 2.0-7.7 [facility] Neutrophils/100 WBC (Bld) 58.5 % 47-70 [facility] WBC (Bld) [#/Vol] 5.2 10*3/uL 4.4-11.0 [facility] Blood erythrocytes count (nu mber/volume)Ordered By: Adonay Landeros on 03-05-2023 RBC (Bld) [#/Vol] 4.58 10*6/uL 4.2-5.4 [facility] Blood hemoglobin measurement (mass/volume)Ordered By: Adonay Landeros on 03-05-2023 Hemoglobin (Bld) [Mass/Vol] 13.4 g/dL 12.0-15.0 [facility] Blood lymphocytes/100 leukoc ytesOrdered By: Adonay Landeros on 03-05-2023 Lymphocytes/100 WBC (Bld) 27.7 % 19-41 [facility] Blood monocytes/100 leukocyt esOrdered By: Adonay Landeros on 03-05-2023 Monocytes/100 WBC (Bld) 9.4 % 0-10 [facility] Blood platelet mean volumeOr dered By: Adonay Landeros on 03-05-2023 Platelet mean volume (Bld) [Entitic vol] 9.6 fL 6.2-12.0 [facility] Determination of erythrocyte mean corpuscular volume (MCV)Ordered By: Adonay Landeros on 03-05-2023 MCV (RBC) [Entitic vol] 92.6 fL 81-99 [facility] Erythrocyte sedimentation ra teOrdered By: Adonay Landeros on 03-05-2023 ESR (Bld) [Velocity] 4 mm/h 0-30 [facility] Hematocrit Auto (Bld) [Volum e fraction]Ordered By: Adonay Landeros on 03-05-2023 Hematocrit (Bld) [Volume fraction] 42.4 % 37-47 [facility] Laboratory - Hematology and Cell countsOrdered By: Adonay Landeros on 03-05-2023 Erythrocyte distribution width (RBC) [Entitic vol] 43.2 fL 35.1-43.9 [facility] Erythrocyte distribution width (RBC) [Ratio] 12.8 % 11.6-14.6 [facility] Immature granulocytes/100 WBC (Bld) 0.200 % 0.0-0.9 [facility] Comment on above: IG% - Immature Granu locytes (promyelocytes, myelocytes and metamyelocytes) > 1% indicates that a LEFT SHIFT is Present. MCH (RBC) [Entitic mass] 29.3 pg 27.0-32.0 [facility] Nucleated RBC/100 WBC (Bld) [Ratio] 0 % 0-5 [facility] MCHC Auto (RBC) [Mass/Vol]Or dered By: Adonay Landeros on 03-05-2023 MCHC (RBC) [Mass/Vol] 31.6 g/dL 32-36 [facility] Platelets bldOrdered By: Sco aldo Landeros on 03-05-2023 Platelets (Bld) [#/Vol] 172 10*3/uL 150-450 [facility] Serum or plasma C reactive p rotein measurement (mass/volume)Ordered By: Adonay Landeros on 03-05-2023 CRP [Mass/Vol] mg/L 0.0-3.0 [facility] Comment on above: C-Reactive Protein ( CRP) provides useful information for thediagnosis, therapy and monitoring of inflammatory processesand associated diseases. For the evaluation of Relative Riskfor Cardiovascular Disease, a High Sensitivity CRP (HSCRP)should be ordered. LUNG VOLUMESon 07-31-2022 [facility] SPIROMETRY - BASELINE AND PO ST DILATORon 07-31-2022 DLCO (ml/min/mmHg) 17.20 ml/min/mmHg [facility] DLCO/VA (ml/min/mmHg/L) 5.03 ml/min/mmHg/L [facility] ERV BOX (L) 0.11 L [facility] HNQ29-48% POST (L/S) 1.50 L/S [facility] CVR16-43% PRE (L/S) 1.39 L/S [facility] FEV1 PRE (L) 1.92 L [facility] FEV1/FVC POST (%) 79 % [facility] FEV1/FVC PRE (%) 74 % [facility] FEV1_POST (L) 1.94 L [facility] FRC Box (L) 2.10 L [facility] FVC POST (L) 2.45 L [facility] FVC PRE (L) 2.58 L [facility] IC BOX (L) 2.33 L [facility] PEF POST (L/S) 5.89 L/S [facility] PEF PRE (L/S) 6.29 L/S [facility] RV Box (L) 1.84 L [facility] RV/TLC Box (%) 44 % [facility] TLC Box (L) 4.17 L [facility] VA (L) 3.47 L [facility] VC (L) BOX 2.44 L [facility] Absolute lymphocyte counton 06-04-2022 Lymphocytes Auto (Unsp spec) [#/Vol] 1.19 10*3/uL 0.83-4.51 [facility] Work Phone: Basophil percentageon 2021 Basophils/100 WBC (Bld) 0.7 % 0-1 [facility] Work Phone: Chloride [Moles/Vol] 104 mmol/L 98-107 [facility] Work Phone: Eosinophils/100 WBC (Bld) 0.8 % 0-5 [facility] Work Phone: Glucose [Mass/Vol] 100 mg/dL 74-106 [facility] Work Phone: Comment on above: Fasting Glucose resu lt from 100 to 125 mg/dL suggests IMPAIRED HOMEOSTASIS per A.D.A. criteria. Neutrophils (Bld) [#/Vol] 6.7 10*3/uL 2.0-7.7 [facility] Work Phone: Neutrophils/100 WBC (Bld) 77.8 % 47-70 [facility] Work Phone: Potassium [Moles/Vol] 3.8 mmol/L 3.5-5.1 [facility] Work Phone: Comment on above: Slight Hemolysis, Re sult may be falsely increased. Sodium [Moles/Vol] 139 mmol/L 136-145 [facility] Work Phone: [phone] WBC (Bld) [#/Vol] 8.6 10*3/uL 4.4-11.0 [facility] Work Phone: [phone] Blood erythrocytes count (nu mber/volume)on 06-04-2022 RBC (Bld) [#/Vol] 4.53 10*6/uL 4.2-5.4 [facility] Work Phone: [phone] Blood hemoglobin measurement (mass/volume)on 06-04-2022 Hemoglobin (Bld) [Mass/Vol] 13.7 g/dL 12.0-15.0 [facility] Work Phone: [phone] Blood lymphocytes/100 leukoc yteson 06-04-2022 Lymphocytes/100 WBC (Bld) 13.9 % 19-41 [facility] Work Phone: [phone] Blood monocytes/100 leukocyt eson 06-04-2022 Monocytes/100 WBC (Bld) 6.4 % 0-10 [facility] Work Phone: [phone] Blood platelet mean volumeon 06-04-2022 Platelet mean volume (Bld) [Entitic vol] 9.4 fL 6.2-12.0 [facility] Work Phone: [phone] Determination of erythrocyte mean corpuscular volume (MCV)on 06-04-2022 MCV (RBC) [Entitic vol] 89.2 fL 81-99 [facility] Work Phone: [phone] Hematocrit Auto (Bld) [Volum e fraction]on 06-04-2022 Hematocrit (Bld) [Volume fraction] 40.4 % 37-47 [facility] Work Phone: [phone] Laboratory - Chemistry and C hemistry - challengeon 06-04-2022 CO2 [Moles/Vol] 32.0 mmol/L 21.0-32.0 [facility] Work Phone: [phone] Urea nitrogen/Creatinine [Mass ratio] 24.6 mg/mg 10-20 [facility] Work Phone: [phone] Laboratory - Hematology and Cell countson 06-04-2022 Erythrocyte distribution width (RBC) [Entitic vol] 41.0 fL 35.1-43.9 [facility] Work Phone: [phone] Erythrocyte distribution width (RBC) [Ratio] 12.5 % 11.6-14.6 [facility] Work Phone: [phone] Immature granulocytes/100 WBC (Bld) 0.400 % 0.0-0.9 [facility] Work Phone: [phone] Comment on above: IG% - Immature Granu locytes (promyelocytes, myelocytes and metamyelocytes) > 1% indicates that a LEFT SHIFT is Present. MCH (RBC) [Entitic mass] 30.2 pg 27.0-32.0 [facility] Work Phone: [phone] Nucleated RBC/100 WBC (Bld) [Ratio] 0 % 0-5 [facility] Work Phone: [phone] MCHC Auto (RBC) [Mass/Vol]on 06-04-2022 MCHC (RBC) [Mass/Vol] 33.9 g/dL 32-36 [facility] Work Phone: No Panel Informationon 06-04 D-Dimer Quantitative (PE/DVT) 0.97 FEU/ug/m 0.27-0.49 [facility] Work Phone: Comment on above: D-Dimer ELEVATED (>0 .49): Additional studies and clinicalassessments are indicated to conclude diagnosis of:Deep Vein Thrombosis (DVT) or Pulmonary Embolism (PE)CRITICAL VALUE VERIFIED. CALLED TO THEE ALVAREZ (ER)06/04/22 0859 Sidney Smallwood.RESULTS READ BACK BY SAME. Estimated Creatinine Clearance Calc 37.12 ml/min [facility] Work Phone: [phone] Estimated GFR (MDRD) Amer 132 mL/min >60 [facility] Work Phone: [phone] Comment on above: GFR Calc Estimated GFR (MDRD) Non-Af Amer 109 mL/min >60 [facility] Work Phone: [phone] Comment on above: Non- GFR Calc Troponin I High Sensitivity 6 pg/mL 3.0-54.0 [facility] Work Phone: Comment on above: Please Note: [place] t Units and Gender Specific Reference Ranges. For more information see Policy Stat Procedure Datil High Sensitivity Troponin (TNIH) and attachments. Platelets bldon 06-04-2022 Platelets (Bld) [#/Vol] 203 10*3/uL 150-450 [facility] Work Phone: Serum or plasma calcium clemencia urement (mass/volume)on 06-04-2022 Calcium [Mass/Vol] 9.0 mg/dL 8.5-10.1 [facility] Work Phone: Serum or plasma creatinine m easurement (mass/volume)on 06-04-2022 Creatinine [Mass/Vol] 0.57 mg/dL 0.55-1.02 [facility] Work Phone: Comment on above: The validity of the calculated GFR & GFRAA in patients over 70 years has not been determined. Clinical correlation is essential. Serum or plasma urea nitroge n measurement (mass/volume)on 06-04-2022 Urea nitrogen [Mass/Vol] 14 mg/dL 7-18 [facility] Work Phone: Thin prep Papanicolaou smear with manual screeningon 06-04-2022 Thin prep Papanicolaou smear with manual screening 3 5-15 [facility] Work Phone: [phone] COVID-19, MOLECULARon 2021 SARS-CoV-2 (COVID-19) Ab IA Ql Detected Abnormal Not Detected [facility] Comment on above: Result Comment: This test was performed under the FDA's Emergency Use Authorization (EUA). Testing was performed using the Remy ID NOW COVID-19 assay on the ID NOW platform. This test has not been approved for use in asymptomatic patients and its performance in this patient population has not been evaluated. Negative results do not rule out the presence of SARS-CoV-2/COVID-19. Fact sheets for the EUA can be found at the following links: For Healthcare Providers: https://www.fda.gov/media/547401/download For Patients: https://www.[place].gov/media/906462/download XR CHEST PA/APon 05-21-2022 XR CHEST PA/AP EXAMINATION: XR CHEST PA/AP 05/20/2022 11:43 pm HISTORY: ORDERING SYSTEM PROVIDED HISTORY: COVID and cough, TECHNOLOGIST PROVIDED HISTORY: Illness/Other Reason for exam: cough and fever Cancer History: n Surgery, RadiationHistory: n Encounter Type: Initial Additional signs and symptoms: positive covid test ORDERING SYSTEM PROVIDED DIAGNOSIS CODES: COMPARISON: None. FINDINGS: Trachea, mediastinum, heart size, diaphragm and bony elements are intact. Osteopenic and degenerative changes are noted. The lungs are clear with slight scarring or atelectasis in the middle and lower lung zones. IMPRESSION: Nonacute portable chest with mild chronic and degenerative changes. Workstation ID: [id number] Dictated by: ADONAY GONZALEZ on WedMay 20, 2022 11:57:33 PM EDT Transcribed by: ADONAY GONZALEZ on WedMay 20, 2022 11:57:33 PM EDT Finalized by: ADONAY GONZALEZ on WedMay 20, 2022 11:57:33 PM EDT [facility] Comment on above: Order Comment: Injur y/Trauma or Illness?:Illness/Other How long have you had these symptoms (acute/chronic)?:Acute Reason for exam?:cough and fever History of cancer?:n Surgeries, chemotherapy, or radiation?:n Type of Exam?:Initial Additional signs and symptoms?:positive covid test XR CHEST 2V FRONTAL/LATon [facility] XR Chest PA and Lateralon IMPRESSION: No developing abnormality or acute process. Cardiomegaly Technical Mgr: PSCB Transcribe Date/Time: Oct 22 2021 9:33A Dictated by : SANDRA DIAZ MD This examination was interpreted and the report reviewed and electronically signed by: SANDRA DIAZ MD on Oct 22 2021 9:34AM [facility] DIVISION OF RADIOLOGY * * *Final Report* * * DATE OF EXAM: Oct 22 2021 9:31AM WOX 5291 - XR CHEST 2V FRONTAL/LAT / PROCEDURE REASON: Chest pain, unspecified type * * * * Physician Interpretation * * * * EXAMINATION: CHEST RADIOGRAPH (2 VIEW FRONTAL & LATERAL) CLINICAL HISTORY: Chest pain, unspecified type MQ: XC2_6 EXAM DATE/TIME: 10/22/2021 9:31 AM COMPARISON: 08/15/2019 RESULT: Lines, tubes, and devices: None. Lungs and pleura: No consolidation. No lung mass. No pleural effusion. No pneumothorax. Minimal atelectasis or fibrosis in the midlung schuler bilaterally. Stable. Cardiomediastinal silhouette: Mildly enlarged cardiomediastinal silhouette. Bones and soft tissues: Unremarkable. DIVISION OF RADIOLOGY Provider, Dave [facility] - 10/22/2021 * * *Final Report* * * DATE OF EXAM: Oct 22 2021 9:31AM WOX 5291 - XR CHEST 2V FRONTAL/LAT / PROCEDURE REASON: Chest pain, unspecified type * * * * Physician Interpretation * * * * EXAMINATION: CHEST RADIOGRAPH (2 VIEW FRONTAL & LATERAL) CLINICAL HISTORY: Chest pain, unspecified type MQ: XC2_6 EXAM DATE/TIME: 10/22/2021 9:31 AM COMPARISON: 08/15/2019 RESULT: Lines, tubes, and devices: None. Lungs and pleura: No consolidation. No lung mass. No pleural effusion. No pneumothorax. Minimal atelectasis or fibrosis in the midlung schuler bilaterally. Stable. Cardiomediastinal silhouette: Mildly enlarged cardiomediastinal silhouette. Bones and soft tissues: Unremarkable. IMPRESSION IMPRESSION: No developing abnormality or acute process. Cardiomegaly Technical Mgr: KARLEE Transcribe Date/Time: Oct 22 2021 9:33A Dictated by : SANDRA DIAZ MD This examination was interpreted and the report reviewed and electronically signed by: SANDRA DIAZ MD on Oct 22 2021 9:34AM EST [facility] Radiology Study observation (narrative) [facility] XR Chest PA and LateralOrder ed By: [facility] - right 4 Viewson IMPRESSION: Degenerative changes as described. Technical Mgr: [facility] Transcribe Date/Time: Dec 09 2020 2:15P Dictated by : ALBERTA GRIGGS MD This examination was interpreted and the report reviewed and electronically signed by: ALBERTA GRIGGS MD on Dec 09 2020 2:17PM EST DIVISION OF RADIOLOGY * * *Final Report* * * DATE OF EXAM: Dec 09 2020 2:02PM WOX 5203 - XR KNEE 4V AP/PA BOTH+LAT/POOJA RT / PROCEDURE REASON: Acute pain of right knee * * * * Physician Interpretation * * * * CLINICAL INDICATION: Knee pain TECHNIQUE: AP/PA/merchant radiographs of both knees and lateral radiograph of the right knee COMPARISON: Radiograph dated July 22, 2019 FINDINGS: Right knee: Trace fluid in the suprapatellar joint space. Osseous demineralization. Moderate medial compartmental joint space narrowing and moderate patellofemoral compartmental joint space narrowing. No fracture or dislocation. Left knee: Osseous demineralization. Moderate medial and mild patellofemoral compartmental joint space narrowing. No fracture or dislocation. DIVISION OF RADIOLOGY Provider, Dave Sofia - 12/09/2020 * * *Final Report* * * DATE OF EXAM: Dec 09 2020 2:02PM WOX 5203 - XR KNEE 4V AP/PA BOTH+LAT/POOJA RT / PROCEDURE REASON: Acute pain of right knee * * * * Physician Interpretation * * * * CLINICAL INDICATION: Knee pain TECHNIQUE: AP/PA/merchant radiographs of both knees and lateral radiograph of the right knee COMPARISON: Radiograph dated July 22, 2019 FINDINGS: Right knee: Trace fluid in the suprapatellar joint space. Osseous demineralization. Moderate medial compartmental joint space narrowing and moderate patellofemoral compartmental joint space narrowing. No fracture or dislocation. Left knee: Osseous demineralization. Moderate medial and mild patellofemoral compartmental joint space narrowing. No fracture or dislocation. IMPRESSION IMPRESSION: Degenerative changes as described. Technical Mgr: PSCB Transcribe Date/Time: Dec 09 2020 2:15P Dictated by : ALBERTA GRIGGS MD This examination was interpreted and the report reviewed and electronically signed by: ALBERTA GRIGGS MD on Dec 09 2020 2:17PM [facility] Radiology Study observation (narrative) [facility] XR Knee - right 4 ViewsOrder ed By: Ccf Provider on 12-09-2020 [facility] Vital Signs Date Time Vital Sign Value Performing Clinician Facility 04-09-2025 10:36-0400 Diastolic blood pressure 90 mm[Hg] Emma Haagen HANDBAG STITCHER.EQUIPMENT OPERATOR Work Phone: [facility] 04-09-2025 10:36-0400 Heart rate 64 /min Emma Haagen HANDBAG STITCHER.EQUIPMENT OPERATOR Work Phone: [facility] 04-09-2025 10:36-0400 Respiratory rate 16 /min Emma Haagen HANDBAG STITCHER.EQUIPMENT OPERATOR Work Phone: [facility] 04-09-2025 10:36-0400 SaO2% (BldA) [Mass fraction] 97 % Emma Haagen HANDBAG STITCHER.EQUIPMENT OPERATOR Work Phone: [facility] 04-09-2025 10:36-0400 Systolic blood pressure 146 mm[Hg] Emma Haagen HANDBAG STITCHER.EQUIPMENT OPERATOR Work Phone: [facility] 03-26-2025 08:40-0400 SaO2% (BldA) [Mass fraction] 96 % Roseline Morrow MD Work Phone: [facility] 03-26-2025 08:15-0400 Body mass index (BMI) [Ratio] 26.95 kg/m2 Roseline Morrow MD Work Phone: [facility] 03-26-2025 08:15-0400 Body temperature 96.91 [degF] Roseline Morrow MD Work Phone: [facility] 03-26-2025 08:15-0400 Body weight 69 kg Roseline Morrow MD Work Phone: [facility] 03-26-2025 08:15-0400 Diastolic blood pressure 96 mm[Hg] Roseline Morrow MD Work Phone: [facility] 03-26-2025 08:15-0400 Heart rate 68 /min Roseline Morrow MD Work Phone: [facility] 03-26-2025 08:15-0400 Respiratory rate 16 /min Roseline Morrow MD Work Phone: [facility] 03-26-2025 08:15-0400 Systolic blood pressure 142 mm[Hg] Roseline Morrow MD Work Phone: [facility] 03-19-2025 13:39-0400 Body height 160 cm Gucci Callahan MD Work Phone: [facility] 03-19-2025 13:39-0400 Body mass index (BMI) [Ratio] 27.57 kg/m2 Gucci Callahan MD Work Phone: [facility] 03-19-2025 13:39-0400 Body weight 70.58 kg Gucci Callahan MD Work Phone: [facility] 03-19-2025 13:39-0400 Diastolic blood pressure 84 mm[Hg] Gucci Callahan MD Work Phone: [facility] 03-19-2025 13:39-0400 Heart rate 64 /min Gucci Callahan MD Work Phone: [facility] 03-19-2025 13:39-0400 SaO2% (BldA) [Mass fraction] 94 % Gucci Callahan MD Work Phone: [facility] 03-19-2025 13:39-0400 Systolic blood pressure 132 mm[Hg] Gucci Callahan MD Work Phone: [facility] 03-14-2025 15:35-0400 Body mass index (BMI) [Ratio] 27.77 kg/m2 Yves Duarte APRN.EQUIPMENT OPERATOR Work Phone: [facility] 03-14-2025 15:35-0400 Body temperature 97.39 [degF] Yves Duarte APRN.EQUIPMENT OPERATOR Work Phone: [facility] 03-14-2025 15:35-0400 Body weight 71.1 kg Yves Duarte APRN.EQUIPMENT OPERATOR Work Phone: [facility] 03-14-2025 15:35-0400 Diastolic blood pressure 84 mm[Hg] Yves Duarte APRN.EQUIPMENT OPERATOR Work Phone: [facility] 03-14-2025 15:35-0400 Heart rate 75 /min Yves Duarte APRN.EQUIPMENT OPERATOR Work Phone: [facility] 03-14-2025 15:35-0400 Respiratory rate 20 /min Yves Duarte APRN.EQUIPMENT OPERATOR Work Phone: [facility] 03-14-2025 15:35-0400 SaO2% (BldA) [Mass fraction] 95 % Yves Duarte APRN.EQUIPMENT OPERATOR Work Phone: [facility] 03-14-2025 15:35-0400 Systolic blood pressure 140 mm[Hg] Yves Duarte APRN.EQUIPMENT OPERATOR Work Phone: [facility] 11-13-2024 19:15-0400 Diastolic blood pressure 88 mm[Hg] Gucci Callahan MD Work Phone: [facility] 11-13-2024 19:15-0400 Systolic blood pressure 148 mm[Hg] Gucci Callahan MD Work Phone: [facility] 11-13-2024 18:42-0400 Body mass index (BMI) [Ratio] 27.28 kg/m2 Gucci Callahan MD Work Phone: [facility] 11-13-2024 18:42-0400 Body weight 69.85 kg Gucci Callahan MD Work Phone: [facility] 11-13-2024 18:42-0400 Heart rate 61 /min Gucci Callahan MD Work Phone: [facility] 11-13-2024 18:42-0400 SaO2% (BldA) [Mass fraction] 96 % Gucci Callahan MD Work Phone: [facility] 09-15-2024 11:55-0500 Diastolic blood pressure 68 mm[Hg] Flori Castro APRN.EQUIPMENT OPERATOR Work Phone: [facility] 09-15-2024 11:55-0500 Systolic blood pressure 136 mm[Hg] Flori Suppan HANDBAG STITCHER.EQUIPMENT OPERATOR Work Phone: [facility] 09-15-2024 11:41-0500 Body mass index (BMI) [Ratio] 27.46 kg/m2 Flori Suppan HANDBAG STITCHER.EQUIPMENT OPERATOR Work Phone: [facility] 09-15-2024 11:41-0500 Body temperature 97.81 [degF] Flori Suppan HANDBAG STITCHER.EQUIPMENT OPERATOR Work Phone: [facility] 09-15-2024 11:41-0500 Body weight 70.31 kg Flori Castro HANDBAG STITCHER.EQUIPMENT OPERATOR Work Phone: [facility] 09-15-2024 11:41-0500 Heart rate 73 /min Flori Suppan HANDBAG STITCHER.EQUIPMENT OPERATOR Work Phone: [facility] 09-15-2024 11:41-0500 SaO2% (BldA) [Mass fraction] 96 % Flori Castro HANDBAG STITCHER.EQUIPMENT OPERATOR Work Phone: [facility] 03-07-2024 12:54-0400 Diastolic blood pressure 86 mm[Hg] Gucci Callahan MD Work Phone: [facility] 03-07-2024 12:54-0400 Systolic blood pressure 140 mm[Hg] Gucci Callahan MD Work Phone: [facility] 03-07-2024 12:38-0400 Body height 160 cm Gucci Callahan MD Work Phone: [facility] 03-07-2024 12:38-0400 Body mass index (BMI) [Ratio] 27.63 kg/m2 Gucci Callahan MD Work Phone: [facility] 03-07-2024 12:38-0400 Body weight 70.76 kg Gucci Callahan MD Work Phone: [facility] 03-07-2024 12:38-0400 Heart rate 66 /min Gucci Callahan MD Work Phone: [facility] 03-07-2024 12:38-0400 SaO2% (BldA) [Mass fraction] 94 % Gucci Callahan MD Work Phone: [facility] 02-07-2024 15:05-0400 Diastolic blood pressure 90 mm[Hg] Gucci Callahan MD Work Phone: [facility] 02-07-2024 15:05-0400 Systolic blood pressure 140 mm[Hg] Gucci Callahan MD Work Phone: [facility] 02-07-2024 14:35-0400 Body mass index (BMI) [Ratio] 27.46 kg/m2 Gucci Callahan MD Work Phone: [facility] 02-07-2024 14:35-0400 Body weight 70.31 kg Gucci Callahan MD Work Phone: [facility] 02-07-2024 14:35-0400 Heart rate 73 /min Gucci Callahan MD Work Phone: [facility] 02-07-2024 14:35-0400 SaO2% (BldA) [Mass fraction] 94 % Gucci Callahan MD Work Phone: [facility] 01-27-2024 13:41-0400 Body mass index (BMI) [Ratio] 27.81 kg/m2 Flori Suppan HANDBAG STITCHER.SUPERVISOR [employer] Work Phone: [facility] 01-27-2024 13:41-0400 Body weight 71.22 kg Flori Suppan HANDBAG STITCHER.SUPERVISOR [employer] Work Phone: [facility] 01-27-2024 13:41-0400 Diastolic blood pressure 76 mm[Hg] Flori Suppan HANDBAG STITCHER.SUPERVISOR [employer] Work Phone: [facility] 01-27-2024 13:41-0400 Heart rate 70 /min Flori Suppan HANDBAG STITCHER.SUPERVISOR [employer] Work Phone: [facility] 01-27-2024 13:41-0400 SaO2% (BldA) [Mass fraction] 95 % Flori Suppan HANDBAG STITCHER.SUPERVISOR [employer] Work Phone: [facility] 01-27-2024 13:41-0400 Systolic blood pressure 142 mm[Hg] Flori Suppan HANDBAG STITCHER.SUPERVISOR [employer] Work Phone: [facility] 11-26-2023 14:35-0400 Body mass index (BMI) [Ratio] 27.28 kg/m2 Gucci Callahan MD Work Phone: [facility] 11-26-2023 14:35-0400 Body weight 69.85 kg Gucci Callahan MD Work Phone: [facility] 11-26-2023 14:35-0400 Diastolic blood pressure 87 mm[Hg] Gucci Callahan MD Work Phone: [facility] 11-26-2023 14:35-0400 Heart rate 72 /min Gucci Callahan MD Work Phone: [facility] 11-26-2023 14:35-0400 SaO2% (BldA) [Mass fraction] 93 % Gucci Callahan MD Work Phone: [facility] 11-26-2023 14:35-0400 Systolic blood pressure 135 mm[Hg] Gucci Callahan MD Work Phone: [facility] 03-08-2023 19:40-0400 Body weight 71.67 kg Gucci Callahan MD Work Phone: [facility] 03-08-2023 19:40-0400 Diastolic blood pressure 85 mm[Hg] Gucci Callahan MD Work Phone: [facility] 03-08-2023 19:40-0400 Heart rate 67 /min Gucci Callahan MD Work Phone: [facility] 03-08-2023 19:40-0400 SaO2% (BldA) [Mass fraction] 96 % Gucci Callahan MD Work Phone: [facility] 03-08-2023 19:40-0400 Systolic blood pressure 159 mm[Hg] Gucci Callahan MD Work Phone: [facility] 01-25-2023 13:22-0400 Body height 158.1 cm Gucci Callahan MD Work Phone: [facility] 01-25-2023 13:22-0400 Body weight 70.13 kg Gucci Callahan MD Work Phone: [facility] 01-25-2023 13:22-0400 Diastolic blood pressure 76 mm[Hg] Gucci Callahan MD Work Phone: [facility] 01-25-2023 13:22-0400 Heart rate 69 /min Gucci Callahan MD Work Phone: [facility] 06-26-2023 13:22-0400 SaO2% (BldA) [Mass fraction] 94 % Gucci Callahan MD Work Phone: [facility] 01-25-2023 13:22-0400 Systolic blood pressure 132 mm[Hg] Gucci Callahan MD Work Phone: [facility] 01-23-2023 23:07-0400 Body height 160.[address] [facility] 01-23-2023 23:07-0400 Body mass index (BMI) [Ratio] 27.4 kg/m2 [facility] 01-23-2023 23:07-0400 Body temperature 97.7 [degF] [facility] 01-23-2023 23:07-0400 Body weight 70.[address] [facility] 01-23-2023 23:07-0400 Diastolic blood pressure 97 mm[Hg] [facility] 01-23-2023 23:07-0400 Heart rate 72 /min [facility] 01-23-2023 23:07-0400 Respiratory rate 16 /min [facility] 01-23-2023 23:07-0400 SaO2% (BldA) [Mass fraction] 94 % [facility] 01-23-2023 23:07-0400 Systolic blood pressure 162 mm[Hg] [facility] 07-31-2022 14:20-0500 Body height 158.1 cm Pulm Wstr Work Phone: [facility] 07-31-2022 14:20-0500 Body weight 70.31 kg Pulm Wstr Work Phone: [facility] 07-31-2022 14:20-0500 Heart rate 67 /min Pulm Wstr Work Phone: [facility] 07-31-2022 14:20-0500 Respiratory rate 14 /min Pulm Wstr Work Phone: [facility] 07-31-2022 14:20-0500 SaO2% (BldA) [Mass fraction] 96 % Pulm [facility]str Work Phone: [facility] 07-20-2022 14:30-0500 Body height 162.6 cm Gucci Callahan MD Work Phone: [facility] 07-20-2022 14:30-0500 Body weight 70.31 kg Gucci Callahan MD Work Phone: [facility] 07-20-2022 14:30-0500 Diastolic blood pressure 86 mm[Hg] Gucci Callahan MD Work Phone: [facility] 07-20-2022 14:30-0500 Heart rate 65 /min Gucci Callahan MD Work Phone: [facility] 07-20-2022 14:30-0500 SaO2% (BldA) [Mass fraction] 97 % Gucci Callahan MD Work Phone: [facility] 07-20-2022 14:30-0500 Systolic blood pressure 142 mm[Hg] Gucci Callahan MD Work Phone: [facility] 06-04-2022 11:00-0400 Diastolic blood pressure 80 mm[Hg] [facility] Work Phone: 06-04-2022 11:00-0400 Heart rate 71 /min [facility] Work Phone: 06-04-2022 11:00-0400 Respiratory rate 14 /min [facility] Work Phone: 06-04-2022 11:00-0400 SaO2% (BldA) [Mass fraction] 94 % [facility] Work Phone: 06-04-2022 11:00-0400 Systolic blood pressure 152 mm[Hg] [facility] Work Phone: 06-04-2022 07:30-0400 Body height 160.[address] [facility] Work Phone: 06-04-2022 07:30-0400 Body mass index (BMI) [Ratio] 27 kg/m2 [facility] Work Phone: 06-04-2022 07:30-0400 Body temperature 96.3 [degF] [facility] Work Phone: 06-04-2022 07:30-0400 Body weight 69.[address] [facility] Work Phone: 06-04-2022 07:15-0400 Body temperature 97 [degF] Yves Duarte APRN.EQUIPMENT OPERATOR Work Phone: [facility] 06-04-2022 07:15-0400 Body weight 69.22 kg Yves Duarte APRN.EQUIPMENT OPERATOR Work Phone: [facility] 06-04-2022 07:15-0400 Diastolic blood pressure 96 mm[Hg] Yves Duarte APRN.EQUIPMENT OPERATOR Work Phone: [facility] 06-04-2022 07:15-0400 Heart rate 82 /min Yves Duarte APRN.EQUIPMENT OPERATOR Work Phone: [facility] 06-04-2022 07:15-0400 Respiratory rate 16 /min Yves Duarte APRN.EQUIPMENT OPERATOR Work Phone: [facility] 06-04-2022 07:15-0400 SaO2% (BldA) [Mass fraction] 97 % Yves Duarte APRN.EQUIPMENT OPERATOR Work Phone: [facility] 06-04-2022 07:15-0400 Systolic blood pressure 158 mm[Hg] Yves Duarte APRN.EQUIPMENT OPERATOR Work Phone: [facility] 06-02-2022 14:24-0400 Body height 162.6 cm Gucci Callahan MD Work Phone: [facility] 06-02-2022 14:24-0400 Body temperature 98.6 [degF] Gucci Callahan MD Work Phone: [facility] 06-02-2022 14:24-0400 Body weight 70.31 kg Gucci Callahan MD Work Phone: [facility] 06-02-2022 14:24-0400 Diastolic blood pressure 88 mm[Hg] Gucci Callahan MD Work Phone: [facility] 06-02-2022 14:24-0400 Heart rate 71 /min Gucci Callahan MD Work Phone: [facility] 06-02-2022 14:24-0400 SaO2% (BldA) [Mass fraction] 96 % Gucci Callahan MD Work Phone: [facility] 06-02-2022 14:24-0400 Systolic blood pressure 164 mm[Hg] Gucci Callahan MD Work Phone: [facility] 01-14-2022 13:28-0400 Body weight 71.22 kg Gucci Callahan MD Work Phone: [facility] 01-14-2022 13:28-0400 Diastolic blood pressure 82 mm[Hg] Gucci Callahan MD Work Phone: [facility] 01-14-2022 13:28-0400 Heart rate 68 /min Gucci Callahan MD Work Phone: [facility] 01-14-2022 13:28-0400 Systolic blood pressure 128 mm[Hg] Gucci Callahan MD Work Phone: [facility] 01-05-2022 17:43-0400 Body temperature 98.4 [degF] Sanford Samayoa MD Work Phone: [facility] 01-05-2022 17:43-0400 Body weight 70.58 kg Sanford Samayoa MD Work Phone: [facility] 01-05-2022 17:43-0400 Diastolic blood pressure 98 mm[Hg] Sanford Samayoa MD Work Phone: [facility] 01-05-2022 17:43-0400 Heart rate 65 /min Sanford Samayoa MD Work Phone: [facility] 01-05-2022 17:43-0400 Respiratory rate 21 /min Sanford Samayoa MD Work Phone: [facility] 01-05-2022 17:43-0400 SaO2% (BldA) [Mass fraction] 96 % Sanford Samayoa MD Work Phone: [facility] 01-05-2022 17:43-0400 Systolic blood pressure 132 mm[Hg] Sanford Samayoa MD Work Phone: [facility] 12-03-2021 11:47-0400 Diastolic blood pressure 80 mm[Hg] Gucci Callahan MD Work Phone: [facility] 12-03-2021 11:47-0400 Systolic blood pressure 136 mm[Hg] Gucci Callahan MD Work Phone: [facility] 12-03-2021 11:17-0400 Body weight 70.31 kg Gucci Callahan MD Work Phone: [facility] 12-03-2021 11:17-0400 Heart rate 76 /min Gucci Callahan MD Work Phone: [facility] 10-22-2021 08:46-0400 Diastolic blood pressure 82 mm[Hg] Gucci Callahan MD Work Phone: [facility] 10-22-2021 08:46-0400 Systolic blood pressure 136 mm[Hg] Gucci Callahan MD Work Phone: [facility] 10-22-2021 08:00-0400 Body weight 69.85 kg Gucci Callahan MD Work Phone: [facility] 10-22-2021 08:00-0400 Heart rate 68 /min Gucci Callahan MD Work Phone: [facility] Encounters Encounter Date Encounter Type Care Provider Facility Start: 06-12-2025 ambulatory [facility] Facility :[facility] Start: 05-14-2025 End: 05-14-2025 ambulatory JAMIE HERRMANN Facility:[facility] Start: 04-13-2025 ambulatory [facility] Facility :[facility] Start: 04-13-2025 End: 04-13-2025 Subsequent hospital visit by physician [facility] Work Phone: Radiology Comment on above: Flank pain [R10.9] Start: 04-10-2025 End: 04-10-2025 Follow-up encounter Flori Castro APRN.EQUIPMENT OPERATOR Work Phone: [facility] Start: 04-09-2025 End: 04-09-2025 Subsequent hospital visit by physician [facility] Work Phone: Radiology Comment on above: Acute pain of left k nee [M25.562] Start: 04-09-2025 End: 04-09-2025 Office outpatient visit 25 minutes Emma Fang APRN.EQUIPMENT OPERATOR Work Phone: [facility] Comment on above: Acute pain of left k nee (Primary Dx); Flank pain Start: 04-09-2025 End: 04-09-2025 ambulatory Kyara Rudd RN NURSE CARTOGRAPHIC ENGINEER Comment on above: Knee Pain Start: 03-27-2025 End: 03-27-2025 Follow-up encounter Christen DAVIS Work Phone: [facility] Comment on above: Results Start: 03-26-2025 End: 03-26-2025 Office outpatient visit 25 minutes Roseline Morrow MD Work Phone: [facility] Comment on above: Flank pain (Primary Dx); Acute cystitis without hematuria Start: 03-26-2025 End: 03-26-2025 ambulatory GUCCI CALLAHAN Facility:[facility] Start: 03-20-2025 End: 03-21-2025 Telephone encounter Gucci Callahan MD Work Phone: [facility] [place] Comment on above: Results Start: 03-19-2025 End: 03-19-2025 ambulatory [facility] Facility:[facility] Start: 03-19-2025 End: 03-19-2025 Patient encounter procedure Gucci Callahan MD Work Phone: [facility] Comment on above: Medicare annual well ness visit, subsequent (Primary Dx); Nonrheumatic aortic valve insufficiency; Hyperlipidemia with target LDL less than 100; Hypertension, essential; Displacement of lumbar intervertebral disc without myelopathy; Prediabetes; Osteopenia of multiple sites; Encounter for screening examination for other mental health and behavioral disorders; Screening for depression; Cognitive impairment; Leg cramps; Medication monitoring encounter; Subclinical hypothyroidism Start: 03-14-2025 End: 03-14-2025 Patient encounter procedure Yves Duarte APRN.EQUIPMENT OPERATOR Work Phone: [facility] Comment on above: Laceration of left f oot, initial encounter (Primary Dx) Start: 03-14-2025 End: 03-14-2025 ambulatory GUCCI CALLAHAN Facility:[facility] Start: 03-12-2025 End: 03-12-2025 ambulatory FLORI A SUPPAN Facility:[facility] Start: 11-13-2024 End: 11-13-2024 Patient encounter procedure Gucci Callahan MD Work Phone: [facility] Comment on above: Hypertension, essent ial (Primary Dx) Start: 11-13-2024 End: 11-13-2024 ambulatory GUCCI CALLAHAN Facility:[facility] Start: 11-02-2024 End: 11-02-2024 ambulatory Gucci Callahan MD [facility] [place] Start: 11-02-2024 End: 11-02-2024 Patient encounter procedure Gucci Callahan MD Work Phone: [facility] Comment on above: Population Health Na vigation Outreach ([employer] ) Start: 09-15-2024 End: 09-15-2024 ambulatory FLORI A SUPPAN Facility:[facility] Start: 09-15-2024 End: 09-15-2024 Office outpatient visit 15 minutes Flori Castro HANDBAG STITCHER.EQUIPMENT OPERATOR Work Phone: [facility] Comment on above: Hyperlipidemia with target LDL less than 100 (Primary Dx); Hypertension, essential; Thyroid condition; Prediabetes Start: 09-11-2024 End: 09-11-2024 Follow-up encounter Barbara Oreilly RN [facility] Start: 09-07-2024 End: 09-07-2024 ambulatory GUCCI CALLAHAN Facility:[facility] Start: 08-22-2024 End: 08-23-2024 Telephone encounter Gucci Callahan MD Work Phone: [facility] Comment on above: Orders Start: 04-06-2024 End: 04-06-2024 ambulatory Ninoska Parnell RN Work Phone: [employer] Start: 04-06-2024 End: 04-06-2024 Patient encounter procedure Ninoska Parnell RN Work Phone: [employer] [facility] Comment on above: DALE SEBASTIAN RN ( ED Utilization Review per request of payor/) Start: 03-30-2024 End: 03-30-2024 Emergency department patient visit Arya Pineda Facility:[facility] Start: 03-25-2024 End: 03-27-2024 Refill Gucci Callahan MD Work Phone: [facility] Comment on above: Refill Request Start: 03-07-2024 End: 03-07-2024 Patient encounter procedure Gucci Callahan MD Work Phone: [facility] Comment on above: Nonrheumatic aortic valve insufficiency (Primary Dx); Hypertension, essential; Hyperlipidemia with target LDL less than 100; Chest pain, unspecified type; Laceration of right palm, subsequent encounter Start: 02-25-2024 End: 02-25-2024 Emergency department patient visit Jamie Garcia Facility:[facility] Start: 02-14-2024 Telephone encounter Flori Castro APRN.EQUIPMENT OPERATOR Work Phone: [facility] Start: 02-11-2024 ambulatory [facility] Start: 02-11-2024 End: 02-11-2024 Subsequent hospital visit by physician [facility] Work Phone: Cardiology Lab Comment on above: Encounter for screen ing for cardiovascular disorders [Z13.6] Start: 02-11-2024 ambulatory [facility] Facility :[facility] Start: 02-11-2024 End: 02-11-2024 Subsequent hospital visit by physician [facility] Work Phone: Molecular Imaging Comment on above: Encounter for screen ing for cardiovascular disorders [Z13.6] Start: 02-10-2024 Telephone encounter Isabel Alberts RN Cardiology Lab Comment on above: Appointment (Left me ssage. NPO after MN and no caffeine products after 7 PM.) Start: 02-07-2024 End: 02-07-2024 Patient encounter procedure Gucci Callahan MD Work Phone: [facility] Comment on above: Hypertension, essent ial (Primary Dx); Hyperlipidemia with target LDL less than 100; Thyroid condition; Prediabetes; Chest heaviness; Chronic fatigue Start: 01-28-2024 Telephone encounter Flori Castro APRN.SUPERVISOR [employer] Work Phone: [facility] Start: 01-27-2024 End: 01-27-2024 Office outpatient visit 25 minutes Flori Castro HANDBAG STITCHER.SUPERVISOR [employer] Work Phone: [facility] Comment on above: Encounter for screen ing for cardiovascular disorders (Primary Dx); Chest heaviness; Chronic fatigue Start: 01-13-2024 Refill Gucci Callahan MD Work Phone: [facility] Comment on above: Refill Request Start: 11-26-2023 End: 11-26-2023 Patient encounter procedure Gucci Callahan MD Work Phone: [facility] Comment on above: Insomnia, unspecifie d type (Primary Dx) Start: 08-30-2023 Telephone encounter Annika Connolly MD Work Phone: General Surgery Comment on above: 09/07/2023 colon asc Start: 03-08-2023 End: 03-08-2023 Patient encounter procedure Gucci Callahan MD Work Phone: [facility] Comment on above: Primary hypertension (Primary Dx); Subconjunctival hemorrhage of both eyes Start: 03-05-2023 End: 03-05-2023 ambulatory [facility] Work Phone: Start: 03-05-2023 End: 03-05-2023 Patient encounter procedure [facility] Work Phone: Start: 01-25-2023 End: 01-25-2023 Patient encounter procedure Gucci Callahan MD Work Phone: [facility] Comment on above: Hypertension, essent ial (Primary Dx); Hyperlipidemia with target LDL less than 100; Prediabetes Start: 01-23-2023 End: 01-23-2023 Emergency department patient visit [facility] Start: 08-20-2022 Telephone encounter Gucci Callahan MD Work Phone: [facility] [place] Comment on above: Blood Pressure Check Start: 07-31-2022 End: 07-31-2022 ambulatory Pulm Lab Count Includes [facility] Work Phone: [facility] Comment on above: Spirometry Start: 07-31-2022 End: 07-31-2022 Patient encounter procedure Pulm Lab Count Includes [facility] Work Phone: [facility] Start: 07-24-2022 Telephone encounter Gucci Callahan MD Work Phone: [facility] [place] Comment on above: Orders Start: 07-20-2022 End: 07-20-2022 Patient encounter procedure Gucci Callahan MD Work Phone: [facility] [place] Comment on above: Mitral valve disorde r (Primary Dx); Hypertension, essential; Hyperlipidemia with target LDL less than 100; Thyroid condition; Prediabetes; Osteopenia of multiple sites; Situational depression; Cough, unspecified type; Lung interstitial disease (HCC) Start: 06-04-2022 End: 06-04-2022 [facility] Start: 06-04-2022 End: 06-04-2022 Patient encounter procedure Yves Duarte APRN.EQUIPMENT OPERATOR Work Phone: [facility] Comment on above: Pleuritic pain (Prim leah Dx) Start: 06-02-2022 End: 06-02-2022 Patient encounter procedure Gucci Callahan MD Work Phone: [facility] [place] Comment on above: COVID-19 (Primary Dx ); Hyperglycemia; Thyroid condition Start: 05-21-2022 End: 05-21-2022 Emergency department patient visit [facility] Start: 01-19-2022 Telephone encounter Gucci Callahan MD Work Phone: [facility] [place] Comment on above: Results Start: 01-14-2022 Telephone encounter Gucci Callahan MD Work Phone: [facility] [place] Comment on above: Results Start: 01-14-2022 End: 01-14-2022 Patient encounter procedure Gucci Callahan MD Work Phone: [facility] [place] Comment on above: Thyroid condition (P rimary Dx); Hypertension, essential; Hyperlipidemia with target LDL less than 100; Hypoglycemia; GERD without esophagitis Start: 01-05-2022 End: 01-05-2022 Patient encounter procedure Sanford Samayoa MD Work Phone: [facility] Comment on above: Mid back pain on lef t side (Primary Dx) Start: 01-05-2022 ambulatory Keri Watters RN NU RSE CARTOGRAPHIC ENGINEER Comment on above: Medication Question Start: 01-02-2022 Telephone encounter Gucci Callahan MD Work Phone: [facility] [place] Comment on above: Results Start: 12-16-2021 Telephone encounter Gucci Callahan MD Work Phone: [facility] [place] Comment on above: Results Start: 12-10-2021 Telephone encounter Nurse Card Admin Count Includes [facility] Work Phone: Cardiology Comment on above: stress test instruct ions Start: 12-03-2021 End: 12-03-2021 Patient encounter procedure Gucci Callahan MD Work Phone: [facility] [place] Comment on above: Muscle cramps (Prima ry Dx); Hypertension, essential; Hyperlipidemia with target LDL less than 100; Mitral valve disorder; Pain in both lower extremities; Chest pain, unspecified type Start: 10-22-2021 End: 10-22-2021 Subsequent hospital visit by physician Xr Count Includes [facility] [place] Work Phone: Radiology Comment on above: Chest pain, unspecif ied type [R07.9] Start: 10-22-2021 End: 10-22-2021 Patient encounter procedure Gucci Callahan MD Work Phone: [facility] [place] Comment on above: Fatigue, unspecified type (Primary Dx); Advance care planning; Hyperlipidemia with target LDL less than 100; Hypertension, essential; Mitral valve disorder; Osteopenia of multiple sites; Chest pain, unspecified type; Mitral valve insufficiency, unspecified etiology; GERD without esophagitis; Encounter for preprocedure screening laboratory testing for COVID-19 Start: 10-22-2021 End: 10-22-2021 Patient encounter status Gucci Callahan MD Work Phone: [facility] [place] Start: 12-09-2020 End: 12-09-2020 Subsequent hospital visit by physician Xr Count Includes [facility] Work Phone: Radiology Comment on above: Acute pain of right knee [M25.561] Procedures Date Procedure Procedure Detail Performing Clinician Start: 04-13-2025 Us retroperitoneal r eal time w/image complete Emma Fang HANDBAG STITCHER.EQUIPMENT OPERATOR Work Phone: Start: 03-26-2025 Urnls dip stick/tabl et rgnt auto w/o microscopy Roseline Morrow MD Work Phone: Start: 03-19-2025 Adult depression scr eening assessment Gucci Callahan MD Work Phone: Start: 02-11-2024 Myocardial spect mul tiple studies Flori Castro HANDBAG STITCHER.EQUIPMENT OPERATOR Work Phone: Start: 01-27-2024 Ecg routine ecg w/le ast 12 lds i&r only Flori A Socorroan HANDBAG STITCHER.SUPERVISOR [employer] Work Phone: Start: 11-26-2023 Adult depression scr eening assessment Gucci Callahan MD Work Phone: Start: 07-31-2022 Brncdilat rspse spmt ry pre&post-brncdilat admn Gucci Callahan MD Work Phone: Start: 06-04-2022 CT angiography of ch est with contrast Start: 06-04-2022 Plain chest X-ray Start: 10-22-2021 Radiologic exam ches t 2 views Gucci Callahan MD Work Phone: Start: 12-09-2020 Radiologic exam knee complete 4/more views Irving Dominique APRN.EQUIPMENT OPERATOR Work Phone: Plan of Treatment Date Care Activity Detail Author Start: 04-09-2028 Diabetes Screening Diabetes Screening [facility] Start: 03-12-2028 Diabetes Screening Diabetes Screening [facility] Start: 09-07-2027 Diabetes Screening Diabetes Screening [facility] Start: 01-26-2027 Diabetes Screening Diabetes Screening [facility] Start: 08-09-2026 Diabetes Screening Diabetes Screening [facility] Start: 03-19-2026 Anxiety Screening Anxiety Screening [facility] Start: 03-19-2026 Depression Screening Depression Screening [facility] Start: 09-24-2025 End: 09-24-2025 Patient encounter procedure 09/24/2025 1:40 PM EST Office Visit [facility] [address] [place] [id number] Gucci Callahan MD [address] [place] [address] 6 mo follow up HTN [facility] [place] Comment on above: 6 mo follow up HTN Start: 09-19-2025 End: 12-19-2025 Hemoglobin A1c in Blood HEMOGLOBIN A1C Lab Routine Prediabetes Expected: 09/19/2025, Expires: 12/19/2025 [facility] Comment on above: Expected: 09/19/2025, Expires: Start: 09-19-2025 End: 12-19-2025 Thyrotropin [Units/volume] in Serum or Plasma THYROID STIMULATING HORMONE Lab Routine Subclinical hypothyroidism Expected: 09/19/2025, Expires: 12/19/2025 [facility] Comment on above: Expected: 09/19/2025, Expires: Start: 09-15-2025 RSV Vaccine (1 - 1-dose 75+ series) RSV Vaccine (1 - 1-dose 75+ series) [facility] Comment on above: Postponed from 2017 (Declined at t his time) Start: 07-16-2025 DIABETES SCREEN DIABETES SCREEN [facility] Start: 05-14-2025 End: 05-14-2025 Patient encounter procedure 05/14/2025 10:30 AM EDT Office Visit Orthopaedics [address] [place] [address] Jamie Herrmann MD [address] [place] [phone] knee paion and consult Orthopaedics Comment on above: knee paion and consult Start: 05-01-2025 End: 07-31-2025 25-hydroxyvitamin D3 [Mass/volume] in Serum or Plasma VITAMIN D 25 HYDROXY Lab Routine Poisoning by vitamin D, accidental or unintentional, subsequent encounter Expected: 05/01/2025, Expires: 07/31/2025 [facility] Work Phone: Comment on above: Expected: 05/01/2025, Expires: Start: 04-13-2025 End: 04-13-2025 Patient encounter procedure 04/13/2025 1:00 PM EDT Appointment Radiology [address] [address] lab Radiology Comment on above: lab Start: 04-09-2025 End: 07-09-2025 Basic metabolic 2000 panel - Serum or Plasma [facility] Comment on above: Expected: 04/09/2025, Expires: Start: 04-09-2025 End: 07-09-2025 C reactive protein [Mass/volume] in Serum or Plasma [facility] Comment on above: Expected: 04/09/2025, Expires: Start: 04-09-2025 End: 07-09-2025 Urate [Mass/volume] in Serum or Plasma [facility] Comment on above: Expected: 04/09/2025, Expires: Start: 04-02-2025 Influenza vaccination Influenza Vaccine (#1) [facility] Start: 03-19-2025 End: 06-18-2025 25-hydroxyvitamin D3 [Mass/volume] in Serum or Plasma [facility] Comment on above: Expected: 03/19/2025, Expires: Start: 03-19-2025 End: 06-18-2025 SYPHILIS TREPONEMAL W/REFLEX [facility] Work Phone: Comment on above: Expected: 03/19/2025, Expires: Start: 03-19-2025 End: 03-19-2025 Patient encounter procedure 03/19/2025 1:40 PM EDT Office Visit [facility] [place] [address] [place] [id number] Gucci Callahan MD [address] [place] [id number] 6 month follow up [facility] [place] Comment on above: 6 month follow up Start: 03-15-2025 End: 06-14-2025 CBC W Auto Differential panel - Blood COMPLETE BLOOD COUNT AND DIFFERENTIAL Lab Routine Hypertension, essential Expected: 03/15/2025, Expires: 06/14/2025 [facility] Work Phone: Comment on above: Expected: 03/15/2025, Expires: Start: 03-15-2025 End: 06-14-2025 Comprehensive metabolic 2000 panel - Serum or Plasma COMPREHENSIVE METABOLIC PANEL Lab Routine Hypertension, essential Expected: 03/15/2025, Expires: 06/14/2025 [facility] Comment on above: Expected: 03/15/2025, Expires: Start: 03-15-2025 End: 06-14-2025 Hemoglobin A1c in Blood HEMOGLOBIN A1C Lab Routine Prediabetes Expected: 03/15/2025, Expires: 06/14/2025 [facility] Comment on above: Expected: 03/15/2025, Expires: Start: 03-15-2025 End: 06-14-2025 Lipid 1996 panel - Serum or Plasma LIPID PANEL BASIC Lab Routine Hyperlipidemia with target LDL less than 100 Expected: 03/15/2025, Expires: 06/14/2025 [facility] Comment on above: Expected: 03/15/2025, Expires: Start: 03-15-2025 End: 06-14-2025 Magnesium [Mass/volume] in Serum or Plasma MAGNESIUM Lab Routine Hypertension, essential Expected: 03/15/2025, Expires: 06/14/2025 [facility] Comment on above: Expected: 03/15/2025, Expires: Start: 03-15-2025 End: 06-14-2025 Microalbumin/Creatinine [Mass Ratio] in Urine ALBUMIN/CREATININE RATIO, URINE Lab Routine Prediabetes Expected: 03/15/2025, Expires: 06/14/2025 [facility] Comment on above: Expected: 03/15/2025, Expires: Start: 03-15-2025 End: 06-14-2025 Thyrotropin [Units/volume] in Serum or Plasma THYROID STIMULATING HORMONE Lab Routine Thyroid condition Expected: 03/15/2025, Expires: 06/14/2025 [facility] Comment on above: Expected: 03/15/2025, Expires: Start: 01-29-2025 [facility] on above[facility] Postp[facility] from 04/02/2024 (Declined at t his time) Start: 01-14-2025 DIABETES SCREEN DIABETES SCREEN [facility] Start: 01-01-2025 DIABETES SCREEN DIABETES SCREEN [facility] Start: 11-25-2024 Anxiety Screening Anxiety Screening [facility] Start: 11-25-2024 Depression Screening Depression Screening [facility] Start: 10-22-2024 DIABETES SCREEN DIABETES SCREEN [facility] Start: 09-15-2024 End: 09-15-2024 Patient encounter procedure 09/15/2024 11:00 AM EST Office Visit [facility] [place] [address] [place] [phone] Gucci Callahan MD [address] [place] [id number] 6 month follow up [facility] Comment on above: 6 month follow up Start: 08-23-2024 End: 11-22-2024 Hemoglobin A1c in Blood HEMOGLOBIN A1C Lab Routine Prediabetes Expected: 08/23/2024, Expires: 11/22/2024 [facility] Work Phone: Comment on above: Expected: 08/23/2024, Expires: Start: 08-09-2024 RSV Vaccine (1 - 1-dose 60+ series) RSV Vaccine (1 - 1-dose 60+ series) [facility] Comment on above: Postponed from 2002 (Declined at t his time) Start: 08-09-2024 RSV Vaccine (1 - 1-dose 75+ series) RSV Vaccine (1 - 1-dose 75+ series) [facility] Comment on above: Postponed from 2017 (Declined at t his time) Start: 08-02-2024 Advance Directive Discussion Advance Directive Discussion [facility] Start: 08-02-2024 Medicare Advantage Annual Wellness Visit Medicare Advantage Annual Wellness Visit [facility] Start: 04-17-2024 End: 04-17-2024 Nursing evaluation of patient and report 04/17/2024 9:15 AM EDT Nurse Visit Cardiology [address] [place] [id number] Wstr, Nurse Card Admin Count Includes [facility] [address] [place] [phone] Encounter for screening for cardiovascular disorders [Z13.6] Cardiology Comment on above: Encounter for screening for cardiovascul ar disorders [Z13.6] Start: 04-17-2024 End: 04-17-2024 Patient encounter procedure Nuclear Medicine Comment on above: Encounter for screening for cardiovascul ar disorders [Z13.6] Start: 04-02-2024 Influenza vaccination [facility] Start: 03-08-2024 ANNUAL PCP TEAM CHRONIC DISEASE VISIT ANNUAL PCP TEAM CHRONIC DISEASE VISIT [facility] Start: 03-07-2024 End: 03-07-2024 Patient encounter procedure 03/07/2024 12:40 PM EDT Office Visit [facility] [place] [address] [place] [address] Gucci Callahan MD [address] [place] [address] 4 week follow up blood pressure [facility] [place] Comment on above: 4 week follow up blood pressure Start: 02-14-2024 End: 02-14-2024 Patient encounter procedure 02/14/2024 10:30 AM EDT Office Visit Cardiology [address] [place] [phone] Chest heaviness [R07.89] Cardiology Comment on above: Chest heaviness [R07.89] Start: 02-12-2024 DIABETES SCREEN DIABETES SCREEN [facility] Start: 02-11-2024 End: 02-11-2024 Patient encounter procedure Molecular Imaging Comment on above: Encounter for screening for cardiovascul ar disorders [Z13.6] Start: 02-10-2024 End: 01-26-2025 Echocardiography ECHO Cardiology Routine Chest heaviness Expected: 02/10/2024, Expires: 01/26/2025 [facility] Comment on above: Expected: 02/10/2024, Expires: 5 Start: 02-10-2024 End: 02-25-2025 NM Heart Perfusion W multiple states of exercise NM CARDIAC PERF STRESS/EXERCISE Radiology Routine Encounter for screening for cardiovascular disorders Expected: 02/10/2024, Expires: 02/25/2025 [facility] Work Phone: Comment on above: Expected: 02/10/2024, Expires: Start: 02-07-2024 End: 02-07-2024 Patient encounter procedure 02/07/2024 2:40 PM EDT Office Visit [facility] [place] [address] [place] [address] Gucci Callahan MD [address] [place] [address] 6 mth f/u [facility] [place] Comment on above: 6 mth f/u Start: 01-30-2024 Influenza vaccination Influenza Vaccine (#1) [facility] Comment on above: Postponed from 04/02/2023 (Declined at t his time) Start: 01-27-2024 End: 04-27-2024 CBC W Auto Differential panel - Blood [facility] Comment on above: Expected: 01/27/2024, Expires: 4 Start: 01-27-2024 End: 04-27-2024 Cobalamin (Vitamin B12) [Mass/volume] in Serum or Plasma [facility] Comment on above: Expected: 01/27/2024, Expires: 4 Start: 01-27-2024 End: 04-27-2024 Comprehensive metabolic 2000 panel - Serum or Plasma [facility] Comment on above: Expected: 01/27/2024, Expires: 4 Start: 01-27-2024 End: 04-27-2024 Hemoglobin A1c in Blood [facility] Comment on above: Expected: 01/27/2024, Expires: Start: 01-27-2024 End: 04-27-2024 LIPID PANEL, NONFASTING [facility] Comment on above: Expected: 01/27/2024, Expires: Start: 01-27-2024 End: 04-27-2024 Magnesium [Mass/volume] in Serum or Plasma [facility] Comment on above: Expected: 01/27/2024, Expires: Start: 01-27-2024 End: 04-27-2024 Thyrotropin [Units/volume] in Serum or Plasma [facility] Comment on above: Expected: 01/27/2024, Expires: Start: 01-27-2024 End: 04-27-2024 Thyroxine (T4) free [Mass/volume] in Serum or Plasma [facility] Comment on above: Expected: 01/27/2024, Expires: Start: 01-27-2024 End: 04-27-2024 URINALYSIS, REFLEX MICROSCOPIC [facility] Comment on above: Expected: 01/27/2024, Expires: Start: 01-26-2024 ANNUAL PCP TEAM CHRONIC DISEASE VISIT ANNUAL PCP TEAM CHRONIC DISEASE VISIT [facility] Start: 07-27-2023 End: 09-26-2023 CBC W Auto Differential panel - Blood CBC + DIFF Lab Routine Hypertension, essential Expected: 07/27/2023, Expires: 09/26/2023 [facility] Work Phone: Comment on above: Expected: 07/27/2023, Expires: Start: 07-27-2023 End: 09-26-2023 Comprehensive metabolic 2000 panel - Serum or Plasma COMP METABOLIC PANEL Lab Routine Hypertension, essential Expected: 07/27/2023, Expires: 09/26/2023 [facility] Work Phone: Comment on above: Expected: 07/27/2023, Expires: Start: 07-27-2023 End: 09-26-2023 Hemoglobin A1c in Blood HGB A1C Lab Routine Prediabetes Expected: 07/27/2023, Expires: 09/26/2023 [facility] Work Phone: Comment on above: Expected: 07/27/2023, Expires: 4 Start: 07-27-2023 End: 09-26-2023 Lipid 1996 panel - Serum or Plasma LIPID PANEL BASIC Lab Routine Hypertension, essential Expected: 07/27/2023, Expires: 09/26/2023 [facility] Work Phone: Comment on above: Expected: 07/27/2023, Expires: Start: 07-20-2023 ANNUAL PCP TEAM CHRONIC DISEASE VISIT ANNUAL PCP TEAM CHRONIC DISEASE VISIT [facility] Start: 06-02-2023 ANNUAL PCP TEAM CHRONIC DISEASE VISIT ANNUAL PCP TEAM CHRONIC DISEASE VISIT [facility] Start: 04-02-2023 Influenza vaccination [facility] Start: 03-08-2023 End: 05-08-2023 aPTT in Platelet poor plasma by Coagulation assay ACTIVATED PTT Lab Routine Subconjunctival hemorrhage of both eyes Expected: 03/08/2023, Expires: 05/08/2023 [facility] Work Phone: Comment on above: Expected: 03/08/2023, Expires: 3 Start: 03-08-2023 End: 05-08-2023 Hepatic function 2000 panel - Serum or Plasma HEPATIC FUNCTION PNL Lab Routine Primary hypertension Expected: 03/08/2023, Expires: 05/08/2023 [facility] Work Phone: Comment on above: Expected: 03/08/2023, Expires: 3 Start: 03-08-2023 End: 05-08-2023 PT panel - Platelet poor plasma by Coagulation assay PROTHROMBIN TIME/PT Lab Routine Subconjunctival hemorrhage of both eyes Expected: 03/08/2023, Expires: 05/08/2023 [facility] Work Phone: Comment on above: Expected: 03/08/2023, Expires: 3 Start: 01-29-2023 Influenza vaccination INFLUENZA (#1) [facility] Comment on above: Postponed from 04/02/2022 (Declined at t his time) Start: 01-14-2023 ANNUAL PCP TEAM CHRONIC DISEASE VISIT ANNUAL PCP TEAM CHRONIC DISEASE VISIT [facility] Start: 12-03-2022 ANNUAL PCP TEAM CHRONIC DISEASE VISIT ANNUAL PCP TEAM CHRONIC DISEASE VISIT [facility] Start: 10-22-2022 ANNUAL PCP TEAM CHRONIC DISEASE VISIT ANNUAL PCP TEAM CHRONIC DISEASE VISIT [facility] Start: 08-02-2022 ADVANCE DIRECTIVE DISCUSSION ADVANCE DIRECTIVE DISCUSSION [facility] Start: 08-02-2022 DEPRESSION ASSESSMENT DEPRESSION ASSESSMENT [facility] Start: 07-14-2022 End: 09-13-2022 Thyrotropin [Units/volume] in Serum or Plasma TSH BLD Lab Routine Thyroid condition Expected: 07/14/2022, Expires: 09/13/2022 [facility] Work Phone: Comment on above: Expected: 07/14/2022, Expires: 3 Start: 06-02-2022 End: 08-02-2022 Hemoglobin A1c in Blood HGB A1C Lab Routine Hyperglycemia Expected: 06/02/2022, Expires: 08/02/2022 [facility] Work Phone: Comment on above: Expected: 06/02/2022, Expires: 3 Start: 04-24-2022 End: 06-24-2022 LIPID PANEL BASIC LIPID PANEL BASIC Lab Routine Hyperlipidemia with target LDL less than 100 Expected: 04/24/2022, Expires: 06/24/2022 [facility] Work Phone: Comment on above: Expected: 04/24/2022, Expires: 2 Start: 04-02-2022 Influenza vaccination INFLUENZA (Season Ended) [facility] Start: 01-29-2022 Influenza vaccination INFLUENZA (#1) [facility] Comment on above: Postponed from 04/02/2021 (Declined at t his time) Start: 01-14-2022 End: 03-16-2022 C peptide [Mass/volume] in Serum or Plasma [facility] Work Phone: Comment on above: Expected: 01/14/2022, Expires: 2 Start: 01-14-2022 End: 03-16-2022 Glucose [Mass/volume] in Serum or Plasma [facility] Work Phone: Comment on above: Expected: 01/14/2022, Expires: 2 Start: 01-14-2022 End: 03-16-2022 Hemoglobin A1c in Blood [facility] Work Phone: Comment on above: Expected: 01/14/2022, Expires: 2 Start: 01-14-2022 End: 03-16-2022 Insulin [Units/volume] in Serum or Plasma [facility] Work Phone: Comment on above: Expected: 01/14/2022, Expires: 2 Start: 01-14-2022 End: 03-16-2022 KETONES/ACETONE/BHB [facility] Work Phone: Comment on above: Expected: 01/14/2022, Expires: 2 Start: 01-14-2022 End: 03-16-2022 PROINSULIN INTACT BLOOD [facility] Work Phone: Comment on above: Expected: 01/14/2022, Expires: 2 Start: 01-02-2022 End: 03-04-2022 T3 BLD T3 BLD Lab Routine Elevated TSH Expected: 01/02/2022, Expires: 03/04/2022 [facility] Work Phone: Comment on above: Expected: 01/02/2022, Expires: 2 Start: 01-02-2022 End: 03-04-2022 T4/FTI/T4U T4/FTI/T4U Lab Routine Elevated TSH Expected: 01/02/2022, Expires: 03/04/2022 [facility] Work Phone: Comment on above: Expected: 01/02/2022, Expires: 2 Start: 01-02-2022 End: 03-04-2022 Thyroglobulin Ab [Units/volume] in Serum or Plasma THYROGLOBULIN AB Lab Routine Elevated TSH Expected: 01/02/2022, Expires: 03/04/2022 [facility] Work Phone: Comment on above: Expected: 01/02/2022, Expires: 2 Start: 01-02-2022 End: 03-04-2022 THYROID PEROXIDASE ANTIBODY BLOOD THYROID PEROXIDASE ANTIBODY BLOOD Lab Routine Elevated TSH Expected: 01/02/2022, Expires: 03/04/2022 [facility] Work Phone: Comment on above: Expected: 01/02/2022, Expires: 2 Start: 01-02-2022 End: 03-04-2022 Thyrotropin [Units/volume] in Serum or Plasma TSH BLD Lab Routine Elevated TSH Expected: 01/02/2022, Expires: 03/04/2022 [facility] Work Phone: Comment on above: Expected: 01/02/2022, Expires: 2 Start: 12-03-2021 End: 02-02-2022 Basic metabolic 2000 panel - Serum or Plasma BASIC METABOLIC PNL Lab Routine Muscle cramps Pain in both lower extremities Expected: 12/03/2021, Expires: 02/02/2022 [facility] Work Phone: Comment on above: Expected: 12/03/2021, Expires: 2 Start: 12-03-2021 End: 02-02-2022 IRON + TIBC IRON + TIBC Lab Routine Muscle cramps Pain in both lower extremities Expected: 12/03/2021, Expires: 02/02/2022 [facility] Work Phone: Comment on above: Expected: 12/03/2021, Expires: 2 Start: 12-03-2021 End: 02-02-2022 LIPID PANEL BASIC LIPID PANEL BASIC Lab Routine Hyperlipidemia with target LDL less than 100 Expected: 12/03/2021, Expires: 02/02/2022 [facility] Work Phone: Comment on above: Expected: 12/03/2021, Expires: 2 Start: 12-03-2021 End: 02-02-2022 Magnesium [Mass/volume] in Serum or Plasma MAGNESIUM BLD Lab Routine Muscle cramps Pain in both lower extremities Expected: 12/03/2021, Expires: 02/02/2022 [facility] Work Phone: Comment on above: Expected: 12/03/2021, Expires: 2 Start: 12-03-2021 End: 02-02-2022 Thyrotropin [Units/volume] in Serum or Plasma [facility] Work Phone: Comment on above: Expected: 12/03/2021, Expires: 2 Start: 12-03-2021 End: 02-02-2022 VITAMIN D 25 HYDROXY VITAMIN D 25 HYDROXY Lab Routine Muscle cramps Pain in both lower extremities Expected: 12/03/2021, Expires: 02/02/2022 [facility] Work Phone: Comment on above: Expected: 12/03/2021, Expires: 2 Start: 10-22-2021 End: 12-22-2021 CBC W Auto Differential panel - Blood [facility] Work Phone: Comment on above: Expected: 10/22/2021, Expires: 2 Start: 10-22-2021 End: 12-22-2021 Comprehensive metabolic 2000 panel - Serum or Plasma [facility] Work Phone: Comment on above: Expected: 10/22/2021, Expires: 2 Start: 10-22-2021 End: 12-22-2021 Erythrocyte sedimentation rate [facility] Work Phone: Comment on above: Expected: 10/22/2021, Expires: 2 Start: 10-22-2021 End: 10-22-2022 SARS-CoV-2 (COVID-19) RNA [Presence] in Respiratory specimen by DAWN with probe detection PRE-PROCEDURE & PRE-OPERATIVE COVID Microbiology Routine Encounter for preprocedure screening laboratory testing for COVID-19 Expected: 10/22/2021, Expires: 10/22/2022 [facility] Work Phone: Comment on above: Expected: 10/22/2021, Expires: Start: 08-02-2021 ADVANCE DIRECTIVE DISCUSSION ADVANCE DIRECTIVE DISCUSSION [facility] Start: 08-02-2021 DEPRESSION ASSESSMENT DEPRESSION ASSESSMENT [facility] Start: 2017 RSV Vaccine (1 - 1-dose 75+ series) RSV Vaccine (1 - 1-dose 75+ series) [facility] Start: 11-15-2011 Urine microalbumin profile DTAP,TDAP,TD (2 - Tdap) [facility] Start: 2007 PNEUMOCOCCAL: 65+ (1 - PCV) PNEUMOCOCCAL: 65+ (1 - PCV) [facility] Start: 1992 SHINGRIX VACCINE (1 of 2) SHINGRIX VACCINE (1 of 2) [facility] Start: 1960 BP CONTROLLED (<130/80) BP CONTROLLED (<130/80) [facility] Start: 1947 COVID-19 VACCINE (#1) COVID-19 VACCINE (#1) [facility] Start: 1947 COVID-19 VACCINE (1) COVID-19 VACCINE (1) [facility] Start: 1942 COVID-19 VACCINE (#1) COVID-19 VACCINE (#1) [facility] Bacteria identified in Urine by Culture URINE CULTURE Microbiology Routine Chest heaviness Chronic fatigue 01/27/2024 2:48 PM EDT [facility] Bacteria identified in Urine by Culture BACTERIAL CULTURE, URINE Microbiology Routine Flank pain Acute cystitis without hematuria Ordered: 03/26/2025 [facility] Work Phone: Comment on above: Ordered: 03/26/2025 End: 10-22-2022 ECG COMPLETE ECG COMPLETE ECG Routine Chest pain, unspecified type 1 Occurrences starting 10/22/2021 until 10/22/2022 [facility] Work Phone: Comment on above: 1 Occurrences starting 10/22/2021 until 10/22/2022 ECG COMPLETE ECG COMPLETE ECG Routine Chest heaviness Chronic fatigue 01/27/2024 1:33 PM EDT [facility] End: 08-23-2023 LUNG DIFFUSION CAPACITY (DLCO) LUNG DIFFUSION CAPACITY (DLCO) PFT Routine Lung interstitial disease (HCC) 1 Occurrences starting 07/24/2022 until 08/23/2023 [facility] Work Phone: Comment on above: 1 Occurrences starting 07/24/2022 until 08/23/2023 End: 08-19-2023 LUNG VOLUMES LUNG VOLUMES PFT Routine Cough, unspecified type Lung interstitial disease (HCC) 1 Occurrences starting 07/20/2022 until 08/19/2023 [facility] Work Phone: Comment on above: 1 Occurrences starting 07/20/2022 until 08/19/2023 End: 08-19-2023 MAXIMAL VOLUNTARY VENTILATION MAXIMAL VOLUNTARY VENTILATION PFT Routine Cough, unspecified type Lung interstitial disease (HCC) 1 Occurrences starting 07/20/2022 until 08/19/2023 [facility] Work Phone: Comment on above: 1 Occurrences starting 07/20/2022 until 08/19/2023 Patient Education [facility] Work Phone: Patient referral [facility] Work Phone: End: 08-19-2023 SPIROMETRY - BASELINE AND POST DILATOR SPIROMETRY - BASELINE AND POST DILATOR PFT Routine Cough, unspecified type Lung interstitial disease (HCC) 1 Occurrences starting 07/20/2022 until 08/19/2023 [facility] Work Phone: Comment on above: 1 Occurrences starting 07/20/2022 until 08/19/2023 End: 10-22-2022 STRESS ECHO TREADMILL STRESS ECHO TREADMILL Cardiology Routine Chest pain, unspecified type Mitral valve insufficiency, unspecified etiology 1 Occurrences starting 10/22/2021 until 10/22/2022 [facility] Work Phone: Comment on above: 1 Occurrences starting 10/22/2021 until 10/22/2022 End: 05-09-2026 US Kidney - bilateral and Urinary bladder US KIDNEY/BLADDER Radiology Routine Flank pain 1 Occurrences starting 04/09/2025 until 05/09/2026 [facility] Comment on above: 1 Occurrences starting 04/09/2025 until 05/09/2026 End: 05-09-2026 XR Knee - left 4 Views XR KNEE GENERAL 4V AP BOTH/PA BOTH/LAT/MERC LEFT Radiology Routine Acute pain of left knee 1 Occurrences starting 04/09/2025 until 05/09/2026 [facility] Work Phone: Comment on above: 1 Occurrences starting 04/09/2025 until 05/09/2026 XR Knee - left 4 Views XR KNEE G ENERAL 4V AP BOTH/PA BOTH/LAT/MERC LEFT Radiology Routine Acute pain of left knee 04/09/2025 12:14 PM EDT [facility] Immunizations Immunization Date Immunization Notes Care Provider Regi meyer 03-14-2025 TD(adult) unspecifie d formulation Yves Duarte APRN.EQUIPMENT OPERATOR Work Phone: [facility] Work Phone: 03-14-2025 tetanus and diphther ia toxoids, adsorbed, preservative free, for adult use (5 Lf of tetanus toxoid and 2 Lf of diphtheria toxoid) Yves Duarte APRN.EQUIPMENT OPERATOR Work Phone: [facility] 07-13-2018 influenza virus vaccine, unspecified formulation Annika Cruz MD Work Phone: [facility] 11-14-2001 diphtheria and tetan us toxoids, adsorbed for pediatric use Gucci Callahan MD Work Phone: [facility] Work Phone: Payers Date Payer Category Payer Self-pay 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 2021 Medicare (Managed Care) [id number]. [id number] 2019 Medicare [id number] 2012 Medicare [id number] 1940 Unknown [id number] Unknown [id number] Unknown [id number] Social History Date Type Detail Facility Tobacco smoking stat [email or web address] Unknown if ever smoked [facility] Work Phone: Start: 1940 Sex Assigned At Female [facility] Start: 02-05-2011 Tobacco smoking stat [email or web address]IS Never smoked tobacco [facility] Start: 10-22-2021 End: 04-09-2025 Alcohol intake Current non-drinker of alcohol (finding) [facility] Start: 1940 Sex Assigned At Not on file [facility] Start: 11-09-2020 End: 06-04-2022 Exposure to SARS-CoV-2 (event) Not sure [facility] Start: 02-05-2011 Tobacco use and exposure Smokeless tobacco non-user [facility] Start: 06-04-2022 End: 01-23-2023 Tobacco smoking status NHIS Unknown if ever smoked [facility] Start: 11-19-[address] [facility] Start: 11-19-[address] [facility] Start: 11-19-2019 Non-smoker [facility] Start: 01-25-2023 End: 03-08-2023 History of Social function [facility] Work Phone: Start: 01-25-2023 End: 03-08-2023 Tobacco use panel [facility] Work Phone: Start: 07-03-2012 Adult Depression Screening Assessment 0 [facility] Work Phone: Goals Date Patient Goal Desired Activity /State Personal health goal Personal health goal Functional Status Date Assessment Result Facility 01-22-2015 Are you deaf, or do you have serious difficulty hearing No 01/22/2015 2:48 PM EDT Nain Hameed LPN No [facility] 01-22-2015 Are you blind, or do you have serious difficulty seeing, even when wearing glasses No 01/22/2015 2:48 PM EDT Nain Hameed LPN No [facility] 01-22-2015 Do you have serious difficulty walking or climbing stairs No 01/22/2015 2:48 PM EDT Nain Hameed LPN No [facility] 01-22-2015 Do you have difficul ty dressing or bathing No 01/22/2015 2:48 PM EDT Nain Hameed LPN No [facility] 01-22-2015 Because of a physica l, mental, or emotional condition, do you have difficulty doing errands alone such as visiting a physician's office or shopping No 01/22/2015 2:48 PM EDT Nain Hameed LPN No [facility] Mental Status Date Assessment Result Facility 06-04-2022 Cognitive function Level Of Cons ciousness Awake;Alert;Appropriate [facility] Work Phone: 01-22-2015 Because of a physica l, mental, or emotional condition, do you have serious difficulty concentrating, remembering, or making decisions No 01/22/2015 2:48 PM EDT Nain Hameed LPN No [facility] Clinical Notes 12-10-2014 to 06-12-2025 Chastity San RDMS - 04/13/2025 1:00 PM EDTTelephone Encounter - Sarai Breen MA - 04/10/2025 5:04 PM EDTTelephone Encounter - Sarai Breen MA - 04/10/2025 5:02 PM EDTPatient Instructions Note Date & Type Note Facility 06-12-2025 Note HNO ID: [id number] Author: EMMA FANG APRN.EQUIPMENT OPERATOR Service: ? Author Type: Nurse Practitioner Type: Progress Notes Filed: 06/12/2025 21:09 Note Text: This is a 85 year old female who presents today with: The patient is an 85-year-old female presenting for blood pressure check and evaluation of chest heaviness and fatigue. HISTORY OF PRESENT ILLNESS: Krystle Arambula is an 85-year-old female with a history of HTN, presenting for a blood pressure check and evaluation of chest heaviness. Hypertension: BP was elevated at last visit. Was called to return for BP check. - Denies monitoring blood pressure at home. Chest Heaviness: - Intermittent episodes of chest heaviness. Has been going on for quite a while, but has been worsening over the last couple of weeks. - Describes sensation as a "weight" on the chest. - No specific triggers identified; sometimes worsens postprandially. - Denies associated dyspnea, dizziness, syncope, or palpitations. - No pain with deep inspiration. - Reports decreased energy levels and increased somnolence. - Stress test and echocardiogram performed last year. - Scheduled to see Dr. Forrester in a month. PAST MEDICAL HISTORY: PAST MEDICAL HISTORY Diagnosis Date Diffuse cystic mastopathy Disorder of thyroid HTN (hypertension) Hyperlipidemia LDL goal < 100 08/20/2013 Lumbar disc disease with radiculopathy 01/06/2011 Mitral valve disorder 08/11/2013 Osteoarthritis of both hips 10/03/2013 Osteopenia Osteoporosis 12/10/2014 Pelvic floor weakness 05/05/2012 Situational depression 07/29/2018 Subconjunctival hemorrhage 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 PAST SURGICAL HISTORY Procedure Laterality Date ARTHRP ACETBLR/PROX FEM PROSTC AGRFT/ALGRFT 01/30/2014 right LIG/TRNSXJ FLP TUBE ABDL/VAG APPR UNI/BI PAST SURGICAL HISTORY OF Left ORIF femur TOTAL HIP REPLACEMENT 10/03/2013 left ALLERGIES [place], Tylenol #3 [Codeine], Wheat, Juanita Inhibitors, and Food Extracts MEDICATIONS Current Outpatient Medications Medication Sig losartan (COZAAR) 100 mg tablet Take 1 tablet by mouth once daily. vitamin B complex (B COMPLEX 1 ORAL) Take 1 tablet by mouth once daily. mometasone (ELOCON) 0.1 % cream Apply 1 application to affected area once daily. MAGNESIUM ORAL Take 250 mg by mouth once daily. No current facility-administered medications for this visit. FAMILY HISTORY Problem Relation Age of Onset Heart Mother Arthritis Father Breast Cancer Sister Stroke Father Coronary Artery Disease Brother Coronary Artery Disease Brother SOCIAL HISTORY[1] REVIEW OF SYSTEMS Constitutional: (+) fatigue, (+) hypersomnia Cardiovascular: (+) chest heaviness, (-) palpitations Respiratory: (-) shortness of breath, (-) pleuritic chest pain Neurological: (-) dizziness, (-) syncope EXAM: BP 120/78 Pulse 76 Resp 16 PHYSICAL EXAM: General Appearance: Well appearing, alert, in no acute distress, well-hydrated, well nourished.. Skin: Skin color, texture, turgor normal, no suspicious rashes or lesions. Head: Normocephalic, no masses, lesions, tenderness or abnormalities. Eyes: Anicteric sclera. Extraocular movements are intact. . Neck: Supple, no adenopathy; thyroid symmetric, normal size, no bruits. Lungs: Lungs clear to auscultation. No wheezing, rhonchi, rales.. Heart: RRR without murmur, gallop, or rubs. No ectopy. Extremities: No deformities, edema, skin discoloration, clubbing or cyanosis. Good capillary refill. . Neurologic: Gait normal. ASSESSMENT/PLAN 1. Hypertension, essential (I10) - Blood pressure within normal limits today. 2. Chest pain, unspecified type (R07.9) - Chronic, intermittent chest heaviness now persistent over the past few weeks, worsened postprandially; no associated dyspnea, palpitations, dizziness, or syncope. - Reviewed prior stress test and echocardiogram from last year, both of which were unremarkable. - Order EKG to assess for any acute changes. No change. - Patient has an upcoming appointment with cardiology. Since symptoms have become more persistent and last stress testing was 1 1/2 years ago, will go ahead and proceed with stress testing. Discussed treatment plan and patient voices understanding. Patient's questions answered appropriately. Medications and potential side effects were discussed and patient voices understanding. Return to the office as scheduled or as needed for worsening/no improvement. Emma Fang APRN.EQUIPMENT OPERATOR Recording using [employer] software for draft documentation of the visit was discussed with the patient/authorized tax compliance representative; all questions welcomed and answered. Patient/authorized tax compliance representative agreed to proceed [1] Social History Tobacco Use Smoking status: Never Smokeless tobacco: Never Vaping Use Vaping status: Never Used Substance Use Topics Alcohol use: Never Drug use: No [facility] 06-07-2025 Note HNO ID: [id number] Author: ALANNA DOWNING MA Service: ? Author Type: Autism Teacher Type: Progress Notes Filed: 06/07/2025 11:33 Note Text: POPULATION HEALTH NAVIGATION OUTREACH Action/FYI Patient on [employer] D[employer] list BP due. No results to upload Last BP: 146/90 Call placed to patient to discuss care gaps due - spoke with patient, declines scheduling. Will discuss with PCP at upcoming OV 09/2025 Reason for Outreach Care Gap/HCC or Scheduling Wellness Visits Care Gaps due: Controlling Blood Pressure Flu Vaccine Patient Contacted: Spoke to patient/parent/or legal guardian Patient identified by name and : Yes Care Gap/HCC/Scheduling Wellness actions taken: Patient declined: Doesn't feel it's necessary Navigation Signature: Alanna Dailey MA June 07, 2025 8:48 AM [facility] 06-07-2025 Note Patient Outreach (NE TNAV) KRYSTLE ARAMBULA ([id number]) 1940 F Date Time Provider Department 06/07/25 ALANNA DOWNING NETNAV During your visit today, we recorded the following information about you: Alanna Downing MA 06/07/2025 11:33 AM Signed POPULATION HEALTH NAVIGATION OUTREACH Action/FYI Patient on [employer] Dive list BP due. No results to upload Last BP: 146/90 Call placed to patient to discuss care gaps due - spoke with patient, declines scheduling. Will discuss with PCP at upcoming OV 09/2025 Reason for Outreach Care Gap/HCC or Scheduling Wellness Visits Care Gaps due: Controlling Blood Pressure Flu Vaccine Patient Contacted: Spoke to patient/parent/or legal guardian Patient identified by name and : Yes Care Gap/HCC/Scheduling Wellness actions taken: Patient declined: Doesn't feel it's necessary Navigation Signature: Alanna Dailey MA June 07, 2025 8:48 AM Allergies As of Date: 06/07/2025 Noted Allergy Reaction CORN 09/15/2024 9 - Itching TYLENOL #3 (CODEINE) 02/08/2008 Comments: vomitting WHEAT 09/15/2024 9 - Itching JUANITA INHIBITORS 11/19/2019 3 - Cough FOOD EXTRACTS 04/01/2005 9 - Itching Date Reviewed: 05/14/2025 Reviewed by: Annika Motley MA - Fully Assessed Reason for Visit: Population Health Navigation Outreach [3910] Cmt: [employer] List Prescriptions as of 06/08/2025 - losartan (COZAAR) 100 mg tablet Take 1 tablet by mouth once daily. - vitamin B complex (B COMPLEX 1 ORAL) Take 1 tablet by mouth once daily. - mometasone (ELOCON) 0.1 % cream Apply 1 application to affected area once daily. - MAGNESIUM ORAL Take 250 mg by mouth once daily. Meds Comments as of 04/09/2025: Taking tylenol and ibuprofen over the counter - 04/09/25 Kyara Rudd RN Problem List As Of Date 06/07/2025 Noted Resolved Disorder of bone and cartilage, unspecified [M8*04/01/2005 07/20/2022 BENIGN JEAN CARLOS SCALP/SKIN NECK [D23.4] 02/18/2007 DIFFUS CYSTIC MASTOPATHY [N60.19] 06/13/2007 Lumbar disc disease with radiculopathy [M51.16] 01/06/2011 07/20/2022 Displacement of lumbar intervertebral disc with*01/12/2011 Pelvic floor weakness [N81.89] 05/05/2012 Mitral valve disorder [I05.9] 08/11/2013 08/09/2023 Hyperlipidemia with target LDL less than 100 [E*08/20/2013 Osteoarthritis of both hips [M16.0] 10/03/2013 Osteoporosis [M81.0] 12/10/2014 04/30/2021 Family history of breast cancer in sister [Z80.*10/12/2017 Fatigue [R53.83] 07/29/2018 07/20/2022 Situational depression [F43.21] 07/29/2018 07/20/2022 Hypertension, essential [I10] 07/11/2020 Popliteal cyst, right [M71.21] 04/18/2021 07/20/2022 Osteopenia of multiple sites [M85.89] 04/30/2021 Advance care planning [Z71.89] 10/22/2021 Thyroid condition [E07.9] 01/14/2022 Prediabetes [R73.03] 01/19/2022 Allergic dermatitis due to food taken internall*06/02/2022 02/07/2024 Chest pain [R07.9] 06/02/2022 07/20/2022 Low back pain [M54.50] 06/02/2022 07/20/2022 Osteoarthritis [M19.90] 06/02/2022 07/20/2022 Viral upper respiratory tract infection [J06.9] 06/02/2022 07/20/2022 Cough [R05.9] 07/20/2022 07/20/2022 History of severe acute respiratory syndrome co*07/20/2022 07/20/2022 Subconjunctival hemorrhage [H11.30] 01/25/2023 02/07/2024 Aortic insufficiency [I35.1] 03/07/2024 Encounter Status:Closed by ALANNA DOWNING on 06/07/25 [facility] 05-14-2025 Note HNO ID: [id number] Author: JAMIE HERRMANN MD Service: ? Author Type: Physician Type: Progress Notes Filed: 05/14/2025 14:34 Note Text: Jamie Herrmann MD Department of Orthopaedics Orthopaedics [address] [facility] [address] Dept: [phone] Dept May 14, 2025 CHIEF COMPLAINT: New and Knee Pain of the Left Knee (Referred by Emma Fang/Last seen by Irlanda 12/23/20 OA Right knee) Patient here for evaluation left knee pain. Patient states she is having medial aspect. No specific injury. States she has a rental house she is getting ready to sell and has been doing a lot painting going up and down a ladder. Taking Tylenol and Ibuprofen for the pain when needed. X-rays done on 04/09/25. HPI: IVIS Dalton is an 85-year-old female with knee OA presenting for follow-up. Krystle reports significant improvement in her knee pain, which she attributes to overuse from spending two months climbing ladders while preparing a property for sale. She describes the pain as almost completely resolved since reducing her activity level. She reports that her left knee was more symptomatic during this period, despite her right knee having more advanced OA on prior imaging. ASSESSMENT: M25.562 Acute pain of left knee M17.12 Primary osteoarthritis of left knee 1. Acute pain of left knee (M25.562) 2. Primary osteoarthritis of left knee (M17.12) Chronic, moderately severe bilateral knee osteoarthritis with recent acute exacerbation of left knee pain following 2 months of increased activity (repeated ladder climbing). Symptoms have significantly improved with activity modification. X-rays from 2020 compared to current imaging show stable findings with minimal progression. - Advised use of topical anti-inflammatory agents and ibuprofen for future flare-ups; discussed that ibuprofen may be more effective for inflammatory symptoms than acetaminophen. - Discussed treatment options for future exacerbations, including corticosteroid injection if symptoms become severe. - Patient expressed understanding of management plan and will follow up as needed for future flare-ups. OBJECTIVE: Mrs. Krystle Arambula is a pleasant 85 year old in no apparent distress. Gen:There were no vitals taken for this visit. nl development, non obese, no deformities ENT: Normocephalic, normal hearing, moist mucosa CV: Pulses: capillary refill < 2 secs, no peripheral edema/varicosities Skin: no rash, bruising or lesions. Good turgor. Psych: cooperative and appropriate, alert and oriented x 3, good mood and affect. Musculoskeletal: Scant effusion. No bruising. Mild medial joint line tenderness. Stable ligamentous exam. Imaging: IMPRESSION: Progressive osteoarthrosis Technical Mgr: KARLEE Transcribe Date/Time: Apr 11 2025 6:55A Dictated by : GERALD CONCEPCION MD This examination was interpreted and the report reviewed and electronically signed by: GERALD CONCEPCION MD on Apr 11 2025 6:56AM EST Results-Findings * * *Final Report* * * DATE OF EXAM: Apr 09 2025 12:14PM WOX [id number] - XR KNEE 4V AP/PA BOTH+LAT/POOJA LT / PROCEDURE REASON: Acute pain of left knee * * * * Physician Interpretation * * * * PROCEDURE: Left knee INDICATION: Acute pain of left knee .Left knee pain l 1 week, swelling, increased warmth. Recently on prednisone for back pain. TECHNIQUE: XR KNEE 4V AP/PA BOTH+LAT/POOJA LT COMPARISON: 12/09/2020 FINDINGS: Significant medial joint compartment narrowing with minimal tricompartment spur formation, greater than previous. No fracture or dislocation. Small joint effusion. Advanced medial joint compartment osteoarthrosis in the right knee. Imaging: - Knee X-rays: Overall stable compared with prior study from approximately 4 years earlier; right knee worse than left; possible slight decrease in joint space; small osteophyte essentially unchanged. Supporting Subjective Information Below: Past Medical History: PAST MEDICAL HISTORY Diagnosis Date Diffuse cystic mastopathy Disorder of thyroid HTN (hypertension) Hyperlipidemia LDL goal < 100 08/20/2013 Lumbar disc disease with radiculopathy 01/06/2011 Mitral valve disorder 08/11/2013 Osteoarthritis of both hips 10/03/2013 Osteopenia Osteoporosis 12/10/2014 Pelvic floor weakness 05/05/2012 Situational depression 07/29/2018 Subconjunctival hemorrhage 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 Past Surgical History: PAST SURGICAL HISTORY Procedure Laterality Date ARTHRP ACETBLR/PROX FEM PROSTC AGRFT/ALGRFT 01/30/2014 right LIG/TRNSXJ FLP TUBE ABDL/VAG APPR UNI/BI PAST SURGICAL HISTORY OF Left ORIF femur TOTAL HIP REPLACEMENT 10/03/2013 left Medications: Current Outpatient Medications Medication Sig losartan (COZAAR) 100 mg tablet Take 1 tablet by mouth once daily. vitamin B complex (B COMPLEX 1 ORAL) Take 1 tablet by mouth once daily. mometa (more content not included)... [facility] 04-13-2025 History of Present illness Narrative Radiology Service Progress Note PATIENT NAME: Krystle Arambula DATE OF SERVICE: April 13, 2025 TIME: 1:30 PM PATIENT IDENTITY VERIFICATION COMPLETED USING TWO (2) IDENTIFIERS: Name and Date of confirmed by patient verbally. FALL SCREENING: Has the patient had 2 falls in the last year or 1 fall with injury or currently using an Ambulatory Assistive Device (Walker, Cane, Wheelchair, Crutches, etc.)? Yes, Patient High Risk for Falls What interventions were put in place to prevent falls during this visit? Offered Assistance with Transfers/Clothing, Increased Observations by Caregivers, and Patient Refused Interventions/Assistance PATIENT GENDER DATA: Assigned female at . status: : No status: NO. PATIENT RELEVANT IMPLANT DATA REVIEWED: Not Applicable PATIENT PRESENTS WITH AN IMPLANTABLE OR ATTACHED BAG PRINTER: No RADIOLOGY DEPARTMENT: Ultrasound PERIPHERAL IV DATA: Not applicable SIGNED BY: Chastity San RDMS April 13, 2025 1:30 PM documented in this encounter [facility] 04-13-2025 Note HNO ID: [id number] Author: CHASTITY SAN RDMS Service: ? Author Type: Nipple Maker Type: Progress Notes Filed: 04/13/2025 13:30 Note Text: Radiology Service Progress Note PATIENT NAME: Krystle Arambula DATE OF SERVICE: April 13, 2025 TIME: 1:30 PM PATIENT IDENTITY VERIFICATION COMPLETED USING TWO (2) IDENTIFIERS: Name and Date of confirmed by patient verbally. FALL SCREENING: Has the patient had 2 falls in the last year or 1 fall with injury or currently using an Ambulatory Assistive Device (Walker, Cane, Wheelchair, Crutches, etc.)? Yes, Patient High Risk for Falls What interventions were put in place to prevent falls during this visit? Offered Assistance with Transfers/Clothing, Increased Observations by Caregivers, and Patient Refused Interventions/Assistance PATIENT GENDER DATA: Assigned female at . status: : No status: NO. PATIENT RELEVANT IMPLANT DATA REVIEWED: Not Applicable PATIENT PRESENTS WITH AN IMPLANTABLE OR ATTACHED BAG PRINTER: No RADIOLOGY DEPARTMENT: Ultrasound PERIPHERAL IV DATA: Not applicable SIGNED BY: Chastity San RDMS April 13, 2025 1:30 PM [facility] 04-10-2025 Miscellaneous Notes Patient was made aware of the results. Patient verbalizes understanding. Sarai Breen Ma ----- Message from Flori Castro sent at 04/10/2025 2:53 PM EDT ----- Vitamin D level is starting to come down. Please remain off vitamin D. ----- Message ----- From: Corrine, Background User Sent: 04/10/2025 12:10 PM EDT To: Gucci Callahan MD Vitamin D level is starting to come down. Please remain off vitamin D. documented in this encounter [facility] 04-10-2025 Telephone encounter Note Patient was made aware of the results. Patient verbalizes understanding. Sarai Breen Ma [facility] 04-10-2025 Telephone encounter Note ----- Message from Flori Castro sent at 04/10/2025 2:53 PM EDT ----- Vitamin D level is starting to come down. Please remain off vitamin D. ----- Message ----- From: Corrine, Background User Sent: 04/10/2025 12:10 PM EDT To: Gucci Callahan MD [facility] 04-10-2025 Progress note Formatting of t his note might be different from the original. Vitamin D level is starting to come down. Please remain off vitamin D. [facility] Work Phone: 04-09-2025 History of Present illness Narrative Radiology Service Progress Note PATIENT NAME: Krystle Arambula DATE OF SERVICE: April 09, 2025 TIME: 11:53 AM PATIENT IDENTITY VERIFICATION COMPLETED USING TWO (2) IDENTIFIERS: Name and Date of confirmed by patient verbally. FALL SCREENING: Has the patient had 2 falls in the last year or 1 fall with injury or currently using an Ambulatory Assistive Device (Walker, Cane, Wheelchair, Crutches, etc.)? No PATIENT GENDER DATA: Assigned female at . status: : No status: NO. PATIENT RELEVANT IMPLANT DATA REVIEWED: Yes PATIENT PRESENTS WITH AN IMPLANTABLE OR ATTACHED BAG PRINTER: No RADIOLOGY DEPARTMENT: General X-ray: Exam(s) Completed: Lower Extremity X-Ray(s): Knee, AP / Lat / Tunne / Merchant Left PERIPHERAL IV DATA: Not applicable SIGNED BY: RT Edvin(Sheryl) April 09, 2025 11:53 AM documented in this encounter [facility] 04-09-2025 Note HNO ID: [id number] Author: JOYA VALDES RT(R) Service: ? Author Type: Technologist Type: Progress Notes Filed: 04/09/2025 12:12 Note Text: Radiology Service Progress Note PATIENT NAME: Krystle Arambula DATE OF SERVICE: April 09, 2025 TIME: 11:53 AM PATIENT IDENTITY VERIFICATION COMPLETED USING TWO (2) IDENTIFIERS: Name and Date of confirmed by patient verbally. FALL SCREENING: Has the patient had 2 falls in the last year or 1 fall with injury or currently using an Ambulatory Assistive Device (Walker, Cane, Wheelchair, Crutches, etc.)? No PATIENT GENDER DATA: Assigned female at . status: : No status: NO. PATIENT RELEVANT IMPLANT DATA REVIEWED: Yes PATIENT PRESENTS WITH AN IMPLANTABLE OR ATTACHED BAG PRINTER: No RADIOLOGY DEPARTMENT: General X-ray: Exam(s) Completed: Lower Extremity X-Ray(s): Knee, AP / Lat / Tunne / Merchant Left PERIPHERAL IV DATA: Not applicable SIGNED BY: RT Edvin(Sheryl) April 09, 2025 11:53 AM [facility] 04-09-2025 Instructions Emma Fang APRN.CNP - 04/09/2025 11:17 AM EDT Stop the ca and vit d. Get the bloodwork. Get the xray. Schedule the ultrasound of the kidneys. You can take ibuprofen 600-800 mg every 8 hours as needed. You can take tylenol 1000 mg every 8 hours as needed. Ice the knee. Compression to the knee. documented in this encounter [facility] 04-09-2025 Note HNO ID: [id number] Author: EMMA FANG APRN.CNP Service: ? Author Type: Nurse Practitioner Type: Progress Notes Filed: 04/09/2025 12:32 Note Text: This is a 84 year old female who presents today with: Patient presents with: Acute Visit: L knee pain/swelling in lower leg HISTORY OF PRESENT ILLNESS: Krystle Arambula is a 84 year old female. Patient presents with: Acute Visit: L knee pain/swelling in lower leg Pt presents today with complaint of left knee pain. Started about a week ago. Also has swelling of the knee and foot. Refers that she was recently on a medrol dose pack for some flank pain. Refers that she was taking 600-800 mg several times daily. No popping/cracking. Knee not giving out. Difficult to bear weight -- using a walker. Walking exacerbates. Rest helps pain. She tried a knee brace, but LE swelled and thinks the brace was too tight. Refers that she has been extremely fatigued. Refers that she has also been having increased stooling. Moves her bowels a couple of times daily. Sometimes foods affect stooling. PAST MEDICAL HISTORY: PAST MEDICAL HISTORY Diagnosis Date Diffuse cystic mastopathy Disorder of thyroid HTN (hypertension) Hyperlipidemia LDL goal < 100 08/20/2013 Lumbar disc disease with radiculopathy 01/06/2011 Mitral valve disorder 08/11/2013 Osteoarthritis of both hips 10/03/2013 Osteopenia Osteoporosis 12/10/2014 Pelvic floor weakness 05/05/2012 Situational depression 07/29/2018 Subconjunctival hemorrhage 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 PAST SURGICAL HISTORY Procedure Laterality Date ARTHRP ACETBLR/PROX FEM PROSTC AGRFT/ALGRFT 01/30/2014 right LIG/TRNSXJ FLP TUBE ABDL/VAG APPR UNI/BI PAST SURGICAL HISTORY OF Left ORIF femur TOTAL HIP REPLACEMENT 10/03/2013 left ALLERGIES [place], Tylenol #3 [Codeine], Wheat, Juanita Inhibitors, and Food Extracts MEDICATIONS Current Outpatient Medications Medication Sig losartan (COZAAR) 100 mg tablet Take 1 tablet by mouth once daily. vitamin B complex (B COMPLEX 1 ORAL) Take 1 tablet by mouth once daily. mometasone (ELOCON) 0.1 % cream Apply 1 application to affected area once daily. MAGNESIUM ORAL Take 250 mg by mouth once daily. No current facility-administered medications for this visit. FAMILY HISTORY Problem Relation Age of Onset Heart Mother Arthritis Father Breast Cancer Sister Stroke Father Coronary Artery Disease Brother Coronary Artery Disease Brother SOCIAL HISTORY[1] EXAM: BP 146/90 Pulse 64 Resp 16 SpO2 97% PHYSICAL EXAM: General Appearance: Well appearing, alert, in no acute distress, well-hydrated, well nourished.. Skin: Skin color, texture, turgor normal, no suspicious rashes or lesions. Head: Normocephalic, no masses, lesions, tenderness or abnormalities. Eyes: Anicteric sclera. Extraocular movements are intact. . Lungs: Lungs clear to auscultation. No wheezing, rhonchi, rales.. Heart: RRR without murmur, gallop, or rubs. No ectopy. Abdomen: Abdomen soft, non-tender. Bowel sounds normal. No masses, organomegaly. NO CVA tenderness. Neurologic: Gait normal. KNEE:Location: left knee -- medial aspect. + swelling. + increased warmth. No redness. Redness: No. Warmth: Yes. Crepitus: No. Effusion: No. Joint line tenderness: Yes. Lateral tenderness: No. Medial tenderness: Yes. Positive Drawer sign: No. Medial or lateral laxity: No. Daxa's sign: No. ASSESSMENT/PLAN: 1. Acute pain of left knee - ICD9: 719.46, ICD10: M25.562 (primary diagnosis) Will go ahead and get xray. Get labs Resume ibuprofen. Compression Propping Rest. - XR KNEE GENERAL 4V AP BOTH/PA BOTH/LAT/MERC LEFT - COMPLETE BLOOD COUNT AND DIFFERENTIAL - BASIC METABOLIC PANEL - URIC ACID - SEDIMENTATION RATE, WESTERGREN - C-REACTIVE PROTEIN 2. Flank pain - ICD9: 789.09, ICD10: R10.9 Get ultrasound. - US KIDNEY/BLADDER Discussed treatment plan and patient voices understanding. Patient's questions answered appropriately. Medications and potential side effects were discussed and patient voices understanding. Return to the office as scheduled or as needed for worsening/no improvement. Emma Fang APRN.EQUIPMENT OPERATOR [1] Social History Tobacco Use Smoking status: Never Smokeless tobacco: Never Vaping Use Vaping status: Never Used Substance Use Topics Alcohol use: No Drug use: No [facility] 04-09-2025 History of Present illness Narrative This is a 84 year old female who presents today with: Patient presents with: Acute Visit: L knee pain/swelling in lower leg HISTORY OF PRESENT ILLNESS: Krystle Arambula is a 84 year old female. Patient presents with: Acute Visit: L knee pain/swelling in lower leg Pt presents today with complaint of left knee pain. Started about a week ago. Also has swelling of the knee and foot. Refers that she was recently on a medrol dose pack for some flank pain. Refers that she was taking 600-800 mg several times daily. No popping/cracking. Knee not giving out. Difficult to bear weight -- using a walker. Walking exacerbates. Rest helps pain. She tried a knee brace, but LE swelled and thinks the brace was too tight. Refers that she has been extremely fatigued. Refers that she has also been having increased stooling. Moves her bowels a couple of times daily. Sometimes foods affect stooling. PAST MEDICAL HISTORY: PAST MEDICAL HISTORY Diagnosis Date Diffuse cystic mastopathy Disorder of thyroid HTN (hypertension) Hyperlipidemia LDL goal < 100 08/20/2013 Lumbar disc disease with radiculopathy 01/06/2011 Mitral valve disorder 08/11/2013 Osteoarthritis of both hips 10/03/2013 Osteopenia Osteoporosis 12/10/2014 Pelvic floor weakness 05/05/2012 Situational depression 07/29/2018 Subconjunctival hemorrhage 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 PAST SURGICAL HISTORY Procedure Laterality Date ARTHRP ACETBLR/PROX FEM PROSTC AGRFT/ALGRFT 01/30/2014 right LIG/TRNSXJ FLP TUBE ABDL/VAG APPR UNI/BI PAST SURGICAL HISTORY OF Left ORIF femur TOTAL HIP REPLACEMENT 10/03/2013 left ALLERGIES [place], Tylenol #3 [Codeine], Wheat, Juanita Inhibitors, and Food Extracts MEDICATIONS Current Outpatient Medications Medication Sig losartan (COZAAR) 100 mg tablet Take 1 tablet by mouth once daily. vitamin B complex (B COMPLEX 1 ORAL) Take 1 tablet by mouth once daily. mometasone (ELOCON) 0.1 % cream Apply 1 application to affected area once daily. MAGNESIUM ORAL Take 250 mg by mouth once daily. No current facility-administered medications for this visit. FAMILY HISTORY Problem Relation Age of Onset Heart Mother Arthritis Father Breast Cancer Sister Stroke Father Coronary Artery Disease Brother Coronary Artery Disease Brother SOCIAL HISTORY[1] EXAM: BP 146/90 Pulse 64 Resp 16 SpO2 97% PHYSICAL EXAM: General Appearance: Well appearing, alert, in no acute distress, well-hydrated, well nourished.. Skin: Skin color, texture, turgor normal, no suspicious rashes or lesions. Head: Normocephalic, no masses, lesions, tenderness or abnormalities. Eyes: Anicteric sclera. Extraocular movements are intact. . Lungs: Lungs clear to auscultation. No wheezing, rhonchi, rales.. Heart: RRR without murmur, gallop, or rubs. No ectopy. Abdomen: Abdomen soft, non-tender. Bowel sounds normal. No masses, organomegaly. NO CVA tenderness. Neurologic: Gait normal. KNEE:Location: left knee -- medial aspect. + swelling. + increased warmth. No redness. Redness: No. Warmth: Yes. Crepitus: No. Effusion: No. Joint line tenderness: Yes. Lateral tenderness: No. Medial tenderness: Yes. Positive Drawer sign: No. Medial or lateral laxity: No. Daxa's sign: No. ASSESSMENT/PLAN: 1. Acute pain of left knee - ICD9: 719.46, ICD10: M25.562 (primary diagnosis) Will go ahead and get xray. Get labs Resume ibuprofen. Compression Propping Rest. - XR KNEE GENERAL 4V AP BOTH/PA BOTH/LAT/MERC LEFT - COMPLETE BLOOD COUNT AND DIFFERENTIAL - BASIC METABOLIC PANEL - URIC ACID - SEDIMENTATION RATE, WESTERGREN - C-REACTIVE PROTEIN 2. Flank pain - ICD9: 789.09, ICD10: R10.9 Get ultrasound. - US KIDNEY/BLADDER Discussed treatment plan and patient voices understanding. Patient's questions answered appropriately. Medications and potential side effects were discussed and patient voices understanding. Return to the office as scheduled or as needed for worsening/no improvement. Emma Fang APRN.TRISHA [1] Social History Tobacco Use Smoking status: Never Smokeless tobacco: Never Vaping Use Vaping status: Never Used Substance Use Topics Alcohol use: No Drug use: No documented in this encounter [facility] 04-09-2025 Telephone encounter Note Reason for Conversation Knee Pain Background Left knee pain- reports has been doing a lot of going up and down a ladder to paint and knee hurts now for 3 days Disposition See PCP Within 24 Hours Reason for Disposition [1] Very swollen joint AND [2] no fever Nursing judgement 1. LOCATION and RADIATION: left knee -inner part of the knee 2. QUALITY: sharp 3. SEVERITY: 8/10 alternating ibuprofen and tylenol- does help 4. ONSET: 3 days - constant 5. RECURRENT: no 6. SETTING: going up and down a ladder - painting rooms 7. AGGRAVATING FACTORS: walking 8. ASSOCIATED SYMPTOMS: no swelling 9. OTHER SYMPTOMS: denies 10. : n/a No Additional Information on file. Protocols Used Knee [id number] Outcome: Advised to be seen within 24 hours. Patient reports will call back to schedule once the appointment center or doctor's office opens. Caller also given alternate options for care including [facility], emergency department for worsening symptoms. Kyara Rudd RN [facility] 04-09-2025 Miscellaneous Notes Reason for Conversation Knee Pain Background Left knee pain- reports has been doing a lot of going up and down a ladder to paint and knee hurts now for 3 days Disposition See PCP Within 24 Hours Reason for Disposition [1] Very swollen joint AND [2] no fever Nursing judgement 1. LOCATION and RADIATION: left knee -inner part of the knee 2. QUALITY: sharp 3. SEVERITY: 8/10 alternating ibuprofen and tylenol- does help 4. ONSET: 3 days - constant 5. RECURRENT: no 6. SETTING: going up and down a ladder - painting rooms 7. AGGRAVATING FACTORS: walking 8. ASSOCIATED SYMPTOMS: no swelling 9. OTHER SYMPTOMS: denies 10. : n/a No Additional Information on file. Protocols Used Knee [id number] Outcome: Advised to be seen within 24 hours. Patient reports will call back to schedule once the appointment center or doctor's office opens. Caller also given alternate options for care including [facility], emergency department for worsening symptoms. Kyara Rudd RN documented in this encounter [facility] 03-27-2025 Telephone encounter Note Patient given results and verbalized understanding of instructions given. Berenice Villanueva MA [facility] 03-27-2025 Miscellaneous Notes Patient given results and verbalized understanding of instructions given. Berenice Villanueva MA Please contact patient let her know urine culture revealed mixed bacteria which may indicate contamination during collection. If symptoms are improving, may continue antibiotic. Needs close follow-up with PCP if symptoms are persistent documented in this encounter [facility] 03-27-2025 Telephone encounter Note Please contact patient let her know urine culture revealed mixed bacteria which may indicate contamination during collection. If symptoms are improving, may continue antibiotic. Needs close follow-up with PCP if symptoms are persistent [facility] Work Phone: 03-26-2025 Note Addended by: ROSELINE MORROW on: 03/26/2025 09:12 AM Modules accepted: Orders [facility] 03-26-2025 Miscellaneous Notes Addended by: ROSELINE MORROW on: 03/26/2025 09:12 AM Modules accepted: Orders documented in this encounter [facility] 03-26-2025 Instructions Roseline Morrow MD - 03/26/2025 8:37 AM EDT IF ANY WORSE OR NOT GETTING BETTER GO TO THE ED FOR EVALUATION documented in this encounter [facility] 03-26-2025 Note HNO ID: [id number] Author: ROSELINE MORROW MD Service: ? Author Type: Physician Type: Progress Notes Filed: 03/26/2025 08:51 Note Text: URGENT CARE JEANETTE Arambula is a 84 year old female. Patient presents with: Back Pain: mid-right side back pain x 4am, recurring Pt here with 1 day hx of right flank pain pt states has had in past and usually given streoids helps no dysuria no freq no abd pain no fever no chills no N/V Back Pain Pertinent negatives include no fever, no abdominal pain, no dysuria and no pelvic pain. Review of Systems Constitutional: Negative for chills, fatigue and fever. Gastrointestinal: Negative for abdominal pain, nausea and vomiting. Genitourinary: Positive for flank pain. Negative for dysuria, frequency, hematuria, pelvic pain and urgency. Musculoskeletal: Positive for back pain. Objective BP 142/96 Pulse 68 Temp 36.1 ?C (96.9 ?F) Resp 16 Wt 69 kg (152 lb 1.9 oz) SpO2 93% BMI 26.95 kg/m? Physical Exam Vitals and nursing note reviewed. Constitutional: Appearance: Normal appearance. She is not ill-appearing. Abdominal: Palpations: Abdomen is soft. Tenderness: There is no abdominal tenderness. There is right CVA tenderness. There is no left CVA tenderness, guarding or rebound. Skin: Findings: No rash. Neurological: Mental Status: She is alert and oriented to person, place, and time. Psychiatric: Mood and Affect: Mood normal. Behavior: Behavior normal. Results for orders placed or performed in visit on 03/26/25 UA DIP, URINE (POC) Result Value Ref Range GLUCOSE UA (POCT) Negative Negative mg/dL BILIRUBIN UA (POCT) Negative Negative KETONE UA (POCT) Negative Negative mg/dL SPECIFIC GRAVITY UA (POCT) 1.020 1.005 - 1.030 HEMOGLOBIN/BLOOD UA (POCT) Trace-intact (A) Negative PH UA (POCT) 7.5 4.5 - 8.0 PROTEIN UA (POCT) Negative Negative mg/dL UROBILINOGEN UA (POCT) 0.2 Normal E.U./dL NITRITE UA (POCT) Negative Negative LEUKOCYTES UA (POCT) Moderate (A) Negative COLOR UA (POCT) Yellow CLARITY UA (POCT) Cloudy {ASSESSMENT/PLAN: 1. Flank pain - ICD9: 789.09, ICD10: R10.9 (primary diagnosis) - UA DIP, URINE (POC) - METHYLPREDNISOLONE 4 MG TABLETS IN A DOSE PACK 2. Acute cystitis without hematuria - ICD9: 595.0, ICD10: N30.00 To the ED if no better on meds - CEPHALEXIN 500 MG CAPSULE Roseline Morrow MD History and Record Review External record(s) reviewed: prior outpatient record. Differential Diagnoses - uti/flank pain is more likely for the following reason(s): suggested by HANDP and consistent with laboratory studies - kidney stones is less likely for the following reason(s): HANDP not suggestive Additional Tests or Interventions The following testing was considered but ultimately not selected after discussion with patient/family: CT scan Disposition The patient was discharged. Procedures [facility] 03-26-2025 History of Present illness Narrative URGENT CARE JEANETTE Melendez Krystle Arambula is a 84 year old female. Patient presents with: Back Pain: mid-right side back pain x 4am, recurring Pt here with 1 day hx of right flank pain pt states has had in past and usually given streoids helps no dysuria no freq no abd pain no fever no chills no N/V Back Pain Pertinent negatives include no fever, no abdominal pain, no dysuria and no pelvic pain. Review of Systems Constitutional: Negative for chills, fatigue and fever. Gastrointestinal: Negative for abdominal pain, nausea and vomiting. Genitourinary: Positive for flank pain. Negative for dysuria, frequency, hematuria, pelvic pain and urgency. Musculoskeletal: Positive for back pain. Objective BP 142/96 Pulse 68 Temp 36.1 C (96.9 F) Resp 16 Wt 69 kg (152 lb 1.9 oz) SpO2 93% BMI 26.95 kg/m Physical Exam Vitals and nursing note reviewed. Constitutional: Appearance: Normal appearance. She is not ill-appearing. Abdominal: Palpations: Abdomen is soft. Tenderness: There is no abdominal tenderness. There is right CVA tenderness. There is no left CVA tenderness, guarding or rebound. Skin: Findings: No rash. Neurological: Mental Status: She is alert and oriented to person, place, and time. Psychiatric: Mood and Affect: Mood normal. Behavior: Behavior normal. Results for orders placed or performed in visit on 03/26/25 UA DIP, URINE (POC) Result Value Ref Range GLUCOSE UA (POCT) Negative Negative mg/dL BILIRUBIN UA (POCT) Negative Negative KETONE UA (POCT) Negative Negative mg/dL SPECIFIC GRAVITY UA (POCT) 1.020 1.005 - 1.030 HEMOGLOBIN/BLOOD UA (POCT) Trace-intact (A) Negative PH UA (POCT) 7.5 4.5 - 8.0 PROTEIN UA (POCT) Negative Negative mg/dL UROBILINOGEN UA (POCT) 0.2 Normal E.U./dL NITRITE UA (POCT) Negative Negative LEUKOCYTES UA (POCT) Moderate (A) Negative COLOR UA (POCT) Yellow CLARITY UA (POCT) Cloudy {ASSESSMENT/PLAN: 1. Flank pain - ICD9: 789.09, ICD10: R10.9 (primary diagnosis) - UA DIP, URINE (POC) - METHYLPREDNISOLONE 4 MG TABLETS IN A DOSE PACK 2. Acute cystitis without hematuria - ICD9: 595.0, ICD10: N30.00 To the ED if no better on meds - CEPHALEXIN 500 MG CAPSULE Roseline Morrow MD History and Record Review External record(s) reviewed: prior outpatient record. Differential Diagnoses - uti/flank pain is more likely for the following reason(s): suggested by H&P and consistent with laboratory studies - kidney stones is less likely for the following reason(s): H&P not suggestive Additional Tests or Interventions The following testing was considered but ultimately not selected after discussion with patient/family: CT scan Disposition The patient was discharged. Procedures documented in this encounter [facility] 03-21-2025 Telephone encounter Note Patient notified of results and provider's instructions. Patient verbalizes understanding. Merline Nieves RN [facility] 03-21-2025 Miscellaneous Notes Patient notified of results and provider's instructions. Patient verbalizes understanding. Merline Nieves RN Left message for patient to return call. Sarai Breen Ma Labs ok except vit d is too high. Stop all vit d and recheck level in six weeks. documented in this encounter [facility] 03-20-2025 Telephone encounter Note Left message for patient to return call. Sarai Breen Ma [facility] 03-20-2025 Telephone encounter Note Labs ok except vit d is too high. Stop all vit d and recheck level in six weeks. [facility] 03-19-2025 Instructions Gucci Callahan MD - 03/19/2025 2:10 PM EDT - Continue taking losartan as prescribed for your blood pressure. - Resume using your mometasone eye cream regularly to help clear your eye inflammation. - Avoid JUANITA inhibitor medicines and Tylenol 3 because of your allergy history. - Drink enough fluids throughout the day to help prevent leg cramps; let us know if cramps persist. - Today, have these lab tests done (no fasting needed): vitamin D, magnesium, B12, folate, and VDRL (syphilis screen). - In six months, schedule a routine check-up and repeat labs for TSH and A1c. - If you notice your memory worsening or if family members raise concerns, contact the office to discuss further evaluation or a referral to our geriatric specialist. - Plan to repeat your heart ultrasound (echocardiogram) in 2-3 years to monitor the mild aortic valve changes. - Continue your regular eye care with Dr. Landeros (ophthalmology). documented in this encounter [facility] 03-19-2025 Note HNO ID: [id number] Author: GUCCI CALLAHAN MD Service: ? Author Type: Physician Type: Progress Notes Filed: 03/19/2025 14:10 Note Text: Krystle Arambula is a 84 year old female here for a Medicare wellness visit. Medicare Health Risk Assessment General Health Very good Exercise: Minutes/Day Nothing formal Exercise: Days/Week None but is active Alcohol: Daily Use No Alcohol: Drinks/Day No Alcohol: 6 or more drinks no Feel off balance no Concerns: Teeth/Dentures no Concerns: Sexual function no Troubled by feelings no Frequency: Eating healthy diet Most day ADLs requiring help none Safety precautions in home/vehicle Yes. Smoke, vape, chews tobacco no Difficulty hearing yes Difficulty seeing Doing well., Current Providers Specialists: I have reviewed specialist-related care of the patient in the medical record. Current care team: Patient Care Team: Gucci Callahan MD as PCP - General (Family Medicine) Emma Fang APRN.TRISHA as Co Founder And President (Family Medicine) Flori Castro APRN.TRISHA as Co Founder And President (Family Medicine) Dr Landeros, optho Medical/Family history review Reviewed and updated problem list, medical/surgical/family/social history, medications, and allergies. Opioid use review Opioid Medications (last 90 days) No data to display Anxiety/Depression screening (Lower risk for depression) (Lower risk for anxiety) Recommendation: no further intervention at this time Cognitive screening Mini Cog Score: 2 Cognitive screening reviewed and No further action needed (score 3-5). Functional Observation Was the patient's Timed Up AND Go test unsteady or >= 12 seconds? No Advance Care Planning Surrogate decision maker and/or advance care plan documented Measurements BP 132/84 Pulse 64 Ht 160 cm (5' 2.99") Wt 70.6 kg (155 lb 9.6 oz) SpO2 94% BMI 27.57 kg/m? Vision Screening: Follows with optometry/ophthalmology ADDITIONAL INFO: Annual Wellness Exam: - General health described as really good. - No formal exercise, but remains active. - Denies alcohol consumption, tobacco use, or vaping. - Denies balance issues, dental concerns, or sexual dysfunction. - Denies feelings of anxiety or depression. - Denies headaches, numbness, tingling, weakness, tremors, neck pain, chest pain, palpitations, or LE edema. - Denies nausea, emesis, diarrhea, or urinary issues. - Denies skin rashes or unusual moles. - Denies need for assistance with ADLs. - Follows safety precautions, including seatbelt use. - Adequate lighting and handrails in the home. - Denies eye pain, ear pain, or oral sores. - Denies neck lumps or bumps. - Denies cough or wheezing. - Denies bowel issues unless taking excessive magnesium. - Denies any concerns or issues not covered during the visit. - Family history of memory issues; sister has memory problems at age 93. 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 - Denies any other specialist care besides ophthalmology. Diet: - Eats a healthy diet most days. - Allergies to corn and wheat; avoids Tylenol #3 and JUANITA inhibitors due to cough. Hearing Loss: - Reports hearing issues but is not currently addressing them. Vision: - No vision issues; sees Dr. Landeros for ophthalmology care. Memory Issues: - Noticed recent memory issues, particularly with remembering things. - No family members have commented on memory issues. Knee Pain: - Reports knee pain when using a ladder for painting. - Wears a knee brace, which causes ankle swelling. Leg Cramps: - Experiences leg cramps; taking magnesium supplements. Head Injury: - Recently hit head while cleaning a basement, resulting in a "knot" on the head. non sequelae. No syncope. no injury. ROS: Head: (+) scalp lump with pain, (-) headache Eyes: (+) eye irritation, (-) eye pain, (-) visual disturbance Ears/Nose/Mouth/Throat: (+) hearing loss, (-) ear pain, (-) oral sores, (-) dental problems Neck: (-) neck pain, (-) neck lumps Cardiovascular: (-) chest pain, (-) palpitations Respiratory: (-) cough, (-) wheezing Gastrointestinal: (-) nausea, (-) vomiting, (-) diarrhea, (-) bowel changes Genitourinary: (-) dysuria, (-) urinary frequency, (-) hematuria Musculoskeletal: (+) knee pain, (+) ankle swelling Skin: (-) skin rash, (-) abnormal moles Neurological: (+) memory impairment, (-) balance problems, (-) numbness, (-) tingling, (-) weakness, (-) tremors Psychiatric: (-) anxiety, (-) depressed mood, (-) anhedonia PE: GENERAL: NAD, alert and oriented. SKIN: Unremarkable, no rash or skin lesions. HEAD: Normocephalic, no tenderness or lesions noted. EYES: PERRLA, EOMI, conjunctiva clear. EARS: External ears normal, canals clear, TM's normal. NOSE/SINUSES: Nares normal. Septum midline. OROPHARYNX: Lips, mucosa, and tongue normal, good dentition. No oral lesions noted. NECK: Supple, no lymphadenopathy, normal thyroid, no carotid br (more content not included)... [facility] 03-19-2025 History of Present illness Narrative Images from the original note were not included. Krystle Arambula is a 84 year old female here for a Medicare wellness visit. Medicare Health Risk Assessment General Health Very good Exercise: Minutes/Day Nothing formal Exercise: Days/Week None but is active Alcohol: Daily Use No Alcohol: Drinks/Day No Alcohol: 6 or more drinks no Feel off balance no Concerns: Teeth/Dentures no Concerns: Sexual function no Troubled by feelings no Frequency: Eating healthy diet Most day ADLs requiring help none Safety precautions in home/vehicle Yes. Smoke, vape, chews tobacco no Difficulty hearing yes Difficulty seeing Doing well., Current Providers Specialists: I have reviewed specialist-related care of the patient in the medical record. Current care team: Patient Care Team: Gucci Callahan MD as PCP - General (Family Medicine) Emma Fang APRN.EQUIPMENT OPERATOR as Co Founder And President (Family Medicine) Flori Castro APRN.CNP as Co Founder And President (Family Medicine) alex Tuttle Medical/Family history review Reviewed and updated problem list, medical/surgical/family/social history, medications, and allergies. Opioid use review Opioid Medications (last 90 days) No data to display Anxiety/Depression screening (Lower risk for depression) (Lower risk for anxiety) Recommendation: no further intervention at this time Cognitive screening Mini Cog Score: 2 Cognitive screening reviewed and No further action needed (score 3-5). Functional Observation Was the patient's Timed Up & Go test unsteady or >= 12 seconds? No Advance Care Planning Surrogate decision maker and/or advance care plan documented Measurements BP 132/84 Pulse 64 Ht 160 cm (5' 2.99") Wt 70.6 kg (155 lb 9.6 oz) SpO2 94% BMI 27.57 kg/m Vision Screening: Follows with optometry/ophthalmology ADDITIONAL INFO: Annual Wellness Exam: - General health described as really good. - No formal exercise, but remains active. - Denies alcohol consumption, tobacco use, or vaping. - Denies balance issues, dental concerns, or sexual dysfunction. - Denies feelings of anxiety or depression. - Denies headaches, numbness, tingling, weakness, tremors, neck pain, chest pain, palpitations, or LE edema. - Denies nausea, emesis, diarrhea, or urinary issues. - Denies skin rashes or unusual moles. - Denies need for assistance with ADLs. - Follows safety precautions, including seatbelt use. - Adequate lighting and handrails in the home. - Denies eye pain, ear pain, or oral sores. - Denies neck lumps or bumps. - Denies cough or wheezing. - Denies bowel issues unless taking excessive magnesium. - Denies any concerns or issues not covered during the visit. - Family history of memory issues; sister has memory problems at age 93. 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 - Denies any other specialist care besides ophthalmology. Diet: - Eats a healthy diet most days. - Allergies to corn and wheat; avoids Tylenol #3 and JUANITA inhibitors due to cough. Hearing Loss: - Reports hearing issues but is not currently addressing them. Vision: - No vision issues; sees Dr. Landeros for ophthalmology care. Memory Issues: - Noticed recent memory issues, particularly with remembering things. - No family members have commented on memory issues. Knee Pain: - Reports knee pain when using a ladder for painting. - Wears a knee brace, which causes ankle swelling. Leg Cramps: - Experiences leg cramps; taking magnesium supplements. Head Injury: - Recently hit head while cleaning a basement, resulting in a "knot" on the head. non sequelae. No syncope. no injury. ROS: Head: (+) scalp lump with pain, (-) headache Eyes: (+) eye irritation, (-) eye pain, (-) visual disturbance Ears/Nose/Mouth/Throat: (+) hearing loss, (-) ear pain, (-) oral sores, (-) dental problems Neck: (-) neck pain, (-) neck lumps Cardiovascular: (-) chest pain, (-) palpitations Respiratory: (-) cough, (-) wheezing Gastrointestinal: (-) nausea, (-) vomiting, (-) diarrhea, (-) bowel changes Genitourinary: (-) dysuria, (-) urinary frequency, (-) hematuria Musculoskeletal: (+) knee pain, (+) ankle swelling Skin: (-) skin rash, (-) abnormal moles Neurological: (+) memory impairment, (-) balance problems, (-) numbness, (-) tingling, (-) weakness, (-) tremors Psychiatric: (-) anxiety, (-) depressed mood, (-) anhedonia PE: GENERAL: NAD, alert and oriented. SKIN: Unremarkable, no rash or skin lesions. HEAD: Normocephalic, no tenderness or lesions noted. EYES: PERRLA, EOMI, conjunctiva clear. EARS: External ears normal, canals clear, TM's normal. NOSE/SINUSES: Nares normal. Septum midline. OROPHARYNX: Lips, mucosa, and tongue normal, good dentition. No oral lesions noted. NECK: Supple, no lymphadenopathy, normal thyroid, no carotid bruits. LUNGS: Clear to auscultation bilaterally, no wheezes/rhonchi/rales. HEART: Regular rate and rhythm, no murmurs. No ectopy. EXTREMITIES: Normal, no deformities, no skin discoloration, no edema. NEURO: Awake, alert and oriented x3, cranial nerves II-XII grossly intact, normal gait, no involuntary motions. Assessment and Plan: 1. Medicare annual wellness visit, subsequent (Z00.00) - Completed Medicare annual wellness visit per required template. - Patient reports overall health as "really good" and remains active, though not engaged in formal exercise. - No issues with balance, dentition, or sexual function; follows safety precautions at home and in vehicle. - No tobacco or alcohol use. - No assistance required for ADLs. - No concerns with vision; follows with Dr. Landeros (ophthalmology). - Hearing impairment noted but not currently addressed. - Discussed living will and medical decision-making by daughter. - Follow-up in 6 months for routine checkup. 2. Nonrheumatic aortic valve insufficiency (I35.1) - Mild aortic insufficiency noted on echocardiogram in the fall; otherwise unremarkable. - Plan to repeat echocardiogram in 2-3 years. 3. Hyperlipidemia with target LDL less than 100 (E78.5) - Total cholesterol 202 mg/dL, LDL 142 mg/dL, HDL 45 mg/dL; mildly abnormal. - Advised dietary modifications. 4. Hypertension, essential (I10) - Blood pressure well controlled at 132/84 mmHg. - Continue losartan as prescribed. 5. Displacement of lumbar intervertebral disc without myelopathy (M51.26) -stable. 6. Prediabetes (R73.03) - HbA1c stable at 5.8%. - Advised to maintain healthy diet. - Repeat HbA1c in 6 months. 7. Osteopenia of multiple sites (M85.89) - Mild osteopenia noted in 2020. - No immediate plan to repeat bone density scan. 8. Encounter for screening examination for other mental health and behavioral disorders (Z13.39) 9. Screening for depression (Z13.31) - Depression and anxiety screens negative. 10. Cognitive impairment (R41.89) - Mini-cog showed mild memory issues; patient reports difficulty remembering things. - Family has not noticed any issues; patient has a family history of cognitive impairment (sister). - Ordered B12, folate, and VDRL labs. - Discussed potential referral to Dr. Schumacher (geriatrics) for further cognitive testing if symptoms worsen. She declines work up today. 11. Leg cramps (R25.2) - Advised to ensure adequate hydration. - Ordered magnesium and vitamin D labs. 12. Medication monitoring encounter (Z51.81) - Reviewed current medications, including losartan and mometasone cream. - Advised to use mometasone cream as needed for eye symptoms. - Reviewed allergies: corn, wheat, food extracts, Tylenol 3, JUANITA inhibitors. 13. Subclinical hypothyroidism (E03.8) - TSH minimally elevated at 4.5 mIU/L. - Repeat TSH in 6 months. Gucci Callahan MD Recording using [employer] software for draft documentation of the visit was discussed with the patient/authorized tax compliance representative; all questions welcomed and answered. Patient/authorized tax compliance representative agreed to proceed documented in this encounter [facility] 03-14-2025 Note HNO ID: [id number] Author: YVES DUARTE APRN.EQUIPMENT OPERATOR Service: ? Author Type: Nurse Practitioner Type: Progress Notes Filed: 03/14/2025 16:32 Note Text: URGENT CARE JEANETTE Al Arambula is a 84 year old female. Patient presents with: Laceration: Laceration on bottom/side of left foot x 1 day HPI Left Foot Laceration: - Sustained a laceration on the left foot yesterday around 18:00-19:00. - Occurred while walking barefoot in the yard; unsure of the object that caused the injury. - Did not immediately clean the wound; applied peroxide later but unsure of its effectiveness. - Lives alone and has difficulty visualizing and reaching the wound. - Has not changed the initial bandage since application. - Uncertain about the last tetanus vaccination. - Denies known allergies to antibiotics. Review of Systems Constitutional: (+) fatigue Skin: (+) left foot laceration Objective BP 140/84 Pulse 75 Temp 36.3 ?C (97.4 ?F) Resp 20 Wt 71.1 kg (156 lb 12 oz) SpO2 95% BMI 27.77 kg/m? Physical Exam General: No acute distress. Skin: Laceration on left foot, approximately half an inch long, clean edges, well approximated, no foreign bodies visible, not actively bleeding. { 1. Laceration of left foot, initial encounter (S91.312A) - Acute laceration of the left foot, approximately 0.5 inches in length, well-approximated and not deep; no foreign bodies visualized. - Start Keflex; no known antibiotic allergies. - Tetanus immunization updated. - Wound cleaned and re-bandaged in clinic. - Educated patient to keep wound clean and dry, leave open to air when possible, and monitor for signs and symptoms of infection. - Patient expressed understanding and agreement with care plan. and Recording using [employer] software for draft documentation of the visit was discussed with the patient/authorized tax compliance representative; all questions welcomed and answered. Patient/authorized tax compliance representative agreed to proceed MDM Procedures [facility] 03-14-2025 History of Present illness Narrative URGENT CARE JEANETTE Melendez Krystle Arambula is a 84 year old female. Patient presents with: Laceration: Laceration on bottom/side of left foot x 1 day HPI Left Foot Laceration: - Sustained a laceration on the left foot yesterday around 18:00-19:00. - Occurred while walking barefoot in the yard; unsure of the object that caused the injury. - Did not immediately clean the wound; applied peroxide later but unsure of its effectiveness. - Lives alone and has difficulty visualizing and reaching the wound. - Has not changed the initial bandage since application. - Uncertain about the last tetanus vaccination. - Denies known allergies to antibiotics. Review of Systems Constitutional: (+) fatigue Skin: (+) left foot laceration Objective BP 140/84 Pulse 75 Temp 36.3 C (97.4 F) Resp 20 Wt 71.1 kg (156 lb 12 oz) SpO2 95% BMI 27.77 kg/m Physical Exam General: No acute distress. Skin: Laceration on left foot, approximately half an inch long, clean edges, well approximated, no foreign bodies visible, not actively bleeding. { 1. Laceration of left foot, initial encounter (S91.312A) - Acute laceration of the left foot, approximately 0.5 inches in length, well-approximated and not deep; no foreign bodies visualized. - Start Keflex; no known antibiotic allergies. - Tetanus immunization updated. - Wound cleaned and re-bandaged in clinic. - Educated patient to keep wound clean and dry, leave open to air when possible, and monitor for signs and symptoms of infection. - Patient expressed understanding and agreement with care plan. and Recording using [employer] software for draft documentation of the visit was discussed with the patient/authorized tax compliance representative; all questions welcomed and answered. Patient/authorized tax compliance representative agreed to proceed MDM Procedures documented in this encounter [facility] 11-13-2024 Note HNO ID: [id number] Author: GUCCI CALLAHAN MD Service: ? Author Type: Physician Type: Progress Notes Filed: 11/13/2024 19:57 Note Text: Patient presents with: Hypertension: Wants to stop BP medication. Brings home readings. HPI: Patient presents today for office visit for follow up. Home cuff is reading slightly low systoli compared to our cuff. . Diastolic was higher. Bp here and last time have been high. Her bps are not idea. The reason she is talking about stopping is that her children she states have been pressuring her. Explained importance of bp control. Relayed that at her age, we can give her some orly way and keep her bp below 150 but I would not recommend stopping it. She feels fatigued she states after taking it an hour or so later but if she eats it she feels better. I suggested we could check sugars and would recommend eating regularly. No chest pain or shortness of breath. No edema. No dizziness. MEDICATIONS: Current Outpatient Medications Medication Sig GARLIC ORAL Take by mouth. losartan (COZAAR) 100 mg tablet Take 1 tablet by mouth once daily. cholecalciferol, vitamin D3, (VITAMIN D3 ORAL) Take by mouth. vitamin B complex (B COMPLEX 1 ORAL) Take 1 tablet by mouth once daily. CALCIUM CARBONATE/VITAMIN D3 (CALCIUM 500 + D ORAL) Take by mouth once daily. mometasone (ELOCON) 0.1 % cream Apply 1 application to affected area once daily. MAGNESIUM ORAL Take 250 mg by mouth once daily. No current facility-administered medications for this visit. ALLERGIES: ALLERGIES Allergen Reactions [place] Itching Tylenol #3 [Codeine] vomitting Wheat Itching Juanita Inhibitors Cough Food Extracts Itching PAST MEDICAL HISTORY Diagnosis Date Diffuse cystic mastopathy Disorder of thyroid HTN (hypertension) Hyperlipidemia LDL goal < 100 08/20/2013 Lumbar disc disease with radiculopathy 01/06/2011 Mitral valve disorder 08/11/2013 Osteoarthritis of both hips 10/03/2013 Osteopenia Osteoporosis 12/10/2014 Pelvic floor weakness 05/05/2012 Situational depression 07/29/2018 Subconjunctival hemorrhage 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 PAST SURGICAL HISTORY Procedure Laterality Date ARTHRP ACETBLR/PROX FEM PROSTC AGRFT/ALGRFT 01/30/2014 right LIG/TRNSXJ FLP TUBE ABDL/VAG APPR UNI/BI PAST SURGICAL HISTORY OF Left ORIF femur TOTAL HIP REPLACEMENT 10/03/2013 left FAMILY HISTORY Problem Relation Age of Onset Heart Mother Arthritis Father Breast Cancer Sister Stroke Father Coronary Artery Disease Brother Coronary Artery Disease Brother Social History Tobacco Use Smoking status: Never Smokeless tobacco: Never Vaping Use Vaping status: Never Used Substance Use Topics Alcohol use: No Drug use: No Reviewed current medications, allergies, past medical history, surgical history, family history and social history today. REVIEW OF SYSTEMS All other reviewed and negative other than HPI. HEALTH MAINTENANCE: Reviewed health maintenance issues today and recommended the following in detail. Depression Screening due on 11/25/2024 Anxiety Screening due on 11/25/2024 VITALS: BP 162/82 Pulse 61 Wt 69.9 kg (154 lb) SpO2 96% BMI 27.28 kg/m? Last 4 Encounter Wt Readings: Date: Wt: 11/13/2024 69.9 kg (154 lb) 09/15/2024 70.3 kg (155 lb) 03/07/2024 70.8 kg (156 lb) 02/07/2024 70.3 kg (155 lb) PHYSICAL EXAMINATION: General appearance: Well appearing, alert, in no acute distress, well-hydrated, well nourished. Skin: Skin color, texture, turgor normal, no suspicious rashes or lesions Head: Normocephalic, no masses, lesions, tenderness or abnormalities Lungs: Lungs clear to auscultation. No wheezing, rhonchi, rales Heart: RRR without murmur, gallop, or rubs. No ectopy Abdomen: Normal abdominal exam, Abdomen soft, non-tender. Bowel sounds normal. No masses, organomegaly Extremities: No deformities, edema, skin discoloration, clubbing or cyanosis. Good capillary refill. ASSESSMENT/PLAN: 1. Hypertension, essential - ICD9: 401.9, ICD10: I10 - fair control. I would certainly not stop it. Recommended she continue. Discussed risks and benefits of untreated bp - LOSARTAN 100 MG TABLET Gucci Callahan MD [facility] 11-13-2024 History of Present illness Narrative Patient presents with: Hypertension: Wants to stop BP medication. Brings home readings. HPI: Patient presents today for office visit for follow up. Home cuff is reading slightly low systoli compared to our cuff. . Diastolic was higher. Bp here and last time have been high. Her bps are not idea. The reason she is talking about stopping is that her children she states have been pressuring her. Explained importance of bp control. Relayed that at her age, we can give her some orly way and keep her bp below 150 but I would not recommend stopping it. She feels fatigued she states after taking it an hour or so later but if she eats it she feels better. I suggested we could check sugars and would recommend eating regularly. No chest pain or shortness of breath. No edema. No dizziness. MEDICATIONS: Current Outpatient Medications Medication Sig GARLIC ORAL Take by mouth. losartan (COZAAR) 100 mg tablet Take 1 tablet by mouth once daily. cholecalciferol, vitamin D3, (VITAMIN D3 ORAL) Take by mouth. vitamin B complex (B COMPLEX 1 ORAL) Take 1 tablet by mouth once daily. CALCIUM CARBONATE/VITAMIN D3 (CALCIUM 500 + D ORAL) Take by mouth once daily. mometasone (ELOCON) 0.1 % cream Apply 1 application to affected area once daily. MAGNESIUM ORAL Take 250 mg by mouth once daily. No current facility-administered medications for this visit. ALLERGIES: ALLERGIES Allergen Reactions [place] Itching Tylenol #3 [Codeine] vomitting Wheat Itching Juanita Inhibitors Cough Food Extracts Itching PAST MEDICAL HISTORY Diagnosis Date Diffuse cystic mastopathy Disorder of thyroid HTN (hypertension) Hyperlipidemia LDL goal < 100 08/20/2013 Lumbar disc disease with radiculopathy 01/06/2011 Mitral valve disorder 08/11/2013 Osteoarthritis of both hips 10/03/2013 Osteopenia Osteoporosis 12/10/2014 Pelvic floor weakness 05/05/2012 Situational depression 07/29/2018 Subconjunctival hemorrhage 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 PAST SURGICAL HISTORY Procedure Laterality Date ARTHRP ACETBLR/PROX FEM PROSTC AGRFT/ALGRFT 01/30/2014 right LIG/TRNSXJ FLP TUBE ABDL/VAG APPR UNI/BI PAST SURGICAL HISTORY OF Left ORIF femur TOTAL HIP REPLACEMENT 10/03/2013 left FAMILY HISTORY Problem Relation Age of Onset Heart Mother Arthritis Father Breast Cancer Sister Stroke Father Coronary Artery Disease Brother Coronary Artery Disease Brother Social History Tobacco Use Smoking status: Never Smokeless tobacco: Never Vaping Use Vaping status: Never Used Substance Use Topics Alcohol use: No Drug use: No Reviewed current medications, allergies, past medical history, surgical history, family history and social history today. REVIEW OF SYSTEMS All other reviewed and negative other than HPI. HEALTH MAINTENANCE: Reviewed health maintenance issues today and recommended the following in detail. Depression Screening due on 11/25/2024 Anxiety Screening due on 11/25/2024 VITALS: BP 162/82 Pulse 61 Wt 69.9 kg (154 lb) SpO2 96% BMI 27.28 kg/m Last 4 Encounter Wt Readings: Date: Wt: 11/13/2024 69.9 kg (154 lb) 09/15/2024 70.3 kg (155 lb) 03/07/2024 70.8 kg (156 lb) 02/07/2024 70.3 kg (155 lb) PHYSICAL EXAMINATION: General appearance: Well appearing, alert, in no acute distress, well-hydrated, well nourished. Skin: Skin color, texture, turgor normal, no suspicious rashes or lesions Head: Normocephalic, no masses, lesions, tenderness or abnormalities Lungs: Lungs clear to auscultation. No wheezing, rhonchi, rales Heart: RRR without murmur, gallop, or rubs. No ectopy Abdomen: Normal abdominal exam, Abdomen soft, non-tender. Bowel sounds normal. No masses, organomegaly Extremities: No deformities, edema, skin discoloration, clubbing or cyanosis. Good capillary refill. ASSESSMENT/PLAN: 1. Hypertension, essential - ICD9: 401.9, ICD10: I10 - fair control. I would certainly not stop it. Recommended she continue. Discussed risks and benefits of untreated bp - LOSARTAN 100 MG TABLET Gucci Callahan MD 11/13/2024: Home BP Cuff Validated. Home BP: 156/94 Office BP: 162/82 documented in this encounter [facility] 11-13-2024 Note HNO ID: [id number] Author: JOSE MENCHACA LPN Service: ? Author Type: LICENSED NURSE Type: Progress Notes Filed: 11/13/2024 19:57 Note Text: 11/13/2024: Home BP Cuff Validated. Home BP: 156/94 Office BP: 162/82 [facility] 11-02-2024 Note HNO ID: [id number] Author: ?, ?, ? Service: ? Author Type: ? Type: Progress Notes Filed: 11/02/2024 09:54 Note Text: POPULATION HEALTH NAVIGATION OUTREACH Action/FYI Patient outreach for HCC gaps; AWV. Patient declined scheduling. Explained the difference between her 6 month visits with PCP compared to her wellness. Appointment notes updated. Reason for Outreach Care Gap/HCC or Scheduling Wellness Visits Care Gaps due: Medicare Annual Wellness Visit Patient Contacted: Spoke to patient/parent/or legal guardian Patient identified by name and : Yes Care Gap/HCC/Scheduling Wellness actions taken: Patient declined: Doesn't feel it's necessary Navigation Signature: Charisma Chávez Pss November 02, 2024 9:52 AM [facility] 11-02-2024 History of Present illness Narrative POPULATION HEALTH NAVIGATION OUTREACH Action/FYI Patient outreach for HCC gaps; AWV. Patient declined scheduling. Explained the difference between her 6 month visits with PCP compared to her wellness. Appointment notes updated. Reason for Outreach Care Gap/HCC or Scheduling Wellness Visits Care Gaps due: Medicare Annual Wellness Visit Patient Contacted: Spoke to patient/parent/or legal guardian Patient identified by name and : Yes Care Gap/HCC/Scheduling Wellness actions taken: Patient declined: Doesn't feel it's necessary Navigation Signature: Charisma Benz November 02, 2024 9:52 AM documented in this encounter [facility] 11-02-2024 Note Patient Outreach (NE TNAV) KRYSTLE ARAMBULA ([id number]) 1940 F Date Time Provider Department 11/02/24 GUCCI CALLAHAN During your visit today, we recorded the following information about you: Charisma Souza 11/02/2024 9:54 AM Signed POPULATION HEALTH NAVIGATION OUTREACH Action/FYI Patient outreach for HCC gaps; AWV. Patient declined scheduling. Explained the difference between her 6 month visits with PCP compared to her wellness. Appointment notes updated. Reason for Outreach Care Gap/HCC or Scheduling Wellness Visits Care Gaps due: Medicare Annual Wellness Visit Patient Contacted: Spoke to patient/parent/or legal guardian Patient identified by name and : Yes Care Gap/HCC/Scheduling Wellness actions taken: Patient declined: Doesn't feel it's necessary Navigation Signature: Charisma Benz November 02, 2024 9:52 AM Allergies As of Date: 11/02/2024 Noted Allergy Reaction CORN 09/15/2024 9 - Itching TYLENOL #3 (CODEINE) 02/08/2008 Comments: vomitting WHEAT 09/15/2024 9 - Itching JUANITA INHIBITORS 11/19/2019 3 - Cough FOOD EXTRACTS 04/01/2005 9 - Itching Date Reviewed: 09/15/2024 Reviewed by: Sarai Breen MA - Fully Assessed Reason for Visit: Population Health Navigation Outreach [3910] Cmt: Meredith Reid Prescriptions as of 11/02/2024 - GARLIC ORAL Take by mouth. - losartan (COZAAR) 100 mg tablet Take 1 tablet by mouth once daily. - cholecalciferol, vitamin D3, (VITAMIN D3 ORAL) Take by mouth. - vitamin B complex (B COMPLEX 1 ORAL) Take 1 tablet by mouth once daily. - mometasone (ELOCON) 0.1 % cream Apply 1 application to affected area once daily. - MAGNESIUM ORAL Take 250 mg by mouth once daily. - CALCIUM CARBONATE/VITAMIN D3 (CALCIUM 500 + D ORAL) Take by mouth once daily. Problem List As Of Date 11/02/2024 Noted Resolved Disorder of bone and cartilage, unspecified [M8*04/01/2005 07/20/2022 BENIGN JEAN CARLOS SCALP/SKIN NECK [D23.4] 02/18/2007 DIFFUS CYSTIC MASTOPATHY [N60.19] 06/13/2007 Lumbar disc disease with radiculopathy [M51.16] 01/06/2011 07/20/2022 Displacement of lumbar intervertebral disc with*01/12/2011 Pelvic floor weakness [N81.89] 05/05/2012 Mitral valve disorder [I05.9] 08/11/2013 08/09/2023 Hyperlipidemia with target LDL less than 100 [E*08/20/2013 Osteoarthritis of both hips [M16.0] 10/03/2013 Osteoporosis [M81.0] 12/10/2014 04/30/2021 Family history of breast cancer in sister [Z80.*10/12/2017 Fatigue [R53.83] 07/29/2018 07/20/2022 Situational depression [F43.21] 07/29/2018 07/20/2022 Hypertension, essential [I10] 07/11/2020 Popliteal cyst, right [M71.21] 04/18/2021 07/20/2022 Osteopenia of multiple sites [M85.89] 04/30/2021 Advance care planning [Z71.89] 10/22/2021 Thyroid condition [E07.9] 01/14/2022 Prediabetes [R73.03] 01/19/2022 Allergic dermatitis due to food taken internall*06/02/2022 02/07/2024 Chest pain [R07.9] 06/02/2022 07/20/2022 Low back pain [M54.50] 06/02/2022 07/20/2022 Osteoarthritis [M19.90] 06/02/2022 07/20/2022 Viral upper respiratory tract infection [J06.9] 06/02/2022 07/20/2022 Cough [R05.9] 07/20/2022 07/20/2022 History of severe acute respiratory syndrome co*07/20/2022 07/20/2022 Subconjunctival hemorrhage [H11.30] 01/25/2023 02/07/2024 Aortic insufficiency [I35.1] 03/07/2024 Encounter Status:Closed by CHARISMA SOUZA on 11/02/24 [facility] 09-15-2024 Instructions Flori Castro APRN.CNP - 09/15/2024 12:06 PM EST 1) Labs in 6 months before appt. 2) Follow up in 6 months documented in this encounter [facility] 09-15-2024 Note HNO ID: [id number] Author: FLORI CASTRO APRN.CNP Service: ? Author Type: Nurse Practitioner Type: Progress Notes Filed: 09/15/2024 12:08 Note Text: This is a 84 year old female who presents today with: Patient presents with: 6 Month Exam HISTORY OF PRESENT ILLNESS: Krystle Arambula is a 84 year old female. 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 losartan (COZAAR) 100 mg tablet Take 1 tablet by mouth once daily. cholecalciferol, vitamin D3, (VITAMIN D3 ORAL) Take by mouth. OTC PRODUCT NILDA energy vitamin vitamin B complex (B COMPLEX 1 ORAL) Take 1 tablet by mouth once daily. mometasone (ELOCON) 0.1 % cream Apply 1 application to affected area once daily. Acetaminophen 500 mg cap Take 1,000 mg by mouth four times daily as needed. ibuprofen (MOTRIN) 800 mg tablet Take 1 tablet by mouth every 8 hours as needed. FOR PAIN. MAGNESIUM ORAL Take 250 mg by mouth once daily. CALCIUM CARBONATE/VITAMIN D3 (CALCIUM 500 + D ORAL) Take by mouth once daily. No current facility-administered medications for this visit. FAMILY HISTORY Problem Relation Age of Onset Heart Mother Arthritis Father Breast Cancer Sister Stroke Father Coronary Artery Disease Brother Coronary Artery Disease Brother Social History Tobacco Use Smoking status: Never Smokeless tobacco: Never Vaping Use Vaping status: Never Used Substance Use Topics Alcohol use: No Drug use: No REVIEW OF SYSTEMS GENERAL: No weight loss, + malaise from poor sleep, no fevers/chills HEENT: Negative for frequent or significant headaches, No changes in hearing or vision. NECK: Negative for lumps, goiter, pain and significant neck swelling RESPIRATORY: Sometimes cough, no hemoptysis, no wheezing, no dyspnea or shortness of breath CARDIOVASCULAR: Weight on chest- after eating, no leg swelling, no orthopnea, no palpitations GI: No nausea, vomiting, or diarrhea/constipation. No hematochezia/melena. No heartburn or reflux symptoms. : No history of dysuria, frequency MUSCULOSKELETAL: Donte thumb joint pain or swelling. SKIN: Negative for lesions, no rash, but itching- right eye and ear d/t wheat ENDOCRINE: Negative for cold or heat intolerance, polyuria, polydipsia and goiter NEURO: No history of headaches, syncope, paralysis, seizures or tremors MOOD: Negative for depression, anxiety, or suicidal ideation. EXAM: BP 136/94 Pulse 73 Temp 36.6 ?C (97.8 ?F) (Right Tympanic) Wt 70.3 kg (155 lb) SpO2 96% BMI 27.46 kg/m? PHYSICAL EXAM: Physical Exam Vitals reviewed. Constitutional: Appearance: Normal appearance. HENT: Head: Normocephalic and atraumatic. Cardiovascular: Rate and Rhythm: Normal rate and regular rhythm. Pulses: Normal pulses. Heart sounds: Normal heart sounds. Pulmonary: Effort: Pulmonary effort is normal. Breath sounds: Normal breath sounds. Abdominal: General: Bowel sounds are normal. Palpations: Abdomen is soft. Tenderness: There is no abdominal tenderness. There is no guarding. Musculoskeletal: General: Normal range of motion. Right lower leg: No edema. Left lower leg: No edema. Comments: Moves all ext. Without difficulties, walks w/o assistive device Skin: General: Skin is warm and dry. Neurological: Mental Status: She is alert and oriented to person, place, and time. LABS: reviewed HgA1c ASSESSMENT/PLAN: 1. Hyperlipidemia with target LDL less than 100 - ICD9: 272.4, ICD10: E78.5 (primary diagnosis) - Controlled - Counseled on healthy diet and regular exercise - LIPID PANEL BASIC 2. Hypertension, essential - ICD9: 401.9, ICD10: I10 - Controlled - Recommend home blood pressure monitoring, to bring results to next visit - Encouraged sodium restriction, DASH or Mediterranean diet - Recommend regular aerobic exercise - COMPLETE BLOOD COUNT AND DIFFERENTIAL - COMPREHENSIVE METABOLIC PANEL - MAGNESIUM 3. Thyroid condition - ICD9: 246.9, ICD10: E07.9 TSH was normal, recheck in 6 months - THYROID STIMULATING HORMONE 4. Prediab (more content not included)... [facility] 09-15-2024 History of Present illness Narrative This is a 84 year old female who presents today with: Patient presents with: 6 Month Exam HISTORY OF PRESENT ILLNESS: Krystle Arambula is a 84 year old female. 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 losartan (COZAAR) 100 mg tablet Take 1 tablet by mouth once daily. cholecalciferol, vitamin D3, (VITAMIN D3 ORAL) Take by mouth. OTC PRODUCT NILDA energy vitamin vitamin B complex (B COMPLEX 1 ORAL) Take 1 tablet by mouth once daily. mometasone (ELOCON) 0.1 % cream Apply 1 application to affected area once daily. Acetaminophen 500 mg cap Take 1,000 mg by mouth four times daily as needed. ibuprofen (MOTRIN) 800 mg tablet Take 1 tablet by mouth every 8 hours as needed. FOR PAIN. MAGNESIUM ORAL Take 250 mg by mouth once daily. CALCIUM CARBONATE/VITAMIN D3 (CALCIUM 500 + D ORAL) Take by mouth once daily. No current facility-administered medications for this visit. FAMILY HISTORY Problem Relation Age of Onset Heart Mother Arthritis Father Breast Cancer Sister Stroke Father Coronary Artery Disease Brother Coronary Artery Disease Brother Social History Tobacco Use Smoking status: Never Smokeless tobacco: Never Vaping Use Vaping status: Never Used Substance Use Topics Alcohol use: No Drug use: No REVIEW OF SYSTEMS GENERAL: No weight loss, + malaise from poor sleep, no fevers/chills HEENT: Negative for frequent or significant headaches, No changes in hearing or vision. NECK: Negative for lumps, goiter, pain and significant neck swelling RESPIRATORY: Sometimes cough, no hemoptysis, no wheezing, no dyspnea or shortness of breath CARDIOVASCULAR: Weight on chest- after eating, no leg swelling, no orthopnea, no palpitations GI: No nausea, vomiting, or diarrhea/constipation. No hematochezia/melena. No heartburn or reflux symptoms. : No history of dysuria, frequency MUSCULOSKELETAL: Donte thumb joint pain or swelling. SKIN: Negative for lesions, no rash, but itching- right eye and ear d/t wheat ENDOCRINE: Negative for cold or heat intolerance, polyuria, polydipsia and goiter NEURO: No history of headaches, syncope, paralysis, seizures or tremors MOOD: Negative for depression, anxiety, or suicidal ideation. EXAM: BP 136/94 Pulse 73 Temp 36.6 C (97.8 F) (Right Tympanic) Wt 70.3 kg (155 lb) SpO2 96% BMI 27.46 kg/m PHYSICAL EXAM: Physical Exam Vitals reviewed. Constitutional: Appearance: Normal appearance. HENT: Head: Normocephalic and atraumatic. Cardiovascular: Rate and Rhythm: Normal rate and regular rhythm. Pulses: Normal pulses. Heart sounds: Normal heart sounds. Pulmonary: Effort: Pulmonary effort is normal. Breath sounds: Normal breath sounds. Abdominal: General: Bowel sounds are normal. Palpations: Abdomen is soft. Tenderness: There is no abdominal tenderness. There is no guarding. Musculoskeletal: General: Normal range of motion. Right lower leg: No edema. Left lower leg: No edema. Comments: Moves all ext. Without difficulties, walks w/o assistive device Skin: General: Skin is warm and dry. Neurological: Mental Status: She is alert and oriented to person, place, and time. LABS: reviewed HgA1c ASSESSMENT/PLAN: 1. Hyperlipidemia with target LDL less than 100 - ICD9: 272.4, ICD10: E78.5 (primary diagnosis) - Controlled - Counseled on healthy diet and regular exercise - LIPID PANEL BASIC 2. Hypertension, essential - ICD9: 401.9, ICD10: I10 - Controlled - Recommend home blood pressure monitoring, to bring results to next visit - Encouraged sodium restriction, DASH or Mediterranean diet - Recommend regular aerobic exercise - COMPLETE BLOOD COUNT AND DIFFERENTIAL - COMPREHENSIVE METABOLIC PANEL - MAGNESIUM 3. Thyroid condition - ICD9: 246.9, ICD10: E07.9 TSH was normal, recheck in 6 months - THYROID STIMULATING HORMONE 4. Prediabetes - ICD9: 790.29, ICD10: R73.03 Recheck labs in 6 months - HEMOGLOBIN A1C - ALBUMIN/CREATININE RATIO, URINE Discussed treatment plan and patient voices understanding. Patient's questions answered appropriately. Medications and potential side effects were discussed and patient voices understanding. Return to the office as scheduled or as needed for worsening/no improvement. Flori Castro APRN.EQUIPMENT OPERATOR documented in this encounter [facility] 09-11-2024 Telephone encounter Note Pt called and is notified of results and given providers message. Pt voices understanding. [facility] 09-11-2024 Miscellaneous Notes Pt called and is notified of results and given providers message. Pt voices understanding. ----- Message from Emma Fang APRN.TRISHA sent at 09/08/2024 5:26 PM EST ----- Can please let patient know that we received her A1C results, which was normal. Emma Fang APRN.EQUIPMENT OPERATOR documented in this encounter [facility] 09-11-2024 Telephone encounter Note ----- Message from Emma Fang APRN.TRISHA sent at 09/08/2024 5:26 PM EST ----- Can please let patient know that we received her A1C results, which was normal. Emma Fang APRN.EQUIPMENT OPERATOR [facility] 08-23-2024 Telephone encounter Note PATIENT NOTIFIED OF SAME. [facility] 08-23-2024 Miscellaneous Notes PATIENT NOTIFIED OF SAME. Just needs a hba1c Patient calling in asking for labs to be placed for her appt with Dr. Callahan in September. Please let patient know once placed. Charlee Rossi August 22, 2024 4:49 PM documented in this encounter [facility] 08-23-2024 Telephone encounter Note Just needs a hba1c [facility] 08-22-2024 Telephone encounter Note Patient calling in asking for labs to be placed for her appt with Dr. Callahan in September. Please let patient know once placed. Charlee Rossi August 22, 2024 4:49 PM [facility] 04-06-2024 History of Present illness Narrative ACM RICARDO RN Patient identified by name and date of . Reason for review or outreach: Chart Review Ricardo Priority Emergency Department Utilization REQUESTED ACTION/FYI: None Exclusion Criteria Does not meet exclusion criteria Utilization in past 6 months: # Occurrences Date Last Occurrence Hospital Admission 0 Not applicable Hospital Observation 0 Not applicable ED 1 02-25-24 SNF / Acute Rehab / LTAC 0 Not applicable ED DIAGNOSES/REASON(S) FOR ED USE: 02-25-24: Laceration; Four Ethilon Sutures Follow Up: 03-07-[address] Callahan/PCP Per Ricardo Report, seen at [facility] 03-30-24. Updated Care Everywhere. No encounter visible. OTHER FINDINGS/SUMMARY: None Patient Attributed To: QAE Payer: Meredith MCCARTHY Action Taken: No action needed. Contact made with patient: No, Chart review only. Signature: Ninoska Parnell RN documented in this encounter [facility] 03-25-2024 Telephone encounter Note Prescription Refill Information The patient has been identified by name and date of : Yes Caregiver verified no other encounters exist for this prescription request: Yes Caregiver confirmed with patient/requestor that no other refills are due, in the near future, with this provider at this time: Yes The last office visit in the department: 03/07/2024 Does the patient have a future office visit with this provider/department: Yes Requested Prescriptions Pending Prescriptions Disp Refills losartan (COZAAR) 100 mg tablet 90 tablet 3 Sig: Take 1 tablet by mouth once daily. Darlyn March 25, 2024 11:04 AM [facility] 03-25-2024 Miscellaneous Notes Prescription Refill Information The patient has been identified by name and date of : Yes Caregiver verified no other encounters exist for this prescription request: Yes Caregiver confirmed with patient/requestor that no other refills are due, in the near future, with this provider at this time: Yes The last office visit in the department: 03/07/2024 Does the patient have a future office visit with this provider/department: Yes Requested Prescriptions Pending Prescriptions Disp Refills losartan (COZAAR) 100 mg tablet 90 tablet 3 Sig: Take 1 tablet by mouth once daily. Darlyn Lynn March 25, 2024 11:04 AM documented in this encounter [facility] 03-07-2024 History of Present illness Narrative Patient presents with: Follow Up HPI: Patient presents today for office visit for blood pressure follow up. Was in [facility] ER on 02/25/24 for laceration of right palm. Received 4 sutures. Would like them removed today. Had tetanus and keflex. Healing well. No redness. Numbness or issues with sensation. Has some slight weakness with bringing her ring and middle finger together. Offered ortho. Refuses. Red flags for re-assessment reviewed with patient in detail. No drainage. HTN: Continues taking Losartan 100 mg daily. Brought home cuff today to validate. It reads slightly high. Home bp has been stable. Usually 130's systolic adjusted for validation. I think given her age it is acceptable Denies chest heaviness today. Discussed below. Denies shortness of breath. Denies palpitations and syncope. Denies headaches and dizziness. No new or worsening edema. Echo completed on 02/14/24: The left ventricle is normal in size. Left ventricular systolic function is normal. EF = 65 5% (2D biplane) Grade I left ventricular diastolic dysfunction. The right ventricle is normal in size. Right ventricular systolic function is normal. There is mild aortic insufficiency present. Exam was compared with the prior echocardiographic exam performed on 12/15/2021 (Stress). There has been no significant change. NM Stress test: Stress Test Findings: There is no scintigraphic evidence for inducible ischemia. There is no evidence of scarring. Note was copied and pasted, without alteration from: last ov: HTN: Patient is compliant with meds Yes Monitors bp at home: yes. Denies side effects: No. Chest pain: chest heaviness.see previous note from Tiffany. Is nonexertional. No new changes. Can sometimes after eating. Red flags for re-assessment reviewed with patient in detail. No other gi issues. Dyspnea: No. Edema: only left foot not all the time and goes down. Not new. Palpitations: No. Syncope: No. Headache: No. Dizziness: No. Cough: No Echo is scheduled for 02/14/24 and stress test is set up for Apr. Discussed that April is not acceptable. ALLERGIES: ALLERGIES Allergen Reactions Tylenol #3 [Codeine] vomitting Juanita Inhibitors Cough Food Extracts Itching PAST MEDICAL HISTORY No date: Diffuse cystic mastopathy No date: Disorder of thyroid No date: HTN (hypertension) 08/20/2013: Hyperlipidemia LDL goal < 100 01/06/2011: Lumbar disc disease with radiculopathy 08/11/2013: Mitral valve disorder 10/03/2013: Osteoarthritis of both hips No date: Osteopenia 12/10/2014: Osteoporosis 05/05/2012: Pelvic floor weakness 07/29/2018: Situational depression No date: Subconjunctival hemorrhage No date: Unspecified cardiovascular disease Comment: right bundle branch block PAST SURGICAL HISTORY 01/30/2014: ARTHRP ACETBLR/PROX FEM PROSTC AGRFT/ALGRFT Comment: right No date: LIG/TRNSXJ FLP TUBE ABDL/VAG APPR UNI/BI No date: PAST SURGICAL HISTORY OF; Left Comment: ORIF femur 10/03/2013: TOTAL HIP REPLACEMENT Comment: left FAMILY HISTORY Problem Relation Age of Onset Heart Mother Arthritis Father Breast Cancer Sister Stroke Father Coronary Artery Disease Brother Coronary Artery Disease Brother Social History Tobacco Use Smoking status: Never Smokeless tobacco: Never Vaping Use Vaping Use: Never used Substance Use Topics Alcohol use: No Drug use: No Reviewed current medications, allergies, past medical history, surgical history, family history and social history today. REVIEW OF SYSTEMS All other reviewed and negative other than HPI. HEALTH MAINTENANCE: Reviewed health maintenance issues today and recommended the following in detail. There are no preventive care reminders to display for this patient. VITALS: BP 140/86 Pulse 66 Ht 160 cm (5' 3") Wt 70.8 kg (156 lb) SpO2 94% BMI 27.63 kg/m Last 4 Encounter Wt Readings: Date: Wt: 02/07/2024 70.3 kg (155 lb) 01/27/2024 71.2 kg (157 lb) 11/26/2023 69.9 kg (154 lb) 08/30/2023 69.7 kg (153 lb 9.6 oz) PHYSICAL EXAMINATION: General appearance: Well appearing, alert, in no acute distress, well-hydrated, well nourished. Skin: laceration is well healed. No induration. Well approximated. Head: Normocephalic, no masses, lesions, tenderness or abnormalities Neck: Supple, no adenopathy; thyroid symmetric, normal size, no bruits Lungs: Lungs clear to auscultation. No wheezing, rhonchi, rales Heart: RRR without murmur, gallop, or rubs. No ectopy Abdomen: Normal abdominal exam, Abdomen soft, non-tender. Bowel sounds normal. No masses, organomegaly Extremities: No deformities, edema, skin discoloration, clubbing or cyanosis. Good capillary refill. ASSESSMENT/PLAN: 1. Nonrheumatic aortic valve insufficiency - ICD9: 424.1, ICD10: I35.1 (primary diagnosis) - follow with repeat echo in three years. 2. Hypertension, essential - ICD9: 401.9, ICD10: I10 - Controlled - Home blood pressure readings controlled - Recommend home blood pressure monitoring, to bring results to next visit - Follow up in 6 months for hypertension visit 3. Hyperlipidemia with target LDL less than 100 - ICD9: 272.4, ICD10: E78.5 - Controlled - Continue current medications 4. Chest pain, unspecified type - ICD9: 786.50, ICD10: R07.9 - call if any problems. Consider gi evaluation. 5. Laceration of right palm, subsequent encounter - ICD9: V58.89, 882.0, ICD10: S61.411D - four simple sutures removed. Steri strips applied. Tolerated well. Wound is well healed. Offered ortho for finger movement. She declines. Will call if changes her mind. Gucci Callahan MD documented in this encounter [facility] 02-14-2024 Telephone encounter Note Patient notified. [facility] 02-14-2024 Miscellaneous Notes Patient notified. Please let patient know that echocardiogram showed a good strong heart with some impaired relaxation due to longstanding high blood pressure. We need to keep her blood pressure in good control. Also,- There is mild aortic leaking of the aortic valve. This is an age-related change. Will monitor. documented in this encounter [facility] 02-14-2024 Telephone encounter Note Please let patient know that echocardiogram showed a good strong heart with some impaired relaxation due to longstanding high blood pressure. We need to keep her blood pressure in good control. Also,- There is mild aortic leaking of the aortic valve. This is an age-related change. Will monitor. [facility] Work Phone: 02-11-2024 Telephone encounter Note Patient returned call and went over results, notes from Flori Castro HYDROPRESS OPERATOR with understanding. [facility] 02-11-2024 Miscellaneous Notes Patient returned call and went over results, notes from Flori Castro HYDROPRESS OPERATOR with understanding. Left message for patient to return call. Sarai Breen Ma Please let patient know that stress test was normal. No areas noted that were lacking blood flow. Heart function was good and strong. documented in this encounter [facility] 02-11-2024 Telephone encounter Note Left message for patient to return call. Sarai Breen Ma [facility] 02-11-2024 Telephone encounter Note Please let patient know that stress test was normal. No areas noted that were lacking blood flow. Heart function was good and strong. [facility] Work Phone: 02-11-2024 History of Present illness Narrative RADIOLOGY SERVICE PROGRESS NOTE SERVICE DATE: 02/11/2024 SERVICE TIME: 12:37 PM PATIENT IDENTITY VERIFICATION COMPLETED USING TWO (2) STANDARD IDENTIFIERS: Name and Date of confirmed by patient verbally and Name and Date of confirmed by identification band FALL SCREENING: Has the patient had 2 falls in the last year or 1 fall with injury or currently using an Ambulatory Assistive Device (Walker, Cane, Wheelchair, Crutches, etc.)? No PATIENT GENDER DATA: .female : No ALLERGIES: Reviewed and unchanged MEDICATIONS REVIEWED: Not applicable PATIENT RELEVANT IMPLANT DATA REVIEWED: Not Applicable PATIENT PRESENTS WITH AN IMPLANTABLE OR ATTACHED BAG PRINTER: No CREATININE: Creatinine Date Value Ref Range Status 01/27/2024 0.76 0.58 - 0.96 mg/dL Final 08/09/2023 0.82 0.58 - 0.96 mg/dL Final 08/04/2023 0.80 0.58 - 0.96 mg/dL Final Estimated Glomerular Filtration Rate Date Value Ref Range Status 01/27/2024 79 >=60 mL/min/1.73m Final Comment: Estimated Glomerular Filtration Rate (eGFR) is calculated using the 2020 CKD-EPI creatinine equation. This equation utilizes serum creatinine, sex, and age as parameters. The creatinine assay has traceable calibration to isotope dilution-mass spectrometry. Refer to KDIGO guidelines for clinical interpretation. In patients with unstable renal function, e.g. those with acute kidney injury, the eGFR may not accurately reflect actual GFR. eGFR- Date Value Ref Range Status 02/11/2021 >60 Final P.O.C.T. RESULTS: N/A February 11, [address] PERFORMED: No IV SITE: Ambulatory: A peripheral IV was started in the Right forearm with a Angio cath: 22 gauge. POST EXAM PIV STATUS: Discontinued PROCEDURE TYPE: NM Stress: 14.4 mCi [id number] was administered IV for Rest Imaging at 1158 by jgs. 36 mCi [id number] was administered IV for Stress Imaging at 12:54 by mm. PATIENT DISCHARGED TO: Ambulatory patient, left [place] department area. A Diagnostic radioactive procedure has taken place, with no further precautions necessary other than routine body substance precautions. More information regarding radiation safety can be found using this link: [email or web address] [email or web address] SIGNATURE: TRISTAN Woodall PATIENT NAME: Krystle Arambula DATE: February 11, 2024 TIME: 12:37 PM PAGER/CONTACT #: documented in this encounter [facility] 02-11-2024 Note HNO ID: [id number] Author: UYEN RUIZ CNMT Service: Radiology Author Type: Technologist Type: Progress Notes Filed: 02/11/2024 12:54 Note Text: RADIOLOGY SERVICE PROGRESS NOTE SERVICE DATE: 02/11/2024 SERVICE TIME: 12:37 PM PATIENT IDENTITY VERIFICATION COMPLETED USING TWO (2) STANDARD IDENTIFIERS: Name and Date of confirmed by patient verbally and Name and Date of confirmed by identification band FALL SCREENING: Has the patient had 2 falls in the last year or 1 fall with injury or currently using an Ambulatory Assistive Device (Walker, Cane, Wheelchair, Crutches, etc.)? No PATIENT GENDER DATA: .female : No ALLERGIES: Reviewed and unchanged MEDICATIONS REVIEWED: Not applicable PATIENT RELEVANT IMPLANT DATA REVIEWED: Not Applicable PATIENT PRESENTS WITH AN IMPLANTABLE OR ATTACHED BAG PRINTER: No CREATININE: Creatinine Date Value Ref Range Status 01/27/2024 0.76 0.58 - 0.96 mg/dL Final 08/09/2023 0.82 0.58 - 0.96 mg/dL Final 08/04/2023 0.80 0.58 - 0.96 mg/dL Final Estimated Glomerular Filtration Rate Date Value Ref Range Status 01/27/2024 79 >=60 mL/min/1.73m? Final Comment: Estimated Glomerular Filtration Rate (eGFR) is calculated using the 2020 CKD-EPI creatinine equation. This equation utilizes serum creatinine, sex, and age as parameters. The creatinine assay has traceable calibration to isotope dilution-mass spectrometry. Refer to KDIGO guidelines for clinical interpretation. In patients with unstable renal function, e.g. those with acute kidney injury, the eGFR may not accurately reflect actual GFR. eGFR- Date Value Ref Range Status 02/11/2021 >60 Final P.O.C.T. RESULTS: N/A February 11, [address] PERFORMED: No IV SITE: Ambulatory: A peripheral IV was started in the Right forearm with a Angio cath: 22 gauge. POST EXAM PIV STATUS: Discontinued PROCEDURE TYPE: NM Stress: 14.4 mCi [id number] was administered IV for Rest Imaging at 1158 by tong. 36 mCi [id number] was administered IV for Stress Imaging at 12:54 by mm. PATIENT DISCHARGED TO: Ambulatory patient, left [place] department area. A Diagnostic radioactive procedure has taken place, with no further precautions necessary other than routine body substance precautions. More information regarding radiation safety can be found using this link: [email or web address]%20Nuclear%20Medicine [email or web address] SIGNATURE: TRISTAN Woodall PATIENT NAME: Krystle Arambula DATE: February 11, 2024 TIME: 12:37 PM PAGER/CONTACT #: [facility] 02-07-2024 History of Present illness Narrative Patient presents with: Hypertension HPI: Patient presents today for office visit for follow up. HTN: Patient is compliant with meds Yes Monitors bp at home: yes. Denies side effects: No. Chest pain: chest heaviness.see previous note from Tiffany. Is nonexertional. No new changes. Can sometimes after eating. Red flags for re-assessment reviewed with patient in detail. No other gi issues. Dyspnea: No. Edema: only left foot not all the time and goes down. Not new. Palpitations: No. Syncope: No. Headache: No. Dizziness: No. Cough: No Echo is scheduled for 02/14/24 and stress test is set up for Apr. Discussed that April is not acceptable. Latest Ref Rng 01/27/2024 WBC 3.70 - 11.00 k/uL 6.45 RBC 3.90 - 5.20 m/uL 4.37 Hemoglobin 11.5 - 15.5 g/dL 13.1 Hematocrit 36.0 - 46.0 % 40.6 MCV 80.0 - 100.0 fL 92.9 MCH 26.0 - 34.0 pg 30.0 MCHC 30.5 - 36.0 g/dL 32.3 RDW-CV 11.5 - 15.0 % 12.4 Platelet Count 150 - 400 k/uL 158 MPV 9.0 - 12.7 fL 11.2 Neut% % 61.9 Abs Neut (ANC) 1.45 - 7.50 k/uL 3.99 Lymph% % 26.8 Abs Lymph 1.00 - 4.00 k/uL 1.73 Belmont% % 7.9 Abs [place] <0.87 k/uL 0.51 Eosin% % 2.2 Abs Eosin <0.46 k/uL 0.14 Baso% % 0.9 Abs Baso <0.11 k/uL 0.06 Immature Gran % % 0.3 IMMATURE GRANS (ABS) <0.10 k/uL <0.03 NRBC /100 WBC 0.0 Absolute nRBC <0.01 k/uL <0.01 DTYPE Auto Protein, Total 6.3 - 8.0 g/dL 6.2 (L) Albumin 3.9 - 4.9 g/dL 4.1 Calcium 8.5 - 10.2 mg/dL 9.6 Bilirubin, Total 0.2 - 1.3 mg/dL 0.2 Alkaline Phosphatase 34 - 123 U/L 59 AST 13 - 35 U/L 20 ALT 7 - 38 U/L 19 Glucose 74 - 99 mg/dL 114 (H) BUN 7 - 21 mg/dL 15 Creatinine 0.58 - 0.96 mg/dL 0.76 Sodium 136 - 144 mmol/L 143 Potassium 3.7 - 5.1 mmol/L 4.2 Chloride 98 - 107 mmol/L 103 CO2 22 - 30 mmol/L 29 Anion Gap 8 - 15 mmol/L 11 eGFR >=60 mL/min/1.73m 79 Total Cholesterol, Nonfasting <200 mg/dL 211 (H) Triglycerides, Nonfasting <150 mg/dL 294 (H) HDL Cholesterol, Nonfasting >39 mg/dL 46 LDL Cholesterol, Nonfasting <100 mg/dL 106 (H) Non HDL Cholesterol, Nonfasting <130 mg/dL 165 (H) VLDL Cholesterol, Nonfasting <30 mg/dL 59 (H) Total Chol/HDL Ratio, Nonfasting <5.10 mg/dL 4.59 LDL/HDL Ratio, Nonfasting <2.54 mg/dL 2.30 Hemoglobin A1C 4.3 - 5.6 % 5.7 (H) Estimated Average Glucose mg/dL 117 TSH 0.270 - 4.200 mIU/L 3.020 Free T4 0.9 - 1.7 ng/dL 0.9 Vitamin B12 232 - 1,245 pg/mL 905 Magnesium 1.7 - 2.3 mg/dL 2.2 Legend: (L) Low (H) High MEDICATIONS: Current Outpatient Medications Medication Sig cholecalciferol, vitamin D3, (VITAMIN D3 ORAL) Take by mouth. OTC PRODUCT NILDA energy vitamin losartan (COZAAR) 100 mg tablet Take 1 tablet by mouth once daily. MAGNESIUM ORAL Take 250 mg by mouth once daily. CALCIUM CARBONATE/VITAMIN D3 (CALCIUM 500 + D ORAL) Take by mouth once daily. vitamin B complex (B COMPLEX 1 ORAL) Take 1 tablet by mouth once daily. mometasone (ELOCON) 0.1 % cream Apply 1 application to affected area once daily. Acetaminophen 500 mg cap Take 1,000 mg by mouth four times daily as needed. ibuprofen (MOTRIN) 800 mg tablet Take 1 tablet by mouth every 8 hours as needed. FOR PAIN. No current facility-administered medications for this visit. ALLERGIES: ALLERGIES Allergen Reactions Tylenol #3 [Codeine] vomitting Juanita Inhibitors Cough Food Extracts Itching PAST MEDICAL HISTORY Diagnosis Date Diffuse cystic mastopathy Disorder of thyroid HTN (hypertension) Hyperlipidemia LDL goal < 100 08/20/2013 Lumbar disc disease with radiculopathy 01/06/2011 Mitral valve disorder 08/11/2013 Osteoarthritis of both hips 10/03/2013 Osteopenia Osteoporosis 12/10/2014 Pelvic floor weakness 05/05/2012 Situational depression 07/29/2018 Subconjunctival hemorrhage 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 PAST SURGICAL HISTORY Procedure Laterality Date ARTHRP ACETBLR/PROX FEM PROSTC AGRFT/ALGRFT 01/30/2014 right LIG/TRNSXJ FLP TUBE ABDL/VAG APPR UNI/BI PAST SURGICAL HISTORY OF Left ORIF femur TOTAL HIP REPLACEMENT 10/03/2013 left FAMILY HISTORY Problem Relation Age of Onset Heart Mother Arthritis Father Breast Cancer Sister Stroke Father Coronary Artery Disease Brother Coronary Artery Disease Brother Social History Tobacco Use Smoking status: Never Smokeless tobacco: Never Vaping Use Vaping Use: Never used Substance Use Topics Alcohol use: No Drug use: No Reviewed current medications, allergies, past medical history, surgical history, family history and social history today. REVIEW OF SYSTEMS All other reviewed and negative other than HPI. HEALTH MAINTENANCE: Reviewed health maintenance issues today and recommended the following in detail. There are no preventive care reminders to display for this patient. VITALS: BP 140/90 Pulse 73 Wt 70.3 kg (155 lb) SpO2 94% BMI 27.46 kg/m Last 4 Encounter Wt Readings: Date: Wt: 01/27/2024 71.2 kg (157 lb) 11/26/2023 69.9 kg (154 lb) 08/30/2023 69.7 kg (153 lb 9.6 oz) 08/09/2023 69.9 kg (154 lb) PHYSICAL EXAMINATION: General appearance: Well appearing, alert, in no acute distress, well-hydrated, well nourished. Skin: Skin color, texture, turgor normal, no suspicious rashes or lesions Head: Normocephalic, no masses, lesions, tenderness or abnormalities Lungs: Lungs clear to auscultation. No wheezing, rhonchi, rales Heart: RRR without murmur, gallop, or rubs. No ectopy Abdomen: Normal abdominal exam, Abdomen soft, non-tender. Bowel sounds normal. No masses, organomegaly Extremities: No deformities, edema, skin discoloration, clubbing or cyanosis. Good capillary refill. Musculoskeletal: No joint swelling, deformity, or tenderness ASSESSMENT/PLAN: 1. Hypertension, essential - ICD9: 401.9, ICD10: I10 (primary diagnosis) - Worsening control - Continue current medications - declines med changes. Bring in home cuff and validate in one month. Check at home. 2. Hyperlipidemia with target LDL less than 100 - ICD9: 272.4, ICD10: E78.5 - slightly high. Watch diet. 3. Thyroid condition - ICD9: 246.9, ICD10: E07.9 - stable. 4. Prediabetes - ICD9: 790.29, ICD10: R73.03 - stable. 5. Chest heaviness - ICD9: 786.59, ICD10: R07.89 - get echo and move up stress test. Is atypical. Red flags for re-assessment reviewed with patient in detail. - declines gi meds. Recheck one months. 6. Chronic fatigue - ICD9: 780.79, ICD10: R53.82 - has a large amount of stress. Will follow up. Has been seeing a therapist. Gucci Callahan MD documented in this encounter [facility] 01-28-2024 Telephone encounter Note Patient was made aware of the results. Patient verbalizes understanding. Sarai Breen Ma [facility] 01-28-2024 Miscellaneous Notes Patient was made aware of the results. Patient verbalizes understanding. Sarai Breen Ma Please let patient know that labs are okay. We did note a little prediabetic. Watch the sweets and simple carbohydrates such as white flour products, white rice, and potatoes. Choose a whole-grain whenever possible. Triglycerides are slightly elevated because of blood sugars. No medication changes needed. documented in this encounter [facility] 01-28-2024 Telephone encounter Note Please let patient know that labs are okay. We did note a little prediabetic. Watch the sweets and simple carbohydrates such as white flour products, white rice, and potatoes. Choose a whole-grain whenever possible. Triglycerides are slightly elevated because of blood sugars. No medication changes needed. [facility] Work Phone: 01-27-2024 Instructions Flori Castro APRN.CNS - 01/27/2024 2:25 PM EDT 1) Stress test ordered; ECG today 2) Echo ordered 3) Get labs done today 4) See Dr. Callahan February 06 as scheduled documented in this encounter [facility] 01-27-2024 History of Present illness Narrative This is a 83 year old female who presents today with: Patient presents with: Chest Pain: Complains of chest heaviness intermittently throughout the day Sleep Problem: Insomnia HISTORY OF PRESENT ILLNESS: Krystle Arambula is a 83 year old female. Patient presents with: Chest Pain: Complains of chest heaviness intermittently throughout the day Sleep Problem: Insomnia No energy Chest heaviness and then mid back pain, pain in left shoulder blade- no arm, jaw or neck pain Can't sleep- one night never slept until 6am Becomes very tired if she does any activity No shortness of breath No N/V No diaphoresis. Occ cough, non-productive No orthopnea No PND Occ slight edema PAST MEDICAL HISTORY: PAST MEDICAL HISTORY Diagnosis Date Diffuse cystic mastopathy Disorder of thyroid HTN (hypertension) Hyperlipidemia LDL goal < 100 08/20/2013 Lumbar disc disease with radiculopathy 01/06/2011 Mitral valve disorder 08/11/2013 Osteoarthritis of both hips 10/03/2013 Osteopenia Osteoporosis 12/10/2014 Pelvic floor weakness 05/05/2012 Situational depression 07/29/2018 Subconjunctival hemorrhage 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 PAST SURGICAL HISTORY Procedure Laterality Date ARTHRP ACETBLR/PROX FEM PROSTC AGRFT/ALGRFT 01/30/2014 right LIG/TRNSXJ FLP TUBE ABDL/VAG APPR UNI/BI PAST SURGICAL HISTORY OF Left ORIF femur TOTAL HIP REPLACEMENT 10/03/2013 left ALLERGIES Tylenol #3 [Codeine], Juanita Inhibitors, and Food Extracts MEDICATIONS Current Outpatient Medications Medication Sig OTC PRODUCT NILDA energy vitamin losartan (COZAAR) 100 mg tablet Take 1 tablet by mouth once daily. vitamin B complex (B COMPLEX 1 ORAL) Take 1 tablet by mouth once daily. mometasone (ELOCON) 0.1 % cream Apply 1 application to affected area once daily. Acetaminophen 500 mg cap Take 1,000 mg by mouth four times daily as needed. ibuprofen (MOTRIN) 800 mg tablet Take 1 tablet by mouth every 8 hours as needed. FOR PAIN. MAGNESIUM ORAL Take 250 mg by mouth once daily. CALCIUM CARBONATE/VITAMIN D3 (CALCIUM 500 + D ORAL) Take by mouth once daily. cholecalciferol (VITAMIN D3) 50 mcg (2,000 unit) tablet Take 5,000 Units by mouth once daily. Unsure of her dosage she is taking will check it Zinc 50 mg tab Take 200 mg by mouth once daily. A/b-carotene/C/biofl/B6/mn/Ech (ECHINACEA C COMPLETE ORAL) Take by mouth three times daily. ascorbic acid, vitamin C, (VITAMIN C) 500 mg tablet Take 500 mg by mouth once daily. No current facility-administered medications for this visit. FAMILY HISTORY Problem Relation Age of Onset Heart Mother Arthritis Father Breast Cancer Sister Stroke Father Coronary Artery Disease Brother Coronary Artery Disease Brother Social History Tobacco Use Smoking status: Never Smokeless tobacco: Never Vaping Use Vaping Use: Never used Substance Use Topics Alcohol use: No Drug use: No EXAM: BP 142/76 Pulse 70 Wt 71.2 kg (157 lb) SpO2 95% BMI 27.81 kg/m PHYSICAL EXAM: Physical Exam Vitals reviewed. Constitutional: Appearance: Normal appearance. Neck: Vascular: No carotid bruit. Cardiovascular: Rate and Rhythm: Normal rate and regular rhythm. Pulses: Normal pulses. Heart sounds: Normal heart sounds. Pulmonary: Breath sounds: Normal breath sounds. Abdominal: General: Bowel sounds are normal. Palpations: Abdomen is soft. Musculoskeletal: General: Normal range of motion. Cervical back: Neck supple. Skin: General: Skin is warm and dry. Neurological: Mental Status: She is alert. LABS: check labs today ASSESSMENT/PLAN: 1. Encounter for screening for cardiovascular disorders - ICD9: V81.2, ICD10: Z13.6 (primary diagnosis) Chest heaviness- - get stress test, echo, and labs *EKG shows sinus rhythm, sinus bradycardia with a rate of about 60, right bundle branch block therefore cannot interpret anything further. 2. Chest heaviness - ICD9: 786.59, ICD10: R07.89 Atypical chest pain, symptoms are not consistent with cardiac ischemia due to nonexertional nature of symptom possible etiology include GERD and anemia, UTI Check stress test, echo and labs 3. Chronic fatigue - ICD9: 780.79, ICD10: R53.82 Check labs Discussed treatment plan and patient voices understanding. Patient's questions answered appropriately. Medications and potential side effects were discussed and patient voices understanding. Return to the office as scheduled or as needed for worsening/no improvement. Flori Castro APRN.[employer] documented in this encounter [facility] 01-13-2024 Telephone encounter Note Prescription Refill Information The patient has been identified by name and date of : Yes Caregiver verified no other encounters exist for this prescription request: Yes Caregiver confirmed with patient/requestor that no other refills are due, in the near future, with this provider at this time: Yes The last office visit in the department: 11/26/2023 Does the patient have a future office visit with this provider/department: Yes Requested Prescriptions Pending Prescriptions Disp Refills losartan (COZAAR) 100 mg tablet 90 tablet 3 Sig: Take 1 tablet by mouth once daily. Lola Ambrocio January 13, 2024 12:50 PM [facility] 01-13-2024 Miscellaneous Notes Prescription Refill Information The patient has been identified by name and date of : Yes Caregiver verified no other encounters exist for this prescription request: Yes Caregiver confirmed with patient/requestor that no other refills are due, in the near future, with this provider at this time: Yes The last office visit in the department: 11/26/2023 Does the patient have a future office visit with this provider/department: Yes Requested Prescriptions Pending Prescriptions Disp Refills losartan (COZAAR) 100 mg tablet 90 tablet 3 Sig: Take 1 tablet by mouth once daily. Lola Ambrocio January 13, 2024 12:50 PM documented in this encounter [facility] 11-26-2023 History of Present illness Narrative Patient presents with: Sleep Problem HPI: Patient presents today for office visit for follow up/ Sleep problem: Trouble both with falling asleep and staying asleep. Can't turn her mind off. Won't fall asleep until like 5am then will sleep all day. Has been having trouble for 3-6 months. Past 3 nights has improved. Did try melatonin 5 mg used for more than a month. Didn't notice any difference with it. Uses Sleepy Time tea. Daughter gave her a Rest EZ supplement. No pain complaints. Does have some leg cramp issues seems to be better. Is drinking electrolytes. Has been told that she snores no witnessed apnea. Hasn't woke herself up feeling like she wasn't breathing. Has been more stressed recently. Does not feel like she needs to take anything. Declines sleep apnea testing for now. Discussed risks of not treating. Will let me know if she changes her mind. Bp is good. No chest pain. No shortness of breath. MEDICATIONS: Current Outpatient Medications Medication Sig vitamin B complex (B COMPLEX 1 ORAL) Take 1 tablet by mouth once daily. losartan (COZAAR) 100 mg tablet Take 1 tablet by mouth once daily. cholecalciferol (VITAMIN D3) 50 mcg (2,000 unit) tablet Take 5,000 Units by mouth once daily. Unsure of her dosage she is taking will check it MAGNESIUM ORAL Take 250 mg by mouth once daily. CALCIUM CARBONATE/VITAMIN D3 (CALCIUM 500 + D ORAL) Take by mouth once daily. ascorbic acid, vitamin C, (VITAMIN C) 500 mg tablet Take 500 mg by mouth once daily. Zinc 50 mg tab Take 200 mg by mouth once daily. mometasone (ELOCON) 0.1 % cream Apply 1 application to affected area once daily. A/b-carotene/C/biofl/B6/mn/Ech (ECHINACEA C COMPLETE ORAL) Take by mouth three times daily. Acetaminophen 500 mg cap Take 1,000 mg by mouth four times daily as needed. ibuprofen (MOTRIN) 800 mg tablet Take 1 tablet by mouth every 8 hours as needed. FOR PAIN. No current facility-administered medications for this visit. ALLERGIES: ALLERGIES Allergen Reactions Tylenol #3 [Codeine] vomitting Juanita Inhibitors Cough Food Extracts Itching PAST MEDICAL HISTORY Diagnosis Date Diffuse cystic mastopathy Disorder of thyroid HTN (hypertension) Hyperlipidemia LDL goal < 100 08/20/2013 Lumbar disc disease with radiculopathy 01/06/2011 Mitral valve disorder 08/11/2013 Osteoarthritis of both hips 10/03/2013 Osteopenia Osteoporosis 12/10/2014 Pelvic floor weakness 05/05/2012 Situational depression 07/29/2018 Subconjunctival hemorrhage 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 PAST SURGICAL HISTORY Procedure Laterality Date ARTHRP ACETBLR/PROX FEM PROSTC AGRFT/ALGRFT 01/30/2014 right LIG/TRNSXJ FLP TUBE ABDL/VAG APPR UNI/BI PAST SURGICAL HISTORY OF Left ORIF femur TOTAL HIP REPLACEMENT 10/03/2013 left FAMILY HISTORY Problem Relation Age of Onset Heart Mother Arthritis Father Breast Cancer Sister Stroke Father Coronary Artery Disease Brother Coronary Artery Disease Brother Social History Tobacco Use Smoking status: Never Smokeless tobacco: Never Vaping Use Vaping Use: Never used Substance Use Topics Alcohol use: No Drug use: No Reviewed current medications, allergies, past medical history, surgical history, family history and social history today. REVIEW OF SYSTEMS No unexplained weight loss or palpitations. All other reviewed and negative other than HPI. HEALTH MAINTENANCE: Reviewed health maintenance issues today and recommended the following in detail. Behavioral Health Screening Never done VITALS: BP 135/87 Pulse 72 Wt 69.9 kg (154 lb) SpO2 93% BMI 27.28 kg/m Last 4 Encounter Wt Readings: Date: Wt: 08/30/2023 69.7 kg (153 lb 9.6 oz) 08/09/2023 69.9 kg (154 lb) 03/22/2023 69.9 kg (154 lb) 03/08/2023 71.7 kg (158 lb) PHYSICAL EXAMINATION: General appearance: Well appearing, alert, in no acute distress, well-hydrated, well nourished. Skin: Skin color, texture, turgor normal, no suspicious rashes or lesions Head: Normocephalic, no masses, lesions, tenderness or abnormalities Lungs: Lungs clear to auscultation. No wheezing, rhonchi, rales Heart: RRR without murmur, gallop, or rubs. No ectopy Abdomen: Normal abdominal exam, Abdomen soft, non-tender. Bowel sounds normal. No masses, organomegaly Ext no edema ASSESSMENT/PLAN: 1. Insomnia, unspecified type - ICD9: 780.52, ICD10: G47.00 - discussed good sleep habits. Declines sleep testing or meds. Gucci Callahan MD documented in this encounter [facility] 09-06-2023 Miscellaneous Notes 09-06....patient was scheduled in Sep than canceled and refused to r/s wanted order canceled. Mariana Pearl 09/07/2023 colon asc documented in this encounter [facility] 03-08-2023 History of Present illness Narrative Patient presents with: Blood Pressure HPI: Patient presents today for office visit for follow up. Has had several broken blood vessels in eyes recurrently and told to go to eye doctor. They told her blood pressure has been high needed to see family doctor. Sees [facility]. Had some labs done for Dr Landeros then that are scanned into chart. Does not check her blood pressure at home. No easy bruising or bleeding issues. Has been having intermittent pain in her head, dull ache on left side(top) small area. Happened about three or four days that improved with ibuprofen. Is better today. Not the worst headache she has had. No numbness or weakness. No vision or speech issues. Also has had an \\ fall in the past week (Wednesday/) when she was out picking up branches. Denies hitting her head or any LOC. No injury. Was outside and lost balance. No vertigo or near syncope. Has been fine otherwise. No chest pain or shortness of breath. Had cbc, sed rate and crp checked and reviewed in records. MEDICATIONS: Current Outpatient Medications Medication Sig losartan (COZAAR) 50 mg tablet Take 1 tablet by mouth once daily. cholecalciferol (VITAMIN D3) 50 mcg (2,000 unit) tablet Take 2,000 Units by mouth once daily. Unsure of her dosage she is taking will check it Zinc 50 mg tab Take 200 mg by mouth once daily. mometasone (ELOCON) 0.1 % cream Apply 1 application to affected area once daily. A/b-carotene/C/biofl/B6/mn/Ech (ECHINACEA C COMPLETE ORAL) Take by mouth three times daily. Acetaminophen 500 mg cap Take 1,000 mg by mouth four times daily as needed. ibuprofen (MOTRIN) 800 mg tablet Take 1 tablet by mouth every 8 hours as needed. FOR PAIN. MAGNESIUM ORAL Take 500 mg by mouth once daily. CALCIUM CARBONATE/VITAMIN D3 (CALCIUM 500 + D ORAL) Take by mouth once daily. ascorbic acid, vitamin C, (VITAMIN C) 500 mg tablet Take 500 mg by mouth once daily. No current facility-administered medications for this visit. 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 PAST SURGICAL HISTORY Procedure Laterality Date ARTHRP ACETBLR/PROX FEM PROSTC AGRFT/ALGRFT 01/30/2014 right LIG/TRNSXJ FLP TUBE ABDL/VAG APPR UNI/BI PAST SURGICAL HISTORY OF Left ORIF femur TOTAL HIP REPLACEMENT 10/03/2013 left FAMILY HISTORY Problem Relation Age of Onset Heart Mother Arthritis Father Breast Cancer Sister Stroke Father Coronary Artery Disease Brother Coronary Artery Disease Brother Social History Tobacco Use Smoking status: Never Smokeless tobacco: Never Substance Use Topics Alcohol use: No Drug use: No Reviewed current medications, allergies, past medical history, surgical history, family history and social history today. REVIEW OF SYSTEMS All other reviewed and negative other than HPI. HEALTH MAINTENANCE: Reviewed health maintenance issues today and recommended the following in detail. BP CONTROLLED (<130/80) Never done VITALS: There were no vitals taken for this visit. Last 4 Encounter Wt Readings: Date: Wt: 01/25/2023 70.1 kg (154 lb 9.6 oz) 07/31/2022 70.3 kg (155 lb) 07/20/2022 70.3 kg (155 lb) 06/04/2022 69.2 kg (152 lb 9.6 oz) PHYSICAL EXAMINATION: General appearance: Well appearing, alert, in no acute distress, well-hydrated, well nourished. Skin: Skin color, texture, turgor normal, no suspicious rashes or lesions Head: Normocephalic, no masses, lesions, tenderness or abnormalities Eyes: Anicteric sclera. Pupils are equally round and reactive to light. Extraocular movements are intact. Lungs: Lungs clear to auscultation. No wheezing, rhonchi, rales Heart: RRR without murmur, gallop, or rubs. No ectopy Abdomen: Normal abdominal exam, Abdomen soft, non-tender. Bowel sounds normal. No masses, organomegaly Extremities: No deformities, edema, skin discoloration, clubbing or cyanosis. Good capillary refill. Musculoskeletal: No joint swelling, deformity, or tenderness Peripheral pulses: Normal Neuro: Gait normal. Reflexes normal and symmetric. Sensation grossly intact., Negative findings: mental status intact ASSESSMENT/PLAN: 1. Primary hypertension - ICD9: 401.9, ICD10: I10 (primary diagnosis) - Worsening control - Recommend home blood pressure monitoring, to bring results to next visit - Encouraged sodium restriction, DASH or Mediterranean diet - Recommend regular aerobic exercise - increase losartan to 100 mg. Call if any issues including worsening headache, chest pain, shortness of breath. Red flags for re-assessment reviewed with patient in detail. - HEPATIC FUNCTION PNL 2. Subconjunctival hemorrhage of both eyes - ICD9: 372.72, ICD10: H11.33 -refrain from rubbing eyes. Check labs. Get better control for bp. - PROTHROMBIN TIME/PT - ACTIVATED PTT Gucci Callahan MD Recheck two weeks. documented in this encounter [facility] 01-25-2023 History of Present illness Narrative Patient presents with: 6 Month Exam HPI: Patient presents today for office visit for follow up. No concerns. Overall feeling well. Seen in [facility] ER on 01/23/23 for subconjunctival hemorrhage. No pain. No vision issues. No other bleeding issues. Rarely takes nsaids. HTN: Does not check BP at home Stable Misses doses of losartan but not often Denies chest pain and shortness of breath No headaches or dizziness No palpitations No syncope No edema Had normal pft's recently. No restriction. Last a1c was ok. MEDICATIONS: Current Outpatient Medications Medication Sig losartan (COZAAR) 50 mg tablet Take 1 tablet by mouth once daily. cholecalciferol (VITAMIN D3) 50 mcg (2,000 unit) tablet Take 2,000 Units by mouth once daily. Unsure of her dosage she is taking will check it Zinc 50 mg tab Take 200 mg by mouth once daily. mometasone (ELOCON) 0.1 % cream Apply 1 application to affected area once daily. A/b-carotene/C/biofl/B6/mn/Ech (ECHINACEA C COMPLETE ORAL) Take by mouth three times daily. Acetaminophen 500 mg cap Take 1,000 mg by mouth four times daily as needed. ibuprofen (MOTRIN) 800 mg tablet Take 1 tablet by mouth every 8 hours as needed. FOR PAIN. MAGNESIUM ORAL Take 500 mg by mouth once daily. CALCIUM CARBONATE/VITAMIN D3 (CALCIUM 500 + D ORAL) Take by mouth once daily. ascorbic acid, vitamin C, (VITAMIN C) 500 mg tablet Take 500 mg by mouth once daily. No current facility-administered medications for this visit. 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 PAST SURGICAL HISTORY Procedure Laterality Date ARTHRP ACETBLR/PROX FEM PROSTC AGRFT/ALGRFT 01/30/2014 right LIG/TRNSXJ FLP TUBE ABDL/VAG APPR UNI/BI PAST SURGICAL HISTORY OF Left ORIF femur TOTAL HIP REPLACEMENT 10/03/2013 left FAMILY HISTORY Problem Relation Age of Onset Heart Mother Arthritis Father Breast Cancer Sister Stroke Father Coronary Artery Disease Brother Coronary Artery Disease Brother Social History Tobacco Use Smoking status: Never Smokeless tobacco: Never Substance Use Topics Alcohol use: No Drug use: No Reviewed current medications, allergies, past medical history, surgical history, family history and social history today. REVIEW OF SYSTEMS All other reviewed and negative other than HPI. HEALTH MAINTENANCE: Reviewed health maintenance issues today and recommended the following in detail. BP CONTROLLED (<130/80) Never done ADVANCE DIRECTIVE DISCUSSION - on file. DEPRESSION ASSESSMENT Never done VITALS: BP 132/76 Pulse 69 Ht 158.1 cm (5' 2.25") Wt 70.1 kg (154 lb 9.6 oz) SpO2 94% BMI 28.05 kg/m Last 4 Encounter Wt Readings: Date: Wt: 07/31/2022 70.3 kg (155 lb) 07/20/2022 70.3 kg (155 lb) 06/04/2022 69.2 kg (152 lb 9.6 oz) 06/02/2022 70.3 kg (155 lb) PHYSICAL EXAMINATION: General appearance: Well appearing, alert, in no acute distress, well-hydrated, well nourished. Skin: Skin color, texture, turgor normal, no suspicious rashes or lesions Head: Normocephalic, no masses, lesions, tenderness or abnormalities Eyes: subconjunctival hemorrhage on the right. Red flags for re-assessment reviewed with patient in detail. To see optho if worsens. . Pupils are equally round and reactive to light. Extraocular movements are intact. Lungs: Lungs clear to auscultation. No wheezing, rhonchi, rales Heart: RRR without murmur, gallop, or rubs. No ectopy Abdomen: Normal abdominal exam, Abdomen soft, non-tender. Bowel sounds normal. No masses, organomegaly Extremities: No deformities, edema, skin discoloration, clubbing or cyanosis. Good capillary refill. ASSESSMENT/PLAN: 1. Hypertension, essential - ICD9: 401.9, ICD10: I10 (primary diagnosis) - Controlled - Continue current medications - CBC + DIFF - COMP METABOLIC PANEL 2. Hyperlipidemia with target LDL less than 100 - ICD9: 272.4, ICD10: E78.5 - Controlled - Continue current medications - LIPID PANEL BASIC 3. Prediabetes - ICD9: 790.29, ICD10: R73.03 - HGB A1C Gucci Callahan MD documented in this encounter [facility] 01-23-2023 Discharge summary Note Date/Time January 23, 2023 11:20pm [facility] Medical Records Department [address] [place] [address] Emergency Department Summary 01/23/23 MR#: [id number] Acct: [id number] Name: KRYSTLE ARAMBULA Rep #:[id number] : 1940 82 From: Maximus Enrique MD PCP: Dr. Gucci Callahan MD Status:REG E R Location: ED HPI History of Present Illness Chief Complaint: Eye Problem Informant: patient Narrative Narrative: Patient went in to wash her face and hands after sitting outside. She noticed that her right eye was red. She does state it feels a little bit different justbecause of mild swelling but she has no visual loss pain nausea vomiting or headache. No neurologic symptoms. She is not on any blood thinners including she does not take baby aspirin. She denies any known trauma sneezing coughing or other issues. She feels perfectly fine she just noticed that her eye was red. [facility] Medical History Hypertension Home Medications ascorbic acid (vitamin C) 500 mg tablet (Vitamin C) 500 mg PO DAILY@0800 05/01/15 [History Last Taken 11/19/19] calcium carbonate 600 mg-vitamin D3 20 mcg (800 unit) tablet 1 ea PO BID 05/01/15 [History Last Taken 11/19/19] losartan 25 mg tablet 25 mg PO DAILY #30 tabs 11/19/19 [Rx Last Taken Unknown] magnesium 250 mg tablet 3 tab PO DAILY 06/01/20 [History Last Taken Unknown] zinc gluconate 50 mg tablet 50 mg PO DAILY 06/01/20 [History Last Taken Unknown] benzonatate 100 mg capsule 100 mg PO TID PRN cough #14 caps 06/04/22 [Rx Last Taken Unknown] Allergy/AdvReac Type Severity Reaction Status Date / Time codeine AdvReac Other Verified 01/23/23 23:09 Surgical History History of bilateral hip arthroplasty Social History Smoking Status: Never smoker ROS ROS ED Constitutional Constitutional ED: Denies fever(s) or subjective Eyes Eyes: Reports other Details: See history of present illness. ; Denies blurry vision, change in vision or diplopia ENT ENT ED: Denies rhinorrhea or sore throat Cardiovascular Cardiovascular: Denies palpitations Respiratory/Chest Respiratory/Chest: Denies cough or dyspnea Gastrointestinal Gastrointestinal: Denies nausea or vomiting Musculoskeletal Musculoskeletal: Denies myalgias Integumentary Denies rash Neurologic Neurologic: Denies headache(s), paresthesias or weakness Hematologic/Lymphatic Hematologic/Lymphatic: Denies easy bleeding or easy bruising Allergic/Immunologic Allergic/Immunologic ED: Denies urticaria EXAM Physical Exam Narrative Exam Narrative: Patient awake alert no acute distress. She walked back from triage without any difficulties. She carries on normal conversation and looks nontoxic. HEENT: There is no sign of external rash or vesicles. No trauma or abrasion. No sinus tenderness. Nasal passages are clear. Oropharynx shows no petechiae. Eyes: There is subconjunctival hemorrhage on the right. It is greater on the inferior and medial/nasal aspect. But it does not cross in of the cornea at all. Funduscopic exam is somewhat difficult because her pupils are only about 2mm. But I see no abnormalities. Pupillary response is normal. Range of motionof the eye is normal. There is no proptosis. Neck shows no JVD Cardiorespiratory RN clear. Heart is regular. Abdomen soft nontender Extremities show no deformities or rash. Skin shows no petechiae or purpura. Const Vital Signs: 01/23/23 23:07 Temperature 97.7 F L Temperature Source Temporal Pulse Rate 72 Respiratory Rate 16 Blood Pressure 162/97 H Blood Pressure Mean 118 Pulse Ox 94 MDM MDM MDM Narrative Medical decision making narrative: Patient has findings consistent with subconjunctival hemorrhage but no symptoms. Was explained that this should resolve on its own. She already has an appointment with her physician for routine checkup coming up in a couple days. I will give her number to ophthalmology and she should return with any headaches, visual loss pain nausea vomiting or other concerns. Discharge Plan Triage Chief Complaint: Eye Problem ED Provider: Maximus Enrique Dx/Rx/DC Orders Clinical Impression: Subconjunctival hemorrhage Instructions: ED Subconjunctival Hemorrhage Prescriptions: No Action ascorbic acid (vitamin C) [Vitamin C] 500 MG tablet 500 mg PO DAILY@0800 calcium carbonate-vitamin D3 1 EACH tablet 1 ea PO BID losartan 25 MG tablet 25 mg PO DAILY Qty: 30 0RF zinc gluconate 50 MG tablet 50 mg PO DAILY magnesium 250 MG tablet 3 tab PO DAILY benzonatate 100 mg capsule 100 mg PO TID PRN (Reason: cough) Qty: 14 0RF Primary Care Provider: Gucci Callahan Referrals: Tony Esipno MD [Med Staff - Active Staff] - As Needed Gucci Callahan MD [Primary Care Provider] - Keep Adiel appointment Disposition Disposition: Home, Self Care What to do if you have Problems For any increased pain, shortness of breath, bleeding, nausea or vomiting, chestpain, or any unexpected problems, contact your Primary Care Provider. Call [facility] ([phone]) or report to the closest Emergency Room. Call 911 if necessary. 01/23/232324 <Electronically signed by Maximus Enrique MD> Cosigner Signature (if applicable): CC: Dr. Gucci Callahan MD ~ Signed [facility] Work Phone: 1(705) 237-743501-19-2023 Miscellaneous Notes* Telephone Encounter - Christel Josue RN - 08/20/2022 5:36 PM EST Spoke with patient. Given message from provider's office. Patient verbalizes understanding. Christel Josue RN * Telephone Encounter - Flori Fox LPN - 08/20/2022 2:31 PM EST Left message to return call * Telephone Encounter - Gucci Callahan MD - 08/20/2022 2:17 PM EST Bp was ok. * Telephone Encounter - Darlyn Carrizales LPN - 08/20/2022 1:07 PM EST Manual Readin/75 Pulse: 63 Repeat BP: 134/81 P: 64 Reason for blood pressure check - Last BP elevated and Medication adjustment Patient is: Taking medication as prescribed Yes Took medication today Yes If no, date medication last taken N/A Experiencing side effects No BP was elevated at last appt 07/20/22. Losartan was increased to 50mg daily. Tolerating medication well. Denies any chest pain, shortness of breath, dizziness, or headaches. No caffeine use. No personal history of tobacco use; no current exposure. Alert and oriented. Pt has been identified by name and birthdate: Yes Allergies reviewed: Yes Latex allergy: no. Medication - prescribed and OTC reviewed and updated: Yes Do you need any prescription refills prior to your next visit: Yes Health Maintenance: Reviewed and not up to date and provider notified Patient advised that she would be contacted after review by PCP. Darlyn Carrizales LPN [facility] History of Present illness Narrative* NICOLLE Curran - 07/31/2022 2:19 PM EST PULM FUNCTION SMARTBLOCK: Provider: Gucci Callahan MD Assisting Tech: NICOLLE Curran Spirometry w/BD: 1 DLCO: 1 LV - Box: 1 [facility] History of Present illness Narrative* Gucci Callahan MD - 07/20/2022 2:31 PM EST Patient presents with: 6 Month Exam HPI: Patient presents today for office visit for follow up. No concerns today. Overall feeling well. HTN: No chest pain No shortness of breath No headaches No dizziness No palpitations No syncope GERD: Discontinued Omeprazole. Staying away from junk food and eating better. Symptoms controlled. Has some cough at nights. No changes in her breathing. Feels back to normal Component Latest Ref Rng & Units 07/16/2022 Hemoglobin A1C 4.3 - 5.6 % 5.6 Estimated Average Glucose mg/dL 114 TSH 0.270 - 4.200 mIU/L 1.980 Was seen in ER post covid with chest pain. Work up negative. CT chest: No demonstrated PE, or thoracic aortic aneurysm or dissection Chronic interstitial changes in both lung schuler without a superimposed acute pulmonary process Calcified coronary vessels Degenerative bony changes Simple hepatic cyst, no specific follow-up needed. Did have pfts that showed: MEDICATIONS: Current Outpatient Medications Medication Sig cholecalciferol (VITAMIN D3) 50 mcg (2,000 unit) tablet Take 2,000 Units by mouth once daily. Unsure of her dosage she is taking will check it losartan (COZAAR) 25 mg tablet Take 1 tablet by mouth once daily. omeprazole (PRILOSEC) 20 mg capsule Take 1 capsule by mouth daily before breakfast. 1/2 hr before meal. Zinc 50 mg tab Take 200 mg by mouth once daily. mometasone (ELOCON) 0.1 % cream Apply 1 application to affected area once daily. A/b-carotene/C/biofl/B6/mn/Ech (ECHINACEA C COMPLETE ORAL) Take by mouth three times daily. Acetaminophen 500 mg cap Take 1,000 mg by mouth four times daily as needed. ibuprofen (MOTRIN) 800 mg tablet Take 1 tablet by mouth every 8 hours as needed. FOR PAIN. MAGNESIUM ORAL Take 500 mg by mouth once daily. CALCIUM CARBONATE/VITAMIN D3 (CALCIUM 500 + D ORAL) Take by mouth once daily. ascorbic acid, vitamin C, (VITAMIN C) 500 mg tablet Take 500 mg by mouth once daily. Current Facility-Administered Medications Medication Dose Route Frequency perflutren lipid microspheres 1.3 mL in NaCl (PF) 0.9% 10 mL injection (DEFINITY) INTRAVENOUS DIRECTED PRN sodium chloride 0.9 % (flush) 10 mL (BD POSIFLUSH) 10 mL INTRAVENOUS DIRECTED PRN 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 PAST SURGICAL HISTORY Procedure Laterality Date ARTHRP ACETBLR/PROX FEM PROSTC AGRFT/ALGRFT 01/30/2014 right LIG/TRNSXJ FLP TUBE ABDL/VAG APPR UNI/BI PAST SURGICAL HISTORY OF Left ORIF femur TOTAL HIP REPLACEMENT 10/03/2013 left FAMILY HISTORY Problem Relation Age of Onset Heart Mother Arthritis Father Breast Cancer Sister Stroke Father Coronary Artery Disease Brother Coronary Artery Disease Brother Social History Tobacco Use Smoking status: Never Smokeless tobacco: Never Substance Use Topics Alcohol use: No Drug use: No Reviewed current medications, allergies, past medical history, surgical history, family history andsocial history today. REVIEW OF SYSTEMS All other reviewed and negative other than HPI. HEALTH MAINTENANCE: Reviewed health maintenance issues today and recommended the following in detail. -declines vaccines. COVID-19 VACCINE(1) Never done PNEUMOCOCCAL: 67+(1 - PCV) Never done VITALS: BP 142/86 Pulse 65 Ht 162.6 cm (5' 4") Wt 70.3 kg (155 lb) SpO2 97% BMI 26.61 kg/m Last 4 Encounter Wt Readings: Date: Wt: 06/04/2022 69.2 kg (152 lb 9.6 oz) 06/02/2022 70.3 kg (155 lb) 01/14/2022 71.2 kg (157 lb) 01/05/2022 70.6 kg (155 lb 9.6 oz) PHYSICAL EXAMINATION: General appearance: Well appearing, alert, in no acute distress, well-hydrated, well nourished. Skin: Skin color, texture, turgor normal, no suspicious rashes or lesions Head: Normocephalic, no masses, lesions, tenderness or abnormalities Eyes: Anicteric sclera. Pupils are equally round and reactive to light. Extraocular movements are intact. Lungs: Lungs clear to auscultation. No wheezing, rhonchi, rales Heart: RRR without murmur, gallop, or rubs. No ectopy Abdomen: Normal abdominal exam, Abdomen soft, non-tender. Bowel sounds normal. No masses, organomegaly Extremities: No deformities, edema, skin discoloration, clubbing or cyanosis. Good capillary refill. Musculoskeletal: No joint swelling, deformity, or tenderness ASSESSMENT/PLAN: 1. Mitral valve disorder - ICD9: 394.9, ICD10: I05.9 (primary diagnosis) - echo done in November 2. Hypertension, essential - ICD9: 401.9, ICD10: I10 - suboptimal control - increase losartan. Bp check in on one month - Goal of BP <130/80 - LOSARTAN 50 MG TABLET 3. Hyperlipidemia with target LDL less than 100 - ICD9: 272.4, ICD10: E78.5 - follow labs. 4. Thyroid condition - ICD9: 246.9, ICD10: E07.9 - repeat labs are ok. 5. Prediabetes - ICD9: 790.29, ICD10: R73.03 - dyz0lbi labs are ok. 6. Osteopenia of multiple sites - ICD9: 733.90, ICD10: M85.89 -continue to follow. 7. Situational depression - ICD9: 309.0, ICD10: F43.21 - doing well. 8. Cough, unspecified type - ICD9: 786.2, ICD10: R05.9 - check pfts - SPIROMETRY - BASELINE AND POST DILATOR - MAXIMAL VOLUNTARY VENTILATION - LUNG VOLUMES 9. Lung interstitial disease (HCC) - ICD9: 515, ICD10: J84.9 - check pft's. Consider pulmonary - SPIROMETRY - BASELINE AND POST DILATOR - MAXIMAL VOLUNTARY VENTILATION - LUNG VOLUMES Gucci Callahan MD RTO in six months [facility] History of Past illness Narrative* Problem Noted Date Resolved Date Cough 07/20/2022 07/20/2022 History of severe acute resp iratory syndrome coronavirus 2 (SARS-CoV-2) disease 07/20/2022 07/20/2022 Chest pain 06/02/2022 07/20/2022 Low back pain 06/02/2022 07/20/2022 Osteoarthritis 06/02/2022 07/20/2022 Viral upper respiratory tract infection 06/02/20 22 07/20/2022 Popliteal cyst, right 04/18/2021 07/20/2022 Overview: Right knee US: 5.4 x 3.5 x 1.6 cm. Fatigue 07/29/2018 07/20/2022 Situational depression 07/29/2018 2 Osteoporosis 12/10/2014 04/30/2021 Lumbar disc disease with radiculopathy 1 07/20/2022 Disorder of bone and cartilage, unspecified 03/0407/20/2022 documented as of this encounter (statuses as of 07/20/2022) [facility]-19-[facility] History of Past illness Narrative* Problem Noted Date Resolved Date Cough 07/20/2022 07/20/2022 History of severe acute resp iratory syndrome coronavirus 2 (SARS-CoV-2) disease 07/20/2022 07/20/2022 Chest pain 06/02/2022 07/20/2022 Low back pain 06/02/2022 07/20/2022 Osteoarthritis 06/02/2022 07/20/2022 Viral upper respiratory tract infection 06/02/20 22 07/20/2022 Popliteal cyst, right 04/18/2021 07/20/2022 Overview: Right knee US: 5.4 x 3.5 x 1.6 cm. Fatigue 07/29/2018 07/20/2022 Situational depression 07/29/2018 2 Osteoporosis 12/10/2014 04/30/2021 Lumbar disc disease with radiculopathy 1 07/20/2022 Disorder of bone and cartilage, unspecified 03/0407/20/2022 documented as of this encounter (statuses as of 07/25/2022) [facility] History of Past illness Narrative* Problem Noted Date Resolved Date Cough 07/20/2022 07/20/2022 History of severe acute resp iratory syndrome coronavirus 2 (SARS-CoV-2) disease 07/20/2022 07/20/2022 Chest pain 06/02/2022 07/20/2022 Low back pain 06/02/2022 07/20/2022 Osteoarthritis 06/02/2022 07/20/2022 Viral upper respiratory tract infection 06/02/20 22 07/20/2022 Popliteal cyst, right 04/18/2021 07/20/2022 Overview: Right knee US: 5.4 x 3.5 x 1.6 cm. Fatigue 07/29/2018 07/20/2022 Situational depression 07/29/2018 2 Osteoporosis 12/10/2014 04/30/2021 Lumbar disc disease with radiculopathy 1 07/20/2022 Disorder of bone and cartilage, unspecified 03/0407/20/2022 documented as of this encounter (statuses as of 08/05/2022) [facility] History of Past illness Narrative* Problem Noted Date Resolved Date Cough 07/20/2022 07/20/2022 History of severe acute resp iratory syndrome coronavirus 2 (SARS-CoV-2) disease 07/20/2022 07/20/2022 Chest pain 06/02/2022 07/20/2022 Low back pain 06/02/2022 07/20/2022 Osteoarthritis 06/02/2022 07/20/2022 Viral upper respiratory tract infection 06/02/20 22 07/20/2022 Popliteal cyst, right 04/18/2021 07/20/2022 Overview: Right knee US: 5.4 x 3.5 x 1.6 cm. Fatigue 07/29/2018 07/20/2022 Situational depression 07/29/2018 2 Osteoporosis 12/10/2014 04/30/2021 Lumbar disc disease with radiculopathy 1 07/20/2022 Disorder of bone and cartilage, unspecified 03/0407/20/2022 documented as of this encounter (statuses as of 08/20/2022) [facility] History of Past illness Narrative* Problem Noted Date Resolved Date Cough 07/20/2022 07/20/2022 History of severe acute resp iratory syndrome coronavirus 2 (SARS-CoV-2) disease 07/20/2022 07/20/2022 Chest pain 06/02/2022 07/20/2022 Low back pain 06/02/2022 07/20/2022 Osteoarthritis 06/02/2022 07/20/2022 Viral upper respiratory tract infection 06/02/20 22 07/20/2022 Popliteal cyst, right 04/18/2021 07/20/2022 Overview: Right knee US: 5.4 x 3.5 x 1.6 cm. Fatigue 07/29/2018 07/20/2022 Situational depression 07/29/2018 2 Osteoporosis 12/10/2014 04/30/2021 Lumbar disc disease with radiculopathy 1 07/20/2022 Disorder of bone and cartilage, unspecified 03/0407/20/2022 documented as of this encounter (statuses as of 01/25/2023) [facility] History of Past illness Narrative* Problem Noted Date Diagnosed Date Resolved Date Cough 07/20/2022 07/20/2022 History of severe acute resp iratory syndrome coronavirus 2 (SARS-CoV-2) disease 07/20/202207/20 Chest pain 06/02/2022 07/20/2022 Low back pain 06/02/2022 07/20/2022 Osteoarthritis 06/02/2022 07/20/2022 Viral upper respiratory tract infection 06/02/2022 07/20/2022 Popliteal cyst, right 04/18/20212021 Overview: Right knee US: 5.4 x 3.5 x 1.6 cm. Fatigue 07/29/2018 07/20/2022 Situational depression 07/29/201807/20 Osteoporosis 12/10/2014 04/30/2021 Lumbar disc disease with radiculopathy 01/06/2011 07/20/2022 Disorder of bone and cartilage, unspecified 04/01/2005 07/20/2022 documented as of this encounter (statuses as of 03/09/2023) [facility] History of Past illness Narrative* Problem Noted Date Diagnosed Date Resolved Date Cough 07/20/2022 07/20/2022 History of severe acute resp iratory syndrome coronavirus 2 (SARS-CoV-2) disease 07/20/202207/20 Chest pain 06/02/2022 07/20/2022 Low back pain 06/02/2022 07/20/2022 Osteoarthritis 06/02/2022 07/20/2022 Viral upper respiratory tract infection 06/02/2022 07/20/2022 Popliteal cyst, right 04/18/20212021 Overview: Right knee US: 5.4 x 3.5 x 1.6 cm. Fatigue 07/29/2018 07/20/2022 Situational depression 07/29/201807/20 Osteoporosis 12/10/2014 04/30/2021 Mitral valve disorder 08/11/20132023 Lumbar disc disease with radiculopathy 01/06/2011 07/20/2022 Disorder of bone and cartilage, unspecified 04/01/2005 07/20/2022 documented as of this encounter (statuses as of 09/06/2023) [facility]11-03-[facility] History of Present illness Narrative* Yves Duarte APRN.CNP - 06/04/2022 7:17 AM EDT Patient came in with what she said was left breast pain. Upon asking question the pain is actually pleuritic pain when she takes a deep breath in she has terrible pain on the left side. Patient is currently dealing with COVID and did take a couple pills of the [place] lovid and did not finish it. At this time patient is being sent for an evaluation due to pleuritic pain and shortness of breath. Patient was okay with this care plan. [facility] History of Present illness Narrative* Gucci Callahan MD - 06/02/2022 2:24 PM EDT Patient presents with: ER F/U HPI: Patient presents today for office visit for ER F/U. [facility] in [place] on 05/21/22. Dx with COVID. Still complains of dry throat and cough. Some tiredness. Limited records available. Had symptoms started on 05/18. Had strep test that was negative. Had positive covid. Declined meds. Was given ? Paxlovid but only took for a few days. Feeling better. No current fever or chills. Throat is better. Voice is better. Still with some cough. No shortness of breath. No nausea or vomiting or diarrhea. Still tired. Was unvaccinated. MEDICATIONS: Current Outpatient Medications Medication Sig cholecalciferol (VITAMIN D3) 50 mcg (2,000 unit) tablet Take 2,000 Units by mouth once daily. Unsure of her dosage she is taking will check it losartan (COZAAR) 25 mg tablet Take 1 tablet by mouth once daily. omeprazole (PRILOSEC) 20 mg capsule Take 1 capsule by mouth daily before breakfast. 1/2 hr before meal. Zinc 50 mg tab Take 200 mg by mouth once daily. mometasone (ELOCON) 0.1 % cream Apply 1 application to affected area once daily. A/b-carotene/C/biofl/B6/mn/Ech (ECHINACEA C COMPLETE ORAL) Take by mouth three times daily. Acetaminophen 500 mg cap Take 1,000 mg by mouth four times daily as needed. ibuprofen (MOTRIN) 800 mg tablet Take 1 tablet by mouth every 8 hours as needed. FOR PAIN. MAGNESIUM ORAL Take 500 mg by mouth once daily. CALCIUM CARBONATE/VITAMIN D3 (CALCIUM 500 + D ORAL) Take by mouth once daily. ascorbic acid, vitamin C, (VITAMIN C) 500 mg tablet Take 500 mg by mouth once daily. Current Facility-Administered Medications Medication Dose Route Frequency perflutren lipid microspheres 1.3 mL in NaCl (PF) 0.9% 10 mL injection (DEFINITY) INTRAVENOUS DIRECTED PRN sodium chloride 0.9 % (flush) 10 mL (BD POSIFLUSH) 10 mL INTRAVENOUS DIRECTED PRN 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 PAST SURGICAL HISTORY Procedure Laterality Date ARTHRP ACETBLR/PROX FEM PROSTC AGRFT/ALGRFT 01/30/2014 right LIG/TRNSXJ FLP TUBE ABDL/VAG APPR UNI/BI PAST SURGICAL HISTORY OF Left ORIF femur TOTAL HIP REPLACEMENT 10/03/2013 left FAMILY HISTORY Problem Relation Age of Onset Heart Mother Arthritis Father Breast Cancer Sister Stroke Father Coronary Artery Disease Brother Coronary Artery Disease Brother Social History Tobacco Use Smoking status: Never Smokeless tobacco: Never Substance Use Topics Alcohol use: No Drug use: No Reviewed current medications, allergies, past medical history, surgical history, family history andsocial history today. REVIEW OF SYSTEMS All other reviewed and negative other than HPI. HEALTH MAINTENANCE: Reviewed health maintenance issues today and recommended the following in detail. COVID-19 VACCINE-discussed. INFLUENZA-recommended. VITALS: BP 164/88 Pulse 71 Temp 37 C (98.6 F) Ht 162.6 cm (5' 4") Wt 70.3 kg (155 lb) SpO2 96% BMI 26.61 kg/m Last 4 Encounter Wt Readings: Date: Wt: 06/02/2022 70.3 kg (155 lb) 01/14/2022 71.2 kg (157 lb) 01/05/2022 70.6 kg (155 lb 9.6 oz) 12/03/2021 70.3 kg (155 lb) PHYSICAL EXAMINATION: General appearance: Well appearing, alert, in no acute distress, well-hydrated, well nourished. Skin: Skin color, texture, turgor normal, no suspicious rashes or lesions Head: Normocephalic, no masses, lesions, tenderness or abnormalities Neck: Supple, no adenopathy; thyroid symmetric, normal size, no bruits Lungs: Lungs clear to auscultation. No wheezing, rhonchi, rales Heart: RRR without murmur, gallop, or rubs. No ectopy Abdomen: Normal abdominal exam, Abdomen soft, non-tender. Bowel sounds normal. No masses, organomegaly Extremities: No deformities, edema, skin discoloration, clubbing or cyanosis. Good capillary refill. ASSESSMENT/PLAN: 1. COVID-19 - ICD9: 079.89, ICD10: U07.1 - Red flags for re-assessment reviewed with patient in detail. - keep next appt and will recheck bp. Gucci Callahan MD documented [facility] Miscellaneous Notes* Telephone Encounter - Thai Noguera RN - 01/20/2022 9:02 AM EDT Phoned patient and given provider's message below with verbalized understanding. * Telephone Encounter - Gucci Callahan MD - 01/19/2022 6:14 PM EDT Her labs actually do not indicate hypoglycemia. They are consistent with prediabetes or borderline high sugars. Limit carbs and starches. We should check her a1c or average sugar twice a year. documented in this encounterPaul[facility]06[facility] History of Present illness Narrative* Gucci Callahan MD - 01/14/2022 1:28 PM EDT Patient presents with: 6 Month Exam GERD: does drink a lot of OJ to help with energy-off omeprazole will get back on Fatigue: feels like has to eat something about every 2 hours or gets the shakes HPI: Patient presents today for office visit for follow up. Reviewed her thyroid labs. Reviewed stress test. Echo actually looked better. Has recurrent For a while Has had to load up carbs in order to keep from getting the shakes. Does not happen first thing in the morning. Discussed that it could be related to postprandial syndrome and suggested she avoid carb overloading. No chest pain or shortness of breath. See previous ov: Patient presents today for office visit for follow up. Added prilosec. Scheduled for stress test. Just got back from a trip to [facility]. Her fatigue is much better. Chest pain is better. Still on omeprazole. No side effects. Will have her use it for a few more weeks and then use just prn. No heartburn currently. Has stress echo coming up. Has been having leg cramps. Comes and goes. Sometimes is worse when getting up in the am occaisonally. Does not happen regularly. See previous ov on , copied and pasted: Has noted feeling tired. Has been worse over the last month but may have been longer. Has noted feels shaky if not eating something all the time. Is not a good sleeper. Does have some insomnia. Is a chronic issues. Does snore. No new bowel changes. No black or bloody stools. No fever. No weight loss or gain. No sore throat or sinus congestion. No rashes. No cough. Denies depression or anxiety or stress. HTN: Patient is compliant with meds Yes Denies side effects: Yes. Chest pain: Has a vague discomfort in left chest. Sometimes when eating. No chest pain with exertion. Last time it happened was yesterday. Can last for several hours. Has been going on at least several months. Can happen weekly. Has occasional gerd Dyspnea: No. Edema: No. Palpitations: No. Syncope: No. Headache: Has occasional headache. Is nothing new. Dizziness: No. Remote echo in [address] Roque: Exam indication: TIA - The left ventricle is normal in size. There is mild concentric left ventricular hypertrophy. Left ventricular systolic function is normal. EF = 60 5% (visual est.) Baseline left ventricular diastolic function is consistent with abnormal relaxation (stage 1). - The right ventricle is normal in size. Right ventricular systolic function is normal. - The left atrial cavity is mildly dilated. - There is moderate (2+) mitral valve regurgitation. - Mildly thickened anterior mitral leaflet tip with 1+ MR. - 1+ TR. RVSP 31mmHg. - Mild aortic sclerosis with no AI. - Trivial PI. - No evidence of masses, clots or vegetation. - No evidence of shunt flow through the IAS by color doppler or saline contrast. - No prior echocardiographic exam available for comparison Results: - Exam indication: Chest Pain - The exercise stress echo was negative for ischemia at 86 % of MPHR (5.6 METS). - The left ventricle is normal in size. Left ventricular systolic function is normal. EF = 58 5% (2D biplane) Grade I left ventricular diastolic dysfunction. - The right ventricle is normal in size. Right ventricular systolic function is normal. - Exam was compared with the prior echocardiographic exam performed on 09/06/2013. Component Latest Ref Rng & Units 01/01/2022 01/13/2022 WBC 3.70 - 11.00 k/uL 5.44 RBC 3.90 - 5.20 m/uL 4.93 Hemoglobin 11.5 - 15.5 g/dL 14.2 Hematocrit 36.0 - 46.0 % 44.8 MCV 80.0 - 100.0 fL 90.9 MCH 26.0 - 34.0 pg 28.8 MCHC 30.5 - 36.0 g/dL 31.7 RDW-CV 11.5 - 15.0 % 12.3 Platelet Count 150 - 400 k/uL 192 MPV 9.0 - 12.7 fL 10.4 Neut% % 56.2 Abs Neut (ANC) 1.45 - 7.50 k/uL 3.06 Lymph% % 31.8 Abs Lymph 1.00 - 4.00 k/uL 1.73 [place]% % 8.3 Abs [place] <0.87 k/uL 0.45 Eosin% % 2.6 Abs Eosin <0.46 k/uL 0.14 Baso% % 0.9 Abs Baso <0.11 k/uL 0.05 Immature Gran % % 0.2 IMMATURE GRANS (ABS) <0.10 k/uL <0.03 NRBC /100 WBC 0.0 Absolute nRBC <0.01 k/uL <0.01 DTYPE Auto Protein, Total 6.3 - 8.0 g/dL 6.7 Albumin 3.9 - 4.9 g/dL 4.1 Calcium 8.5 - 10.2 mg/dL 9.5 Bilirubin, Total 0.2 - 1.3 mg/dL 0.3 Alkaline Phosphatase 34 - 123 U/L 72 AST 13 - 35 U/L 21 ALT 7 - 38 U/L 26 Glucose 74 - 99 mg/dL 91 BUN 7 - 21 mg/dL 20 Creatinine 0.58 - 0.96 mg/dL 0.69 Sodium 136 - 144 mmol/L 141 Potassium 3.7 - 5.1 mmol/L 4.5 Chloride 97 - 105 mmol/L 104 CO2 22 - 30 mmol/L 28 Anion Gap 9 - 18 mmol/L 9 eGFR >=60 mL/min/1.73m 88 Cholesterol, Total <200 mg/dL 210 (H) Triglyceride <150 mg/dL 84 HDL Cholesterol >39 mg/dL 48 Non HDL Cholesterol <130 mg/dL 162 (H) Fasting Time hrs 12 VLDL Cholesterol <30 mg/dL 17 TC:HDL Ratio <5.10 4.38 LDL Cholesterol <100 mg/dL 145 (H) LDL:HDL Ratio <2.54 3.02 (H) Iron 41 - 186 ug/dL 63 TIBC 232 - 386 ug/dL 290 Transferrin Saturation 15 - 57 % 22 T4 5.5 - 10.2 ug/dL 6.8 T4 Uptake 0.91 - 1.19 1.10 FTI 5.3 - 10.8 ug/dL 6.2 TSH 0.270 - 4.200 mIU/L 4.360 (H) 3.240 Magnesium 1.7 - 2.3 mg/dL 2.1 Vitamin D 25 Hydroxy 31.0 - 80.0 ng/mL 28.9 (L) T3 79 - 165 ng/dL 121 Microsomal Antibody <5.6 IU/mL 84.8 (H) Thyroglobulin Ab <14.4 IU/mL 22.4 (H) MEDICATIONS: Current Outpatient Medications Medication Sig cholecalciferol (VITAMIN D-3) 50 mcg (2,000 unit) tablet Take 2,000 Units by mouth once daily. Unsure of her dosage she is taking will check it omeprazole (PRILOSEC) 20 mg capsule Take 1 capsule by mouth daily before breakfast. 1/2 hr before meal. losartan (COZAAR) 25 mg tablet Take 1 tablet by mouth once daily. MAGNESIUM ORAL Take 500 mg by mouth once daily. ascorbic acid (VITAMIN C) 500 mg tablet Take 500 mg by mouth once daily. Zinc 50 mg tab Take 200 mg by mouth once daily. mometasone (ELOCON) 0.1 % cream Apply 1 application to affected area once daily. A/b-carotene/C/biofl/B6/mn/Ech (ECHINACEA C COMPLETE ORAL) Take by mouth three times daily. (Patient not taking: Reported on 01/05/2022 ) Acetaminophen 500 mg cap Take 1,000 mg by mouth four times daily as needed. ibuprofen (MOTRIN) 800 mg tablet Take 1 tablet by mouth every 8 hours as needed. FOR PAIN. CALCIUM CARBONATE/VITAMIN D3 (CALCIUM 500 + D ORAL) Take by mouth once daily. Current Facility-Administered Medications Medication Dose Route Frequency perflutren lipid microspheres 1.3 mL in NaCl (PF) 0.9% 10 mL injection (DEFINITY) INTRAVENOUS DIRECTED PRN sodium chloride 0.9 % (flush) 10 mL (BD POSIFLUSH) 10 mL INTRAVENOUS DIRECTED PRN 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 PAST SURGICAL HISTORY Procedure Laterality Date ARTHRP ACETBLR/PROX FEM PROSTC AGRFT/ALGRFT 01/30/2014 right LIG/TRNSXJ FLP TUBE ABDL/VAG APPR UNI/BI PAST SURGICAL HISTORY OF Left ORIF femur TOTAL HIP REPLACEMENT 10/03/2013 left FAMILY HISTORY Problem Relation Age of Onset Heart Mother Arthritis Father Breast Cancer Sister Stroke Father Coronary Artery Disease Brother Coronary Artery Disease Brother Social History Tobacco Use Smoking status: Never Smoker Smokeless tobacco: Never Used Substance Use Topics Alcohol use: No Drug use: No Reviewed current medications, allergies, past medical history, surgical history, family history andsocial history today. REVIEW OF SYSTEMS All other reviewed and negative other than HPI. VITALS: BP 128/82 Pulse 68 Wt 71.2 kg (157 lb) BMI 26.95 kg/m Last 4 Encounter Wt Readings: Date: Wt: 01/14/2022 71.2 kg (157 lb) 01/05/2022 70.6 kg (155 lb 9.6 oz) 12/03/2021 70.3 kg (155 lb) 10/22/2021 69.9 kg (154 lb) PHYSICAL EXAMINATION: General appearance: Well appearing, alert, in no acute distress, well-hydrated, well nourished. Skin: Skin color, texture, turgor normal, no suspicious rashes or lesions Head: Normocephalic, no masses, lesions, tenderness or abnormalities Lungs: Lungs clear to auscultation. No wheezing, rhonchi, rales Heart: RRR without murmur, gallop, or rubs. No ectopy Abdomen: Normal abdominal exam, Abdomen soft, non-tender. Bowel sounds normal. No masses, organomegaly Extremities: No deformities, edema, skin discoloration, clubbing or cyanosis. Good capillary refill. Musculoskeletal: No joint swelling, deformity, or tenderness ASSESSMENT/PLAN: 1. Thyroid condition - ICD9: 246.9, ICD10: E07.9 (primary diagnosis) - check tsh etc once or twice a year. Does not need meds. 2. Hypertension, essential - ICD9: 401.9, ICD10: I10 - good control - Continue current medication(s) - Goal of BP <130/80 - LOSARTAN 25 MG TABLET 3. Hyperlipidemia with target LDL less than 100 - ICD9: 272.4, ICD10: E78.5 - stable. 4. Hypoglycemia - ICD9: 251.2, ICD10: E16.2 - avoid high carb loads. Did just eat, so will get labs today postprandial. - GLUCOSE RANDOM BLD - C-PEPTIDE BLD - PROINSULIN INTACT BLOOD - KETONES/ACETONE/BHB - INSULIN ASSAY BLOOD - HGB A1C 5. GERD: Resume prilosec for six weeks straight and then if see if can go prn. Gucci Callahan RTO in six months and prn. documented in this encounterPaul[facility]06[facility] Miscellaneous Notes* Telephone Encounter - Gucci Callahan MD - 01/14/2022 1:28 PM EDT Has appt. Will go over * Telephone Encounter - Gucci Callahan MD - 01/14/2022 12:41 PM EDT The good new is the repeat thyroid testing is ok. 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 documented in this encounterPaulding [facility]06-[facility]22 Miscellaneous Notes* Telephone Encounter - Keri Watters RN - 01/05/2022 11:52 PM EDT Reason for Disposition Medication questions Answer Assessment - Initial Assessment Questions 1. REASON FOR CALL or QUESTION: Pt was seen at the [facility] today for back pain. She was started on Prednisone and took her first dose at 7 pm. Pt is c/o of a sharp shooting pain and wants to know what she can take. Did advise pt to give the mediation time to work. Pt stated heat is helping the pain. Pt has Tylenol and will take that now. Protocols used: INFORMATION ONLY CALL - NO [id number] documented in this encounterPaulding [facility] Hospital06-[facility]22 History of Present illness Narrative* Sanford Samayoa MD - 01/05/2022 6:09 PM EDT Patient presents with: Back Pain: started today HPI: Back pain: Duration: Started today. Had similar pain last year. Character: sharp Location: Left lower thorax Radiation: No. Aggravating: Not worse with bending and twisting Relieving: pressure Pain relievers: Motrin Associated: Did mulch a couple days ago Pertinent negatives: Denies numbness or weakness, fever, cough, shortness of breath, PAST MEDICAL HISTORY Diagnosis Date Hyperlipidemia LDL goal < 100 08/20/2013 Lumbar disc disease with radiculopathy 01/06/2011 Mitral valve disorder 08/11/2013 Osteoarthritis of both hips 10/03/2013 Osteoporosis 12/10/2014 Pelvic floor weakness 05/05/2012 Situational depression 07/29/2018 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 MEDICATIONS: mometasone (ELOCON) 0.1 % cream Apply 1 application to affected area once daily. losartan (COZAAR) 25 mg tablet Take 1 tablet by mouth once daily. Acetaminophen 500 mg cap Take 1,000 mg by mouth four times daily as needed. ibuprofen (MOTRIN) 800 mg tablet Take 1 tablet by mouth every 8 hours as needed. FOR PAIN. MAGNESIUM ORAL Take 500 mg by mouth once daily. CALCIUM CARBONATE/VITAMIN D3 (CALCIUM 500 + D ORAL) Take by mouth once daily. ascorbic acid (VITAMIN C) 500 mg tablet Take 500 mg by mouth once daily. omeprazole (PRILOSEC) 20 mg capsule Take 1 capsule by mouth daily before breakfast. 1/2 hr before meal. Zinc 50 mg tab Take 200 mg by mouth once daily. A/b-carotene/C/biofl/B6/mn/Ech (ECHINACEA C COMPLETE ORAL) Take by mouth three times daily. ALLERGIES: ALLERGIES Allergen Reactions Tylenol #3 [Codeine] vomitting Juanita Inhibitors Cough Food Extracts Itching VITALS: BP 132/98 Pulse 65 Temp 36.9 C (98.4 F) Resp 21 Wt 70.6 kg (155 lb 9.6 oz) SpO2 96% BMI26.71 kg/m PHYSICAL EXAM: GEN: pleasant, no acute distress, alert HEART: regular rate, regular rhythm, no murmurs LUNGS: clear to auscultation, no wheezes or crackles, no increased WOB EXT: no clubbing, no cyanosis, no edema BACK: Normal curvature of spine. No midline tenderness. No paraspinal tenderness. mild discomfort with palpation around T8 in the posterior axillary line. Straight leg test negative. Normal lower extremity strength. ASSESSMENT/PLAN: 1. Mid back pain on left side - ICD9: 724.5, ICD10: M54.9 Mechanical back pain - PREDNISONE 10 MG TABLET taper which she tolerated last time she had similar pain. Seek immediate evaluation for shortness of breath, worsening cough, loss of bladder or bowel control, unexplained fever, or progressive weakness or numbness. Sanford Samayoa MD documented in this encounterPaul[facility]06-04-2022 Miscellaneous Notes* Telephone Encounter - Christel Josue RN - 01/03/2022 10:25 AM EDT Spoke with patient. Given message from provider's office. Patient verbalizes understanding. Christel Josue RN * Telephone Encounter - Lori Mack Ma - 01/02/2022 1:07 PM EDT Left message for patient to call office back Lori Mack Ma * Telephone Encounter - Gucci Callahan MD - 01/02/2022 9:15 AM EDT Labs overall ok., vit d is borderline low. Make sure on vit d supplement otc. Thyroid is barely borderline. Recheck labs in two weeks. Cholesterol is mildly up, watch the diet. documented in this encounter[facility] Miscellaneous Notes* Telephone Encounter - Miriam Giles RN - 12/16/2021 2:26 PM EDT Patient returned call and given provider's message below and patient verbalized understanding. Santhosh Giles RN * Telephone Encounter - Flori Fox LPN - 12/16/2021 12:41 PM EDT Left message for patient to return call. * Telephone Encounter - Flori Fox LPN - 12/16/2021 12:40 PM EDT ----- Message from Gucci Callahan MD sent at 12/16/2021 12:30 PM EDT ----- Is overall ok. No signs of blockage. Let her know documented in this encounterPaul[facility]05[facility]11-[facility]22 Miscellaneous Notes* Telephone Encounter - Yvonne Martins RN - 12/10/2021 9:31 AM EDT Call to pt regarding below. Pt verbalized understanding. *NOTHING BY MOUTH 4 HOURS prior to this test. (you may have sips of water) *NO CAFFEINE FOR 24 HOURS PRIOR TO TESTING (ie. TEA even decaf, COFFEE- even decaf, CHOCOLATE, CESAR- even decaf) *Do NOT take MEDICATIONS CONTAINING CAFFEINE/XANTHINE for 24 HOURS prior to testing: Theophylline, Trental, Excedrin, Anacin, Goody Powders, No Doz, Vivarin, Midol, Diurex, Fiorinal, Fioricet, Esgic (butalbital) *Do NOT take Calcium Channel Blockers 24 HOURS prior to test: Diltiazem (Cardizem), Verapamil *Do NOT take Beta blockers 24 HOURS prior to test UNLESS your doctor tells you otherwise: Bisoprolol (Zebeta, ZIAC), Metoprolol (Lopressor, Toprol, Lopressor HCT), Nadolol ( Corgard, Corizide), Nebivolol (Bystolic), Pindolol (Visken), Propranolol (Inderal, Inderide), Carvedilol (Coreg, Coreg CR), Labetalol (Trandate) Atenolol (Tenormin, Tenoretic) Acebutolol (Sectral). *Do NOT use the following medications 48 HOURS prior to this test: Viagra(Sildenafil citrate), Cialis(Tadalafil), Vardenafil (Levitra, Stanyx), Avanfil (Stendra). *Do not take any of these meds prior to test unless provider directs you otherwise; Nitroglycerine (ex:Deponit, Nitrostat) Isosorbide (ex:Isordil, Sorbitrate,Imdur,Ismo). *DO CONTINUE TO TAKE ALL YOUR OTHER MEDICATIONS YOU NORMALLY DO. *Guidelines for Diabetics: If you take insulin to control your blood sugar, ask you physician what amount you should take the day of the test. If you take pills to control blood sugar, on the day of the test, do NOT take them until AFTER the test. *FAILURE TO FOLLOW THESE INSTRUCTIONS WILL RESULT IN HAVING TO RESCHEDULE THE TEST. *Please wear comfortable clothes with a short-sleeved shirt and comfortable walking shoes. *If you use an inhaler, bring it along with you just in case *THIS TEST MAY TAKE UP TO 3 HOURS TO COMPLETE. Please check in on the first floor at Radiology: [address]; [place] [address] * If you need to cancel or reschedule this test or have any questions regarding this test, please call [phone]. documented in this encounterPaul[facility]05-04-[facility]22 History of Present illness Narrative* Gucci Callahan MD - 12/03/2021 11:34 AM EDT Patient presents with: Follow Up: fatigue-has been feeling better-stress test is scheduled Leg Cramps HPI: Patient presents today for office visit for follow up. Added prilosec. Scheduled for stress test. Just got back from a trip to [facility]. Her fatigue is much better. Chest pain is better. Still on omeprazole. No side effects. Will have her use it for a few more weeks and then use just prn. No heartburn currently. Has stress echo coming up. Has been having leg cramps. Comes and goes. Sometimes is worse when getting up in the am occaisonally. Does not happen regularly. See previous ov on , copied and pasted: Has noted feeling tired. Has been worse over the last month but may have been longer. Has noted feels shaky if not eating something all the time. Is not a good sleeper. Does have some insomnia. Is a chronic issues. Does snore. No new bowel changes. No black or bloody stools. No fever. No weight loss or gain. No sore throat or sinus congestion. No rashes. No cough. Denies depression or anxiety or stress. HTN: Patient is compliant with meds Yes Denies side effects: Yes. Chest pain: Has a vague discomfort in left chest. Sometimes when eating. No chest pain with exertion. Last time it happened was yesterday. Can last for several hours. Has been going on at least several months. Can happen weekly. Has occasional gerd Dyspnea: No. Edema: No. Palpitations: No. Syncope: No. Headache: Has occasional headache. Is nothing new. Dizziness: No. [place] [address] Roque: Exam indication: TIA - The left ventricle is normal in size. There is mild concentric left ventricular hypertrophy. Left ventricular systolic function is normal. EF = 60 5% (visual est.) Baseline left ventricular diastolic function is consistent with abnormal relaxation (stage 1). - The right ventricle is normal in size. Right ventricular systolic function is normal. - The left atrial cavity is mildly dilated. - There is moderate (2+) mitral valve regurgitation. - Mildly thickened anterior mitral leaflet tip with 1+ MR. - 1+ TR. RVSP 31mmHg. - Mild aortic sclerosis with no AI. - Trivial PI. - No evidence of masses, clots or vegetation. - No evidence of shunt flow through the IAS by color doppler or saline contrast. - No prior echocardiographic exam available for comparison Component Latest Ref Rng & Units 10/22/2021 WBC 3.70 - 11.00 k/uL 5.15 RBC 3.90 - 5.20 m/uL 4.83 Hemoglobin 11.5 - 15.5 g/dL 14.0 Hematocrit 36.0 - 46.0 % 42.2 MCV 80.0 - 100.0 fL 87.4 MCH 26.0 - 34.0 pg 29.0 MCHC 30.5 - 36.0 g/dL 33.2 RDW-CV 11.5 - 15.0 % 12.9 Platelet Count 150 - 400 k/uL 162 MPV 9.0 - 12.7 fL 10.5 Neut% % 63.5 Abs Neut (ANC) 1.45 - 7.50 k/uL 3.27 Lymph% % 23.3 Abs Lymph 1.00 - 4.00 k/uL 1.20 Belmont% % 9.7 Abs [place] <0.87 k/uL 0.50 Eosin% % 2.1 Abs Eosin <0.46 k/uL 0.11 Baso% % 1.0 Abs Baso <0.11 k/uL 0.05 Immature Gran % % 0.4 IMMATURE GRANS (ABS) <0.10 k/uL <0.03 NRBC /100 WBC 0.0 Absolute nRBC <0.01 k/uL <0.01 DTYPE Auto Protein, Total 6.3 - 8.0 g/dL 6.8 Albumin 3.9 - 4.9 g/dL 4.4 Calcium 8.5 - 10.2 mg/dL 9.4 Bilirubin, Total 0.2 - 1.3 mg/dL 0.5 Alkaline Phosphatase 34 - 123 U/L 76 AST 13 - 35 U/L 28 ALT 7 - 38 U/L 33 Glucose 74 - 99 mg/dL 92 BUN 7 - 21 mg/dL 16 Creatinine 0.58 - 0.96 mg/dL 0.62 Sodium 136 - 144 mmol/L 139 Potassium 3.7 - 5.1 mmol/L 4.3 Chloride 97 - 105 mmol/L 101 CO2 22 - 30 mmol/L 29 Anion Gap 9 - 18 mmol/L 9 eGFR >=60 mL/min/1.73m 91 WSR 0 - 20 mm/hr 6 Chest xray was normal. MEDICATIONS: Current Outpatient Medications Medication Sig omeprazole (PRILOSEC) 20 mg capsule Take 1 capsule by mouth daily before breakfast. 1/2 hr before meal. Zinc 50 mg tab Take 200 mg by mouth once daily. mometasone (ELOCON) 0.1 % cream Apply 1 application to affected area once daily. losartan (COZAAR) 25 mg tablet Take 1 tablet by mouth once daily. A/b-carotene/C/biofl/B6/mn/Ech (ECHINACEA C COMPLETE ORAL) Take by mouth three times daily. Acetaminophen 500 mg cap Take 1,000 mg by mouth four times daily as needed. ibuprofen (MOTRIN) 800 mg tablet Take 1 tablet by mouth every 8 hours as needed. FOR PAIN. MAGNESIUM ORAL Take 500 mg by mouth once daily. CALCIUM CARBONATE/VITAMIN D3 (CALCIUM 500 + D ORAL) Take by mouth once daily. ascorbic acid (VITAMIN C) 500 mg tablet Take 500 mg by mouth once daily. Current Facility-Administered Medications Medication Dose Route Frequency perflutren lipid microspheres 1.3 mL in NaCl (PF) 0.9% 10 mL injection (DEFINITY) INTRAVENOUS DIRECTED PRN sodium chloride 0.9 % (flush) 10 mL (BD POSIFLUSH) 10 mL INTRAVENOUS DIRECTED PRN 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 PAST SURGICAL HISTORY Procedure Laterality Date ARTHRP ACETBLR/PROX FEM PROSTC AGRFT/ALGRFT 01/30/2014 right LIG/TRNSXJ FLP TUBE ABDL/VAG APPR UNI/BI PAST SURGICAL HISTORY OF Left ORIF femur TOTAL HIP REPLACEMENT 10/03/2013 left FAMILY HISTORY Problem Relation Age of Onset Heart Mother Arthritis Father Breast Cancer Sister Stroke Father Coronary Artery Disease Brother Coronary Artery Disease Brother Social History Tobacco Use Smoking status: Never Smoker Smokeless tobacco: Never Used Substance Use Topics Alcohol use: No Drug use: No Reviewed current medications, allergies, past medical history, surgical history, family history andsocial history today. REVIEW OF SYSTEMS All other reviewed and negative other than HPI. HEALTH MAINTENANCE: Reviewed health maintenance issues today ADVANCE DIRECTIVE DISCUSSION-Discussed advanced planning with patient today. They have a DPOA/Living Will:Yes Chosen surrogate for decision maker:her daughter Reminded patients to have copies of their forms brought into the office to have placed in their medical records. Questions were answered. VITALS: BP 136/80 Pulse 76 Wt 70.3 kg (155 lb) BMI 26.61 kg/m Last 4 Encounter Wt Readings: Date: Wt: 12/03/2021 70.3 kg (155 lb) 10/22/2021 69.9 kg (154 lb) 07/21/2021 69.4 kg (153 lb) 07/16/2021 69.9 kg (154 lb) PHYSICAL EXAMINATION: General appearance: Well appearing, alert, in no acute distress, well-hydrated, well nourished. Skin: Skin color, texture, turgor normal, no suspicious rashes or lesions Head: Normocephalic, no masses, lesions, tenderness or abnormalities Eyes: Anicteric sclera. Pupils are equally round and reactive to light. Extraocular movements are intact. Lungs: Lungs clear to auscultation. No wheezing, rhonchi, rales Heart: RRR without murmur, gallop, or rubs. No ectopy Abdomen: Normal abdominal exam, Abdomen soft, non-tender. Bowel sounds normal. No masses, organomegaly Extremities: No deformities, edema, skin discoloration, clubbing or cyanosis. Good capillary refill. Musculoskeletal: No joint swelling, deformity, or tenderness Peripheral pulses: Normal Neuro: Negative. ASSESSMENT/PLAN: 1. Muscle cramps - ICD9: 729.82, ICD10: R25.2 (primary diagnosis) - make sure is hydrated. - MAGNESIUM BLD - TSH BLD - IRON + TIBC - BASIC METABOLIC PNL - VITAMIN D 25 HYDROXY 2. Hypertension, essential - ICD9: 401.9, ICD10: I10 - good control - Continue current medication(s) - Goal of BP <130/80 3. Hyperlipidemia with target LDL less than 100 - ICD9: 272.4, ICD10: E78.5 - good control - Continue current medication. - LIPID PANEL BASIC 4. Mitral valve disorder - ICD9: 394.9, ICD10: I05.9 - get stress echo. 5. Pain in both lower extremities - ICD9: 729.5, ICD10: M79.604, M79.605 - MAGNESIUM BLD - TSH BLD - IRON + TIBC - BASIC METABOLIC PNL - VITAMIN D 25 HYDROXY 6. Chest pain, unspecified type - ICD9: 786.50, ICD10: R07.9 - as above with prilosec. Get testing. Red flags for re-assessment reviewed with patient in detail. Gucci Callahan Keep next appt documented in this encounter[facility]03-23-[facility]22 History of Present illness Narrative* Maria Bah RT(R) - 10/22/2021 9:10 AM EDT Radiology Service Progress Note PATIENT NAME: Krystle Arambula DATE OF SERVICE: October 22, 2021 TIME: 9:22 AM PATIENT IDENTITY VERIFICATION COMPLETED USING TWO (2) IDENTIFIERS: Name and Date of confirmedby patient verbally. FALL SCREENING: Has the patient had 2 falls in the last year or 1 fall with injury or currently using an Ambulatory Assistive Device (Walker, Cane, Wheelchair, Crutches, etc.)? No PATIENT GENDER DATA: Female. status: : No status: NO. PATIENT RELEVANT IMPLANT DATA REVIEWED: Yes RADIOLOGY DEPARTMENT: General X-ray: Exam(s) Completed: Chest X-Ray PERIPHERAL IV DATA: Not applicable SIGNED BY: RT Eyal(R) October 22, 2021 9:22 AM documented in this encounterPaul[facility]03-23-2022 History of Present illness Narrative* Gucci Callahan MD - 10/22/2021 8:07 AM EDT Patient presents with: Fatigue: for about 1 month or so HPI: Patient presents today for office visit for acute visit. Has noted feeling tired. Has been worse over the last month but may have been longer. Has noted feels shaky if not eating something all the time. Is not a good sleeper. Does have some insomnia. Is a chronic issues. Does snore. No new bowel changes. No black or bloody stools. No fever. No weight loss or gain. No sore throat or sinus congestion. No rashes. No cough. Denies depression or anxiety or stress. HTN: Patient is compliant with meds Yes Denies side effects: Yes. Chest pain: Has a vague discomfort in left chest. Sometimes when eating. No chest pain with exertion. Last time it happened was yesterday. Can last for several hours. Has been going on at least several months. Can happen weekly. Has occasional gerd Dyspnea: No. Edema: No. Palpitations: No. Syncope: No. Headache: Has occasional headache. Is nothing new. Dizziness: No. Remote [place] [address] Roque: Exam indication: TIA - The left ventricle is normal in size. There is mild concentric left ventricular hypertrophy. Left ventricular systolic function is normal. EF = 60 5% (visual est.) Baseline left ventricular diastolic function is consistent with abnormal relaxation (stage 1). - The right ventricle is normal in size. Right ventricular systolic function is normal. - The left atrial cavity is mildly dilated. - There is moderate (2+) mitral valve regurgitation. - Mildly thickened anterior mitral leaflet tip with 1+ MR. - 1+ TR. RVSP 31mmHg. - Mild aortic sclerosis with no AI. - Trivial PI. - No evidence of masses, clots or vegetation. - No evidence of shunt flow through the IAS by color doppler or saline contrast. - No prior echocardiographic exam available for comparison MEDICATIONS: Current Outpatient Medications Medication Sig Zinc 50 mg tab Take 200 mg by mouth once daily. losartan (COZAAR) 25 mg tablet Take 1 tablet by mouth once daily. A/b-carotene/C/biofl/B6/mn/Ech (ECHINACEA C COMPLETE ORAL) Take by mouth three times daily. Acetaminophen 500 mg cap Take 1,000 mg by mouth four times daily as needed. MAGNESIUM ORAL Take 500 mg by mouth once daily. CALCIUM CARBONATE/VITAMIN D3 (CALCIUM 500 + D ORAL) Take by mouth once daily. ascorbic acid (VITAMIN C) 500 mg tablet Take 500 mg by mouth once daily. mometasone (ELOCON) 0.1 % cream Apply 1 application to affected area once daily. ibuprofen (MOTRIN) 800 mg tablet Take 1 tablet by mouth every 8 hours as needed. FOR PAIN. No current facility-administered medications for this visit. 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 PAST SURGICAL HISTORY Procedure Laterality Date ARTHRP ACETBLR/PROX FEM PROSTC AGRFT/ALGRFT 01/30/2014 right LIG/TRNSXJ FLP TUBE ABDL/VAG APPR UNI/BI PAST SURGICAL HISTORY OF Left ORIF femur TOTAL HIP REPLACEMENT 10/03/2013 left FAMILY HISTORY Problem Relation Age of Onset Heart Mother Arthritis Father Breast Cancer Sister Stroke Father Coronary Artery Disease Brother Coronary Artery Disease Brother Social History Tobacco Use Smoking status: Never Smoker Smokeless tobacco: Never Used Substance Use Topics Alcohol use: No Drug use: No Reviewed current medications, allergies, past medical history, surgical history, family history andsocial history today. REVIEW OF SYSTEMS HEENT: No changes in hearing or vision, no nose bleeds or other nasal problems, sometimes will haveoccasionally blurring vision in her left eye but is not something new. suggested she see her eye doctor to start. NECK: Negative for lumps, goiter, pain and significant neck swelling RETAIL SHIFT LEADER: Negative for abnormal vaginal bleeding, abnormal vaginal discharge All other reviewed and negative other than HPI. HEALTH MAINTENANCE: Reviewed health maintenance issues today and recommended the following in detail. COVID-19 VACCINE-Discussed risks and benefits of covid vaccine. Recommended they consider it. Did have covid remotely. No recent changes. ADVANCE DIRECTIVE DISCUSSION--has dpoa or living will. Daughter is her surrogate. VITALS: BP 136/82 Pulse 68 Wt 69.9 kg (154 lb) BMI 26.43 kg/m Last 4 Encounter Wt Readings: Date: Wt: 10/22/2021 69.9 kg (154 lb) 07/21/2021 69.4 kg (153 lb) 07/16/2021 69.9 kg (154 lb) 04/10/2021 71.2 kg (157 lb) PHYSICAL EXAMINATION: General appearance: Well appearing, alert, in no acute distress, well-hydrated, well nourished. Skin: Skin color, texture, turgor normal, no suspicious rashes or lesions Head: Normocephalic, no masses, lesions, tenderness or abnormalities Eyes: Anicteric sclera. Pupils are equally round and reactive to light. Extraocular movements are intact. Neck: Supple, no adenopathy; thyroid symmetric, normal size, no bruits chest wall nontender Lungs: Lungs clear to auscultation. No wheezing, rhonchi, rales Heart: RRR without murmur, gallop, or rubs. No ectopy Abdomen: Normal abdominal exam, Abdomen soft, non-tender. Bowel sounds normal. No masses, organomegaly Extremities: No deformities, edema, skin discoloration, clubbing or cyanosis. Good capillary refill. Musculoskeletal: No joint swelling, deformity, or tenderness Peripheral pulses: Normal Neuro: Negative. ASSESSMENT/PLAN: 1. Fatigue, unspecified type - ICD9: 780.79, ICD10: R53.83 (primary diagnosis) - declines sleep study. - call if any issues. - CBC + DIFF - COMP METABOLIC PANEL - TSH BLD - SED RATE WESTERGREN 2. Advance care planning - ICD9: V65.49, ICD10: Z71.89 - done. 3. Hyperlipidemia with target LDL less than 100 - ICD9: 272.4, ICD10: E78.5 - to be determined upon return of lab results - Continue current medication. - LIPID PANEL BASIC 4. Hypertension, essential - ICD9: 401.9, ICD10: I10 - good control - Continue current medication(s) - Goal of BP <130/80 5. Mitral valve disorder - ICD9: 394.9, ICD10: I05.9 - recheck echo 6. Osteopenia of multiple sites - ICD9: 733.90, ICD10: M85.89 - just checked in last year. 7. Chest pain, unspecified type - ICD9: 786.50, ICD10: R07.9 - Red flags for re-assessment reviewed with patient in detail. - do stress echo to rule out ischemia, do echo given his of valvular heart diease. - ECG COMPLETE - XR CHEST 2V FRONTAL/LAT - PERFLUTREN LIPID MICROSPHERES 1.1 MG/ML INJECTION IN NS 10 ML - SODIUM CHLORIDE 0.9 % (FLUSH) INJECTION SYRINGE - STRESS ECHO TREADMILL 8. Mitral valve insufficiency, unspecified etiology - ICD9: 424.0, ICD10: I34.0 - PERFLUTREN LIPID MICROSPHERES 1.1 MG/ML INJECTION IN NS 10 ML - SODIUM CHLORIDE 0.9 % (FLUSH) INJECTION SYRINGE - STRESS ECHO TREADMILL 9. GERD without esophagitis - ICD9: 530.81, ICD10: K21.9 - Discussed risks and benefits of new medication with the patient. Advised them to call if any sideeffects or questions. - OMEPRAZOLE 20 MG CAPSULE,DELAYED RELEASE 10. Encounter for preprocedure screening laboratory testing for COVID-19 - ICD9: V72.63, V01.79, ICD10: Z01.812, Z20.822 - PRE-PROCEDURE & PRE-OPERATIVE COVID Gucci Callahan RTO in six weeks and prn. documented in this encounterPaul[facility]05-10-[facility] History of Present illness Narrative* Maria Bah RT(R) - 12/09/2020 1:50 PM EDT Radiology Service Progress Note PATIENT NAME: Krystle Arambula DATE OF SERVICE: December 09, 2020 TIME: 1:49 PM PATIENT IDENTITY VERIFICATION COMPLETED USING TWO (2) IDENTIFIERS: Name and Date of confirmedby patient verbally. FALL SCREENING: Has the patient had 2 falls in the last year or 1 fall with injury or currently using an Ambulatory Assistive Device (Walker, Cane, Wheelchair, Crutches, etc.)? No PATIENT GENDER DATA: Female. status: : No status: NO. PATIENT RELEVANT IMPLANT DATA REVIEWED: Yes RADIOLOGY DEPARTMENT: General X-ray: Exam(s) Completed: Lower Extremity X- Ray(s): Knee, AP / Lat / Tunne / Merchant Right and Wt. Bearing PERIPHERAL IV DATA: Not applicable SIGNED BY: RT Eyal(R) December 09, 2020 1:49 PM documented in this encounterPaul[facility]05-11-2015 History of Past illness Narrative* Problem Noted Date Resolved Date Osteoporosis 12/10/2014 04/30/2021 documented as of this encounter (statuses as of 10/22/2021) [facility] Narrative* Problem Noted Date Resolved Date Osteoporosis 12/10/2014 04/30/2021 documented as of this encounter (statuses as of 12/03/2021) [facility] Narrative* Problem Noted Date Resolved Date Osteoporosis 12/10/2014 04/30/2021 documented as of this encounter (statuses as of 12/10/2021) [facility] Narrative* Problem Noted Date Resolved Date Osteoporosis 12/10/2014 04/30/2021 documented as of this encounter (statuses as of 12/16/2021) [facility] Narrative* Problem Noted Date Resolved Date Osteoporosis 12/10/2014 04/30/2021 documented as of this encounter (statuses as of 01/03/2022) [facility] Narrative* Problem Noted Date Resolved Date Osteoporosis 12/10/2014 04/30/2021 documented as of this encounter (statuses as of 01/05/2022) [facility] Narrative* Problem Noted Date Resolved Date Osteoporosis 12/10/2014 04/30/2021 documented as of this encounter (statuses as of 01/06/2022) [facility] Narrative* Problem Noted Date Resolved Date Osteoporosis 12/10/2014 04/30/2021 documented as of this encounter (statuses as of 01/14/2022) [facility] Narrative* Problem Noted Date Resolved Date Osteoporosis 12/10/2014 04/30/2021 documented as of this encounter (statuses as of 01/14/2022) [facility] Narrative* Problem Noted Date Resolved Date Osteoporosis 12/10/2014 04/30/2021 documented as of this encounter (statuses as of 01/20/2022) [facility] Narrative* Problem Noted Date Resolved Date Osteoporosis 12/10/2014 04/30/2021 documented as of this encounter (statuses as of 06/02/2022) [facility] Narrative* Problem Noted Date Resolved Date Osteoporosis 12/10/2014 04/30/2021 documented as of this encounter (statuses as of 06/04/2022) [facility]Evaluation noteNo assessment information availableWMarietta [facility] Work Phone: Evaluation note* Diagnosis Fatigue, unspecified type- Primary Advance care planning Other specified counseling Hyperlipidemia with target LDL less than 100 Other and unspecified hyperlipidemia Hypertension, essential Unspecified essential hypertension Mitral valve disorder Mitral valve disorders Osteopenia of multiple sites Chest pain, unspecified type Mitral valve insufficiency, unspecified etiology GERD without esophagitis Esophageal reflux Encounter for preprocedure screening laboratory testing for COVID-19 documented in this encounter [facility] note* Diagnosis Muscle cramps- Primary Cramp of limb Hypertension, essential Unspecified essential hypertension Hyperlipidemia with target LDL less than 100 Other and unspecified hyperlipidemia Mitral valve disorder Mitral valve disorders Pain in both lower extremities Chest pain, unspecified type [facility]* Diagnosis Elevated TSH- Primary Nonspecific abnormal results of thyroid function study [facility]* Diagnosis Mid back pain on left side- Primary Pain in thoracic spine [facility]* Diagnosis Thyroid condition- Primary Unspecified disorder of thyroid Hypertension, essential Unspecified essential hypertension Hyperlipidemia with target LDL less than 100 Other and unspecified hyperlipidemia Hypoglycemia Hypoglycemia, unspecified GERD without esophagitis Esophageal reflux [facility] Diagnosis Prediabetes Other abnormal glucose [facility] this [facility]* Diagnosis COVID-19- Primary Hyperglycemia Other abnormal glucose Thyroid condition Unspecified disorder of thyroid documented in this [facility]* Diagnosis Pleuritic pain- Primary Painful respiration documented in this [facility]* Diagnosis Mitral valve disorder- Primary Mitral valve disorders Hypertension, essential Unspecified essential hypertension Hyperlipidemia with target LDL less than 100 Other and unspecified hyperlipidemia Thyroid condition Unspecified disorder of thyroid Prediabetes Other abnormal glucose Osteopenia of multiple sites Situational depression Adjustment disorder with depressed mood Cough, unspecified type 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 [facility]* Diagnosis 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 documented [facility]* Diagnosis Cough, unspecified type 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 documented [facility]* Diagnosis Cough, unspecified type 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 documented [facility]* Diagnosis Hypertension, essential Unspecified essential hypertension [facility] Diagnosis Hypertension, essential- Primary Unspecified essential hypertension Hyperlipidemia with target LDL less than 100 Other and unspecified hyperlipidemia Prediabetes Other abnormal glucose [facility] Diagnosis Primary hypertension- Primary Unspecified essential hypertension Subconjunctival hemorrhage of both eyes [facility] Diagnosis Insomnia, unspecified type- Primary [facility] Diagnosis Hypertension, essential Unspecified essential hypertension [facility] Diagnosis Encounter for screening for cardiovascular disorders- Primary Screening for other and unspecified cardiovascular conditions Chest heaviness Other chest pain Chronic fatigue Other malaise and fatigue [facility] Diagnosis Hypertension, essential- Primary Unspecified essential hypertension Hyperlipidemia with target LDL less than 100 Other and unspecified hyperlipidemia Thyroid condition Unspecified disorder of thyroid Prediabetes Other abnormal glucose Chest heaviness Other chest pain Chronic fatigue Other malaise and fatigue [facility] Diagnosis Encounter for screening for cardiovascular disorders Screening for other and unspecified cardiovascular conditions [facility] Diagnosis Nonrheumatic aortic valve insufficiency- Primary Aortic valve disorders Hypertension, essential Unspecified essential hypertension Hyperlipidemia with target LDL less than 100 Other and unspecified hyperlipidemia Chest pain, unspecified type Laceration of right palm, subsequent encounter [facility] Diagnosis Hypertension, essential Unspecified essential hypertension [facility]* Diagnosis Chest pain, unspecified type [facility]* Diagnosis Acute pain of right knee [facility]* Diagnosis Prediabetes- Primary Other abnormal glucose [facility] Diagnosis Hyperlipidemia with target LDL less than 100- Primary Other and unspecified hyperlipidemia Hypertension, essential Unspecified essential hypertension Thyroid condition Unspecified disorder of thyroid Prediabetes Other abnormal glucose [facility]* Diagnosis Hypertension, essential- Primary Unspecified essential hypertension [facility] Diagnosis Laceration of left foot, initial encounter- Primary [facility]* Diagnosis Medicare annual wellness visit, subsequent- Primary Routine general medical examination at a health care facility Nonrheumatic aortic valve insufficiency Aortic valve disorders Hyperlipidemia with target LDL less than 100 Other and unspecified hyperlipidemia Hypertension, essential Unspecified essential hypertension Displacement of lumbar intervertebral disc without myelopathy Prediabetes Other abnormal glucose Osteopenia of multiple sites Encounter for screening examination for other mental health and behavioral disorders Screening for depression Cognitive impairment Unspecified persistent mental disorders due to conditions classified elsewhere Leg cramps Cramp of limb Medication monitoring encounter Encounter for therapeutic drug monitoring Subclinical hypothyroidism Other specified acquired hypothyroidism documented in this encounter [facility] note* Diagnosis Poisoning by vitamin D, accidental or unintentional, subsequent encounter- Primary documented in this encounter [facility] note* Diagnosis Flank pain- Primary Abdominal pain, unspecified site Acute cystitis without hematuria Acute cystitis documented in this encounter [facility] note* Diagnosis Acute pain of left knee- Primary Flank pain Abdominal pain, unspecified site documented in this encounter [facility] note* Diagnosis Acute pain of left knee documented in this encounter [facility] note* Diagnosis Flank pain Abdominal pain, unspecified site documented in this encounter [facility] for referral (narrative)* Outpatient Procedure (Routine) - Pending Review Specialty Diagnoses / Procedures Referred By Randa zaldivar Referred To Contact [facility] [place] Diagnoses Chest pain, unspecified type Mitral valve insufficiency, unspecified etiology Procedures STRESS ECHO TREADMILL ECHO TTHRC R-T 2D W/WO M-MODE COMPLETE REST&ST Gucci Callahan MD [address] [place] [address] [facility] [address] [address] Referral ID Status Reason Start Date Expiration Date Visits Requested Visits Authorized [id number] Pending Review Auto-Generat ed Referral 10/22/2021 10/22/2022 1 1 * Outpatient Procedure (Routine) - Closed Specialty Diagnoses / Procedures Referred By Randa zaldivar Referred To Contact [facility] Diagnoses Chest pain, unspecified type Procedures ECG COMPLETE ECG ROUTINE ECG W/LEAST 12 LDS W/I&R Gucci Callahan MD [facility] [place] [address] [facility] [address] [address] Referral ID Status Reason Start Date Expiration Date V isits Requested Visits Authorized [id number] Closed Auto-Generate d Referral 10/22/2021 10/22/2022 1 1 [facility] for referral (narrative)* Outpatient Procedure (Routine) - Pending Review Specialty Diagnoses / Procedures Referred By Contac t Referred To Contact [facility] [place] Diagnoses Cough, unspecified type Lung interstitial disease (HCC) Procedures LUNG VOLUMES Gucci Callahan MD [address] [place] [address] [address] Referral ID Status Reason Start Date Expiration Date Visits Requested Visits Authorized [id number] Pending Review Auto-Generat ed Referral 2 08/19/2023 1 1 * Outpatient Procedure (Routine) - Authorized Specialty Diagnoses / Procedures Referred By Contac t Referred To [facility] [place] Diagnoses Cough, unspecified type Lung interstitial disease (HCC) Procedures MAXIMAL VOLUNTARY VENTILATION MAX BREATHING CAPACITY MAXIMAL VOLUNTARY VENTJ Gucci Callahan MD [address] [place] [address] [address] Referral ID Status Reason Start Date Expiration Date Visits Requested Visits Authorized [id number] Authorized Auto-Generat ed Referral 2 08/19/2023 1 1 * Outpatient Procedure (Routine) - Authorized Specialty Diagnoses / Procedures Referred By Contac t Referred To [facility] [place] Diagnoses Cough, unspecified type Lung interstitial disease (HCC) Procedures SPIROMETRY - BASELINE AND POST DILATOR BRNCDILAT RSPSE SPMTRY PRE&[place] [address] [place] [address] [address] Referral ID Status Reason Start Date Expiration Date Visits Requested Visits Authorized [id number] Authorized Auto-Generat ed Referral 2 08/19/2023 1 1 [facility] for referral (narrative)* Outpatient Procedure (Routine) - Pending Review Specialty Diagnoses / Procedures Referred By Contac t Referred To Contact [facility] Diagnoses Lung interstitial disease (HCC) Procedures LUNG DIFFUSION CAPACITY (DLCO) DIFFUSING CAPACITY Gucci Callahan MD [address] [place], [place] [id number] [facility] [place] [address] [place] [id number] Referral ID Status Reason Start Date Expiration Date Visits Requested Visits Authorized [id number] Pending Review Auto-Generat ed Referral 2 08/23/2023 1 1 [facility] for referral (narrative)* Outpatient Procedure (Routine) - Pending Review Specialty Diagnoses / Procedures Referred By Contac t Referred To Contact [facility] Diagnoses Chest heaviness Procedures ECHO ECHO TTHRC R-T 2D W/WOM-MODE COMPL SPEC&COLR D Flori Castro APRN.SUPERVISOR [employer] [address] [place] [address] [facility] [address] [address] Referral ID Status Reason Start Date Expiration Date Visits Requested Visits Authorized [id number] Pending Review Auto-Generat ed Referral 02/10/2024 01/26/2025 1 1 * Diagnostic Procedure Only (Routine) - Pending Review Specialty Diagnoses / Procedures Referred By Contac t Referred To Contact [facility] Diagnoses Encounter for screening for cardiovascular disorders Procedures NM CARDIAC PERF STRESS/EXERCISE MYOCARDIAL SPECT MULTIPLE STUDIES Flori Castro APRN.SUPERVISOR [employer] [address] [place] [address] [facility] [address] [place] [address] Referral ID Status Reason Start Date Expiration Date Visits Requested Visits Authorized [id number] Pending Review Auto-Generat ed Referral 02/10/2024 02/25/2025 1 1 * Outpatient Procedure (Routine) - Pending Review Specialty Diagnoses / Procedures Referred By Randa t Referred To Contact [facility] Diagnoses Chest heaviness Chronic fatigue Procedures ECG COMPLETE ECG ROUTINE ECG W/LEAST 12 LDS W/I&R Flori Castro APRN.SUPERVISOR [employer] [address] [place] [address] [facility] [place] [address] [place] [address] Referral ID Status Reason Start Date Expiration Date Visits Requested Visits Authorized [id number] Pending Review Auto-Generat ed Referral 01/27/2024 01/26/2025 1 1 [facility] for referral (narrative)* Diagnostic Procedure Only (Routine) - Closed Specialty Diagnoses / Procedures Referred By Randa t Referred To Contact [facility] Diagnoses Encounter for screening for cardiovascular disorders Procedures NM CARDIAC PERF STRESS/EXERCISE MYOCARDIAL SPECT MULTIPLE STUDIES Flori Castro APRN.EQUIPMENT OPERATOR [address] [place] [address] [facility] [address] [place] [address] Referral ID Status Reason Start Date Expiration Date V isits Requested Visits Authorized [id number] Closed Auto-Generate d Referral 02/11/2024 03/31/2024 2 2 [facility] for visit Narrative* Diagnostic Procedure Only (Routine) - Closed Specialty Diagnoses / Procedures Referred By Randa t Referred To Contact [facility] Diagnoses Encounter for screening for cardiovascular disorders Procedures NM CARDIAC PERF STRESS/EXERCISE MYOCARDIAL SPECT MULTIPLE STUDIES Flori Castro APRN.EQUIPMENT OPERATOR [address] [place] [address] [facility] [address] [place], [place] [id number] Referral ID Status Reason Start Date Expiration Date V isits Requested Visits Authorized [id number] Closed Auto-Generate d Referral 02/11/2024 03/31/2024 2 2 [facility] for visit Narrative* Diagnostic Procedure Only (Routine) - Closed Specialty Diagnoses / Procedures Referred By Contac t Referred To Contact [facility] Diagnoses Acute pain of left knee Procedures XR KNEE GENERAL 4V AP BOTH/PA BOTH/LAT/MERC LEFT RADIOLOGIC EXAM KNEE COMPLETE 4/MORE VIEWS Emma Fang, HANDBAG STITCHER.EQUIPMENT OPERATOR [address] [place] [address] Phone: tel: fax: [place] [address] Referral ID Status Reason Start Date Expiration Date V isits Requested Visits Authorized [id number] Closed Auto-Generate d Referral 04/09/2025 05/09/2026 1 1 [facility] for visit Narrative* Diagnostic Procedure Only (Routine) - Closed Specialty Diagnoses / Procedures Referred By Contac t Referred To Contact [facility] Diagnoses Flank pain Procedures US KIDNEY/BLADDER US RETROPERITONEAL REAL TIME W/IMAGE COMPLETE Emma Fang, HANDBAG STITCHER.EQUIPMENT OPERATOR [address] [place] [address] Phone: tel: fax: [place] [address] Referral ID Status Reason Start Date Expiration Date V isits Requested Visits Authorized [id number] Closed Auto-Generate d Referral 04/09/2025 05/09/2026 1 1 [facility] Advance Directives No Advanced Directives Records FoundDocuments on File Type Date Recorded Patient Promotions Representative Expl anation Advance Directive(s) 01/02/2022 10:42 AM Advance Directive Response Recorded Date/ Time Advance Directives No April 11:50am Living Will Yes June 04 8:24am Power of Electrical And Instrument Engineer Yes June 04, 2022 8:24am Name of Medical Power of Electrical And Instrument Engineer CANDE SOLITARIO June 04, 2022 8:24am Documents on File Type Date Recorded Patient Promotions Representative Expl anation Advance Directive(s) 01/02/2022 10:42 AM Advance Directive Response Recorded Date/ Time Advance Directives No April 11:50am Living Will Yes January 23, 2023 11:32pm Power of Electrical And Instrument Engineer Yes January 23 11:32pm Name of Medical Power of Electrical And Instrument Engineer Cande Solitario January 23, 2023 11:32pm Chief Complaint and Reason for Visit Chief Complaint chest other Chief Complaint BUSTED BLOOD VESSEL IN EYE Family History No Family History Records Found Relationship Condition Age at Onset Recorded Date/T leo Unknown Family History?Heart Disease Unknown May 01, 2015 11:08am Family History?Stroke Unknown 2014 11:08am Summary Purpose Additional Source Comments Goals (unrecognized section and content) Goals may be documented in a n alternate sectionGoals may be documented in an alternate sectionGoals may be documented in an alternate sectionGoals may be documented in an alternate section Source Comments (unrecognize d section and content) In the event this informatio n is protected by the Federal Confidentiality of Alcohol and Drug Abuse Patient Records regulations: The Federal rules restrict any use of the information to criminally investigate or prosecute any alcohol or drug abuse patient.[facility] event this information is protected by the Federal Confidentiality of Alcohol and Drug Abuse Patient Records regulations: The Federal rules restrict any use of the information to criminally investigate or prosecute any alcohol or drug abuse patient.[facility] the event this information is protected by the Federal Confidentiality of Alcohol and Drug Abuse Patient Records regulations: The Federal rules restrict any use of the information to criminally investigate or prosecute any alcohol or drug abuse patient.[facility] the event this information is protected by the Federal Confidentiality of Alcohol and Drug Abuse Patient Records regulations: The Federal rules restrict any use of the information to criminally investigate or prosecute any alcohol or drug abuse patient.[facility] the event this information is protected by the Federal Confidentiality of Alcohol and Drug Abuse Patient Records regulations: The Federal rules restrict any use of the information to criminally investigate or prosecute any alcohol or drug abuse patient.[facility] the event this information is protected by the Federal Confidentiality of Alcohol and Drug Abuse Patient Records regulations: The Federal rules restrict any use of the information to criminally investigate or prosecute any alcohol or drug abuse patient.[facility] the event this information is protected by the Federal Confidentiality of Alcohol and Drug Abuse Patient Records regulations: The Federal rules restrict any use of the information to criminally investigate or prosecute any alcohol or drug abuse patient.[facility] the event this information is protected by the Federal Confidentiality of Alcohol and Drug Abuse Patient Records regulations: The Federal rules restrict any use of the information to criminally investigate or prosecute any alcohol or drug abuse patient.[facility] the event this information is protected by the Federal Confidentiality of Alcohol and Drug Abuse Patient Records regulations: The Federal rules restrict any use of the information to criminally investigate or prosecute any alcohol or drug abuse patient.[facility] the event this information is protected by the Federal Confidentiality of Alcohol and Drug Abuse Patient Records regulations: The Federal rules restrict any use of the information to criminally investigate or prosecute any alcohol or drug abuse patient.[facility] the event this information is protected by the Federal Confidentiality of Alcohol and Drug Abuse Patient Records regulations: The Federal rules restrict any use of the information to criminally investigate or prosecute any alcohol or drug abuse patient.[facility] the event this information is protected by the Federal Confidentiality of Alcohol and Drug Abuse Patient Records regulations: The Federal rules restrict any use of the information to criminally investigate or prosecute any alcohol or drug abuse patient.[facility] the event this information is protected by the Federal Confidentiality of Alcohol and Drug Abuse Patient Records regulations: The Federal rules restrict any use of the information to criminally investigate or prosecute any alcohol or drug abuse patient.[facility] the event this information is protected by the Federal Confidentiality of Alcohol and Drug Abuse Patient Records regulations: The Federal rules restrict any use of the information to criminally investigate or prosecute any alcohol or drug abuse patient.[facility] the event this information is protected by the Federal Confidentiality of Alcohol and Drug Abuse Patient Records regulations: The Federal rules restrict any use of the information to criminally investigate or prosecute any alcohol or drug abuse patient.[facility] the event this information is protected by the Federal Confidentiality of Alcohol and Drug Abuse Patient Records regulations: The Federal rules restrict any use of the information to criminally investigate or prosecute any alcohol or drug abuse patient.[facility] the event this information is protected by the Federal Confidentiality of Alcohol and Drug Abuse Patient Records regulations: The Federal rules restrict any use of the information to criminally investigate or prosecute any alcohol or drug abuse patient.[facility] the event this information is protected by the Federal Confidentiality of Alcohol and Drug Abuse Patient Records regulations: The Federal rules restrict any use of the information to criminally investigate or prosecute any alcohol or drug abuse patient.[facility] the event this information is protected by the Federal Confidentiality of Alcohol and Drug Abuse Patient Records regulations: The Federal rules restrict any use of the information to criminally investigate or prosecute any alcohol or drug abuse patient.[facility] the event this information is protected by the Federal Confidentiality of Alcohol and Drug Abuse Patient Records regulations: The Federal rules restrict any use of the information to criminally investigate or prosecute any alcohol or drug abuse patient.[facility] the event this information is protected by the Federal Confidentiality of Alcohol and Drug Abuse Patient Records regulations: The Federal rules restrict any use of the information to criminally investigate or prosecute any alcohol or drug abuse patient.[facility] the event this information is protected by the Federal Confidentiality of Alcohol and Drug Abuse Patient Records regulations: The Federal rules restrict any use of the information to criminally investigate or prosecute any alcohol or drug abuse patient.[facility] the event this information is protected by the Federal Confidentiality of Alcohol and Drug Abuse Patient Records regulations: The Federal rules restrict any use of the information to criminally investigate or prosecute any alcohol or drug abuse patient.[facility] the event this information is protected by the Federal Confidentiality of Alcohol and Drug Abuse Patient Records regulations: The Federal rules restrict any use of the information to criminally investigate or prosecute any alcohol or drug abuse patient.[facility] the event this information is protected by the Federal Confidentiality of Alcohol and Drug Abuse Patient Records regulations: The Federal rules restrict any use of the information to criminally investigate or prosecute any alcohol or drug abuse patient.[facility] the event this information is protected by the Federal Confidentiality of Alcohol and Drug Abuse Patient Records regulations: The Federal rules restrict any use of the information to criminally investigate or prosecute any alcohol or drug abuse patient.[facility] the event this information is protected by the Federal Confidentiality of Alcohol and Drug Abuse Patient Records regulations: The Federal rules restrict any use of the information to criminally investigate or prosecute any alcohol or drug abuse patient.[facility] the event this information is protected by the Federal Confidentiality of Alcohol and Drug Abuse Patient Records regulations: The Federal rules restrict any use of the information to criminally investigate or prosecute any alcohol or drug abuse patient.[facility] the event this information is protected by the Federal Confidentiality of Alcohol and Drug Abuse Patient Records regulations: The Federal rules restrict any use of the information to criminally investigate or prosecute any alcohol or drug abuse patient.[facility] HospitalIn the event this information is protected by the Federal Confidentiality of Alcohol and Drug Abuse Patient Records regulations: The Federal rules restrict any use of the information to criminally investigate or prosecute any alcohol or drug abuse patient.[facility] HospitalIn the event this information is protected by the Federal Confidentiality of Alcohol and Drug Abuse Patient Records regulations: The Federal rules restrict any use of the information to criminally investigate or prosecute any alcohol or drug abuse patient.[facility] HospitalIn the event this information is protected by the Federal Confidentiality of Alcohol and Drug Abuse Patient Records regulations: The Federal rules restrict any use of the information to criminally investigate or prosecute any alcohol or drug abuse patient.[facility] HospitalIn the event this information is protected by the Federal Confidentiality of Alcohol and Drug Abuse Patient Records regulations: The Federal rules restrict any use of the information to criminally investigate or prosecute any alcohol or drug abuse patient.[facility] HospitalIn the event this information is protected by the Federal Confidentiality of Alcohol and Drug Abuse Patient Records regulations: The Federal rules restrict any use of the information to criminally investigate or prosecute any alcohol or drug abuse patient.[facility] HospitalIn the event this information is protected by the Federal Confidentiality of Alcohol and Drug Abuse Patient Records regulations: The Federal rules restrict any use of the information to criminally investigate or prosecute any alcohol or drug abuse patient.[facility] HospitalIn the event this information is protected by the Federal Confidentiality of Alcohol and Drug Abuse Patient Records regulations: The Federal rules restrict any use of the information to criminally investigate or prosecute any alcohol or drug abuse patient.[facility] HospitalIn the event this information is protected by the Federal Confidentiality of Alcohol and Drug Abuse Patient Records regulations: The Federal rules restrict any use of the information to criminally investigate or prosecute any alcohol or drug abuse patient.[facility] HospitalIn the event this information is protected by the Federal Confidentiality of Alcohol and Drug Abuse Patient Records regulations: The Federal rules restrict any use of the information to criminally investigate or prosecute any alcohol or drug abuse patient.[facility] HospitalIn the event this information is protected by the Federal Confidentiality of Alcohol and Drug Abuse Patient Records regulations: The Federal rules restrict any use of the information to criminally investigate or prosecute any alcohol or drug abuse patient.[facility] HospitalIn the event this information is protected by the Federal Confidentiality of Alcohol and Drug Abuse Patient Records regulations: The Federal rules restrict any use of the information to criminally investigate or prosecute any alcohol or drug abuse patient.[facility] HospitalIn the event this information is protected by the Federal Confidentiality of Alcohol and Drug Abuse Patient Records regulations: The Federal rules restrict any use of the information to criminally investigate or prosecute any alcohol or drug abuse patient.[facility] HospitalIn the event this information is protected by the Federal Confidentiality of Alcohol and Drug Abuse Patient Records regulations: The Federal rules restrict any use of the information to criminally investigate or prosecute any alcohol or drug abuse patient.[facility] HospitalIn the event this information is protected by the Federal Confidentiality of Alcohol and Drug Abuse Patient Records regulations: The Federal rules restrict any use of the information to criminally investigate or prosecute any alcohol or drug abuse patient.[facility] HospitalIn the event this information is protected by the Federal Confidentiality of Alcohol and Drug Abuse Patient Records regulations: The Federal rules restrict any use of the information to criminally investigate or prosecute any alcohol or drug abuse patient.[facility] HospitalIn the event this information is protected by the Federal Confidentiality of Alcohol and Drug Abuse Patient Records regulations: The Federal rules restrict any use of the information to criminally investigate or prosecute any alcohol or drug abuse patient.[facility] HospitalIn the event this information is protected by the Federal Confidentiality of Alcohol and Drug Abuse Patient Records regulations: The Federal rules restrict any use of the information to criminally investigate or prosecute any alcohol or drug abuse patient.[facility] HospitalIn the event this information is protected by the Federal Confidentiality of Alcohol and Drug Abuse Patient Records regulations: The Federal rules restrict any use of the information to criminally investigate or prosecute any alcohol or drug abuse patient.[facility] HospitalIn the event this information is protected by the Federal Confidentiality of Alcohol and Drug Abuse Patient Records regulations: The Federal rules restrict any use of the information to criminally investigate or prosecute any alcohol or drug abuse patient.[facility] HospitalIn the event this information is protected by the Federal Confidentiality of Alcohol and Drug Abuse Patient Records regulations: The Federal rules restrict any use of the information to criminally investigate or prosecute any alcohol or drug abuse patient.[facility] HospitalIn the event this information is protected by the Federal Confidentiality of Alcohol and Drug Abuse Patient Records regulations: The Federal rules restrict any use of the information to criminally investigate or prosecute any alcohol or drug abuse patient.[facility] Reason for Visit (unrecogniz ed section and content) Reason Comments Fatigue for about 1 month or so Reason Comments Follow Up fatigue-has been fee ling better-stress test is scheduled Leg Cramps Reason Comments stress test instructions Reason Comments Results Reason Comments Back Pain started today Reason Comments Medication Question Reason Comments 6 Month Exam GERD does drink a lot of OJ to help with energy-off omeprazole will get back on Fatigue feels like has to ea t something about every 2 hours or gets the "shakes" Reason Comments ER F/U Reason Comments Pain Pt reported coughing , (LT) outer quadrant breast pain rated 8, x 1 day. Reason Comments 6 Month Exam Reason Comments Orders Reason Comments Spirometry Specialty Diagnoses / Procedures Referred By Contac t Referred To Contact [facility] Diagnoses Cough, unspecified type Lung interstitial disease (HCC) Procedures SPIROMETRY - BASELINE AND POST DILATOR BRNCDILAT RSPSE SPMTRY PRE&POST-BRNCDILAT ADMN Gucci Callahan MD [address] [place] [address] [facility] [place] [address] [place] [address] Referral ID Status Reason Start Date Expiration Date V isits Requested Visits Authorized [id number] Closed Auto-Generate d Referral 07/20/2022 08/19/2023 1 1 Specialty Diagnoses / Procedures Referred By Contac t Referred To [facility] Diagnoses Cough, unspecified type Lung interstitial disease (HCC) Procedures LUNG VOLUMES Gucci Callahan MD [address] [place] [address] [facility] [place] [address] [place] [address] Referral ID Status Reason Start Date Expiration Date V isits Requested Visits Authorized [id number] Closed Auto-Generate d Referral 07/21/2022 08/01/2022 1 1 Reason Comments Blood Pressure Check Reason Comments 6 Month Exam Reason Comments Blood Pressure Reason Comments 09/07/2023 colon asc Reason Comments Sleep Problem Reason Comments Refill Request Reason Comments Chest Pain Complains of chest h eaviness intermittently throughout the day Sleep Problem Insomnia Reason Comments Hypertension Reason Comments Appointment Left message. NPO af ter [place] and no caffeine products after 7 PM. Reason Comments Follow Up Reason Onset Date Comments Refill Request 03/25/2024 Reason Onset Date Comments ACM RICARDO RN 04/06/2024 ED Utilizatio n Review per request of payor Reason Comments Orders Reason Onset Date Comments Results 09/11/2024 Reason Onset Date Comments Population Health Navigation Outreach 11/02/2024 [employer] Jeanette Reason Comments Hypertension Wants to stop BP med ication. Brings home readings. Reason Comments Laceration Laceration on bottom /side of left foot x 1 day Reason Comments Back Pain mid-right side back pain x 4am, recurring Reason Onset Date Comments Results 03/27/2025 Reason Comments Knee Pain Reason Comments Acute Visit L knee pain/swelling in lower leg Care Teams (unrecognized sec tion and content) Hearings Reporter Relationship Specialty Start Date End Date Gucci Callahan MD [address] [place], [place] [id number] PCP - General Family Practice 01/10/21 Hearings Reporter Relationship Specialty Start Date End Date Gucci Callahan MD [address] [place] [address] PCP - General Family Practice 01/10/21 Hearings Reporter Relationship Specialty Start Date End Date Gucci Callahan MD [address] [facility] [place] [address] PCP - General Family Practice 01/10/21 Hearings Reporter Relationship Specialty Start Date End Date Gucci Callahan MD [address] [facility] [place] [address] PCP - General Family Practice 01/10/21 Hearings Reporter Relationship Specialty Start Date End Date Gucci Callahan MD [address] [facility] [place] [address] PCP - General Family Practice 01/10/21 Hearings Reporter Relationship Specialty Start Date End Date Gucci Callahan MD [address] [place] [address], [place] [address] PCP - General Family Practice 01/10/21 Hearings Reporter Relationship Specialty Start Date End Date Gucci Callahan MD [address] [place] [address], [place] [address] PCP - General Family Practice 01/10/21 Hearings Reporter Relationship Specialty Start Date End Date Gucci Callahan MD [address] [place] [address], [place] [address] PCP - General Family Practice 01/10/21 Hearings Reporter Relationship Specialty Start Date End Date Gucci Callahan MD [address] [place] [address] [place] [address] PCP - General Family Medicine 01/10/21 Hearings Reporter Relationship Specialty Start Date End Date Gucci Callahan MD [address] [facility] [place] [address] PCP - General Family Medicine 01/10/21 Hearings Reporter Relationship Specialty Start Date End Date Gucci Callahan MD [address] [place] [address], [place] [address] PCP - General Family Medicine 01/10/21 Hearings Reporter Relationship Specialty Start Date End Date Gucci Callahan MD [address] [place] [address] PCP - General Family Medicine 01/10/21 Hearings Reporter Relationship Specialty Start Date End Date Gucci Callahan MD [address] [place] [address] PCP - General Family Medicine 01/10/21 Hearings Reporter Relationship Specialty Start Date End Date Gucci Callahan MD [address] [place] [address] PCP - General Family Medicine 01/10/21 Team Status: Active Member Role Status Dates Dr. Paco Roque III, MD Family Provider Active Dr. Gucci Callahan MD Primary Care Provider Active Team Status: Inactive Member Role Status Dates Dr. Gucci Callahan MD Primary Care Provider Active Dr. Maximus Enrique MD Emergency Provider Active Hearings Reporter Relationship Specialty Start Date End Date Gucci Callahan MD [address] [place] [address] PCP - General Family Medicine 01/10/21 Hearings Reporter Relationship Specialty Start Date End Date Gucci Callahan MD [address] [place] [address] PCP - General Family Medicine 01/10/21 Team Status: Inactive Member Role Status Dates Dr. Gucci Callahan MD Primary Care Provider Active Dr. Maximus Enrique MD Attending Provider, Emergency Provider Active Team Status: Inactive Member Role Status Dates Dr. Gucci Callahan MD Primary Care Provider Active Dr. Adonay Landeros MD Attending Provider, Tom bullock Active Hearings Reporter Relationship Specialty Start Date End Date Gucci Callahan MD [address] [place] [address] PCP - General Family Medicine 01/10/21 Hearings Reporter Relationship Specialty Start Date End Date Gucci Callahan MD [address] [place] [address] PCP - General Family Medicine 01/10/21 Hearings Reporter Relationship Specialty Start Date End Date Gucci Callahan MD [address] [place] [address] PCP - General Family Medicine 01/10/21 Hearings Reporter Relationship Specialty Start Date End Date Gucci Callahan MD [address] [place] [address] PCP - General Family Medicine 01/10/21 Hearings Reporter Relationship Specialty Start Date End Date Gucci Callahan MD [address] [place] [address] PCP - General Family Medicine 01/10/21 Hearings Reporter Relationship Specialty Start Date End Date Gucci Callahan MD [address] [place] [address] PCP - General Family Medicine 01/10/21 Hearings Reporter Relationship Specialty Start Date End Date Gucci Callahan MD [address] [place] [address] PCP - General Family Medicine 01/10/21 Hearings Reporter Relationship Specialty Start Date End Date Gucci Callahan MD [address] [place] [address] PCP - General Family Medicine 01/10/21 Hearings Reporter Relationship Specialty Start Date End Date Gucci Callahan MD [address] [place] [address] PCP - General Family Medicine 01/10/21 Hearings Reporter Relationship Specialty Start Date End Date Gucci Callahan MD [address] [place] [address] PCP - General Family Medicine 01/10/21 Hearings Reporter Relationship Specialty Start Date End Date Gucci Callahan MD [address] [place] [address] PCP - General Family Medicine 01/10/21 Hearings Reporter Relationship Specialty Start Date End Date Paco Roque III, MD PCP - General 03/20/06 01/09/21 Hearings Reporter Relationship Specialty Start Date End Date Gucci Callahan MD [address] [place] [address] PCP - General Family Medicine 01/10/21 Emma Fang APRN.EQUIPMENT OPERATOR [address] [place] [address] Co Founder And President Family Medicine 07/10/24 Flori Castro HANDBAG STITCHER.EQUIPMENT OPERATOR [address] [place] [address] Co Founder And President Family Medicine 07/10/24 Hearings Reporter Relationship Specialty Start Date End Date Gucci Callahan MD [address] [place] [address] PCP - General Family Medicine 01/10/21 Emma Fang HANDBAG STITCHER.EQUIPMENT OPERATOR [address] [place] [address] Co Founder And President Family Medicine 07/10/24 Flori Castro HANDBAG STITCHER.EQUIPMENT OPERATOR [address] [place] [address] Co Founder And President Family Medicine 07/10/24 Hearings Reporter Relationship Specialty Start Date End Date Gucci Callahan MD [address] [place] [address] PCP - General Family Medicine 01/10/21 Emma Fang APRN.EQUIPMENT OPERATOR [address] [facility] [place] [address] Co Founder And President Family Medicine 07/10/24 Flori Castro APRN.EQUIPMENT OPERATOR [address] [facility] [place] [address] [facility] 07/10/24 Hearings Reporter Relationship Specialty Start Date End Date Gucci Callahan MD [address] [facility] [place] [address] PCP - General Family Medicine 01/10/21 Emma Fang APRN.EQUIPMENT OPERATOR [address] [facility] [place] [address] [facility] 07/10/24 Flori Castro APRN.EQUIPMENT OPERATOR [address] [facility] [place] [address] [facility] 07/10/24 Hearings Reporter Relationship Specialty Start Date End Date Gucci Callahan MD [address] [facility] [place] [address] PCP - General Family Medicine 01/10/21 Emma Fang APRN.EQUIPMENT OPERATOR [address] [facility] [place] [address] Co Founder And President Family Medicine 07/10/24 Flori Castro APRN.EQUIPMENT OPERATOR [address] [facility] [place] [address] Co Founder And President Family Medicine 07/10/24 Hearings Reporter Relationship Specialty Start Date End Date Gucci Callahan MD [address] [facility] [place] [address] PCP - General Family Medicine 01/10/21 Emma Fang APRN.EQUIPMENT OPERATOR [address] [facility] [place] [place] [address] Co Founder And President Family Medicine 07/10/24 Flori Castro APRN.EQUIPMENT OPERATOR [address] [facility] [place] [address] [facility] 07/10/24 Hearings Reporter Relationship Specialty Start Date End Date Gucci Callahan MD [address] [facility] [place] [address] PCP - General Family Medicine 01/10/21 Emma Fang APRN.EQUIPMENT OPERATOR [address] [facility] [place] [address] Co Founder And President Family Medicine 07/10/24 Flori Castro HANDBAG STITCHER.EQUIPMENT OPERATOR [address] [facility] [place] [address] Co Founder And President Family Medicine 07/10/24 Hearings Reporter Relationship Specialty Start Date End Date Gucci Callahan MD [address] [facility] [place] [address] PCP - General Family Medicine 01/10/21 Emma Fang HANDBAG STITCHER.EQUIPMENT OPERATOR [address] [facility] [place] [place] [address] Co Founder And President Family Medicine 07/10/24 Flori Castro APRN.EQUIPMENT OPERATOR [address] [place] [address] [facility] 07/10/24 Hearings Reporter Relationship Specialty Start Date End Date Gucci Callahan MD [address] [facility] [place] [address] PCP - General Family Medicine 01/10/21 Emma Fang APRN.EQUIPMENT OPERATOR [address] [facility] [place] [address] [facility] 07/10/24 Flori Castro HANDBAG STITCHER.EQUIPMENT OPERATOR [address] [place] [address] [facility] 07/10/24 Hearings Reporter Relationship Specialty Start Date End Date Gucci Callahan MD [address] [facility] [place] [address] PCP - General Family Medicine 01/10/21 Emma Fang HANDBAG STITCHER.EQUIPMENT OPERATOR [address] [facility] [place] [address] [facility] President[facility] 07/10/24 Flori Castro HANDBAG STITCHER.EQUIPMENT OPERATOR [address] [facility] [place] [address] [facility]St[facility] 07/10/24 Hearings Reporter Relationship Specialty Start Date End Date Gucci Callahan MD [address] [place] [address] PCP - General Family Medicine 01/10/21 Emma Fang APRN.EQUIPMENT OPERATOR [address] [place], [place] [address] [facility] 07/10/24 Flori Castro APRN.EQUIPMENT OPERATOR [address] [place], [place] [address] [facility] 07/10/24 INFORMATION SOURCE (unrecogn ized section and content) DATE CREATED AUTHOR 06/11/2022 [facility] nt DATE CREATED AUTHOR AUTHOR'S ORGANIZ ATION 02/17/2024 [facility] DATE CREATED AUTHOR AUTHOR'S ORGANIZ ATION 04/22/[address] [facility] DATE CREATED AUTHOR AUTHOR'S ORGANIZ ATION 06/13/2025 [facility] FOR RECORDS PERTAINING TO PATIENTS WHO ARE OR HAVE BEEN ENROLLED IN A CHEMICAL DEPENDENCY/SUBSTANCEABUSE PROGRAM, SOME INFORMATION MAY BE OMITTED. This clinical summary was aggregated from multiple sources. Caution should be exercised in using it in the provision of clinical care. This summary normalizes information from multiple sources, and as a consequence, information in this document may materially change the coding, format and clinical context of patient data. In addition, data may be omitted in some cases. CLINICAL DECISIONS SHOULD BE BASED ON THE PRIMARY CLINICAL RECORDS. [facility]. provides no warranty or guarantee of the accuracy or completeness of information in this document.
--- NOTE | 2025-06-25 18:54 | STRESSREP_ITS ---
Stress Test Report Exercise myocardial perfusion stress test. 85-year-old lady with a history of chest pain. Stress protocol: Resting EKG demonstrates sinus bradycardia rhythm with a rate of 54 bpm resting blood pressure is 146/90 mmHg. The patient exercised according to the regular Sumit protocol for a total duration of 4 minutes and 41 seconds attaining a maximum heart rate of 131 bpm which was 95% of maximum predicted heart rate; the maximum workload was 7 metabolic equivalents. At rest there were no ST or T wave changes noted to suggest ischemia and at peak exercise upsloping ST changes only were noted which did not meet the criteria for ischemia. No clinical angina was noted the test was terminated due to the target heart rate being achieved/fa tigue. The peak blood pressure was 166/80 mmHg. Rate-pressure product was 20,100. Myocardial perfusion protocol. 11.7 mCi of technetium 99m sestamibi was injected at rest. The patient exercised according to regular Sumit protocol for total duration of 4 minutes and 41 seconds and at peak exercise 33.5 mCi of technetium 99m sestamibi was injected stress images were obtained stress and rest images were reconstructed in comparing the short axis vertical long and horizontal long axis. Gated images were also obtained. Perfusion SPECT analysis: Review of the stress images demonstrate normal uptake of tracer noted in all areas of the myocardium. The resting images similarly demonstrate normal uptake of tracer noted in all areas of the myocardium. No areas of reversibility are noted to suggest ischemia no previous infarct was noted. Gated SPECT analysis: The gated ejection fraction is 79%. Conclusion: Normal exercise myocardial perfusion stress test at a moderate workload.
== END | disposition home or self-care (01) ==
LOC: CVS 06:13
PROVIDERS: PCP Family Medicine; Referring Provider Registered Nurse; Visit Provider Registered Nurse
DX: R07.9 Chest pain, unspecified (principal)
CPT/HCPCS: 78452; 93017; A9500; A4216

== ENCOUNTER → 2025-07-11 | Outpatient (CLI) | payer MEDICARE, SELFPAY ==
--- NOTE | 2025-07-11 11:39 | RAD_ITS ---
PROCEDURE: CHEST PA AND LATERAL 07/11/2025 REASON FOR EXAM: CHEST PAIN TECHNIQUE: Procedure Code: RADCXR Modality: DX Procedure: CHEST PA AND LATERAL COMPARISON: Chest x-ray dated 06/04/2022 FINDINGS: Heart: Heart size and configuration are within normal limits. Arteriosclerotic vascular disease of the aorta is noted. Mediastinum: Is unremarkable. Lungs: Linear densities are seen in both lungs and are similar when compared to the prior exam. These may represent areas of parenchymal scarring. Other considerations would be atelectasis. There are no pleural effusions, pneumothoraces, consolidative processes or pneumonic infiltrates. Chronic interstitial lung markings are noted. Bones: Degenerative changes of the thoracic spine are noted. 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 RAD/Chest PA and Lateral IMPRESSION: The linear densities in both lungs most likely represent parenchymal scarring. These are similar when compared to the prior exam. Atelectasis however would be another consideration. Chronic interstitial lung markings are noted. Arteriosclerotic vascular disease of the aorta is noted. Reading Location: [id number]
[2025-07-11 12:33] LABS: Hematocrit 43.2 % (37-47); Hemoglobin 14.0 g/dL (12.0-15.0); Immature Granulocytes Count 0.010 X10^3/uL (0.0-0.0); Mean Corp Hgb Conc 32.4 g/dL (32-36); Mean Corpuscular Volume 91.7 fL (81-99); Mean Platelet Vol. 10.1 fl (6.2-12.0); NRBC Flagged by Analyzer 0 % (0-5); Platelet Count 206 K/mm3 (150-450); RBC Distribution Width CV 13.0 % (11.6-14.6); RBC Distribution Width SD 44.2 fl (35.1-43.9); Red Blood Count 4.71 M/mm3 (4.2-5.4); White Blood Count 6.0 K/mm3 (4.4-11.0)
[2025-07-11 13:17] LABS: Anion Gap 9 (5-15); BUN 18 mg/dL (4-19); BUN/Creat Ratio 27.3 RATIO (10-20); Calcium,Total 9.6 mg/dL (7.6-11.0); Carbon Dioxide 29.1 mmol/L (21.0-32.0); Chloride 105 mmol/L (98-108); Glucose 78 mg/dL (70-99); Potassium 4.4 mmol/L (3.3-5.1)
== END | disposition home or self-care (01) ==
LOC: RAD 11:30
PROVIDERS: PCP Family Medicine; Referring Provider Internal Medicine Cardiovascular Disease; Visit Provider Internal Medicine Cardiovascular Disease
DX: R07.89 Other chest pain (principal); R53.83 Other fatigue
CPT/HCPCS: 36415; 71046; 80048; 85025